=== PATIENT | female | born 1955 | race Caucasian/White ===

== ENCOUNTER 2016-11-16 09:33 | Observation (INO) | payer OTHER ==
[2016-10-11 09:32] VITALS: BMI 43.0
--- NOTE | 2016-10-11 10:15 | PAT Medication Instructions ---
Service Date Oct 11, 2016. Current Home Medication List Albuterol (Ventolin), 2 PUFF INH Q4H PRN for Shortness of Breath Albuterol Soln (Proventil 0.083% 2.5MG/3ML), 2.5 MG INH Q4H PRN for Shortness of Breath Bupropion HCl (Bupropion HCl Sr), 150 MG PO BID Cyanocobalamin (Vitamin B12), 2,000 MCG PO QAM Fluticasone Propionate (Flonase Nasal [place]), 2 SPRAYS DEISI DAILY PRN for PRN Gabapentin (Gabapentin), 400 MG PO TID Hydroxyzine Hcl (Atarax), 50 MG PO Q6H PRN for Itching Ipratropium [place] (Atrovent 0.02% Soln), 2.5 ML INH Q6 PRN for Wheezing Metformin Hcl (Glucophage), 1,000 MG PO AMHS Multivitamin (Multivitamin), 1 TAB PO QAM Oxygen (Oxygen), 2 LITERS NA HS Prednisone (Deltasone), 20 MG PO UD PRN for COPD RESCUE KIT Ranitidine Hcl (Zantac), 300 MG PO BID Tiotropium [place] (Spiriva Handihaler), 1 CAP INH QAM Tramadol (Ultram), 50-100 MG PO Q6H PRN for Pain Medication Instructions For Your Scheduled Surgery - Continue as directed if needed: Prednisone (Deltasone), 20 MG PO UD PRN for COPD RESCUE KIT Unknown antibiotic PRN for COPD RESCUE KIT - Hold the following medications 48 hours prior to surgery: Metformin Hcl (Glucophage), 1,000 MG PO AMHS - Hold the following medications the morning of surgery: Multivitamin (Multivitamin), 1 TAB PO QAM Ranitidine Hcl (Zantac), 300 MG PO BID Cyanocobalamin (Vitamin B12), 2,000 MCG PO QAM - Take the following medications the morning of surgery with a sip of water: Tiotropium [place] (Spiriva Handihaler), 1 CAP INH QAM Ipratropium [place] (Atrovent 0.02% Soln), 2.5 ML INH Q6 PRN for Wheezing Hydroxyzine Hcl (Atarax), 50 MG PO Q6H PRN for Itching Gabapentin (Gabapentin), 400 MG PO TID Fluticasone Propionate (Flonase Nasal [place]), 2 SPRAYS DEISI DAILY PRN for PRN Bupropion HCl (Bupropion HCl Sr), 150 MG PO BID Albuterol (Ventolin), 2 PUFF INH Q4H PRN for Shortness of Breath (bring with you to hospital morning of surgery) Albuterol Soln (Proventil 0.083% 2.5MG/3ML), 2.5 MG INH Q4H PRN for Shortness of Breath Tramadol (Ultram), 50-100 MG PO Q6H PRN for Pain (okay to take up to 4 hours prior to surgery if needed) - Take the following medications as scheduled the night before surgery: Oxygen (Oxygen), 2 LITERS NA HS Ipratropium [place] (Atrovent 0.02% Soln), 2.5 ML INH Q6 PRN for Wheezing Hydroxyzine Hcl (Atarax), 50 MG PO Q6H PRN for Itching Gabapentin (Gabapentin), 400 MG PO TID Fluticasone Propionate (Flonase Nasal [place]), 2 SPRAYS DEISI DAILY PRN for PRN Bupropion HCl (Bupropion HCl Sr), 150 MG PO BID Albuterol (Ventolin), 2 PUFF INH Q4H PRN for Shortness of Breath Albuterol Soln (Proventil 0.083% 2.5MG/3ML), 2.5 MG INH Q4H PRN for Shortness of Breath Tramadol (Ultram), 50-100 MG PO Q6H PRN for Pain If you have any questions please call us at [phone] (Elvira Villalpando PA-C) or [phone] or [phone]
--- NOTE | 2016-10-11 10:42 | DIAGNOSTIC IMAGING REPORT ---
CHEST PREADMISSION(PA/LAT) CLINICAL HISTORY: Preoperative chest COMPARISON STUDY: 05/15/2015 FINDINGS: The cardiac and mediastinal contours are normal. There is no evidence of focal pulmonary consolidation. There is no evidence of failure. No pleural effusions are visualized.[ IMPRESSION: No active disease in the chest. Electronically signed by: Maximiliano Solano M.D. 10/11/2016 10:39 AM Dictated Date/Time: 10/11/2016 10:38 AM
[2016-10-11 10:48] LABS: BASO % 0.2 %; BASO ABS # 0.01 K/uL (0-0.2); COMPLETE YES; EOS % 1.5 %; HEMATOCRIT 44.7 % (37-47); IG% 0.2 %; LYMPH % 29.4 %; LYMPH ABS # 1.58 K/uL (1.2-3.4); MEAN CELL VOLUME 87.8 fL (80-100); MEAN CORPUSCULAR HEMOGLOBIN 28.5 pg (25-34); MEAN CORPUSCULAR HGB CONC 32.4 g/dl (32-36); MEAN PLATELET VOLUME 10.5 fL (7.4-10.4); MONO % 8.7 %; PLATELET COUNT 176 K/uL (130-400); RED BLOOD COUNT 5.09 M/uL (4.2-5.4); WHITE BLOOD COUNT 5.38 K/uL (4.8-10.8)
[2016-10-11 10:56] LABS: URINE APPEARANCE CLEAR (CLEAR); URINE BILIRUBIN NEG (NEG); URINE COLOR YELLOW; URINE EPITHELIAL CELL AUTO >30 /lpf (0-5); URINE NITRITE NEG (NEG); URINE PH 6.5 (4.5-7.5); UROBILINOGEN NEG (NEG)
[2016-10-11 11:01] LABS: MANUAL MICROSCOPIC REQUIRED? NO; REVIEW REQ? NO
[2016-10-11 11:02] LABS: BUN/CREATININE RATIO 19.1 (10-20); CALCIUM 9.1 mg/dl (8.5-10.1); CREATININE 0.93 mg/dl (0.60-1.20); POTASSIUM 4.4 mmol/L (3.5-5.1)
[2016-10-11 11:05] LABS: INR 0.9 (0.9-1.1); PARTIAL THROMBOPLASTIN RATIO 1.1; PROTHROMBIN TIME (PATIENT) 10.1 SECONDS (9.0-12.0)
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
[~2016-11-16] VITALS: Ht 167.6 cm; Wt 122.3 kg
[2016-11-16] VITALS (7 sets, daily range): BP systolic 132–162; BP diastolic 72–97; PULSE 84–98; TEMP 36.5–37.1; O2SAT 92–96; Ht 167.6 cm; Wt 122.3 kg
[~2016-11-16 09:33] MED LIST: ALBU0.08 INH; ALBUAER2 INH; ANCEF~ALLERGY NOTED TO ORDERED MEDICATION SCH; ATRINSX INH; BUPIVACAINE 0.5 % 5 MG/1 ML PF 10ML VIAL ONE; CEFAZOLIN 3000 MG/65 ML D5W IV SCH; CYAN100020 PO; FLNIN NAE; HYDR-3124 PO; LACTATED RINGER'S 1000ML 1,000 ML IV SCH; METF-384 PO; MULT-506 PO; NRN100 PO; OXGN; PRED-603 PO; RANI300T2 PO; SPRIN/30 INH; TRAM-10 PO; WLLSR150 PO
[2016-11-16] MEDS ORDERED: CITA10TA8 PO (10:29)
[2016-11-16] MEDS ORDERED: ATOR10TA82 PO (10:29)
[2016-11-16] MEDS ORDERED: PROPOFOL IV EMULSION 10 MG/ML 20 ML VIAL IV ONE (10:41)
[2016-11-16] MEDS ORDERED: ONDANSETRON INJ 2 MG/ML 2 ML VIAL ONE (10:41)
[2016-11-16] MEDS ORDERED: GLYCOPYRROLATE INJ 0.2 MG/ML VIAL ONE (10:41)
[2016-11-16] MEDS ORDERED: ROCURONIUM BROMIDE 10 MG/ML 5 ML VIAL ONE (10:41)
[2016-11-16] MEDS ORDERED: DEXAMETHASONE SOD INJ 4 MG/ML VIAL ONE (10:41)
[2016-11-16] MEDS ORDERED: FENTANYL CITRATE INJ 50 MCG/1 ML 2 ML VIAL ONE ×3 (10:41→15:29)
[2016-11-16] MEDS ORDERED: NEOSTIGMINE METHYLSULFATE 5 MG/5 ML SYR ONE ×2 (10:41→14:48)
[2016-11-16] MEDS ORDERED: MIDAZOLAM HCL 1 MG/ML 2ML VIAL ONE (10:41)
[2016-11-16] MEDS ORDERED: LIDOCAINE HCL 2% 2 ML VIAL (20MG/ML) ONE (10:41)
[2016-11-16] MEDS ORDERED: GELATIN SPONGE SZ 100 ONE (11:06)
[2016-11-16] MEDS ORDERED: THROMBIN FOR SOLN 20000 UNIT KIT ONE (11:06)
[2016-11-16] MEDS ORDERED: BUPIVACAINE 0.5 % 5 MG/1 ML MPF 30ML VIAL ONE (11:09)
[2016-11-16] MEDS ORDERED: BACITRACIN 50000 UNIT VIAL ONE (11:10)
[2016-11-16] MEDS ORDERED: PHENYLEPHRINE 100MCG/ML 5ML SYR ONE (11:27)
[2016-11-16] MEDS ORDERED: EpHEDrine SULFATE 50MG/5ML SYR ONE (11:27)
[2016-11-16] MEDS ORDERED: CLINDAMYCIN 600 MG/54 ML D5W IV ONE (11:28)
[2016-11-16] MEDS ORDERED: NURSING VERBAL MED ORDER ONE (11:30)
[2016-11-16] MEDS ORDERED: HYDROmorphone INJ 2 MG/ML SYR/VIAL IV PRN (11:30)
[2016-11-16] MEDS ORDERED: ONDANSETRON INJ 2 MG/ML 2 ML VIAL IV PRN ×2 (11:30→14:15)
[2016-11-16] MEDS ORDERED: ATROPINE SULFATE 0.1 MG/ML 5ML SYR IV PRN (11:30)
[2016-11-16] MEDS ORDERED: KETOROLAC TROMETHAMINE 30 MG/ML VIAL IV. PRN (11:30)
[2016-11-16] MEDS ORDERED: LABETALOL HCL IV 5 MG/ML 20ML IV PRN (11:30)
--- NOTE | 2016-11-16 11:34 | History & Physical Bridge Note ---
H&P Re-Evaluation Bridge Note: I have examined the patient, reviewed the History & Physical and in the interval since the performance of the History & Physical I have noted the following changes of clinical significance: No changes noted
[2016-11-16] MEDS ORDERED: THROMBIN 5000 UNITS KIT ONE (13:08)
[2016-11-16] MEDS ORDERED: CALCIUM CHLORIDE 10% 10 ML SYR ONE (13:11)
[2016-11-16] MEDS ORDERED: NO NSAIDS SCH (14:15)
[2016-11-16] MEDS ORDERED: SOD PHOSPHATE/SOD BIPHOSPHATE ENEMA 132 ML BTL PR PRN (14:15)
[2016-11-16] MEDS ORDERED: MAGNESIUM HYDROXIDE SUSP 30 ML UDC PO PRN (14:15)
[2016-11-16] MEDS ORDERED: ALBUTEROL HFA 8 GM INHALER INH PRN (14:15)
[2016-11-16] MEDS ORDERED: CEFAZOLIN IV 2,000 MG in DEXTROSE 5% 50ML 50 ML IV SCH (14:15)
[2016-11-16] MEDS ORDERED: IPRATROPIUM BROMIDE NEB SOLN 0.02% 2.5 ML VIAL INH PRN (14:15)
[2016-11-16] MEDS ORDERED: ALUMINUM/MAGNESIUM/SIMETH (MAALOX MAX) 30 ML UDC PO PRN (14:15)
[2016-11-16] MEDS ORDERED: OXYCODONE HCL IR 5 MG TAB (IMMEDIATE RELEASE) PO PRN (14:15)
[2016-11-16] MEDS ORDERED: MoRPHine SULFATE 2 MG/ML CARP IV PRN (14:15)
[2016-11-16] MEDS ORDERED: BISACODYL 10 MG SUPP PR PRN (14:15)
[2016-11-16] MEDS ORDERED: ZOLPIDEM TARTRATE 5 MG TAB PO PRN (14:15)
[2016-11-16] MEDS ORDERED: hydrOXYzine HCL 25 MG TAB PO PRN (14:15)
[2016-11-16] MEDS ORDERED: FLUTICASONE PROPIONATE NA SPR 16 GM BTL NAE PRN (14:15)
[2016-11-16] MEDS ORDERED: ALBUTEROL 0.083% NEBU SOLN 3 ML VIAL INH PRN (14:15)
--- NOTE | 2016-11-16 14:26 | Discharge Instructions ---
Discharge Instructions Date of Service November 16, 2016. Admission Reason for Admission: Other Specified Postprocedural Right Ankle Primary Discharge Discharge Diagnosis / Problem: Nonunion right subtalar arthrodesis Discharge Goals Goal(s): Decrease discomfort, Improve function Activity Recommendations Activity Limitations: per Instructions/Follow-up section Weightbearing Status: Right non-weightbearing . Instructions / Follow-Up Instructions / Follow-Up ACTIVITY RECOMMENDATIONS: Limitations: No weight bearing to affected limb at all times. SPECIAL CARE INSTRUCTIONS: * Take Aspirin 81 mg by mouth every 12 hours for 30 days after surgery. * Some drainage onto the dressing is normal and is no cause for alarm. * Some swelling is natural especially after walking. * When resting, keep your foot elevated above the level of your heart. * Call [facility] if you notice: -Increased drainage -Fever over 101 degrees F -Severe constant pain BANDAGE: * Leave bandage/cast in place unless otherwise directed. * Keep bandage/cast dry at all times. FOLLOW UP VISIT WITH DR. LEIGH If appointment is not already scheduled: Please call [facility] after you get home today to schedule a follow-up appointment for [address] Leigh at . Current Hospital Diet Patient's current hospital diet: Diabetes Type 2 Diet Discharge Diet Recommended Diet: Diabetes Type 2 Diet Pending Studies Studies pending at discharge: no Medical Emergencies . Who to Call and When: Medical Emergencies: If at any time you feel your situation is an emergency, please call 911 immediately. . Non-Emergent Contact Non-Emergency issues call your: Surgeon Call Non-Emergent contact if: temperature is above 101, your pain is not controlled . "Provider Documentation" section prepared by Vlad Bland. . VTE Core Measure Inpt VTE Proph given/why not?: Татьяна Arvizu, SCD's
[2016-11-16] MEDS ORDERED: IV FLUIDS COMPLETED PRN (14:30)
--- NOTE | 2016-11-16 14:58 | DIAGNOSTIC IMAGING REPORT ---
INTRAOPERATIVE RADIOGRAPHS CLINICAL HISTORY: Hardware removal/revision. Fluoroscopy time: 43 seconds. FINDINGS: 2 spot fluoroscopic views of the right ankle are presented. 2 cortical lag screws transfix the fused talocalcaneal joint. The orthopedic hardware appears intact. Soft tissue edema is seen around the hindfoot. IMPRESSION: Intraoperative images of the right ankle as above. See operative report for detailed findings. Electronically signed by: Chandler Hernandez M.D. 11/16/2016 2:57 PM Dictated Date/Time: 11/16/2016 2:55 PM
--- NOTE | 2016-11-16 15:25 | [facility] Post Operative Brief Note ---
Immediate Operative Summary Operative Date November 16, 2016. Pre-Operative Diagnosis Nonunion of right subtalar arthrodesis; Retained hardware; tobacco abuse; morbid obesity. Post-Operative Diagnosis Nonunion of right subtalar arthrodesis; Retained hardware; tobacco abuse; morbid obesity. Procedure(s) Performed Right Revision Subtalar Fusion; Removal of Hardware; Application Vivigen bone graft substitute; PRP application Surgeon Dr. Dawna Mejia Business Communications Instructor Surgeon(s) Francis Sloan PA-C Estimated Blood Loss 10mL Findings See Dict Specimens A: Removed hardware from right ankle Drains None Anesthesia GLMA w/ popliteal block Complication(s) None Disposition Recovery Room / PACU
--- NOTE | 2016-11-16 15:43 | DIAGNOSTIC IMAGING REPORT ---
RIGHT ANKLE MIN 3 VIEWS ROUTINE CLINICAL HISTORY: post op Right COMPARISON: None. DISCUSSION: Evidence for an ankle fusion-type procedure. Final screws are seen traversing the calcaneus and talus. Alignment is anatomic. Ankle mortise appears to be aligned anatomically. Expected soft tissue postoperative change. IMPRESSION: Findings consistent with operative fusion of the talus and calcaneus. Electronically signed by: Emre Melendrez M.D. 11/16/2016 3:42 PM Dictated Date/Time: 11/16/2016 3:41 PM
--- NOTE | 2016-11-16 15:52 | Anesthesiology Progress Note ---
Anesthesia Post Op Note Date & Time November 16, 2016 at 15:52 Vital Signs Pain Intensity: 0 Vital Signs Past 12 Hours Date Time Temp Pulse Resp B/P Pulse Ox O2 Delivery O2 Flow Rate FiO2 11/16/16 15:45 88 24 160/82 93 Nasal Cannula 4 11/16/16 15:35 90 24 155/82 94 Mask 10 11/16/16 15:25 89 24 165/79 94 Mask 10 11/16/16 15:19 37 90 24 165/87 96 Mask 10 11/16/16 10:29 36.5 87 18 160/97 93 Room Air Notes Mental Status: alert / awake / arousable, participated in evaluation Pt Amnestic to Procedure: Yes Nausea / Vomiting: adequately controlled Pain: adequately controlled Airway Patency, RR, SpO2: stable & adequate BP & HR: stable & adequate Hydration State: stable & adequate Anesthetic Complications: no major complications apparent
[2016-11-16] MEDS ORDERED: DEXTROSE 50% 50 ML SYR IV PRN (17:15)
[2016-11-16] MEDS ORDERED: GLUCAGON FOR INJ 1 MG VIAL SQ PRN (17:15)
[2016-11-16] MEDS ORDERED: GLUCOSE 10 TABS/TUBE PO PRN (17:15)
[2016-11-16] MEDS ORDERED: GLUCOSE 40% GEL 15 GM TUBE PO PRN (17:15)
[2016-11-16] MEDS ORDERED: POTASSIUM CHLORIDE INJ 10 MEQ in SODIUM CHLORIDE 0.9% 1000ML 1,000 ML IV SCH (17:15)
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
[2016-11-16] MEDS ORDERED: PHARMACY GLYCEMIC MGMT CONSULT PRN (18:18)
[2016-11-16] MEDS: INSULIN ASPART 100 UNITS/ML 3 ML PEN SC SCH ×2 (18:27→21:26)
[2016-11-16] MEDS: CLINDAMYCIN IV 600 MG in DEXTROSE 5% ADD-VANTAGE 50ML 50 ML IV SCH (19:59)
[2016-11-16] MEDS ORDERED: SENNA 8.6 MG TAB PO SCH (21:00)
[2016-11-16] MEDS ORDERED: METFORMIN HCL 500 MG TAB PO SCH (21:00)
[2016-11-16] MEDS: BuPROPion SR 150 MG TABCR PO SCH (21:18)
[2016-11-16] MEDS: ACETAMINOPHEN 500 MG TAB PO SCH (21:19)
[2016-11-16] MEDS: ASPIRIN 81 MG ECTAB PO SCH (21:19)
[2016-11-16] MEDS: DOCUSATE SODIUM 100 MG CAP PO SCH (21:19)
[2016-11-16] MEDS: RANITIDINE HCL 150 MG TAB PO SCH (21:20)
--- NOTE | 2016-11-16 21:27 | Pharmacy Progress Note ---
Glycemic: Assessment & Plan Date of Service November 16, 2016. Assessment & Plan Item Value Date Time Bedside Glucose 157 mg/dl H 11/16/16 2053 Bedside Glucose 134 mg/dl H 11/16/16 1713 Bedside Glucose 162 mg/dl H 11/16/16 1543 Bedside Glucose 124 mg/dl H 11/16/16 1011 Random Glucose 114 mg/dl H 10/11/16 1021 Reported Home Diabetes Regimen: * metformin 1gram po BID In-Patient Regimen * Basal insulin: not ordered at this time * Correctional Insulin: Novolog Correction per scale ACHS Goal Range: Low 100 mg/dL - High 140 mg/dL Correction Factor: 25 mg/dL/unit ordered at dinner, was loosened to 35 mg/dL/unit going into bedtime * Prandial insulin: Per carb ratio of 1 unit per 12 grams CHO consumed, then was loosened to carb ratio of 1 unit per 15 grams CHO consumed going into bedtime. Pharmacy will continue to monitor patient daily and write orders per [facility] inpatient glycemic control protocol. Thanks. * Please note that the plan above was derived based on current level of insulin resistance and hospital stress. These recommendations are appropriate for inpatient admission only. Plan of care upon discharge will need to be reassessed to avoid potential outpatient hypo/hyperglycemia.
--- NOTE | 2016-11-16 22:45 | OPERATIVE REPORT ---
DATE OF OPERATION: 11/16/2016 PREOPERATIVE DIAGNOSES: 1. Right nonunion subtalar fusion. 2. Retained hardware. 3. Morbid obesity. 4. Tobacco abuse. POSTOPERATIVE DIAGNOSIS: Same. PROCEDURE: 1. Right revision subtalar joint fusion. 2. Removal of hardware. 3. Application platelet rich plasma concentrate. 4. Application of ViviGen bone graft substitute. SURGEON: Dr. Mejia. HAT CONE INSPECTOR: Dustin Sloan PA-C who was present for patient positioning, sterile prep and drape, management of retractors and instruments. He was present through the critical portions of the case including wound closure, application of sterile dressing and transport of the patient to recovery. ANESTHESIA: General LMA with popliteal block. SPECIMENS: None. DRAINS: None. COMPLICATIONS: None. BLOOD LOSS: 10 mL. PERTINENT HISTORY: This is a 61-year-old female who had initially sustained a talus fracture, underwent ORIF of the talus fracture, subsequently had arthroscopy of the ankle and removal of bone spurs and hardware and then underwent a subtalar fusion which then resulted in a nonunion. After CT scan confirmed nonunion, the patient was then scheduled for revision subtalar fusion. The patient continues to smoke throughout the time of her postoperative and perioperative period despite previous warning and the patient has now agreed to smoking cessation. The patient is scheduled for surgery as indicated. All potential risks, benefits, complications, alternatives, rehab, potential for incomplete relief of symptoms, need for further surgery, DVT, PE, , persistent pain, swelling, scarring, weakness, neurovascular injury, wound complications, hardware failure, nonunion, malunion were discussed with the patient. The patient decided to proceed with the procedure as indicated. DESCRIPTION OF PROCEDURE: After popliteal block was administered, the patient was taken to the operative suite and placed supine on the operating room table. I reviewed the consent and identification of proper operative site, the patient was anesthetized, LMA was placed. Tourniquet was placed high on the right thigh over cast padding and right lower extremity was then sterilely prepped and draped in usual fashion. The patient was unable to undergo a pelvic bone graft harvest procedure due to her morbid obesity and a large pannus, which was noted to overhang the iliac crest both right and left sides. Therefore, bone graft substitute was elected to be used in this difficult revision fusion case. Right lower extremity was then sterilely prepped and draped in usual fashion, elevated, and exsanguinated with an Esmarch bandage, tourniquet inflated to 325 mmHg. Next, a 15 blade scalpel incision was made in the posterior aspect of the right calcaneus, at the site of previous incision. The rongeur was used to debride overgrown bone and tissue over the screw head and the screw was then removed. The hole was then curetted with a small curette and irrigated until clear. Next, a 15 blade scalpel was used to make an incision along the lateral aspect of the hindfoot the site of previous incision. The incision was then deepened through the scarred subcutaneous tissue. Full thickness skin flaps were developed, care was taken to retract and protect soft tissues. Next, the extensor digitorum brevis was identified, this was then carefully incised with #15 blade scalpel. Next, bone graft placed in the sinus tarsi from previous procedure was then removed with a rongeur. The subtalar fusion appeared solid without any micromotion. Next, a 15 blade scalpel was then placed in the subtalar joint was noted to be open without any evidence of biological collectively during fusion. The hardware appeared stable and intact, but there was no evidence of bridging bone across the fusion site. Next, a freer elevator was then used to further open the subtalar fusion site followed by use of a alonzo elevator and finally by osteotome and mallet. Next, after the subtalar joint was then opened, the consistency of the bone was noted to be slightly chalky with no biological activity of bone healing. Next, the curet was then used to curettage the surfaces of the calcaneus and the inferior aspect of the talus. The wound was then copiously irrigated with sterile normal saline until clear. Venous blood was harvested from the patient's left upper extremity and then spun down for platelet rich plasma concentrate by the company operations support representative. Next, the 2 mm drill was then used to make multiple drill holes in the subtalar joint, both in the talus and the calcaneus. Next, a 6 mm osteotome and mallet were used to fish scale the subtalar joint. Next, the joint surfaces were then covered with ViviGen bone graft substitute with a combination of bone morphogenic protein and mesenchymal stem cells. Next, the dermis was approximated and then two 7.3 mm Synthes conical screws were used to stabilize and compress the subtalar joint oriented from the tuberosity of the heel into the body of the talus and the second screw was directed into the neck and head of the talus. This was performed under live fluoroscopic assistance. Once this completed, platelet rich plasma concentrate was then injected into the subtalar joint and also in the soft tissues laterally. This was then followed by closure of the extensor digitorum brevis with 2-0 Vicryl. Next, platelet rich plasma concentrated then injected in the subcuticular tissue and then a subcuticular buried 3-0 Vicryl suture closure was performed over the lateral side of the hindfoot followed by closure of skin and 4-0 nylon. Platelet poor plasma was injected around the skin incision site, the plantar incision was then closed using skin rahul. Final x-rays obtained and then a sterile compressive dressing and bulky Yuri Hawley plaster splint was applied overwrapped with Deejay wrap. The foot was held in neutral dorsiflexion. The tourniquet was released. The patient was awakened and taken to recovery in stable condition. I attest to the content of the Intraoperative Record and any orders documented therein. Any exceptio ns are noted below.
[2016-11-17 03:11] VITALS: BP 91/53; PULSE 90; TEMP 36.5; O2SAT 93
[2016-11-17 03:18] VITALS: BP 128/83
[2016-11-17] MEDS: CLINDAMYCIN IV 600 MG in DEXTROSE 5% ADD-VANTAGE 50ML 50 ML IV SCH (04:30)
[2016-11-17] MEDS: ACETAMINOPHEN 500 MG TAB PO SCH (05:39)
[2016-11-17 05:56] LABS: HEMATOCRIT 40.7 % (37-47); MEAN CELL VOLUME 89.3 fL (80-100); MEAN CORPUSCULAR HEMOGLOBIN 28.9 pg (25-34); MEAN CORPUSCULAR HGB CONC 32.4 g/dl (32-36); MEAN PLATELET VOLUME 11.4 fL (7.4-10.4); PLATELET COUNT 157 K/uL (130-400); RED BLOOD COUNT 4.56 M/uL (4.2-5.4); WHITE BLOOD COUNT 8.81 K/uL (4.8-10.8)
[2016-11-17 06:30] LABS: BUN/CREATININE RATIO 18.8 (10-20); CALCIUM 8.3 mg/dl (8.5-10.1); CREATININE 0.81 mg/dl (0.60-1.20); POTASSIUM 4.3 mmol/L (3.5-5.1)
[2016-11-17] MEDS: BuPROPion SR 150 MG TABCR PO SCH (07:20)
[2016-11-17] MEDS: DOCUSATE SODIUM 100 MG CAP PO SCH (07:20)
[2016-11-17] MEDS: ASPIRIN 81 MG ECTAB PO SCH (07:20)
[2016-11-17] MEDS: RANITIDINE HCL 150 MG TAB PO SCH (07:21)
--- NOTE | 2016-11-17 07:21 | Orthopedic Progress Note ---
Orthopedic Progress Note Date of Service November 17, 2016. Subjective Post OP Day: 1 Reports: feeling well, pain controlled w PO medications (Right foot is still numb from the block.), Denies: SOB, chest pain, complaints Objective calves soft nontender, N/V intact, splint C/D/I (Dressing was re-inforced at the heel.), capillary refill less than 2 sec., A&O x3 Block still seems to be working. Patient is unable to wiggle toes at this time. Cap refill is immediate RLE. Date Time Temp Pulse Resp B/P Pulse Ox O2 Delivery O2 Flow Rate FiO2 11/17/16 03:18 128/83 11/17/16 03:11 36.5 90 18 91/53 93 Room Air 11/17/16 00:30 Nasal Cannula 2.0 11/16/16 23:18 36.6 98 18 132/72 94 Nasal Cannula 2.0 11/16/16 19:40 37.1 94 18 143/84 92 Nasal Cannula 4.0 11/16/16 18:35 36.9 97 18 148/81 96 Nasal Cannula 4.0 11/16/16 17:30 36.7 88 16 162/90 94 Nasal Cannula 4.0 11/16/16 17:00 36.9 89 18 152/84 94 Nasal Cannula 4.0 11/16/16 16:30 94 Nasal Cannula 4.0 11/16/16 16:30 36.9 84 16 158/89 94 Nasal Cannula 4.0 11/16/16 16:30 94 Nasal Cannula 4.0 11/16/16 16:15 36.2 86 22 164/89 95 Nasal Cannula 4 11/16/16 16:05 36.2 88 22 153/95 92 Nasal Cannula 4 11/16/16 15:55 36.2 89 22 161/89 93 Nasal Cannula 4 11/16/16 15:45 88 24 160/82 93 Nasal Cannula 4 11/16/16 15:35 90 24 155/82 94 Mask 10 11/16/16 15:25 89 24 165/79 94 Mask 10 11/16/16 15:19 37 90 24 165/87 96 Mask 10 11/16/16 10:29 36.5 87 18 160/97 93 Room Air Laboratory Results 24 Hours: Test 11/17/16 05:25 Hematocrit 40.7 % Hemoglobin 13.2 g/dL Assessment & Plan Assessment: POD #1 s/p 1. Right revision subtalar joint fusion. 2. Removal of hardware. 3. Application platelet rich plasma concentrate. 4. Application of ViviGen bone graft substitute Plan: NWB RLE at all times. Pain control. Plan for d/c home today after PT. Inhouse Planning Pain Management: Morphine, Oxy IR DVT Prophylaxis: Lovenox Discharge Planning Discharge Planning: home Pain Management: Percocet DVT Prophylaxis: Lovenox (for 14 days then will change to ASA until WB.)
[2016-11-17] MEDS ORDERED: LVNIS40 SQ (07:23)
[2016-11-17] MEDS ORDERED: ASPEC81 PO (07:23)
[2016-11-17] MEDS ORDERED: OXYC-57 PO (07:23)
[2016-11-17 07:58] VITALS: BP 124/80; PULSE 84; TEMP 36.7; O2SAT 96
[2016-11-17] MEDS ORDERED: CYANOCOBALAMIN 500 MCG TAB (VIT B-12) PO SCH (09:00)
[2016-11-17] MEDS ORDERED: MULTIVITAMIN TAB PO SCH ×2 (09:00)
[2016-11-17] MEDS ORDERED: PANTOprazole SOD 40 MG TAB PO SCH (09:00)
[2016-11-17] MEDS ORDERED: ENOXAPARIN 40 MG/0.4 ML SYR SQ SCH (09:00)
[2016-11-17] MEDS: INSULIN ASPART 100 UNITS/ML 3 ML PEN SC SCH ×2 (09:00→12:00)
[2016-11-17] MEDS ORDERED: ATORVASTATIN 10 MG TAB PO SCH (09:00)
[2016-11-17] MEDS ORDERED: TIOTROPIUM BROMIDE 5 PUFF/90 MCG INH INH SCH (09:00)
[2016-11-17] MEDS ORDERED: CITALOPRAM 20 MG TAB PO SCH (09:00)
[2016-11-17 10:21] VITALS: BP 128/68; PULSE 75; O2SAT 96
[2016-11-17 11:50] VITALS: BP 128/68; PULSE 75; TEMP 36.7; O2SAT 96
[2016-11-17 12:15] VITALS: BP 136/71; PULSE 88; TEMP 36.8; O2SAT 94
[2016-11-17] MEDS ORDERED: METFORMIN HCL 500 MG TAB PO SCH (17:45)
[2016-11-18] MEDS ORDERED: METFORMIN HCL 500 MG TAB PO SCH (09:00)
--- NOTE | 2016-11-20 13:49 | Discharge Summary ---
Orthopedic Discharge Summary Admission Date/Reason November 16, 2016 at 11:32 Other Specified Postprocedural Right Ankle Primary. Discharge Date/Disposition November 17, 2016 Home Diagnosis Principal Diagnosis: Right subtalar joint nonunion fusion Procedure(s) Performed 1. Right revision subtalar joint fusion. 2. Removal of hardware. 3. Application platelet rich plasma concentrate. 4. Application of ViviGen bone graft substitute Consultations Medicine Medication Reconciliation New Medications: Oxycodone/Acetaminophen 5MG/325MG (Percocet 5MG/325MG) Tab 1-2 TABLETS PO Q4H PRN for Pain, #60 TAB Aspirin (Aspirin EC Low Dose) 81 Mg Ectab 81 MG PO Q12 for 30 Days Start Aspirin the day after the Lovenox prescription has been completed. Enoxaparin (Enoxaparin Sodium) 40 Mg/0.4 Ml Inj 40 MG SQ QAM for 14 Days Continued Medications: Albuterol (Ventolin) Inh 2 PUFF INH Q4H PRN for Shortness of Breath Albuterol Soln (Proventil 0.083% 2.5MG/3ML) Nebu 2.5 MG INH Q4H PRN for Shortness of Breath, EA Atorvastatin (Lipitor) 10 Mg Tab 10 MG PO DAILY, TAB Bupropion HCl (Bupropion HCl Sr) 150 Mg Tabcr 150 MG PO BID, #180 Citalopram Hydrobromide (Celexa) 10 Mg Tab 10 MG PO DAILY, TAB Cyanocobalamin (Vitamin B12) 1,000 Mcg Tab 2000 MCG PO QAM Fluticasone Propionate (Flonase Nasal [place]) 120 Sprays/6000 Mcg Inha 2 SPRAYS DEISI DAILY PRN for PRN, BTL Hydroxyzine Hcl (Atarax) 25 Mg Tab 50 MG PO Q6H PRN for Itching, TAB Ipratropium [place] (Atrovent 0.02% Soln) 2.5 Ml Nebu 2.5 ML INH Q6 PRN for Wheezing Metformin Hcl (Glucophage) 1,000 Mg Tab 1000 MG PO AMHS, TAB Multivitamin (Multivitamin) Tab 1 TAB PO QAM, TAB Oxygen (Oxygen) Gas 2 LITERS NA HS Prednisone (Deltasone) 20 Mg Tab 20 MG PO UD PRN for COPD RESCUE KIT, #30 Ranitidine Hcl (Zantac) 300 Mg Tab 300 MG PO BID, TAB Tiotropium [place] (Spiriva Handihaler) 30 Puff/540 Mcg Aerp 1 CAP INH QAM, INHALER Discontinued Medications: Tramadol (Ultram) 50 Mg Tab 50-100 MG PO Q6H PRN for Pain, TAB Admission Physical Exam As per Admitting History & Physical. Hospital Course Patient underwent the above procedure on 11.16.16. She was kept overnight to ensure pain control. On POD #1, she was doing well and she maintained NWB on the RLE. She was discharged home later that day. Discharge Instructions Please refer to the electronic Patient Visit Report (Discharge Instructions) for additional information. ACTIVITY RECOMMENDATIONS: Limitations: No weight bearing to affected limb at all times. SPECIAL CARE INSTRUCTIONS: * Take Aspirin 81 mg by mouth every 12 hours for 30 days. * Some drainage onto the dressing is normal and is no cause for alarm. * Some swelling is natural especially after walking. * When resting, keep your foot elevated above the level of your heart. * Call [facility] if you notice: -Increased drainage -Fever over 101 degrees F -Severe constant pain BANDAGE: * Leave bandage/cast in place unless otherwise directed. * Keep bandage/cast dry at all times. FOLLOW UP VISIT WITH DR. LEIGH If appointment is not already scheduled: Please call [facility] after you get home today to schedule a follow-up appointment for [address] Leigh at .
[2017-03-02] MEDS ORDERED: PLMINS INH (10:39)
[2017-03-02] MEDS ORDERED: PRD20 PO (10:39)
[2017-03-02] MEDS ORDERED: DXY100 PO (10:43)
[2017-05-25] MEDS ORDERED: VNTHFA/IN INH (14:20)
[2017-05-25] MEDS ORDERED: PRD10 PO ×2 (14:20→14:37)
[2017-05-25] MEDS ORDERED: SPRIN/30 INH (14:20)
[2017-05-25] MEDS ORDERED: LPR25 PO (14:20)
[2017-05-25] MEDS ORDERED: ADVIN25050 INH (14:20)
[2017-05-25] MEDS ORDERED: RANI300T2 PO (14:20)
[2017-05-25] MEDS ORDERED: XPNINS1255 INH (14:20)
[2017-05-25] MEDS ORDERED: METF500T PO (14:20)
== END 2016-11-17 13:51 | disposition home or self-care (01) ==
LOC: ENRESERVTM → ENRESERVDT → C.ACU 09:33 → C.MSW 11:32
PROVIDERS: ADMIT Orthopaedic Surgery Sports Medicine; ATTEND Orthopaedic Surgery Sports Medicine
DX: M96.0 Pseudarthrosis after fusion or arthrodesis (principal); J44.9 Chronic obstructive pulmonary disease, unspecified; E11.9 Type 2 diabetes mellitus without complications; G47.30 Sleep apnea, unspecified; K21.9 Gastro-esophageal reflux disease without esophagitis; E03.9 Hypothyroidism, unspecified; I10 Essential (primary) hypertension; E66.01 Morbid (severe) obesity due to excess calories; F17.200 Nicotine dependence, unspecified, uncomplicated; F32.9 Major depressive disorder, single episode, unspecified; Z90.49 Acquired absence of other specified parts of digestive tract; Z90.710 Acquired absence of both cervix and uterus; Z96.649 Presence of unspecified artificial hip joint; Z68.41 Body mass index [BMI] 40.0-44.9, adult
CPT/HCPCS: 0232T; 20680; 20900; 28725

== ENCOUNTER 2017-02-25 00:28 | Inpatient (IN) | payer OTHER ==
[2017-02-25] VITALS (11 sets, daily range): BP systolic 130–167; BP diastolic 54–91; PULSE 69–109; TEMP 36.4–36.9; O2SAT 90–98; Ht 167.6 cm; Wt 119.9 kg
[~2017-02-25] VITALS: Ht 167.6 cm; Wt 119.9 kg
[~2017-02-25 00:28] MED LIST changes: -ANCEF~ALLERGY NOTED TO ORDERED MEDICATION SCH; +ASPEC81 PO; +ATOR10TA88 PO; -BUPIVACAINE 0.5 % 5 MG/1 ML PF 10ML VIAL ONE; -CEFAZOLIN 3000 MG/65 ML D5W IV SCH; +CITA10TA8 PO; -LACTATED RINGER'S 1000ML 1,000 ML IV SCH; +LVNIS40 SQ; -NRN100 PO; +OXYC-57 PO; -TRAM-10 PO
[2017-02-25] MEDS ORDERED: METHYLPREDNISOLONE 125 MG VIAL IV STA (00:45)
[2017-02-25] MEDS ORDERED: LXP10 PO (00:51)
[2017-02-25] MEDS ORDERED: LPT40 PO (00:51)
[2017-02-25] MEDS ORDERED: GLC500 PO (00:51)
[2017-02-25] MEDS ORDERED: ALBINS/ INH (00:53)
[2017-02-25] MEDS ORDERED: VNTHFA/IN INH (00:53)
[2017-02-25] MEDS ORDERED: ASPI81TA28 PO (00:54)
[2017-02-25] MEDS ORDERED: ALBUT/IPRATROP 3MG/0.5MG NEB 3 ML VIAL INH ONE (01:00)
--- NOTE | 2017-02-25 01:14 | EMERGENCY ROOM VISIT NOTE ---
History Report prepared by Sandra: Char Uribe Under the Supervision of: Dr. Calli Winter D.O. First contact with patient: 00:38 Chief Complaint: RESPIRATORY PROBLEMS Stated Complaint: POSSIBLE PNEUMONIA History of Present Illness The patient is a 61 year old female who presents to the Emergency Room with complaints of constant respiratory issues starting four days ago. The patient started a rescue pack of 40 mg of prednisone and an antibiotic. The patient notes chest pain and shortness of breath, but denies abdominal pain. She also a notes a productive cough of yellow/green mucus. The patient uses a nebulizer and inhaler at home. The patient is a smoker. She also has a boot on her right foot from a surgery she had on November 16, 2016. The patient's PCP is Dr. Morse. Source of History: patient Onset: 4 days ago Timing: constant Associated Symptoms: + cough, + chest pain, + SOB, No abdominal pain Review of Systems See HPI for pertinent positives & negatives. A total of 10 systems reviewed and were otherwise negative. 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 Social History Smoking Status: Current Every Day Smoker Alcohol Use: none Drug Use: none Marital Status: Housing Status: lives with family Occupation Status: employed Current/Historical Medications Scheduled Aspirin (Aspirin Ec), 81 MG PO DAILY Atorvastatin (Atorvastatin Calcium), 40 MG PO DAILY Bupropion HCl (Bupropion HCl Sr), 150 MG PO BID Cyanocobalamin (Vitamin B12), 2,000 MCG PO QAM Escitalopram Oxalate (Escitalopram Oxalate), 10 MG PO DAILY Home O2 Therapy (Oxygen), 2 LITERS NA HS Metformin HCl (Metformin HCl), 500 MG PO QAM Multivitamin (Multivitamin), 1 TAB PO QAM Ranitidine Hcl (Zantac), 300 MG PO BID Tiotropium [place] (Spiriva Handihaler), 1 CAP INH QAM Scheduled PRN Albuterol Hfa (Ventolin Hfa), 2 PUFFS INH Q4 PRN for SOB/Wheezing Albuterol Sulf (Proventil 0.083% 2.5MG/3ML), 2.5 MG INH Q4 PRN for SOB/Wheezing Hydroxyzine Hcl (Atarax), 50 MG PO Q6H PRN for Itching Ipratropium [place] (Atrovent 0.02% Soln), 2.5 ML INH Q6 PRN for Wheezing Oxycodone/Acetaminophen 5MG/325MG (Percocet 5MG/325MG), 1-2 TABLETS PO Q4H PRN for Pain Prednisone (Deltasone), 20 MG PO UD PRN for COPD RESCUE KIT Allergies Coded Allergies: Penicillins (Verified Allergy, Severe, HIVES, SOB, 02/25/17) Sulfa Antibiotics (Verified Allergy, Severe, HIVES AND SOB WITH ORAL SULFA DRUGS, OK W/SILVADENE, 02/25/17) Cephalosporins (Verified Allergy, Intermediate, HIVES WITH CEFTIN, 02/25/17) Quinolones (Verified Allergy, Mild, HIVES-BUT HAD LEVAQUIN IN ER 03/05/09 W /O PROBLEM, 02/25/17) Adhesives (Verified Allergy, Unknown, TAPE-SORES ON SKIN, 02/25/17) Iodine (Verified Allergy, Unknown, REDNESS, 02/25/17) Physical Exam Vital Signs Date Time Temp Pulse Resp B/P (MAP) Pulse Ox O2 Delivery O2 Flow Rate FiO2 02/25/17 03:19 100 24 152/89 94 Room Air 02/25/17 02:26 103 20 136/96 95 Nebulizer 02/25/17 01:24 92 20 136/86 97 Nebulizer 02/25/17 01:06 109 23 93 Room Air 02/25/17 00:54 101 02/25/17 00:48 92 Room Air 02/25/17 00:48 103 24 152/115 92 Room Air 02/25/17 00:46 93 Room Air 02/25/17 00:33 36.5 108 36 174/96 90 Room Air Physical Exam HEENT: Head - normocephalic and atraumatic Pupils are equal, round, and reactive to light. Extraocular eye muscles are intact, and sclera are anicteric. Nose - moist nasal mucosa without discharge. Mouth - moist buccal mucosa. Oropharynx is nonerythematous and there is no tonsillar exudate or edema noted. Neck: Supple; no JVD, nuchal rigidity, cervical lymphadenopathy. Heart: Tachycardic. There is a normal S1 and S2 with no murmurs, clicks, or gallops appreciated. Lungs: Tachypneic with audible wheezing, diffuse inspiratory and expiratory wheezing Abdomen: Soft, completely nontender, nondistended, with good bowel sounds. There are no palpable pulsatile masses or hepatosplenomegaly. There is no guarding, rigidity, or rebound noted. Extremities: No evidence of cyanosis, clubbing, or edema. There are easily palpable peripheral pulses. Skin: warm and dry with good turgor and no rashes. Medical Decision & Procedures ER Provider Diagnostic Interpretation: Radiology results as stated below per my review and the radiologist's interpretation: Portable CHEST X-ray: mild pulmonary vascular congestion, no pulmonary infiltrate. Laboratory Results 02/25/17 00:56 Red Blood Count 5.00, Mean Corpuscular Volume 86.6, Mean Corpuscular Hemoglobin 29.0, Mean Corpuscular Hemoglobin Concent 33.5, Mean Platelet Volume 11.8, Neutrophils (%) (Auto) 38.7, Lymphocytes (%) (Auto) 45.1, Monocytes (%) (Auto) 13.4, Eosinophils (%) (Auto) 2.4, Basophils (%) (Auto) 0.3, Neutrophils # (Auto ) 2.61, Lymphocytes # (Auto) 3.04, Monocytes # (Auto) 0.90, Eosinophils # (Auto ) 0.16, Basophils # (Auto) 0.02 02/25/17 00:56 Test 02/25/17 00:56 02/25/17 01:07 White Blood Count 6.74 K/uL (4.8-10.8) Red Blood Count 5.00 M/uL (4.2-5.4) Hemoglobin 14.5 g/dL (12.0-16.0) Hematocrit 43.3 % (37-47) Mean Corpuscular Volume 86.6 fL (80-100) Mean Corpuscular Hemoglobin 29.0 pg (25-34) Mean Corpuscular Hemoglobin Concent 33.5 g/dl (32-36) Platelet Count 180 K/uL (130-400) Mean Platelet Volume 11.8 fL (7.4-10.4) Neutrophils (%) (Auto) 38.7 % Lymphocytes (%) (Auto) 45.1 % Monocytes (%) (Auto) 13.4 % Eosinophils (%) (Auto) 2.4 % Basophils (%) (Auto) 0.3 % Neutrophils # (Auto) 2.61 K/uL (1.4-6.5) Lymphocytes # (Auto) 3.04 K/uL (1.2-3.4) Monocytes # (Auto) 0.90 K/uL (0.11-0.59) Eosinophils # (Auto) 0.16 K/uL (0-0.5) Basophils # (Auto) 0.02 K/uL (0-0.2) RDW Standard Deviation 47.2 fL (36.4-46.3) RDW Coefficient of Variation 14.9 % (11.5-14.5) Immature Granulocyte % (Auto) 0.1 % Immature Granulocyte # (Auto) 0.01 K/uL (0.00-0.02) Prothrombin Time 10.0 SECONDS (9.0-12.0) Prothromb Time International Ratio 0.9 (0.9-1.1) Activated Partial Thromboplast Time 28.6 SECONDS (21.0-31.0) Partial Thromboplastin Ratio 1.1 Est Creatinine Clear Calc Drug Dose 82.2 ml/min Estimated GFR () 74.5 Estimated GFR (Non- 64.3 BUN/Creatinine Ratio 20.3 (10-20) Calcium Level 8.7 mg/dl (8.5-10.1) Magnesium Level 2.1 mg/dl (1.8-2.4) Total Bilirubin 0.3 mg/dl (0.2-1) Aspartate Amino Transf (AST/SGOT) 13 U/L (15-37) Alanine Aminotransferase (ALT/SGPT) 17 U/L (12-78) Alkaline Phosphatase 81 U/L (45-117) Total Protein 7.1 gm/dl (6.4-8.2) Albumin 3.4 gm/dl (3.4-5.0) Globulin 3.7 gm/dl (2.5-4.0) Albumin/Globulin Ratio 0.9 (0.9-2) Thyroid Stimulating Hormone (TSH) 3.130 uIu/ml (0.300-4.500) Bedside Hemoglobin 14.6 g/dl (12.0-16.0) Bedside Hematocrit 43 % (37-47) Bedside Sodium 141 mEq/L (135-144) Bedside Potassium 3.6 mEq/L (3.3-5.0) Bedside Chloride 102 mEq/L (101-112) Bedside Total CO2 27 mEq/l (24-31) Anion Gap 16.0 mmol/L (16-25) Bedside Blood Urea Nitrogen 22 mg/dl (7-18) Bedside Creatinine 1.0 mg/dl (0.6-1.3) Bedside Glucose (other) 127 mg/dl (70-99) Bedside Ionized Calcium (Dipti) 1.15 mmol/l (1.12-1.32) Laboratory results per my review. Medications Administered Medications (Trade) Dose Ordered Sig/Romel Route Start Time Stop Time Status Last Admin Dose Admin Methylprednisolone Sodium Succinate (Solu-Medrol IV) 125 mg NOW STAT IV 02/25/17 00:45 02/25/17 00:47 DC 02/25/17 00:53 125 MG Albuterol/ Ipratropium (Duoneb) 12 ml ONE ONCE INH 02/25/17 01:00 02/25/17 01:01 DC 02/25/17 01:05 12 ML Procedure Solu-Medrol IV, Duoneb INH ECG Indication: SOB/dyspnea Rate (beats per minute): 103 Rhythm: sinus tachycardia Findings: RBBB, no acute ischemic change, no ectopy Comparison ECG Date: 10/11/16 Change: no significant change ED Course 0040: Past medical records reviewed. The patient was evaluated in room B6. A complete history and physical exam was performed. 0045: Solu-Medrol IV 125 mg IV. A portal chest x-ray was obtained. 0100: Duoneb 12 ml INH. 0156: The patient is finishing her hour long nebulizer treatment and is feeling better. 0253: I rechecked on the patient. The nebulizer is done and she is still in mod respiratory distress, wheezing in all lung larios 0315: Upon reevaluation, I discussed findings and results with the patient. She verbalized agreement of the treatment plan. I [place]iel [place] [facility] [place]. The patient will be evaluated for further management and care. Medical Decision The patient is a 61 year old female who presents to the Emergency Room with complaints of constant respiratory issues starting four days ago. Differential diagnosis includes COPD exacerbation, sepsis, pneumonia, bronchitis. Lab results show lactic acid 1.5, white count 6.7, stable H&H, normal coags, BUN 20, creatinine 0.9, glucose 128, normal LFT. The patient has a long- standing history of COPD. When she develops a cough or feels that she is getting sick, she starts her Rescue Daniel of prednisone and an antibiotic. Despite taking this for the past 4 days, she continues to have worsening respiratory symptoms. Chest x-ray was unremarkable. However, this seems to be a significant exacerbation of her COPD. The case was discussed with the [facility] Hospitalist and they will evaluate for further management. Medication Reconcilliation Current Medication List: was personally reviewed by me Blood Pressure Screening Patient's blood pressure: Elevated blood pressure Blood pressure disposition: Elevated BP felt to be situational Consults Time Called: [phone] Consulting Physician: Dr. Montiel- [facility] [place] Returned Call: [phone] Discussed the patient's case. The patient will be evaluated for further management. Impression Primary Impression: COPD exacerbation Scribe Attestation The scribe's documentation has been prepared under my direction and personally reviewed by me in its entirety. I confirm that the note above accurately reflects all work, treatment, procedures, and medical decision making performed by me. Departure Information Dispostion Being Evaluated By Hospitalist Referrals Colton Morse D.O. (PCP) Patient Instructions My [facility]
[2017-02-25 01:18] LABS: BASO % 0.3 %; BASO ABS # 0.02 K/uL (0-0.2); COMPLETE YES; EOS % 2.4 %; HEMATOCRIT 43.3 % (37-47); IG% 0.1 %; LYMPH % 45.1 %; LYMPH ABS # 3.04 K/uL (1.2-3.4); MEAN CELL VOLUME 86.6 fL (80-100); MEAN CORPUSCULAR HGB CONC 33.5 g/dl (32-36); MEAN PLATELET VOLUME 11.8 fL (7.4-10.4); MONO % 13.4 %; NEUT % 38.7 %; PLATELET COUNT 180 K/uL (130-400); WHITE BLOOD COUNT 6.74 K/uL (4.8-10.8)
[2017-02-25 01:19] LABS: ISTAT HEMOGLOBIN 14.6 g/dl (12.0-16.0); ISTAT IONIZED CALCIUM 1.15 mmol/l (1.12-1.32)
[2017-02-25 01:38] LABS: BUN/CREATININE RATIO 20.3 (10-20); CALCIUM 8.7 mg/dl (8.5-10.1); CREATININE 0.96 mg/dl (0.60-1.20); POTASSIUM 3.6 mmol/L (3.5-5.1)
[2017-02-25 01:40] LABS: ALB/GLOB RATIO 0.9 (0.9-2)
[2017-02-25 02:04] LABS: INR 0.9 (0.9-1.1); PARTIAL THROMBOPLASTIN RATIO 1.1
[2017-02-25 03:29] LABS: MAGNESIUM 2.1 mg/dl (1.8-2.4)
[2017-02-25] MEDS ORDERED: POTASSIUM CHLORIDE 10 MEQ TABCR PO STA (03:44)
[2017-02-25] MEDS ORDERED: GLUCOSE 10 TABS/TUBE PO PRN (03:45)
[2017-02-25] MEDS ORDERED: OXYCODONE/ACETAMINOPHEN 5-325 TAB PO PRN (03:45)
[2017-02-25] MEDS ORDERED: ACETAMINOPHEN 325 MG TAB PO PRN (03:45)
[2017-02-25] MEDS ORDERED: GLUCAGON FOR INJ 1 MG VIAL SQ PRN (03:45)
[2017-02-25] MEDS ORDERED: LEVALBUTEROL/IPRATROPIUM NEB INH PRN (03:45)
[2017-02-25] MEDS ORDERED: HYDROmorphone INJ 0.5 MG/0.5 ML SYR IV PRN (03:45)
[2017-02-25] MEDS ORDERED: DEXTROSE 50% 50 ML SYR IV PRN (03:45)
[2017-02-25] MEDS ORDERED: ONDANSETRON INJ 2 MG/ML 2 ML VIAL IV PRN (03:45)
[2017-02-25] MEDS ORDERED: GLUCOSE 40% GEL 15 GM TUBE PO PRN (03:45)
[2017-02-25 03:47] LABS: THYROID STIMULATING HORMONE 3.13 uIu/ml (0.300-4.500)
[2017-02-25] MEDS ORDERED: POTASSIUM CHLORIDE 10 MEQ TABCR ONE (03:57)
[2017-02-25] MEDS ORDERED: IPRATROPIUM BROMIDE NEB SOLN 0.02% 2.5 ML VIAL INH PRN (04:30)
[2017-02-25] MEDS ORDERED: LEVALBUTEROL 1.25MG/0.5ML NEB INH PRN (04:30)
--- NOTE | 2017-02-25 04:34 | HISTORY & PHYSICAL EXAMINATION ---
DATE OF ADMISSION: 02/25/2017 PRIMARY CARE PHYSICIAN: Dr. Morse CHIEF COMPLAINT: Cough, shortness of breath. HISTORY OF PRESENT ILLNESS: History obtained from patient and records. Medical history significant for COPD, ongoing tobacco abuse, hypertension, hyperlipidemia, DM2, on oral medications, history of GERD. Recent confinement under Orthopedic service last 10/2016 for right subtalar joint surgery. Few days history of cough symptoms, productive of yellow sputum, no aspiration, increasing shortness of breath, chest pain with coughing. No unusual swelling or weight gain. Patient actually has lost weight voluntarily over the last several months. At the Emergency Room, the patient received Solu-Medrol, nebs for COPD exacerbation. MEDICAL HISTORY: As above. SURGERIES: Hysterectomy, appendectomy, hip replacement, lower extremity, other orthopedic procedures. HOME MEDICATIONS: Include albuterol, aspirin, bupropion, atorvastatin, vitamin B12, citalopram, oxygen, Atarax, Ativan, metformin, multivitamins, Zantac, Spiriva. ALLERGIES: TO ADHESIVE, IODINE, CEPHALOSPORIN, PENICILLIN, QUINOLONE, SULFA. FAMILY HISTORY: Asthma, diabetes. PERSONAL AND SOCIAL HISTORY: Half pack daily. No chronic intake of alcohol. [facility] REVIEW OF SYSTEMS: As per HPI, all other ROS negative. PHYSICAL EXAMINATION: VITAL SIGNS: Blood pressure was noted to be 171/96 later 140/80, pulse rate 108 , RR 36, later 20, heart rate later 100, O2 sats 94 on room air. GENERAL: Noted to be in minimal respiratory distress, obese, looks older than stated age. SKIN: Normal color. HEENT: [place] palpebral conjunctivae. Dry mucosa. NECK: Short neck. LUNGS: Decreased breath sounds. Expiratory wheezes. HEART: Regular rate and rhythm. ABDOMEN: Some distention, non tender. EXTREMITIES: Cast on the right lower extremity. NEUROLOGIC: No gross focality. LABORATORY DATA: Hemoglobin 14.5, hematocrit 45.3, white cells 10, platelets 118. Sodium 141, potassium 3.6, chloride 105, CO2 27, BUN 20, creatinine 0.9, glucose 128. Hemoglobin A1c in 10/2016 was 6. Chest x-ray as per my interpretation, no obvious infiltrate, atelectasis. EKG as per my interpretation, rate 105, sinus tachycardia, right bundle-branch block. No ischemia ASSESSMENT: 1. Chronic obstructive pulmonary disease exacerbation. 2. Ongoing tobacco abuse. 3. Hypertension, slightly elevated. 4. DM2, on oral meds, well controlled as of recent outpx HgA1c. PLAN: GMF Doxycycline for complicated bronchitis nebs, steroids. ISS BG goal 140-180. May need basal Lantus to attain goal with expected hyperglycemia following steroid administration. Px due for hemoglobin A1c recheck. Nicotine patch. DVT prophylaxis, Lovenox subcu. Full code. MTDD
[2017-02-25] MEDS ORDERED: INSULIN ASPART 100 UNITS/ML 3 ML PEN SC ONE (05:45)
[2017-02-25] MEDS ORDERED: INSULIN GLARGINE SOLOSTAR 100 UNITS/ML 3 ML PEN SC ONE ×2 (05:45→08:28)
[2017-02-25] MEDS ORDERED: LACTATED RINGER'S 1000ML 1,000 ML IV ONE (05:45)
[2017-02-25] MEDS ORDERED: LEVALBUTEROL/IPRATROPIUM NEB INH SCH (06:00)
[2017-02-25] MEDS ORDERED: DOXYCYCLINE IV 100 MG in DEXTROSE 5% 100ML 100 ML IV ONE (06:00)
[2017-02-25 06:57] LABS: ESTIMATED AVERAGE GLUCOSE 120 mg/dl; HA1C FLAG Normal (Normal)
--- NOTE | 2017-02-25 06:59 | DIAGNOSTIC IMAGING REPORT ---
CHEST ONE VIEW PORTABLE HISTORY: 61 years-old Female Sepsis acute sepsis with difficulty breathing. Initial exam. COMPARISON: Chest radiographs 10/11/2016 TECHNIQUE: Portable upright AP view of the chest FINDINGS: Cardiac silhouette is within normal limits. No pneumothorax, pleural effusion or focal airspace consolidation. No overt pulmonary edema. Bones are grossly intact. Postsurgical changes or prior osteolysis is seen involving the distal left clavicle. IMPRESSION: No acute cardiopulmonary process. The above report was generated using voice recognition software. It may contain grammatical, syntax or spelling errors. Electronically signed by: Kvng Castillo M.D. 02/25/2017 6:57 AM Dictated Date/Time: 02/25/2017 6:56 AM
[2017-02-25] MEDS ORDERED: INSULIN ASPART 100 UNITS/ML 3 ML PEN SC SCH ×2 (07:00→08:00)
[2017-02-25] MEDS: IPRATROPIUM BROMIDE NEB SOLN 0.02% 2.5 ML VIAL INH SCH ×3 (07:21→20:05)
[2017-02-25] MEDS: LEVALBUTEROL 1.25MG/0.5ML NEB INH SCH ×3 (07:21→20:05)
[2017-02-25] MEDS: MULTIVITAMIN TAB PO SCH (07:41)
[2017-02-25] MEDS: ASPIRIN 81 MG ECTAB PO SCH (07:43)
[2017-02-25] MEDS: BuPROPion SR 150 MG TABCR PO SCH ×2 (07:44→20:48)
[2017-02-25] MEDS: ESCITALOPRAM OXALATE 10 MG TAB PO SCH (07:44)
[2017-02-25] MEDS: ATORVASTATIN 40 MG TAB PO SCH (07:44)
[2017-02-25] MEDS: RANITIDINE HCL 150 MG TAB PO SCH ×2 (07:45→20:48)
[2017-02-25] MEDS: ENOXAPARIN 40 MG/0.4 ML SYR SQ SCH (08:00)
[2017-02-25 08:02] LABS: ARTERIAL BLD GAS O2 SATURATION 90.7 % (90-95); ARTERIAL BLOOD GAS BASE EXCESS -1.2 mEq/L (-9-1.8); ARTERIAL BLOOD GAS HCO3 23 mmol/L (19-24); ARTERIAL BLOOD GAS PO2 61 mm/Hg (80-95); ARTERIAL BLOOD GAS pH 7.41 (7.35-7.45)
[2017-02-25 08:03] LABS: ALLEN TEST POS (POS); O2 ADMINISTRATION 2L
[2017-02-25] MEDS ORDERED: NICOTINE 14 MG/24 HR TDSY TD SCH (09:00)
--- NOTE | 2017-02-25 09:14 | Progress Note ---
Subjective Date of Service: Feb 25, 2017. Subjective Pt evaluation today including: conversation w/ patient, physical exam, lab review, review of studies, review of inpatient medication list Saw/examined the patient in room 275-2 She feels better today than when she came in; still short of breath No significant sputum production with her cough Tells me she is actively trying to quit smoking; has cut down from 1PPD to less than 1/2PPD She has lost 87lbs. total with a low carb diet; and has improved her Ha1c and sugars Problem List Medical Problems: (1) COPD exacerbation Status: Acute (2) COPD exacerbation Status: Acute Review of Systems Constitutional: No fever, No chills Respiratory: + cough, + sputum, + wheezing, + shortness of breath, No dyspnea on exertion, No dyspnea at rest, No hemoptysis Cardiac: No chest pain, No edema, No palpitations Abdomen: No pain, No nausea, No vomiting, No diarrhea Medications Current Inpatient Medications Medications (Trade) Dose Ordered Sig/Romel Route Start Time Stop Time Status Last Admin Dose Admin Doxycycline Hyclate 100 mg/ Dextrose 110 ml @ 50 mls/hr Q12H IV 02/25/17 18:00 03/04/17 17:59 Lactated Ringer's 1,000 ml @ 75 mls/hr [id number] ONCE IV 02/25/17 05:45 02/25/17 19:04 02/25/17 05:43 75 MLS/HR Enoxaparin Sodium (Lovenox Inj) 40 mg Q24H SQ 02/25/17 09:00 03/27/17 08:59 02/25/17 08:00 40 MG Acetaminophen (Tylenol Tab) 650 mg Q4H PRN PO 02/25/17 03:45 03/27/17 03:44 Glucose (Glucose 40% Gel) 15-30 GRAMS 15 GRAMS... UD PRN PO 02/25/17 03:45 03/27/17 03:44 Glucose (Glucose Chew Tab) 4-8 Tablets 4 Tabl... UD PRN PO 02/25/17 03:45 03/27/17 03:44 Dextrose (Dextrose 50% 50ML Syringe) 25-50ML OF 50% DW IV FOR... UD PRN IV 02/25/17 03:45 03/27/17 03:44 Glucagon (Glucagon Inj) 1 mg UD PRN SQ 02/25/17 03:45 03/27/17 03:44 Aspirin (Ecotrin Tab) 81 mg DAILY PO 02/25/17 09:00 03/27/17 08:59 02/25/17 07:43 81 MG Atorvastatin Calcium (Lipitor Tab) 40 mg DAILY PO 02/25/17 09:00 03/27/17 08:59 02/25/17 07:44 40 MG Bupropion HCl (Wellbutrin-Sr Tab) 150 mg BID PO 02/25/17 09:00 03/27/17 08:59 02/25/17 07:44 150 MG Escitalopram Oxalate (Lexapro Tab) 10 mg DAILY PO 02/25/17 09:00 03/27/17 08:59 02/25/17 07:44 10 MG Multivitamins (Multivitamin Tab) 1 tab QAM PO 02/25/17 09:00 03/27/17 08:59 02/25/17 07:41 1 TAB Oxycodone/ Acetaminophen (Percocet 5-325mg Tab) 1 tab Q4H PRN PO 02/25/17 03:45 03/11/17 03:44 Ranitidine HCl (zANTac TAB) 300 mg BID PO 02/25/17 09:00 03/27/17 08:59 02/25/17 07:45 300 MG Nicotine (Nicoderm Cq 14MG Patch) 1 patch QAM TD 02/25/17 09:00 03/27/17 08:59 Ondansetron HCl (Zofran Inj) 4 mg Q6H PRN IV 02/25/17 03:45 03/27/17 03:44 Miscellaneous (Remove Nicoderm Patch) 1 ea HS N/A 02/25/17 21:00 03/27/17 20:59 Hydromorphone HCl (Dilaudid Inj) 0.5 mg Q3H PRN IV 02/25/17 03:45 03/11/17 03:44 Insulin Aspart (novoLOG ASPART) SLIDING SCALE If C... ACHS SC 02/25/17 11:00 03/27/17 06:59 Ipratropium Magnolia (Atrovent 0.02% 0.5MG/2.5ML Neb) 0.5 mg Q6R INH 02/25/17 09:00 03/27/17 08:59 02/25/17 07:21 0.5 MG Levalbuterol (Xopenex 1.25MG/ 0.5ML Neb) 1.25 mg Q6R INH 02/25/17 09:00 03/27/17 08:59 02/25/17 07:21 1.25 MG Ipratropium Magnolia (Atrovent 0.02% 0.5MG/2.5ML Neb) 0.5 mg Q4H PRN INH 02/25/17 04:30 03/27/17 04:29 Levalbuterol (Xopenex 1.25MG/ 0.5ML Neb) 1.25 mg Q4H PRN INH 02/25/17 04:30 03/27/17 04:29 Insulin Glargine (Lantus Solostar Pen) 10 units DAILY SC 02/26/17 09:00 03/28/17 08:59 Prednisone (PredniSONE TAB) 40 mg DAILY PO 02/26/17 09:00 03/03/17 08:59 Objective Vital Signs Date Time Temp Pulse Resp B/P (MAP) Pulse Ox O2 Delivery O2 Flow Rate FiO2 02/25/17 07:23 72 18 94 Nasal Cannula 3.0 02/25/17 07:00 36.9 96 20 130/74 (92) 95 Nasal Cannula 3.0 02/25/17 05:35 36.6 100 22 167/87 90 Nasal Cannula 3.0 02/25/17 05:00 36.6 100 22 167/87 (113) 90 Nasal Cannula 3.0 02/25/17 04:04 97 20 123/85 93 Nasal Cannula 2.0 02/25/17 03:19 100 24 152/89 94 Room Air 02/25/17 02:26 103 20 136/96 95 Nebulizer 02/25/17 01:24 92 20 136/86 97 Nebulizer 02/25/17 01:06 109 23 93 Room Air 02/25/17 00:54 101 02/25/17 00:48 92 Room Air 02/25/17 00:48 103 24 152/115 92 Room Air 02/25/17 00:46 93 Room Air 02/25/17 00:33 36.5 108 36 174/96 90 Room Air Physical Exam General Appearance: no apparent distress, + obese, + pertinent finding ( supplemental O2 via NC) Respiratory/Chest: no respiratory distress, no accessory muscle use, + wheezing (end expiratory wheezing diffusely) Cardiovascular: regular rate, rhythm, no edema, no murmur Extremities: normal range of motion, non-tender, normal inspection, no pedal edema, no calf tenderness Neurologic/Psychiatric: no motor/sensory deficits, alert, normal mood/affect Laboratory Results Last 24 Hours Test 02/25/17 00:56 02/25/17 01:07 02/25/17 05:06 02/25/17 05:53 White Blood Count 6.74 K/uL Red Blood Count 5.00 M/uL Hemoglobin 14.5 g/dL Hematocrit 43.3 % Mean Corpuscular Volume 86.6 fL Mean Corpuscular Hemoglobin 29.0 pg Mean Corpuscular Hemoglobin Concent 33.5 g/dl Platelet Count 180 K/uL Mean Platelet Volume 11.8 fL Neutrophils (%) (Auto) 38.7 % Lymphocytes (%) (Auto) 45.1 % Monocytes (%) (Auto) 13.4 % Eosinophils (%) (Auto) 2.4 % Basophils (%) (Auto) 0.3 % Neutrophils # (Auto) 2.61 K/uL Lymphocytes # (Auto) 3.04 K/uL Monocytes # (Auto) 0.90 K/uL Eosinophils # (Auto) 0.16 K/uL Basophils # (Auto) 0.02 K/uL RDW Standard Deviation 47.2 fL RDW Coefficient of Variation 14.9 % Immature Granulocyte % (Auto) 0.1 % Immature Granulocyte # (Auto) 0.01 K/uL Prothrombin Time 10.0 SECONDS Prothromb Time International Ratio 0.9 Activated Partial Thromboplast Time 28.6 SECONDS Partial Thromboplastin Ratio 1.1 Sodium Level 141 mmol/L Potassium Level 3.6 mmol/L Chloride Level 106 mmol/L Carbon Dioxide Level 27 mmol/L Anion Gap 8.0 mmol/L 16.0 mmol/L Blood Urea Nitrogen 20 mg/dl Creatinine 0.96 mg/dl Est Creatinine Clear Calc Drug Dose 82.2 ml/min Estimated GFR () 74.5 Estimated GFR (Non- 64.3 BUN/Creatinine Ratio 20.3 Random Glucose 128 mg/dl Estimated Average Glucose 120 mg/dl Hemoglobin A1c 5.8 % Calcium Level 8.7 mg/dl Magnesium Level 2.1 mg/dl Total Bilirubin 0.3 mg/dl Aspartate Amino Transf (AST/SGOT) 13 U/L Alanine Aminotransferase (ALT/SGPT) 17 U/L Alkaline Phosphatase 81 U/L Total Protein 7.1 gm/dl Albumin 3.4 gm/dl Globulin 3.7 gm/dl Albumin/Globulin Ratio 0.9 Thyroid Stimulating Hormone (TSH) 3.130 uIu/ml Bedside Hemoglobin 14.6 g/dl Bedside Hematocrit 43 % Bedside Sodium 141 mEq/L Bedside Potassium 3.6 mEq/L Bedside Chloride 102 mEq/L Bedside Total CO2 27 mEq/l Bedside Blood Urea Nitrogen 22 mg/dl Bedside Creatinine 1.0 mg/dl Bedside Glucose (other) 127 mg/dl Bedside Ionized Calcium (Dipti) 1.15 mmol/l Bedside Glucose 244 mg/dl Assessment and Plan This is a 61 year old female with a PMH of COPD, ongoing tobacco abuse, DM2, HLD , GERD presents with shortness of breath/cough Acute COPD Exacerbation secondary to Acute Bronchitis given solu-medrol in the ER continue prednisone 40mg and taper q2 days doxycycline x5 days for bronchitis nebs around the clock and PRN - monitor for tachycardia Ongoing Tobacco Use refusing nicotine patch cessation counseling provided has cut down from 1PPD to 1/2PPD, states that her goal is to quit this year DM2 has lost significant weight through dieting takes metformin at home, which has been cut down to 500mg once daily well controlled, Ha1c = 5.8% hold oral agents start sliding scale - monitor blood sugars closely with steroid use HLD continue Lipitor Depression/Anxiety stable with medications continue home medications: Wellbutrin and Lexapro DVT ppx Lovenox Full Code
[2017-02-25] MEDS: INSULIN ASPART 100 UNITS/ML 3 ML PEN SC SCH ×3 (11:57→20:46)
[2017-02-25] MEDS: DOXYCYCLINE IV 100 MG in DEXTROSE 5% 100ML 100 ML IV SCH (18:01)
[2017-02-26] VITALS (9 sets, daily range): BP systolic 118–156; BP diastolic 73–77; PULSE 76–98; TEMP 36.5–36.7; O2SAT 92–98
[2017-02-26] MEDS: IPRATROPIUM BROMIDE NEB SOLN 0.02% 2.5 ML VIAL INH SCH ×4 (02:00→20:34)
[2017-02-26] MEDS: LEVALBUTEROL 1.25MG/0.5ML NEB INH SCH ×4 (02:00→20:34)
[2017-02-26] MEDS ORDERED: COUGH DROP (SUGAR FREE) LOZ 24 LOZ/1 BOX PO PRN (02:15)
[2017-02-26] MEDS: DOXYCYCLINE IV 100 MG in DEXTROSE 5% 100ML 100 ML IV SCH (06:03)
[2017-02-26 06:43] LABS: BASO % 0.2 %; BASO ABS # 0.01 K/uL (0-0.2); COMPLETE YES; EOS % 0.5 %; HEMATOCRIT 39.7 % (37-47); IG% 0.2 %; LYMPH % 39.8 %; LYMPH ABS # 2.24 K/uL (1.2-3.4); MEAN CELL VOLUME 87.6 fL (80-100); MEAN CORPUSCULAR HEMOGLOBIN 28.7 pg (25-34); MEAN CORPUSCULAR HGB CONC 32.7 g/dl (32-36); MEAN PLATELET VOLUME 11.1 fL (7.4-10.4); MONO % 14.7 %; NEUT % 44.6 %; PLATELET COUNT 148 K/uL (130-400); RED BLOOD COUNT 4.53 M/uL (4.2-5.4); WHITE BLOOD COUNT 5.63 K/uL (4.8-10.8)
[2017-02-26 07:18] LABS: BUN/CREATININE RATIO 23.4 (10-20); CALCIUM 8.7 mg/dl (8.5-10.1); CREATININE 0.86 mg/dl (0.60-1.20); POTASSIUM 3.9 mmol/L (3.5-5.1)
[2017-02-26] MEDS: ATORVASTATIN 40 MG TAB PO SCH (07:56)
[2017-02-26] MEDS: BuPROPion SR 150 MG TABCR PO SCH ×2 (07:56→20:48)
[2017-02-26] MEDS: RANITIDINE HCL 150 MG TAB PO SCH ×2 (07:56→20:48)
[2017-02-26] MEDS: ASPIRIN 81 MG ECTAB PO SCH (07:57)
[2017-02-26] MEDS: MULTIVITAMIN TAB PO SCH (07:57)
[2017-02-26] MEDS: ESCITALOPRAM OXALATE 10 MG TAB PO SCH (07:57)
[2017-02-26] MEDS: ENOXAPARIN 40 MG/0.4 ML SYR SQ SCH (07:58)
[2017-02-26] MEDS: INSULIN ASPART 100 UNITS/ML 3 ML PEN SC SCH ×4 (08:00→20:46)
[2017-02-26] MEDS: INSULIN GLARGINE SOLOSTAR 100 UNITS/ML 3 ML PEN SC SCH (08:01)
[2017-02-26] MEDS ORDERED: INSULIN GLARGINE SOLOSTAR 100 UNITS/ML 3 ML PEN SC SCH (09:00)
--- NOTE | 2017-02-26 09:40 | Clinical Documentation Query ---
CLINICAL DOCUMENTATION QUERY Dr. JUNE, In your clinical opinion is this patient being managed for: ( x) Acute respiratory failure with hypoxia, POA, treated and improved ( ) Not Agree ( ) Other explanation of clinical findings (Please Explain) ( ) Unable to determine (Please Define) ( ) Need to Discuss The medical record reflects the following clinical findings, treatment, and risk factors. Clinical Indicators:61 yo female presenting with constant respiratory issues x 4 days. Had tried rescue treatment unsuccessfully. Initial resp rate 36, tachycardic 108, O2 sat 90% on RA. Treatment: hour long duoneb tx in ER, IV solumedrol, IV doxycycline, O2 support, ABG's, po prednisone Risk Factors: COPD exacerbation, chronic tobacco use, acute bronchitis Please clarify and document your clinical opinion in the progress notes and discharge summary. Terms such as "probable", "suspected", "likely", "questionable", "possible", or "still to be ruled out" are acceptable. IF IN AGREEMENT, YOU MUST DOCUMENT ABOVE DIAGNOSTIC STATEMENT IN DAILY PROGRESS NOTES AND DISCHARGE SUMMARY. This document is not part of the patient's record. Thank You, Mikaela Hawley, RN [phone]
--- NOTE | 2017-02-26 18:46 | Progress Note ---
Internal Med Progress Note Date of Service: Feb 26, 2017. Provider Documentation: SUBJECTIVE: breathing much better minimum cough OBJECTIVE: Vital Signs-as noted below Exam: General-no sign of distress Eyes-sclera non icteric ENT-nad Neck-no JVD Lungs-CTA Heart-regular S1/S2 Abdomen-soft, non tender Extremities-no lower ext edema Neuro-AAo x3, no focal deficit Lab data as noted below. ASSESSMENT & PLAN: COPD exacerbation : clinically improving given solu-medrol in the ER continue prednisone 40mg and taper q2 days doxycycline x5 days for bronchitis-changed to PO Ongoing Tobacco Use refusing nicotine patch cessation counseling provided has cut down from 1PPD to 1/2PPD, states that her goal is to quit this year DM2 has lost significant weight through dieting takes metformin at home, which has been cut down to 500mg once daily well controlled, Ha1c = 5.8% hold oral agents start sliding scale - monitor blood sugars closely with steroid use HLD continue Lipitor Depression/Anxiety stable with medications continue home medications: Wellbutrin and Lexapro DVT ppx Lovenox SC DISPOSITION possible discharge home in next 1-2 days if clinically improves Medicine follow up with Dr Colton Morse Vital Signs: Date Time Temp Pulse Resp B/P (MAP) Pulse Ox O2 Delivery O2 Flow Rate FiO2 02/26/17 16:00 98 Nasal Cannula 2.0 02/26/17 15:02 36.5 89 20 156/77 (103) 92 Nasal Cannula 2.0 02/26/17 11:42 36.7 85 120/73 (89) 02/26/17 07:40 Nasal Cannula 2.0 02/26/17 07:15 36.6 82 19 118/76 (90) 92 02/26/17 06:50 76 18 95 Nasal Cannula 2.0 02/26/17 02:00 98 18 96 Nasal Cannula 2.0 02/26/17 00:00 Nasal Cannula 2.0 02/25/17 23:55 36.7 98 20 153/81 (105) 96 2.0 02/25/17 20:07 69 18 92 Nasal Cannula 2.0 Lab Results: Results Past 24 Hours Test 02/25/17 20:20 02/26/17 06:12 02/26/17 07:38 02/26/17 11:40 Range/Units Bedside Glucose 132 124 142 70-90 mg/dl White Blood Count 5.63 4.8-10.8 K/uL Red Blood Count 4.53 4.2-5.4 M/uL Hemoglobin 13.0 12.0-16.0 g/dL Hematocrit 39.7 37-47 % Mean Corpuscular Volume 87.6 80-100 fL Mean Corpuscular Hemoglobin 28.7 25-34 pg Mean Corpuscular Hemoglobin Concent 32.7 32-36 g/dl Platelet Count 148 130-400 K/uL Mean Platelet Volume 11.1 7.4-10.4 fL Neutrophils (%) (Auto) 44.6 % Lymphocytes (%) (Auto) 39.8 % Monocytes (%) (Auto) 14.7 % Eosinophils (%) (Auto) 0.5 % Basophils (%) (Auto) 0.2 % Neutrophils # (Auto) 2.51 1.4-6.5 K/uL Lymphocytes # (Auto) 2.24 1.2-3.4 K/uL Monocytes # (Auto) 0.83 0.11-0.59 K/uL Eosinophils # (Auto) 0.03 0-0.5 K/uL Basophils # (Auto) 0.01 0-0.2 K/uL RDW Standard Deviation 47.8 36.4-46.3 fL RDW Coefficient of Variation 14.9 11.5-14.5 % Immature Granulocyte % (Auto) 0.2 % Immature Granulocyte # (Auto) 0.01 0.00-0.02 K/uL Sodium Level 143 136-145 mmol/L Potassium Level 3.9 3.5-5.1 mmol/L Chloride Level 108 98-107 mmol/L Carbon Dioxide Level 30 21-32 mmol/L Anion Gap 5.0 3-11 mmol/L Blood Urea Nitrogen 20 7-18 mg/dl Creatinine 0.86 0.60-1.20 mg/dl Est Creatinine Clear Calc Drug Dose 91.7 ml/min Estimated GFR () 85.1 Estimated GFR (Non- 73.4 BUN/Creatinine Ratio 23.4 10-20 Random Glucose 117 70-99 mg/dl Calcium Level 8.7 8.5-10.1 mg/dl Test 02/26/17 16:15 Range/Units Bedside Glucose 125 70-90 mg/dl Microbiology Results 02/26/17 Gram Stain, Received Pending 02/26/17 Sputum Culture, Received Pending
[2017-02-26] MEDS: DOXYCYCLINE HYCLATE 100 MG CAP PO SCH (20:48)
[2017-02-27] VITALS (9 sets, daily range): BP systolic 114–136; BP diastolic 66–70; PULSE 57–94; TEMP 36.6–36.7; O2SAT 92–97
[2017-02-27] MEDS: LEVALBUTEROL 1.25MG/0.5ML NEB INH SCH ×4 (02:38→19:28)
[2017-02-27] MEDS: IPRATROPIUM BROMIDE NEB SOLN 0.02% 2.5 ML VIAL INH SCH ×4 (02:38→19:28)
[2017-02-27] MEDS: DOXYCYCLINE HYCLATE 100 MG CAP PO SCH ×2 (08:20→20:32)
[2017-02-27] MEDS: RANITIDINE HCL 150 MG TAB PO SCH ×2 (08:20→20:32)
[2017-02-27] MEDS: BuPROPion SR 150 MG TABCR PO SCH ×2 (08:21→20:32)
[2017-02-27] MEDS: ASPIRIN 81 MG ECTAB PO SCH (08:21)
[2017-02-27] MEDS: ATORVASTATIN 40 MG TAB PO SCH (08:21)
[2017-02-27] MEDS: ESCITALOPRAM OXALATE 10 MG TAB PO SCH (08:21)
[2017-02-27] MEDS: MULTIVITAMIN TAB PO SCH (08:21)
[2017-02-27] MEDS: ENOXAPARIN 40 MG/0.4 ML SYR SQ SCH (08:22)
[2017-02-27] MEDS: INSULIN GLARGINE SOLOSTAR 100 UNITS/ML 3 ML PEN SC SCH (08:24)
[2017-02-27] MEDS: INSULIN ASPART 100 UNITS/ML 3 ML PEN SC SCH ×4 (08:25→20:34)
[2017-02-27] MEDS ORDERED: DOCUSATE SODIUM 100 MG CAP PO ONE (10:45)
[2017-02-27] MEDS: POLYETHYLENE (MIRALAX) 17 GM PACK PO SCH (11:24)
--- NOTE | 2017-02-27 16:17 | Progress Note ---
Internal Med Progress Note Date of Service: Feb 27, 2017. Provider Documentation: SUBJECTIVE: still wheezing, complains of SOB , cough requiring 02 ( was not on home 02 ) OBJECTIVE: Vital Signs-as noted below Exam: General-no sign of distress Eyes-sclera non icteric ENT-nad Neck-no JVD Lungs-diffuse wheeze , coughing with taking deep breath Heart-regular S1/S2 Abdomen-soft, non tender Extremities-no lower ext edema Neuro-AAo x3, no focal deficit Lab data as noted below. ASSESSMENT & PLAN: COPD exacerbation/acute respiratory failure with Hypoxia : continues to have diffuse wheeze and SOB requiring supplemental 02 given Solu-Medrol in the ER continue prednisone 40mg and taper q2 days doxycycline x5 days for bronchitis-changed to PO will need 2 step exercise to assess home 02 /on going hypoxia pt seen [employer] long back will benefit with Pulmonology eval this admission -slow improvement of respiratory status Ongoing Tobacco Use refusing nicotine patch cessation counseling provided-specially in setting of advanced COPD has cut down from 1PPD to 1/2PPD, states that her goal is to quit this year DM2 has lost significant weight through dieting takes metformin at home, which has been cut down to 500mg once daily well controlled, Ha1c = 5.8% hold oral agents start sliding scale - monitor blood sugars closely with steroid use HLD continue Lipitor Depression/Anxiety stable with medications continue home medications: Wellbutrin and Lexapro DVT ppx Lovenox SC DISPOSITION possible discharge home in next 1-2 days if clinically improves will need 2 step exercise to assess home 02 /on going hypoxia Medicine follow up with Dr Colton Morse will need to establish care with Pulmonology Vital Signs: Date Time Temp Pulse Resp B/P (MAP) Pulse Ox O2 Delivery O2 Flow Rate FiO2 02/27/17 16:09 36.7 94 20 136/66 (89) 92 Nasal Cannula 2.0 02/27/17 16:00 97 Nasal Cannula 2.0 02/27/17 14:07 88 18 97 Nasal Cannula 1.0 02/27/17 11:44 36.6 57 16 114/70 (85) 95 Nasal Cannula 2.0 02/27/17 10:35 94 Nasal Cannula 2.0 02/27/17 08:00 97 Nasal Cannula 2.0 02/27/17 06:57 91 18 97 Nasal Cannula 1.0 02/27/17 02:38 88 18 94 Room Air 02/27/17 00:00 Nasal Cannula 2.0 02/26/17 23:06 36.6 82 20 124/77 (93) 93 Nasal Cannula 2.0 02/26/17 20:34 88 18 96 Nasal Cannula 2.0 02/26/17 20:24 85 18 95 Nasal Cannula 2.0 Lab Results: Results Past 24 Hours Test 02/26/17 20:00 02/27/17 07:12 02/27/17 11:04 02/27/17 16:32 Range/Units Bedside Glucose 129 111 143 206 70-90 mg/dl
[2017-02-27] MEDS ORDERED: DOCUSATE SODIUM 100 MG CAP PO PRN (21:15)
[2017-02-28] VITALS (13 sets, daily range): BP systolic 118–153; BP diastolic 70–86; PULSE 74–88; TEMP 36.3–36.8; O2SAT 87–98
[2017-02-28] MEDS: IPRATROPIUM BROMIDE NEB SOLN 0.02% 2.5 ML VIAL INH SCH ×4 (02:27→20:11)
[2017-02-28] MEDS: LEVALBUTEROL 1.25MG/0.5ML NEB INH SCH ×4 (02:27→20:11)
[2017-02-28] MEDS: DOXYCYCLINE HYCLATE 100 MG CAP PO SCH ×2 (09:22→21:35)
[2017-02-28] MEDS: BuPROPion SR 150 MG TABCR PO SCH ×2 (09:22→21:35)
[2017-02-28] MEDS: ESCITALOPRAM OXALATE 10 MG TAB PO SCH (09:22)
[2017-02-28] MEDS: ASPIRIN 81 MG ECTAB PO SCH (09:22)
[2017-02-28] MEDS: MULTIVITAMIN TAB PO SCH (09:23)
[2017-02-28] MEDS: POLYETHYLENE (MIRALAX) 17 GM PACK PO SCH (09:23)
[2017-02-28] MEDS: ATORVASTATIN 40 MG TAB PO SCH (09:23)
[2017-02-28] MEDS: RANITIDINE HCL 150 MG TAB PO SCH ×2 (09:23→21:36)
[2017-02-28] MEDS: INSULIN ASPART 100 UNITS/ML 3 ML PEN SC SCH ×4 (09:26→21:33)
[2017-02-28] MEDS: INSULIN GLARGINE SOLOSTAR 100 UNITS/ML 3 ML PEN SC SCH (09:27)
[2017-02-28] MEDS: ENOXAPARIN 40 MG/0.4 ML SYR SQ SCH (09:28)
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
--- NOTE | 2017-02-28 13:25 | DIAGNOSTIC IMAGING REPORT ---
BILATERAL LOWER EXTREMITY VENOUS DOPPLER HISTORY: Acute bilateral lower extremity swelling. swelling right leg with hx dvt COMPARISON STUDY: Duplex study of the lower extremities 06/27/2013. FINDINGS: There is normal compressibility, flow, and augmentation within the bilateral lower extremity deep venous systems. IMPRESSION: No sonographic evidence of deep venous thrombosis within the right or left lower extremity. Electronically signed by: Kvng Castillo M.D. 02/28/2017 1:23 PM Dictated Date/Time: 02/28/2017 1:22 PM
--- NOTE | 2017-02-28 18:44 | Progress Note ---
Internal Med Progress Note Date of Service: Feb 28, 2017. Provider Documentation: SUBJECTIVE: mentions breathing better , still have non productive cough requiring supplemental 02 OBJECTIVE: Vital Signs-as noted below Exam: General-no sign of distress Eyes-sclera non icteric ENT-nad Neck-no JVD Lungs-minimum wheeze Heart-regular S1/S2 Abdomen-soft, non tender Extremities-no lower ext edema Neuro-AAo x3, no focal deficit Lab data as noted below. ASSESSMENT & PLAN: COPD exacerbation/acute respiratory failure with Hypoxia : continues to have diffuse wheeze and SOB requiring supplemental 02 continue prednisone 40mg doxycycline x5 days for bronchitis-changed to PO will need 2 step exercise to assess home 02 /on going hypoxia pulmonology consulted -appreciate input Ongoing Tobacco Use refusing nicotine patch cessation counseling provided-specially in setting of advanced COPD has cut down from 1PPD to 1/2PPD, states that her goal is to quit this year DM2 has lost significant weight through dieting takes metformin at home, which has been cut down to 500mg once daily well controlled, Ha1c = 5.8% hold oral agents insulin sliding scale HLD continue Lipitor Depression/Anxiety stable with medications continue home medications: Wellbutrin and Lexapro DVT ppx Lovenox SC DISPOSITION possible discharge home in next 1-2 days if clinically improves will need 2 step exercise to assess home 02 /on going hypoxia Medicine follow up with Dr Colton Morse will need to establish care with Pulmonology Vital Signs: Date Time Temp Pulse Resp B/P (MAP) Pulse Ox O2 Delivery O2 Flow Rate FiO2 03/01/17 07:33 76 16 99 Nasal Cannula 2.0 03/01/17 01:33 80 16 98 Nasal Cannula 2.0 03/01/17 00:00 Nasal Cannula 2.0 02/28/17 23:11 36.7 88 20 124/77 (93) 91 Nasal Cannula 2.0 02/28/17 20:12 86 16 95 Nasal Cannula 2.0 02/28/17 16:28 98 Nasal Cannula 3.0 02/28/17 16:00 36.8 86 20 129/80 (96) 90 Nasal Cannula 3.0 02/28/17 14:25 80 18 97 Nasal Cannula 2.0 02/28/17 13:37 96 Nasal Cannula 3.0 02/28/17 13:30 96 Nasal Cannula 3.0 02/28/17 12:49 36.6 83 16 123/78 (93) 87 Nasal Cannula 2.0 02/28/17 08:00 97 Nasal Cannula 2.0 02/28/17 07:41 36.3 74 16 118/70 (86) 97 Nasal Cannula 2.0 Lab Results: Results Past 24 Hours Test 02/28/17 11:33 02/28/17 14:23 02/28/17 15:49 02/28/17 16:43 Range/Units Bedside Glucose 133 146 195 176 70-90 mg/dl Test 02/28/17 19:56 03/01/17 06:16 03/01/17 06:55 Range/Units Bedside Glucose 120 95 70-90 mg/dl White Blood Count 7.28 4.8-10.8 K/uL Red Blood Count 4.72 4.2-5.4 M/uL Hemoglobin 13.4 12.0-16.0 g/dL Hematocrit 41.7 37-47 % Mean Corpuscular Volume 88.3 80-100 fL Mean Corpuscular Hemoglobin 28.4 25-34 pg Mean Corpuscular Hemoglobin Concent 32.1 32-36 g/dl Platelet Count 175 130-400 K/uL Mean Platelet Volume 10.6 7.4-10.4 fL Neutrophils (%) (Auto) 46.4 % Lymphocytes (%) (Auto) 39.0 % Monocytes (%) (Auto) 12.5 % Eosinophils (%) (Auto) 1.6 % Basophils (%) (Auto) 0.1 % Neutrophils # (Auto) 3.37 1.4-6.5 K/uL Lymphocytes # (Auto) 2.84 1.2-3.4 K/uL Monocytes # (Auto) 0.91 0.11-0.59 K/uL Eosinophils # (Auto) 0.12 0-0.5 K/uL Basophils # (Auto) 0.01 0-0.2 K/uL RDW Standard Deviation 48.5 36.4-46.3 fL RDW Coefficient of Variation 15.0 11.5-14.5 % Immature Granulocyte % (Auto) 0.4 % Immature Granulocyte # (Auto) 0.03 0.00-0.02 K/uL
[2017-02-28] MEDS: BUDESONIDE 0.5 MG/2 ML VIAL (PULMICORT) INH SCH (20:12)
[2017-03-01] VITALS (10 sets, daily range): BP systolic 109–147; BP diastolic 67–83; PULSE 75–88; TEMP 36.5–36.9; O2SAT 91–99
[2017-03-01] MEDS: LEVALBUTEROL 1.25MG/0.5ML NEB INH SCH ×4 (01:31→19:37)
[2017-03-01] MEDS: IPRATROPIUM BROMIDE NEB SOLN 0.02% 2.5 ML VIAL INH SCH ×4 (01:32→19:37)
[2017-03-01 06:45] LABS: BASO % 0.1 %; BASO ABS # 0.01 K/uL (0-0.2); COMPLETE YES; EOS % 1.6 %; HEMATOCRIT 41.7 % (37-47); IG% 0.4 %; LYMPH ABS # 2.84 K/uL (1.2-3.4); MEAN CELL VOLUME 88.3 fL (80-100); MEAN CORPUSCULAR HEMOGLOBIN 28.4 pg (25-34); MEAN CORPUSCULAR HGB CONC 32.1 g/dl (32-36); MEAN PLATELET VOLUME 10.6 fL (7.4-10.4); MONO % 12.5 %; NEUT % 46.4 %; PLATELET COUNT 175 K/uL (130-400); RED BLOOD COUNT 4.72 M/uL (4.2-5.4); WHITE BLOOD COUNT 7.28 K/uL (4.8-10.8)
[2017-03-01] MEDS: BUDESONIDE 0.5 MG/2 ML VIAL (PULMICORT) INH SCH ×2 (07:33→19:37)
[2017-03-01] MEDS: BuPROPion SR 150 MG TABCR PO SCH ×2 (08:45→21:18)
[2017-03-01] MEDS: ASPIRIN 81 MG ECTAB PO SCH (08:45)
[2017-03-01] MEDS: ATORVASTATIN 40 MG TAB PO SCH (08:45)
[2017-03-01] MEDS: ESCITALOPRAM OXALATE 10 MG TAB PO SCH (08:45)
[2017-03-01] MEDS: DOXYCYCLINE HYCLATE 100 MG CAP PO SCH ×2 (08:45→21:17)
[2017-03-01] MEDS: MULTIVITAMIN TAB PO SCH (08:46)
[2017-03-01] MEDS: RANITIDINE HCL 150 MG TAB PO SCH ×2 (08:46→21:43)
[2017-03-01] MEDS: POLYETHYLENE (MIRALAX) 17 GM PACK PO SCH (08:46)
[2017-03-01] MEDS: ENOXAPARIN 40 MG/0.4 ML SYR SQ SCH (08:47)
[2017-03-01] MEDS: INSULIN ASPART 100 UNITS/ML 3 ML PEN SC SCH ×4 (08:49→21:00)
[2017-03-01] MEDS: INSULIN GLARGINE SOLOSTAR 100 UNITS/ML 3 ML PEN SC SCH (08:50)
--- NOTE | 2017-03-01 17:19 | Progress Note ---
Internal Med Progress Note Date of Service: Mar 01, 2017. Provider Documentation: SUBJECTIVE: feels much better than yesterday no wheeze or SOB denies of cough will need 2 step exercise and nocturnal pulse oximetry prior to discharge OBJECTIVE: Vital Signs-as noted below Exam: General-no sign of distress Eyes-sclera non icteric ENT-nad Neck-no JVD Lungs-minimum wheeze Heart-regular S1/S2 Abdomen-soft, non tender Extremities-no lower ext edema Neuro-AAo x3, no focal deficit Lab data as noted below. ASSESSMENT & PLAN: COPD exacerbation/acute respiratory failure with Hypoxia : continues to have diffuse wheeze and SOB requiring supplemental 02 continue prednisone 40mg doxycycline x5 days for bronchitis-changed to PO will need 2 step exercise to assess home 02 /on going hypoxia pulmonology consulted -appreciate input ordered for nocturnal pulse oximetry to assess night time hypoxia /RIANA Ongoing Tobacco Use refusing nicotine patch cessation counseling provided-specially in setting of advanced COPD has cut down from 1PPD to 1/2PPD, states that her goal is to quit this year DM2 has lost significant weight through dieting takes metformin at home, which has been cut down to 500mg once daily well controlled, Ha1c = 5.8% hold oral agents insulin sliding scale HLD continue Lipitor Depression/Anxiety stable with medications continue home medications: Wellbutrin and Lexapro DVT ppx Lovenox SC DISPOSITION possible discharge home tomorrow ordered for 2 step exercise to assess home 02 /on going hypoxia Medicine follow up with Dr Colton Morse will need to establish care with Pulmonology Vital Signs: Date Time Temp Pulse Resp B/P (MAP) Pulse Ox O2 Delivery O2 Flow Rate FiO2 03/01/17 16:00 91 Nasal Cannula 2.0 03/01/17 15:13 36.6 88 20 134/79 (97) 91 Nasal Cannula 2.0 03/01/17 14:17 82 16 92 Nasal Cannula 2.0 03/01/17 08:27 98 Nasal Cannula 2.0 03/01/17 08:00 98 Nasal Cannula 2.0 03/01/17 07:47 36.5 75 20 109/67 (81) 98 03/01/17 07:33 76 16 99 Nasal Cannula 2.0 03/01/17 01:33 80 16 98 Nasal Cannula 2.0 03/01/17 00:00 Nasal Cannula 2.0 02/28/17 23:11 36.7 88 20 124/77 (93) 91 Nasal Cannula 2.0 02/28/17 20:12 86 16 95 Nasal Cannula 2.0 Lab Results: Results Past 24 Hours Test 02/28/17 19:56 03/01/17 06:16 03/01/17 06:55 03/01/17 10:59 Range/Units Bedside Glucose 120 95 165 70-90 mg/dl White Blood Count 7.28 4.8-10.8 K/uL Red Blood Count 4.72 4.2-5.4 M/uL Hemoglobin 13.4 12.0-16.0 g/dL Hematocrit 41.7 37-47 % Mean Corpuscular Volume 88.3 80-100 fL Mean Corpuscular Hemoglobin 28.4 25-34 pg Mean Corpuscular Hemoglobin Concent 32.1 32-36 g/dl Platelet Count 175 130-400 K/uL Mean Platelet Volume 10.6 7.4-10.4 fL Neutrophils (%) (Auto) 46.4 % Lymphocytes (%) (Auto) 39.0 % Monocytes (%) (Auto) 12.5 % Eosinophils (%) (Auto) 1.6 % Basophils (%) (Auto) 0.1 % Neutrophils # (Auto) 3.37 1.4-6.5 K/uL Lymphocytes # (Auto) 2.84 1.2-3.4 K/uL Monocytes # (Auto) 0.91 0.11-0.59 K/uL Eosinophils # (Auto) 0.12 0-0.5 K/uL Basophils # (Auto) 0.01 0-0.2 K/uL RDW Standard Deviation 48.5 36.4-46.3 fL RDW Coefficient of Variation 15.0 11.5-14.5 % Immature Granulocyte % (Auto) 0.4 % Immature Granulocyte # (Auto) 0.03 0.00-0.02 K/uL Test 03/01/17 16:16 Range/Units Bedside Glucose 151 70-90 mg/dl
--- NOTE | 2017-03-01 18:11 | PULMONARY PROGRESS NOTE ---
DATE: 03/01/2017 PULMONARY PROGRESS NOTE TIME: 5:10 p.m. SUBJECTIVE: The patient is feeling much better. She is much less short of breath than she had been. She states last evening she coughed up several globs of mucus and she seems better since then. It was still yellow to green in color. She is not having any chest pains. OBJECTIVE: GENERAL: The patient looks comfortable. VITAL SIGNS: Her temperature is 36.6. EARS, NOSE, THROAT: Unchanged from yesterday. HEART: Patient's heart rate is 88 beats per minute. Blood pressure 134/79. LUNGS: Lung larios revealed mild rhonchi bilaterally with prolongation to the expiratory phase of respiration. She sounds much better than prior. Oxygen saturation was 91% on 2 liters. ABDOMEN: Soft and nontender. EXTREMITIES: Again, showed the right leg is larger than the left leg. She did have a Doppler yesterday which was negative. LABORATORY DATA: White count today is 7.28. Hemoglobin 13.4. Platelets 175,000. Blood sugar today was 151. IMPRESSIONS: 1. Chronic obstructive pulmonary disease with exacerbation. 2. Obesity. 3. Nicotine addiction. 4. Cannot exclude obstructive sleep apnea. COMMENTS AND RECOMMENDATIONS: The patient is much improved today. She is supposed to have an overnight pulse oximetry study done in a 2-step tomorrow. Her prednisone can be tapered as an outpatient. Consideration could be given to doing pulmonary function tests after she is stable, as mentioned. Likewise, consideration could be given to doing a sleep study if the patient would be agreeable. Thank you for asking me to assist in her care. Will sign off for now, but will be happy to see her again if you would request.
[2017-03-02] VITALS (8 sets, daily range): BP systolic 134–142; BP diastolic 71–79; PULSE 74–89; TEMP 36.6–37; O2SAT 89–95
[2017-03-02] MEDS: IPRATROPIUM BROMIDE NEB SOLN 0.02% 2.5 ML VIAL INH SCH ×4 (02:48→19:54)
[2017-03-02] MEDS: LEVALBUTEROL 1.25MG/0.5ML NEB INH SCH ×4 (02:49→19:54)
[2017-03-02] MEDS: BUDESONIDE 0.5 MG/2 ML VIAL (PULMICORT) INH SCH ×2 (07:36→19:55)
[2017-03-02] MEDS: RANITIDINE HCL 150 MG TAB PO SCH ×2 (08:33→20:49)
[2017-03-02] MEDS: DOXYCYCLINE HYCLATE 100 MG CAP PO SCH ×2 (08:34→20:48)
[2017-03-02] MEDS: BuPROPion SR 150 MG TABCR PO SCH ×2 (08:35→20:49)
[2017-03-02] MEDS: MULTIVITAMIN TAB PO SCH (08:35)
[2017-03-02] MEDS: POLYETHYLENE (MIRALAX) 17 GM PACK PO SCH (08:36)
[2017-03-02] MEDS: ENOXAPARIN 40 MG/0.4 ML SYR SQ SCH (08:41)
[2017-03-02] MEDS: INSULIN GLARGINE SOLOSTAR 100 UNITS/ML 3 ML PEN SC SCH (08:46)
[2017-03-02] MEDS: INSULIN ASPART 100 UNITS/ML 3 ML PEN SC SCH ×4 (08:46→20:49)
[2017-03-02] MEDS: ASPIRIN 81 MG ECTAB PO SCH (10:19)
[2017-03-02] MEDS: ESCITALOPRAM OXALATE 10 MG TAB PO SCH (10:19)
[2017-03-02] MEDS: ATORVASTATIN 40 MG TAB PO SCH (10:20)
[2017-03-02] MEDS ORDERED: PRD20 PO (10:39)
[2017-03-02] MEDS ORDERED: PLMINS INH (10:39)
[2017-03-02] MEDS ORDERED: DXY100 PO (10:43)
--- NOTE | 2017-03-02 10:43 | Discharge Instructions ---
Discharge Instructions Date of Service Mar 02, 2017. Admission Reason for Admission: Copd Exacerbation Discharge Discharge Diagnosis / Problem: COPD EXACERBATION Discharge Goals Goal(s): Decrease discomfort, Diagnostic testing, Therapeutic intervention Activity Recommendations Activity Limitations: resume your previous activity . Instructions / Follow-Up Instructions / Follow-Up 03/07/2017 3:10 PM Colton Morse DO [facility] PULMONOLOGY FOLLOW UP WITH DR FLEMING , PLEASE CALL OFFICE FOR APPOINTMENT Current Hospital Diet Patient's current hospital diet: Diabetes Type 2 Diet, AHA Diet (Heart Healthy) Discharge Diet Recommended Diet: AHA Diet (Heart Healthy), Diabetes Type 2 Diet Pending Studies Studies pending at discharge: no Laboratory Results Hemoglobin A1c Test 02/25/17 00:56 Range/Units Estimated Average Glucose 120 mg/dl Hemoglobin A1c 5.8 H 4.5-5.6 % Medical Emergencies . Who to Call and When: Medical Emergencies: If at any time you feel your situation is an emergency, please call 911 immediately. . Non-Emergent Contact Non-Emergency issues call your: Primary Care Provider . . "Provider Documentation" section prepared by Jennifer Michaels. . VTE Core Measure Inpt VTE Proph given/why not?: Unfractionated heparin SQ
--- NOTE | 2017-03-02 18:28 | Progress Note ---
Internal Med Progress Note Date of Service: Mar 02, 2017. Provider Documentation: SUBJECTIVE: still having non productive cough off 02 in room air has wheeze OBJECTIVE: Vital Signs-as noted below Exam: General-no sign of distress Eyes-sclera non icteric ENT-nad Neck-no JVD Lungs-minimum wheeze Heart-regular S1/S2 Abdomen-soft, non tender Extremities-no lower ext edema Neuro-AAo x3, no focal deficit Lab data as noted below. ASSESSMENT & PLAN: COPD exacerbation/acute respiratory failure with Hypoxia : continues to have diffuse wheeze and SOB requiring supplemental 02 continue prednisone 40mg doxycycline x5 days for bronchitis-changed to PO 2 step exercise done -pt does not require home 02 pulmonology consulted -appreciate input Ongoing Tobacco Use refusing nicotine patch cessation counseling provided-specially in setting of advanced COPD has cut down from 1PPD to 1/2PPD, states that her goal is to quit this year DM2 has lost significant weight through dieting takes metformin at home, which has been cut down to 500mg once daily well controlled, Ha1c = 5.8% hold oral agents insulin sliding scale HLD continue Lipitor Depression/Anxiety stable with medications continue home medications: Wellbutrin and Lexapro DVT ppx Lovenox SC DISPOSITION possible discharge home tomorrow as cough and SOB improves Medicine follow up with Dr Colton Morse will need to establish care with Pulmonology Vital Signs: Date Time Temp Pulse Resp B/P (MAP) Pulse Ox O2 Delivery O2 Flow Rate FiO2 03/02/17 15:39 37.0 89 16 142/71 (94) 89 Room Air 03/02/17 14:26 87 16 92 Room Air 03/02/17 08:00 Room Air 03/02/17 07:37 74 16 90 Room Air 03/02/17 07:10 36.6 78 16 137/79 (98) 91 Room Air 03/02/17 05:42 84 14 89 Room Air 03/02/17 00:00 Room Air 03/01/17 23:42 36.9 83 20 147/83 (104) 92 Room Air 03/01/17 20:00 Nasal Cannula 2.0 03/01/17 19:38 82 16 92 Nasal Cannula 2.0 Lab Results: Results Past 24 Hours Test 03/01/17 20:09 03/02/17 07:22 9/9/17 11:18 03/02/17 16:26 Range/Units Bedside Glucose 170 94 129 146 70-90 mg/dl
[2017-03-03] MEDS: LEVALBUTEROL 1.25MG/0.5ML NEB INH SCH ×4 (01:52→20:10)
[2017-03-03] MEDS: IPRATROPIUM BROMIDE NEB SOLN 0.02% 2.5 ML VIAL INH SCH ×4 (01:52→20:09)
[2017-03-03 07:07] VITALS: PULSE 70; O2SAT 92
[2017-03-03 07:11] VITALS: BP 144/79; PULSE 75; TEMP 36.9; O2SAT 94
[2017-03-03] MEDS: BUDESONIDE 0.5 MG/2 ML VIAL (PULMICORT) INH SCH ×2 (07:15→20:09)
[2017-03-03] MEDS: ASPIRIN 81 MG ECTAB PO SCH (07:31)
[2017-03-03] MEDS: MULTIVITAMIN TAB PO SCH (07:31)
[2017-03-03] MEDS: ESCITALOPRAM OXALATE 10 MG TAB PO SCH (07:31)
[2017-03-03] MEDS: ENOXAPARIN 40 MG/0.4 ML SYR SQ SCH (07:31)
[2017-03-03] MEDS: RANITIDINE HCL 150 MG TAB PO SCH ×2 (07:31→21:15)
[2017-03-03] MEDS: DOXYCYCLINE HYCLATE 100 MG CAP PO SCH ×2 (07:31→21:15)
[2017-03-03] MEDS: ATORVASTATIN 40 MG TAB PO SCH (07:31)
[2017-03-03] MEDS: BuPROPion SR 150 MG TABCR PO SCH ×2 (07:31→21:15)
[2017-03-03] MEDS: POLYETHYLENE (MIRALAX) 17 GM PACK PO SCH (07:31)
[2017-03-03] MEDS: INSULIN GLARGINE SOLOSTAR 100 UNITS/ML 3 ML PEN SC SCH (08:24)
[2017-03-03] MEDS: INSULIN ASPART 100 UNITS/ML 3 ML PEN SC SCH ×4 (08:24→21:16)
[2017-03-03 14:08] VITALS: PULSE 84; O2SAT 95
[2017-03-03 14:53] VITALS: BP 141/82; PULSE 84; TEMP 36.6; O2SAT 91
--- NOTE | 2017-03-03 18:42 | Progress Note ---
Internal Med Progress Note Date of Service: Mar 03, 2017. Provider Documentation: SUBJECTIVE: still having cough /SOB worried that she will not be able to fill out her meds as she does not have any prescription benefit OBJECTIVE: Vital Signs-as noted below Exam: General-no sign of distress Eyes-sclera non icteric ENT-nad Neck-no JVD Lungs-minimum wheeze Heart-regular S1/S2 Abdomen-soft, non tender Extremities-no lower ext edema Neuro-AAo x3, no focal deficit Lab data as noted below. ASSESSMENT & PLAN: COPD exacerbation/acute respiratory failure with Hypoxia : continues to have diffuse wheeze and SOB requiring supplemental 02 continue prednisone 40mg doxycycline x5 days for bronchitis-changed to PO 2 step exercise done -pt does not require home 02 pulmonology consulted -appreciate input Ongoing Tobacco Use refusing nicotine patch cessation counseling provided-specially in setting of advanced COPD has cut down from 1PPD to 1/2PPD, states that her goal is to quit this year DM2 has lost significant weight through dieting takes metformin at home, which has been cut down to 500mg once daily well controlled, Ha1c = 5.8% hold oral agents insulin sliding scale HLD continue Lipitor Depression/Anxiety stable with medications continue home medications: Wellbutrin and Lexapro DVT ppx Lovenox SC DISPOSITION possible discharge home tomorrow as cough and SOB improves need to update Social service -pt dose not have any prescription benefit / unable to afford out pt pocked expanses will need multiple pulmonary meds on discharge also on multiple medication for chronic illness Medicine follow up with Dr Colton Morse will need to establish care with Pulmonology Vital Signs: Date Time Temp Pulse Resp B/P (MAP) Pulse Ox O2 Delivery O2 Flow Rate FiO2 03/03/17 16:00 Room Air 03/03/17 14:53 36.6 84 16 141/82 (101) 91 Room Air 03/03/17 14:08 84 16 95 Room Air 03/03/17 08:00 Room Air 03/03/17 07:11 36.9 75 16 144/79 (100) 94 Room Air 03/03/17 07:07 70 16 92 Room Air 03/03/17 00:00 Room Air 03/02/17 22:55 36.8 87 20 134/74 (94) 90 Room Air 03/02/17 20:00 90 Room Air 03/02/17 19:54 86 16 95 Room Air Lab Results: Results Past 24 Hours Test 03/02/17 19:46 03/03/17 07:00 03/03/17 11:21 03/03/17 16:15 Range/Units Bedside Glucose 144 110 112 116 70-90 mg/dl
[2017-03-03 20:09] VITALS: PULSE 88; O2SAT 96
[2017-03-03 22:41] VITALS: BP 113/71; PULSE 84; TEMP 36.6; O2SAT 91
[2017-03-04] VITALS (7 sets, daily range): BP systolic 108–165; BP diastolic 69–84; PULSE 68–110; TEMP 36.4–36.9; O2SAT 90–96
[2017-03-04] MEDS: LEVALBUTEROL 1.25MG/0.5ML NEB INH SCH ×3 (02:05→13:51)
[2017-03-04] MEDS: IPRATROPIUM BROMIDE NEB SOLN 0.02% 2.5 ML VIAL INH SCH ×3 (02:05→13:51)
[2017-03-04 07:09] LABS: BASO % 0.3 %; BASO ABS # 0.02 K/uL (0-0.2); COMPLETE YES; EOS % 1.9 %; HEMATOCRIT 45.5 % (37-47); IG% 0.4 %; LYMPH % 41.5 %; LYMPH ABS # 2.85 K/uL (1.2-3.4); MEAN CELL VOLUME 87.8 fL (80-100); MEAN CORPUSCULAR HEMOGLOBIN 28.4 pg (25-34); MEAN CORPUSCULAR HGB CONC 32.3 g/dl (32-36); MEAN PLATELET VOLUME 10.5 fL (7.4-10.4); MONO % 12.8 %; NEUT % 43.1 %; PLATELET COUNT 184 K/uL (130-400); RED BLOOD COUNT 5.18 M/uL (4.2-5.4); WHITE BLOOD COUNT 6.86 K/uL (4.8-10.8)
[2017-03-04] MEDS: BUDESONIDE 0.5 MG/2 ML VIAL (PULMICORT) INH SCH (07:11)
[2017-03-04] MEDS: ATORVASTATIN 40 MG TAB PO SCH (08:28)
[2017-03-04] MEDS: ASPIRIN 81 MG ECTAB PO SCH (08:28)
[2017-03-04] MEDS: DOXYCYCLINE HYCLATE 100 MG CAP PO SCH (08:28)
[2017-03-04] MEDS: POLYETHYLENE (MIRALAX) 17 GM PACK PO SCH (08:28)
[2017-03-04] MEDS: RANITIDINE HCL 150 MG TAB PO SCH (08:28)
[2017-03-04] MEDS: MULTIVITAMIN TAB PO SCH (08:28)
[2017-03-04] MEDS: BuPROPion SR 150 MG TABCR PO SCH (08:28)
[2017-03-04] MEDS: ESCITALOPRAM OXALATE 10 MG TAB PO SCH (08:28)
[2017-03-04] MEDS: ENOXAPARIN 40 MG/0.4 ML SYR SQ SCH (08:30)
[2017-03-04] MEDS: INSULIN ASPART 100 UNITS/ML 3 ML PEN SC SCH ×3 (08:33→16:30)
[2017-03-04] MEDS: INSULIN GLARGINE SOLOSTAR 100 UNITS/ML 3 ML PEN SC SCH (08:34)
--- NOTE | 2017-03-04 14:22 | Progress Note ---
Internal Med Progress Note Date of Service: Mar 04, 2017. Provider Documentation: SUBJECTIVE: cough and SOB has improved markedly no hypoxia no NGUYEN feels well enough to go home OBJECTIVE: Vital Signs-as noted below Exam: General-no sign of distress Eyes-sclera non icteric ENT-nad Neck-no JVD Lungs-no wheeze or rales Heart-regular S1/S2 Abdomen-soft, non tender Extremities-no lower ext edema Neuro-AAo x3, no focal deficit Lab data as noted below. ASSESSMENT & PLAN: COPD exacerbation/acute respiratory failure with Hypoxia : symptom has improved , no hypoxia , in room air not requiring supplemental 02 on doxycycline # 5 day for bronchitis no further Abx needed completed ABx course 2 step exercise done -pt does not require home 02 pulmonology consulted -appreciate input stable to be discharged home today pt will be followed up at pulmonology office Ongoing Tobacco Use refusing nicotine patch cessation counseling provided-specially in setting of advanced COPD has cut down from 1PPD to 1/2PPD, states that her goal is to quit this year DM2 has lost significant weight through dieting takes metformin at home, which has been cut down to 500mg once daily well controlled, Ha1c = 5.8% resumed Metformin on discharge insulin sliding scale HLD continue Lipitor Depression/Anxiety stable with medications continue home medications: Wellbutrin and Lexapro DVT ppx Lovenox SC DISPOSITION stable to be discharged home today -pt dose not have any prescription benefit /unable to afford out pt pocked expanses will change meds to [facility] $4 prescription plan on discharge Medicine follow up with Dr Colton Morse will need to establish care with Pulmonology Vital Signs: Date Time Temp Pulse Resp B/P (MAP) Pulse Ox O2 Delivery O2 Flow Rate FiO2 03/04/17 13:51 97 16 93 Room Air 03/04/17 07:42 Room Air 03/04/17 07:19 36.5 68 16 108/69 (82) 94 Room Air 03/04/17 07:11 69 16 94 Room Air 03/04/17 00:00 Room Air 03/03/17 22:41 36.6 84 18 113/71 (85) 91 Room Air 03/03/17 20:09 88 16 96 Room Air 03/03/17 16:00 Room Air Lab Results: Results Past 24 Hours Test 03/03/17 16:15 03/03/17 20:09 03/04/17 06:11 03/04/17 06:53 Range/Units Bedside Glucose 116 205 106 70-90 mg/dl White Blood Count 6.86 4.8-10.8 K/uL Red Blood Count 5.18 4.2-5.4 M/uL Hemoglobin 14.7 12.0-16.0 g/dL Hematocrit 45.5 37-47 % Mean Corpuscular Volume 87.8 80-100 fL Mean Corpuscular Hemoglobin 28.4 25-34 pg Mean Corpuscular Hemoglobin Concent 32.3 32-36 g/dl Platelet Count 184 130-400 K/uL Mean Platelet Volume 10.5 7.4-10.4 fL Neutrophils (%) (Auto) 43.1 % Lymphocytes (%) (Auto) 41.5 % Monocytes (%) (Auto) 12.8 % Eosinophils (%) (Auto) 1.9 % Basophils (%) (Auto) 0.3 % Neutrophils # (Auto) 2.95 1.4-6.5 K/uL Lymphocytes # (Auto) 2.85 1.2-3.4 K/uL Monocytes # (Auto) 0.88 0.11-0.59 K/uL Eosinophils # (Auto) 0.13 0-0.5 K/uL Basophils # (Auto) 0.02 0-0.2 K/uL RDW Standard Deviation 48.1 36.4-46.3 fL RDW Coefficient of Variation 15.0 11.5-14.5 % Immature Granulocyte % (Auto) 0.4 % Immature Granulocyte # (Auto) 0.03 0.00-0.02 K/uL Test 03/04/17 11:00 Range/Units Bedside Glucose 113 70-90 mg/dl
--- NOTE | 2017-03-04 15:09 | Discharge Summary ---
Discharge Summary Date of Service Mar 04, 2017. Discharge Summary Admission Date: Feb 25, 2017 at 03:30 Discharge Date: Mar 02, 2017 Discharge Disposition: Home Principal Diagnosis: COPD EXACERBATION Procedures: CHEST ONE VIEW PORTABLE HISTORY: 61 years-old Female Sepsis acute sepsis with difficulty breathing. Initial exam. COMPARISON: Chest radiographs 10/11/2016 TECHNIQUE: Portable upright AP view of the chest FINDINGS: Cardiac silhouette is within normal limits. No pneumothorax, pleural effusion or focal airspace consolidation. No overt pulmonary edema. Bones are grossly intact. Postsurgical changes or prior osteolysis is seen involving the distal left clavicle. IMPRESSION: No acute cardiopulmonary process. Consultations: PULMONOLOGY DR FLEMING Medication Reconciliation Continued Medications: Albuterol Hfa (Ventolin Hfa) 200 Puffs/18754 Mcg Aers 2 PUFFS INH Q4 PRN for SOB/Wheezing, #1 INHALER Albuterol Sulf (Proventil 0.083% 2.5MG/3ML) 2.5 Mg/3 Ml Nebu 2.5 MG INH Q4 PRN for SOB/Wheezing, EA Aspirin (Aspirin Ec) 81 Mg Tab 81 MG PO DAILY Atorvastatin (Atorvastatin Calcium) 40 Mg Tab 40 MG PO DAILY Bupropion HCl (Bupropion HCl Sr) 150 Mg Tabcr 150 MG PO BID, #180 Cyanocobalamin (Vitamin B12) 1,000 Mcg Tab 2000 MCG PO QAM Escitalopram Oxalate (Escitalopram Oxalate) 10 Mg Tab 10 MG PO DAILY Home O2 Therapy (Oxygen) Gas 2 LITERS NA HS Hydroxyzine Hcl (Atarax) 25 Mg Tab 50 MG PO Q6H PRN for Itching, TAB Ipratropium [place] (Atrovent 0.02% Soln) 2.5 Ml Nebu 2.5 ML INH Q6 PRN for Wheezing Metformin HCl (Metformin HCl) 500 Mg Tab 500 MG PO QAM Multivitamin (Multivitamin) Tab 1 TAB PO QAM, TAB Oxycodone/Acetaminophen 5MG/325MG (Percocet 5MG/325MG) Tab 1-2 TABLETS PO Q4H PRN for Pain, #60 TAB Prednisone (Deltasone) 20 Mg Tab 20 MG PO UD PRN for COPD RESCUE KIT, #30 Ranitidine Hcl (Zantac) 300 Mg Tab 300 MG PO BID, TAB Tiotropium [place] (Spiriva Handihaler) 30 Puff/540 Mcg Aerp 1 CAP INH QAM, INHALER Admission Information HPI (per Admitting provider): DATE OF ADMISSION: 02/25/2017 PRIMARY CARE PHYSICIAN: Dr. Morse CHIEF COMPLAINT: Cough, shortness of breath. HISTORY OF PRESENT ILLNESS: History obtained from patient and records. Medical history significant for COPD, ongoing tobacco abuse, hypertension, hyperlipidemia, DM2, on oral medications, history of GERD. Recent confinement under Orthopedic service last 10/2016 for right subtalar joint surgery. Few days history of cough symptoms, productive of yellow sputum, no aspiration, increasing shortness of breath, chest pain with coughing. No unusual swelling or weight gain. Patient actually has lost weight voluntarily over the last several months. At the Emergency Room, the patient received Solu-Medrol, nebs for COPD exacerbation. MEDICAL HISTORY: As above. SURGERIES: Hysterectomy, appendectomy, hip replacement, lower extremity, other orthopedic procedures. HOME MEDICATIONS: Include albuterol, aspirin, bupropion, atorvastatin, vitamin B12, citalopram, oxygen, Atarax, Ativan, metformin, multivitamins, Zantac, Spiriva. ALLERGIES: TO ADHESIVE, IODINE, CEPHALOSPORIN, PENICILLIN, QUINOLONE, SULFA. FAMILY HISTORY: Asthma, diabetes. PERSONAL AND SOCIAL HISTORY: Half pack daily. No chronic intake of alcohol. [facility] REVIEW OF SYSTEMS: As per HPI, all other ROS negative. Physical Exam (per Admitting): PHYSICAL EXAMINATION: VITAL SIGNS: Blood pressure was noted to be 171/96 later 140/80, pulse rate 108 , RR 36, later 20, heart rate later 100, O2 sats 94 on room air. GENERAL: Noted to be in minimal respiratory distress, obese, looks older than stated age. SKIN: Normal color. HEENT: [place] palpebral conjunctivae. Dry mucosa. NECK: Short neck. LUNGS: Decreased breath sounds. Expiratory wheezes. HEART: Regular rate and rhythm. ABDOMEN: Some distention, non tender. EXTREMITIES: Cast on the right lower extremity. NEUROLOGIC: No gross focality. Hospital Course COPD exacerbation/acute respiratory failure with Hypoxia : symptom has improved , no hypoxia , in room air not requiring supplemental 02 on doxycycline # 5 day for bronchitis no further Abx needed completed ABx course 2 step exercise done -pt does not require home 02 pulmonology consulted -appreciate input stable to be discharged home today pt will be followed up at pulmonology office Ongoing Tobacco Use refusing nicotine patch cessation counseling provided-specially in setting of advanced COPD has cut down from 1PPD to 1/2PPD, states that her goal is to quit this year DM2 has lost significant weight through dieting takes metformin at home, which has been cut down to 500mg once daily well controlled, Ha1c = 5.8% resumed Metformin on discharge insulin sliding scale HLD continue Lipitor Depression/Anxiety stable with medications continue home medications: Wellbutrin and Lexapro DVT ppx Lovenox SC DISPOSITION stable to be discharged home today -pt dose not have any prescription benefit /unable to afford out pt brenda roy will change meds to [facility] $4 prescription plan on discharge Medicine follow up with Dr Colton Morse will need to establish care with Pulmonology Total time spent on discharge = 35 MINS This includes examination of the patient, discharge planning, medication reconciliation, and communication with other providers. Discharge Instructions Discharge Instructions Date of Service Mar 02, 2017. Admission Reason for Admission: Copd Exacerbation Discharge Discharge Diagnosis / Problem: COPD EXACERBATION Discharge Goals Goal(s): Decrease discomfort, Diagnostic testing, Therapeutic intervention Activity Recommendations Activity Limitations: resume your previous activity . Instructions / Follow-Up Instructions / Follow-Up 03/07/2017 3:10 PM Colton Morse DO [facility] PULMONOLOGY FOLLOW UP WITH DR FLEMING , PLEASE CALL OFFICE FOR APPOINTMENT Current Hospital Diet Patient's current hospital diet: Diabetes Type 2 Diet, AHA Diet (Heart Healthy) Discharge Diet Recommended Diet: AHA Diet (Heart Healthy), Diabetes Type 2 Diet Pending Studies Studies pending at discharge: no Laboratory Results Hemoglobin A1c Test 02/25/17 00:56 Range/Units Estimated Average Glucose 120 mg/dl Hemoglobin A1c 5.8 H 4.5-5.6 % Medical Emergencies . Who to Call and When: Medical Emergencies: If at any time you feel your situation is an emergency, please call 911 immediately. . Non-Emergent Contact Non-Emergency issues call your: Primary Care Provider . . "Provider Documentation" section prepared by Jennifer Michaels. . VTE Core Measure Inpt VTE Proph given/why not?: Unfractionated heparin SQ Additional Copies To Wood Webster M.D. Cable, Joseph A.,
== END 2017-03-04 17:36 | disposition home or self-care (01) | DRG 189 ==
LOC: C.EDB 00:29 → C.MED 03:30 → ENRESERV 03:34
PROVIDERS: ADMIT Family Medicine; ATTEND Hospitalist
DX: J96.01 Acute respiratory failure with hypoxia (principal); J44.1 Chronic obstructive pulmonary disease with (acute) exacerbation; J44.0 Chronic obstructive pulmonary disease with (acute) lower respiratory infection; Z68.41 Body mass index [BMI] 40.0-44.9, adult; I10 Essential (primary) hypertension; F32.9 Major depressive disorder, single episode, unspecified; F41.9 Anxiety disorder, unspecified; F17.200 Nicotine dependence, unspecified, uncomplicated; K21.9 Gastro-esophageal reflux disease without esophagitis; E66.9 Obesity, unspecified; E78.5 Hyperlipidemia, unspecified; E11.9 Type 2 diabetes mellitus without complications; Z79.84 Long term (current) use of oral hypoglycemic drugs; Z83.3 Family history of diabetes mellitus; Z82.5 Family history of asthma and other chronic lower respiratory diseases; Z87.442 Personal history of urinary calculi; Z79.82 Long term (current) use of aspirin; Z82.49 Family history of ischemic heart disease and other diseases of the circulatory system

== ENCOUNTER → 2017-03-18 | Outpatient (CLI) | payer OTHER ==
[~2017-03-18] MED LIST changes: +ALBINS/ INH; -ALBU0.08 INH; -ALBUAER2 INH; -ASPEC81 PO; +ASPI81TA28 PO; -ATOR10TA88 PO; -CITA10TA8 PO; -FLNIN NAE; +GLC500 PO; +LPT40 PO; -LVNIS40 SQ; +LXP10 PO; -METF-384 PO; +VNTHFA/IN INH
--- NOTE | 2017-03-18 16:18 | DIAGNOSTIC IMAGING REPORT ---
CHEST 2 VIEWS ROUTINE CLINICAL HISTORY: COUGH, CHRONIC OBSTRUCTIVE PULMONARY DISEASE COMPARISON STUDY: 02/25/2017 FINDINGS: The cardiac and mediastinal contours are normal. There is no evidence of focal pulmonary consolidation. There is no evidence of failure. No pleural effusions are visualized.[ There is slight indistinctness of the left cardiophrenic angle. This likely is secondary to either a fat pad or atelectatic change. IMPRESSION: Slight indistinctness of the left cardiophrenic angle, likely secondary to either a fat pad or atelectatic change. Electronically signed by: Maximiliano Solano M.D. 03/18/2017 4:17 PM Dictated Date/Time: 03/18/2017 4:16 PM
== END | disposition home or self-care (01) ==
LOC: C.RAD1850 15:17
PROVIDERS: ATTEND Physician Assistant
DX: J44.9 Chronic obstructive pulmonary disease, unspecified (principal)

== ENCOUNTER → 2017-04-09 | Outpatient (CLI) | payer OTHER ==
--- NOTE | 2017-04-18 19:53 | Sleep Study ---
Sleep Study Report Date of Service: 04/09/2017 Sleep Study Report Clinical data: The patient is a 61-year-old female who has a history of snoring, fatigue, and hypoxia. Her BMI is elevated at 43.09. On the evening of 04/09/2017 a home sleep apnea test was performed using a Mang?rKart type 3 monitor. Recording results: Total recording time was 8.2 hours. Patient estimated sleep time 6.6 hours. Respiratory data: Patient had a total of 53 respiratory events including 1 obstructive apnea, 1 central apnea, and 51 hypopneas. Hypopneas were scored according to the 4% desaturation rule. The apnea-hypopnea index was mildly elevated at 8.1 events per hour. The maximum respiratory event was 52 seconds. These results would suggest mild sleep apnea. Oximetry data: The mean saturation for the night was 91%. The minimum saturation was 76%. There was an estimated 62 minutes with saturations less than 89%. Heart rate data: The minimum heart rate was 76 beats per minute. The mean heart rate was 89 beats per minute. Snoring data: Snoring was present throughout the test. Impressions: 1. Obstructive sleep apnea-mild 2. Nocturnal hypoxia Recommendations: 1. Consideration is given to treatment with nasal CPAP therapy in light of the mild sleep apnea associated with hypoxia and in a patient that also has COPD. Thus she likely has the overlap syndrome. Treatment could be accomplished by an in-lab CPAP titration study. Alternatively she would be a candidate for treatment with auto CPAP. Copies To 1: Elías Hernandez DO; Ashleigh Salas PA-C; Colton Morse, D.O.
== END | disposition home or self-care (01) ==
LOC: C.NEUR 11:44
PROVIDERS: ATTEND Physician Assistant
DX: G47.34 Idiopathic sleep related nonobstructive alveolar hypoventilation (principal)

== ENCOUNTER 2017-05-19 09:22 | Inpatient (IN) | payer OTHER ==
[~2017-05-19] VITALS: Ht 167.6 cm; Wt 128.9 kg
[2017-05-19] MEDS ORDERED: METHYLPREDNISOLONE 125 MG VIAL IV STA (09:35)
[2017-05-19] MEDS ORDERED: AZITHROMYCIN 250 MG TAB PO STA (09:35)
[2017-05-19] MEDS ORDERED: MAGNESIUM SULFATE 1GM / D5W 1 GM BAG IV STA (09:35)
[2017-05-19] MEDS ORDERED: ALBUT/IPRATROP 3MG/0.5MG NEB 3 ML VIAL INH ONE (09:45)
--- NOTE | 2017-05-19 09:59 | EMERGENCY ROOM VISIT NOTE ---
History Report prepared by Sandra: Artemio Orr Under the Supervision of: Dr. Heri Watts M.D. First contact with patient: 09:29 Chief Complaint: RESPIRATORY PROBLEMS Stated Complaint: COPD ACTING UP History of Present Illness The patient is a 61 year old white female with a past medical history of anxiety , COPD, HTN, HLD, GERD, and DM who presents to the ED with a cc of constant shortness of breath beginning a few days ago. The patient believes it is her COPD acting up because she has a history of this. Positive using nebulizers and inhalers at home as needed, being on 2L of oxygen every night, coughing up green and yellow sputum. Negative chest pain. She states she stopped smoking a month ago. The patient currently takes metformin and Zantac. Source of History: patient Onset: few days ago Position: other (global) Quality: other (SOB) Timing: constant Associated Symptoms: + cough (yellow and green sputum), No chest pain Review of Systems See HPI for pertinent positives and negatives. A total of ten systems were reviewed and were otherwise negative. 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 Social History Smoking Status: Former Smoker Alcohol Use: none Drug Use: none Marital Status: Housing Status: lives with family Occupation Status: disabled Current/Historical Medications Scheduled Home O2 Therapy (Oxygen), 2 LITERS NA HS Ranitidine Hcl (Zantac), 300 MG PO BID Tiotropium [place] (Spiriva Handihaler), 1 CAP INH QAM Scheduled PRN Albuterol Hfa (Ventolin Hfa), 2 PUFFS INH Q4 PRN for SOB/Wheezing Albuterol Sulf (Proventil 0.083% 2.5MG/3ML), 2.5 MG INH Q4 PRN for SOB/Wheezing Ipratropium [place] (Atrovent 0.02% Soln), 2.5 ML INH Q6 PRN for Wheezing Allergies Coded Allergies: Azithromycin (Unverified Allergy, Severe, cardiac arrhythmia, 05/19/17) Penicillins (Verified Allergy, Severe, HIVES, SOB, 02/25/17) Sulfa Antibiotics (Verified Allergy, Severe, HIVES AND SOB WITH ORAL SULFA DRUGS, OK W/SILVADENE, 02/25/17) Cephalosporins (Verified Allergy, Intermediate, HIVES WITH CEFTIN, 02/25/17) Quinolones (Verified Allergy, Mild, HIVES-BUT HAD LEVAQUIN IN ER 03/05/09 W /O PROBLEM, 02/25/17) Adhesives (Verified Allergy, Unknown, TAPE-SORES ON SKIN, 02/25/17) Iodine (Verified Allergy, Unknown, REDNESS, 02/25/17) Physical Exam Vital Signs Date Time Temp Pulse Resp B/P (MAP) Pulse Ox O2 Delivery O2 Flow Rate FiO2 05/19/17 16:00 113 24 172/75 Nasal Cannula 4.0 05/19/17 15:11 118 24 171/104 96 Nasal Cannula 2.0 05/19/17 14:31 116 18 149/86 94 Room Air 05/19/17 13:44 Nasal Cannula 2.0 05/19/17 13:42 121 24 157/76 84 Room Air 05/19/17 13:30 120 24 163/81 86 Room Air 05/19/17 12:30 120 24 165/74 94 Room Air 05/19/17 11:14 102 20 167/92 100 Nebulizer 05/19/17 10:24 92 22 162/82 100 Nebulizer 05/19/17 10:21 100 Room Air 05/19/17 10:08 96 18 94 Nasal Cannula 05/19/17 09:59 Room Air 05/19/17 09:46 94 22 165/93 93 05/19/17 09:42 99 05/19/17 09:25 36.8 99 20 211/128 95 Room Air 2.0 Physical Exam GENERAL: Awake, alert, well-appearing, NAD HENT: Normocephalic, atraumatic. Edentulous. EYES: Normal conjunctiva. Sclera non-icteric. NECK: Supple. No nuchal rigidity. FROM. RESPIRATORY: No rhonchi, or crackles. Wheezing throughout. CARDIAC: Tachy but regular, no MRG ABDOMEN: Soft, NTND, BS+ MSK: No chest wall TTP, no LE edema NEURO: GCS 15, CN 2-12 intact, moves all 4s on command SKIN: No rash or jaundice noted. Medical Decision & Procedures ER Provider Diagnostic Interpretation: Radiology results as stated below per my review and radiologist interpretation: CHEST ONE VIEW PORTABLE HISTORY: EVALUATE RESPIRATORY DISTRESS.DYSPNEA COMPARISON: Chest 03/18/2017. FINDINGS: No focal lung consolidations to suggest pneumonia. No evidence for pulmonary edema. The heart is borderline enlarged. No pleural effusions. No pneumothorax. IMPRESSION: No acute process. Electronically signed by: Finn Jarrell M.D. 05/19/2017 10:38 AM Dictated Date/Time: 05/19/2017 10:37 AM CHEST CTA for PULMONARY ARTERIES CT DOSE: 705.05 mGy.cm HISTORY: Short of breath. Hypoxia. TECHNIQUE: Multiaxial CT images of the chest were performed following the intravenous administration of contrast to evaluate the pulmonary arteries. Maximal intensity projection images were also obtained. A dose lowering technique was utilized adhering to the principles of ALARA. COMPARISON STUDY: Chest 05/13/1617. FINDINGS: Hepatic steatosis. The visualized spleen and left adrenal gland are unremarkable. An indeterminate 1.5 cm exophytic lesion within the upper pole the left kidney. This favors a cyst but is only partially visualized. However, this is unchanged compared to the 2013 study and is therefore likely benign. Calcification within the right thyroid lobe. Stable calcified 7 mm nodule within the right adrenal gland. No pleural or pericardial effusions. No mediastinal or hilar lymphadenopathy. The heart is normal in size. No fractures within the visualized osseous structures. No pneumothorax. Trace mucoid material within the right mainstem bronchus. Mild emphysema. A 4 mm nodule within the upper lobe on image 226. Focal branching nodular density seen within the left upper lobe on image 196. This measures 9 x 7 mm. This favors an impacted bronchus. Bibasilar linear densities consistent with subsegmental atelectasis. Normal caliber thoracic aorta with no evidence for dissection. No filling defects within the pulmonary arteries to suggest pulmonary embolus. IMPRESSION: 1. No evidence for pulmonary embolus. 2. Mild emphysema. 3. A 9 x 7 mm nodular density within the left upper lobe which appears to represent an impacted bronchus. However, follow-up chest CT in 2-3 months is recommended to exclude underlying nodule/mass. 4. A 4 mm indeterminate pulmonary nodule within the left upper lobe. Please refer to the chart below for recommended follow-up. Electronically signed by: Finn Jarrell M.D. 05/19/2017 3:04 PM Dictated Date/Time: 05/19/2017 2:50 PMqq Laboratory Results 05/19/17 10:00 Red Blood Count 5.14, Mean Corpuscular Volume 85.6, Mean Corpuscular Hemoglobin 27.8, Mean Corpuscular Hemoglobin Concent 32.5, Mean Platelet Volume 10.8, Neutrophils (%) (Auto) 66.8, Lymphocytes (%) (Auto) 21.5, Monocytes (%) (Auto) 10.1, Eosinophils (%) (Auto) 1.2, Basophils (%) (Auto) 0.3, Neutrophils # (Auto ) 5.03, Lymphocytes # (Auto) 1.62, Monocytes # (Auto) 0.76, Eosinophils # (Auto ) 0.09, Basophils # (Auto) 0.02 05/19/17 10:00 Test 05/19/17 10:00 05/19/17 15:50 White Blood Count 7.53 K/uL (4.8-10.8) Red Blood Count 5.14 M/uL (4.2-5.4) Hemoglobin 14.3 g/dL (12.0-16.0) Hematocrit 44.0 % (37-47) Mean Corpuscular Volume 85.6 fL (80-100) Mean Corpuscular Hemoglobin 27.8 pg (25-34) Mean Corpuscular Hemoglobin Concent 32.5 g/dl (32-36) Platelet Count 174 K/uL (130-400) Mean Platelet Volume 10.8 fL (7.4-10.4) Neutrophils (%) (Auto) 66.8 % Lymphocytes (%) (Auto) 21.5 % Monocytes (%) (Auto) 10.1 % Eosinophils (%) (Auto) 1.2 % Basophils (%) (Auto) 0.3 % Neutrophils # (Auto) 5.03 K/uL (1.4-6.5) Lymphocytes # (Auto) 1.62 K/uL (1.2-3.4) Monocytes # (Auto) 0.76 K/uL (0.11-0.59) Eosinophils # (Auto) 0.09 K/uL (0-0.5) Basophils # (Auto) 0.02 K/uL (0-0.2) RDW Standard Deviation 43.2 fL (36.4-46.3) RDW Coefficient of Variation 13.8 % (11.5-14.5) Immature Granulocyte % (Auto) 0.1 % Immature Granulocyte # (Auto) 0.01 K/uL (0.00-0.02) Prothrombin Time 10.0 SECONDS (9.0-12.0) Prothromb Time International Ratio 0.9 (0.9-1.1) Activated Partial Thromboplast Time 28.8 SECONDS (21.0-31.0) Partial Thromboplastin Ratio 1.1 Anion Gap 6.0 mmol/L (3-11) Est Creatinine Clear Calc Drug Dose 110.5 ml/min Estimated GFR () 102.1 Estimated GFR (Non- 88.1 BUN/Creatinine Ratio 21.8 (10-20) Calcium Level 8.9 mg/dl (8.5-10.1) Total Bilirubin 0.4 mg/dl (0.2-1) Aspartate Amino Transf (AST/SGOT) 11 U/L (15-37) Alanine Aminotransferase (ALT/SGPT) 17 U/L (12-78) Alkaline Phosphatase 78 U/L (45-117) Troponin I < 0.015 ng/ml (0-0.045) Pro-B-Type Natriuretic Peptide 65 pg/ml (0-900) Total Protein 7.4 gm/dl (6.4-8.2) Albumin 3.7 gm/dl (3.4-5.0) Globulin 3.7 gm/dl (2.5-4.0) Albumin/Globulin Ratio 1.0 (0.9-2) Urine Color YELLOW Urine Appearance CLEAR (CLEAR) Urine pH 5.0 (4.5-7.5) Urine Specific [place] 1.020 (1.000-1.030) Urine Protein NEG (NEG) Urine Glucose (UA) NEG (NEG) Urine Ketones NEG (NEG) Urine Occult Blood 1+ (NEG) Urine Nitrite NEG (NEG) Urine Bilirubin NEG (NEG) Urine Urobilinogen NEG (NEG) Urine Leukocyte Esterase NEG (NEG) Urine WBC (Auto) 1-5 /hpf (0-5) Urine RBC (Auto) 0-4 /hpf (0-4) Urine Hyaline Casts (Auto) 1-5 /lpf (0-5) Urine Epithelial Cells (Auto) 10-20 /lpf (0-5) Urine Bacteria (Auto) NEG (NEG) Laboratory results reviewed by me Medications Administered Medications (Trade) Dose Ordered Sig/Romel Route Start Time Stop Time Status Last Admin Dose Admin Albuterol/ Ipratropium (Duoneb) 12 ml ONE ONCE INH 05/19/17 09:45 05/19/17 09:46 DC 05/19/17 10:08 12 ML Azithromycin (Zithromax Tab) 500 mg NOW STAT PO 05/19/17 09:35 05/19/17 09:38 DC 05/19/17 10:16 500 MG Methylprednisolone Sodium Succinate (Solu-Medrol IV) 125 mg NOW STAT IV 05/19/17 09:35 05/19/17 09:38 DC 05/19/17 10:16 125 MG Magnesium Sulfate (Magnesium Sulfate) 1 gm NOW STAT IV 05/19/17 09:35 05/19/17 09:38 DC 05/19/17 10:16 1 GM Sodium Chloride 500 ml @ 999 mls/hr Q31M STAT IV 05/19/17 13:59 05/19/17 14:29 DC 05/19/17 15:47 999 MLS/HR ECG Indication: SOB/dyspnea Rate (beats per minute): 93 Rhythm: normal sinus Findings: RBBB, other (QRS widening consistent with RBBB, no other STS or TWI) Comparison ECG Date: 02/25/17 Change: no significant change ED Course 0932: The patient was evaluated in room A11B. A complete history and physical exam was performed. 1046: I reevaluated the patient. She is feeling better. 1145: Upon reevaluation, the patient is feeling better. Her breathing has improved. 1318: I reevaluated the patient. Her heart rate has not improved. 1547: The patient walked to the restroom, and her O2 Sat dropped to 82. 1557: I discussed the patient's case with Dr. Benavides, [facility] Hospitalist. The patient will be evaluated for further management and care. Medical Decision The patient is a 61 year old white female with a past medical history of anxiety , COPD, HTN, HLD, GERD, and DM who presents to the ED with a cc of constant shortness of breath beginning a few days ago. Etiologies such as infections, reactive airway disease, pneumonia, pneumothorax, COPD, CHF, cardiac ischemia, pulmonary embolism, musculoskeletal, gastrointestinal, as well as others were entertained. Patient was seen and evaluated at the bedside. Patient is a known history of COPD. Patient states she also has a history of hypertension and diabetes. Patient states that when she quit smoking she has had some weight does take metformin occasionally checks her sugars. Patient does have nebulizers and inhalers at home but has been using them more frequently without much relief. On exam patient does appear anxious and is have diffuse wheezing throughout. Patient also states that she has had some greenish productive cough. Patient denies any chest pain lower extremity swelling, DVT or PE, recent car or plane travel. Patient did have blood work that was completed along with an EKG, chest x-ray, troponin, BNP, and supportive care for COPD exacerbation. Patient's chest x-ray clear. WBC count was within normal limits. Patient does not have a detectable troponin. Patient's EKG did not show any acute ischemic changes. BMP within normal limits. Patient did receive an hour-long neb and did have some tachycardia. Patient was given IV fluids as well as by mouth hydration. Given the persistence of her tachycardia CT of the chest was ordered. Patient was also hypoxic however she does use oxygen at home as needed and all the time during sleep. Patient's CT did not show any acute pulmonary embolus. Patient does have emphysematous changes. Possible infected bronchitis was recommended follow-up CT in 2-3 months. Patient did have an increased oxygen requirement she does not require oxygen during the day. In did drop as low as 82% after ambulating to the bathroom. Given the patient's persistent tachycardia with worsening O2 requirement and underlying COPD after fluid resuscitation I did discuss the patient with the hospitalist who agreed to further evaluate and treat the patient. Medication Reconcilliation Current Medication List: was personally reviewed by me Blood Pressure Screening Patient's blood pressure: Elevated blood pressure Monitored by hospitalist. Consults Time Called: 1548 Consulting Physician: Greta Churchill Hospitalist Returned Call: [phone] I discussed the patient's case with Greta Churchill Hospitalist. The patient will be evaluated for further management and care. Impression Primary Impression: COPD exacerbation Additional Impression: Increased oxygen demand Scribe Attestation The scribe's documentation has been prepared under my direction and personally reviewed by me in its entirety. I confirm that the note above accurately reflects all work, treatment, procedures, and medical decision making performed by me. Departure Information Dispostion Being Evaluated By Hospitalist Referrals Colton Morse, DrewO. (PCP) Patient Instructions My [facility] Problem Qualifiers
[2017-05-19 10:08] VITALS: PULSE 96; O2SAT 94
[2017-05-19 10:14] LABS: BASO % 0.3 %; BASO ABS # 0.02 K/uL (0-0.2); COMPLETE YES; EOS % 1.2 %; IG% 0.1 %; LYMPH % 21.5 %; LYMPH ABS # 1.62 K/uL (1.2-3.4); MEAN CELL VOLUME 85.6 fL (80-100); MEAN CORPUSCULAR HEMOGLOBIN 27.8 pg (25-34); MEAN CORPUSCULAR HGB CONC 32.5 g/dl (32-36); MEAN PLATELET VOLUME 10.8 fL (7.4-10.4); MONO % 10.1 %; NEUT % 66.8 %; PLATELET COUNT 174 K/uL (130-400); RED BLOOD COUNT 5.14 M/uL (4.2-5.4); WHITE BLOOD COUNT 7.53 K/uL (4.8-10.8)
[2017-05-19 10:32] LABS: ALT/SGPT 17 U/L (12-78); AST/SGOT 11 U/L (15-37); BLOOD UREA NITROGEN 16 mg/dl (7-18); BUN/CREATININE RATIO 21.8 (10-20); CALCIUM 8.9 mg/dl (8.5-10.1); CARBON DIOXIDE 29 mmol/L (21-32); CHLORIDE 103 mmol/L (98-107); CREATININE 0.74 mg/dl (0.60-1.20); GLUCOSE 128 mg/dl (70-99); POTASSIUM 3.8 mmol/L (3.5-5.1); SODIUM 138 mmol/L (136-145)
[2017-05-19 10:33] LABS: INR 0.9 (0.9-1.1); PARTIAL THROMBOPLASTIN RATIO 1.1
[2017-05-19 10:38] LABS: ALKALINE PHOSPHATASE 78 U/L (45-117)
--- NOTE | 2017-05-19 10:39 | DIAGNOSTIC IMAGING REPORT ---
CHEST ONE VIEW PORTABLE HISTORY: EVALUATE RESPIRATORY DISTRESS.DYSPNEA COMPARISON: Chest 03/18/2017. FINDINGS: No focal lung consolidations to suggest pneumonia. No evidence for pulmonary edema. The heart is borderline enlarged. No pleural effusions. No pneumothorax. IMPRESSION: No acute process. Electronically signed by: Finn Jarrell M.D. 05/19/2017 10:38 AM Dictated Date/Time: 05/19/2017 10:37 AM
[2017-05-19] MEDS ORDERED: SODIUM CHLORIDE 0.9% 500ML 500 ML IV STA (13:59)
[2017-05-19] MEDS ORDERED: OPTIRAY 320 IV PRN (14:15)
--- NOTE | 2017-05-19 15:06 | DIAGNOSTIC IMAGING REPORT ---
CHEST CTA for PULMONARY ARTERIES CT DOSE: 705.05 mGy.cm HISTORY: Short of breath. Hypoxia. TECHNIQUE: Multiaxial CT images of the chest were performed following the intravenous administration of contrast to evaluate the pulmonary arteries. Maximal intensity projection images were also obtained. A dose lowering technique was utilized adhering to the principles of ALARA. COMPARISON STUDY: Chest 05/13/1617. FINDINGS: Hepatic steatosis. The visualized spleen and left adrenal gland are unremarkable. An indeterminate 1.5 cm exophytic lesion within the upper pole the left kidney. This favors a cyst but is only partially visualized. However, this is unchanged compared to the 2014 study and is therefore likely benign. Calcification within the right thyroid lobe. Stable calcified 7 mm nodule within the right adrenal gland. No pleural or pericardial effusions. No mediastinal or hilar lymphadenopathy. The heart is normal in size. No fractures within the visualized osseous structures. No pneumothorax. Trace mucoid material within the right mainstem bronchus. Mild emphysema. A 4 mm nodule within the upper lobe on image 226. Focal branching nodular density seen within the left upper lobe on image 196. This measures 9 x 7 mm. This favors an impacted bronchus. Bibasilar linear densities consistent with subsegmental atelectasis. Normal caliber thoracic aorta with no evidence for dissection. No filling defects within the pulmonary arteries to suggest pulmonary embolus. IMPRESSION: 1. No evidence for pulmonary embolus. 2. Mild emphysema. 3. A 9 x 7 mm nodular density within the left upper lobe which appears to represent an impacted bronchus. However, follow-up chest CT in 2-3 months is recommended to exclude underlying nodule/mass. 4. A 4 mm indeterminate pulmonary nodule within the left upper lobe. Please refer to the chart below for recommended follow-up. Electronically signed by: Finn Jarrell M.D. 05/19/2017 3:04 PM Dictated Date/Time: 05/19/2017 2:50 PM
--- NOTE | 2017-05-19 16:08 | History and Physical ---
History & Physical Date & Time of Service: May 19, 2017 at 16:07 Chief Complaint: Copd Acting Up Primary Care Physician: Colton Morse D.OAriana History of Present Illness Source: patient Patient is a 61 yr female with PMH of COPD on chronic oxygen therapy, DM II, GERD, Former tobacco use disorder, Morbid obesity and other problems presents with history of worsening SOB and wheezing, productive cough and some pleuritic chest pain which started this morning at 2am which woke her from sleep. She states she has been using her inhalers more often lately but symptoms worsened this morning. She reports that she has not been using most of her medications secondary to Insurance issues and secondary to finances. Reports having yellowish green sputum associated with left sided pain on her back which increases with breathing. Reports that she quit smoking 3 months ago. Denies any history of fever, chills, hemoptysis, nausea, vomiting, abdominal pain, chest pain, dysuria, diarrhea or any other relevant history. She is found to be 84% on room air and gets easily desaturated with minimal exertion. CTA is negative for PE. Past Medical/Surgical History Medical Problems: (1) COPD (chronic obstructive pulmonary disease) Status: Chronic (2) Diabetes mellitus, type II Status: Chronic (3) GERD (gastroesophageal reflux disease) Status: Chronic (4) Hypertension Status: Chronic (5) Nocturnal hypoxia Status: Chronic Surgical Problems: (1) Status post appendectomy Status: Chronic (2) Status post hip replacement Status: Chronic (3) Status post hysterectomy Status: Chronic Family History Patient reports no known family medical history. Father/Mother/Sister: Heart disease Social History Smoking Status: Former Smoker (Quit 3 months ago) Alcohol Use: none Drug Use: none Marital Status: Housing status: lives with family Occupational Status: disabled Immunizations History of Influenza Vaccine: Yes Influenza Vaccine Date: Mar 26, 2013 History of Tetanus Vaccine?: Unknown Tetanus Immunization Date: Oct 18, 1999 History of Pneumococcal: Yes Pneumococcal Date: Jun 25, 2012 History of Hepatitis B Vaccine: Unknown Multi-Drug Resistant Organisms History of MDRO: No Allergies Coded Allergies: Azithromycin (Unverified Allergy, Severe, cardiac arrhythmia, 05/19/17) Penicillins (Verified Allergy, Severe, HIVES, SOB, 02/25/17) Sulfa Antibiotics (Verified Allergy, Severe, HIVES AND SOB WITH ORAL SULFA DRUGS, OK W/SILVADENE, 02/25/17) Cephalosporins (Verified Allergy, Intermediate, HIVES WITH CEFTIN, 02/25/17) Quinolones (Verified Allergy, Mild, HIVES-BUT HAD LEVAQUIN IN ER 03/05/09 W /O PROBLEM, 02/25/17) Adhesives (Verified Allergy, Unknown, TAPE-SORES ON SKIN, 02/25/17) Iodine (Verified Allergy, Unknown, REDNESS, 02/25/17) Home Medications Scheduled Home O2 Therapy (Oxygen), 2 LITERS NA HS Ranitidine Hcl (Zantac), 300 MG PO BID Tiotropium [place] (Spiriva Handihaler), 1 CAP INH QAM Scheduled PRN Albuterol Hfa (Ventolin Hfa), 2 PUFFS INH Q4 PRN for SOB/Wheezing Albuterol Sulf (Proventil 0.083% 2.5MG/3ML), 2.5 MG INH Q4 PRN for SOB/Wheezing Ipratropium [place] (Atrovent 0.02% Soln), 2.5 ML INH Q6 PRN for Wheezing Review of Systems See HPI for pertinent positives & negatives. A total of 10 systems reviewed and were otherwise negative. Physical Exam Vital Signs Date Time Temp Pulse Resp B/P (MAP) Pulse Ox O2 Delivery O2 Flow Rate FiO2 05/19/17 15:11 118 24 171/104 96 Nasal Cannula 2.0 05/19/17 14:31 116 18 149/86 94 Room Air 05/19/17 13:44 Nasal Cannula 2.0 05/19/17 13:42 121 24 157/76 84 Room Air 05/19/17 13:30 120 24 163/81 86 Room Air 05/19/17 12:30 120 24 165/74 94 Room Air 05/19/17 11:14 102 20 167/92 100 Nebulizer 05/19/17 10:24 92 22 162/82 100 Nebulizer 05/19/17 10:21 100 Room Air 05/19/17 10:08 96 18 94 Nasal Cannula 05/19/17 09:59 Room Air 05/19/17 09:46 94 22 165/93 93 05/19/17 09:42 99 05/19/17 09:25 36.8 99 20 211/128 95 Room Air 2.0 General Appearance: no apparent distress, + obese Head: normocephalic, atraumatic Eyes: normal inspection, PERRL, EOMI, sclerae normal ENT: normal ENT inspection, hearing grossly normal Neck: supple, trachea midline Respiratory/Chest: chest non-tender, no respiratory distress, no accessory muscle use, + decreased breath sounds, + wheezing Cardiovascular: regular rate, rhythm, no edema, no murmur, + tachycardia Abdomen/GI: normal bowel sounds, non tender, soft, + pertinent finding (obese) Back: normal inspection Extremities/Musculoskelatal: normal inspection, + pedal edema, + pertinent finding (chronic R ankle tender) Neurologic/Psych: 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 nml as tested, no motor/sensory deficits, alert, normal mood/affect, oriented x 3 Skin: normal color, warm/dry Diagnostics Laboratory Results Results Past 24 Hours Test 05/19/17 09:35 05/19/17 10:00 Range/Units White Blood Count 7.53 4.8-10.8 K/uL Red Blood Count 5.14 4.2-5.4 M/uL Hemoglobin 14.3 12.0-16.0 g/dL Hematocrit 44.0 37-47 % Mean Corpuscular Volume 85.6 80-100 fL Mean Corpuscular Hemoglobin 27.8 25-34 pg Mean Corpuscular Hemoglobin Concent 32.5 32-36 g/dl Platelet Count 174 130-400 K/uL Mean Platelet Volume 10.8 7.4-10.4 fL Neutrophils (%) (Auto) 66.8 % Lymphocytes (%) (Auto) 21.5 % Monocytes (%) (Auto) 10.1 % Eosinophils (%) (Auto) 1.2 % Basophils (%) (Auto) 0.3 % Neutrophils # (Auto) 5.03 1.4-6.5 K/uL Lymphocytes # (Auto) 1.62 1.2-3.4 K/uL Monocytes # (Auto) 0.76 0.11-0.59 K/uL Eosinophils # (Auto) 0.09 0-0.5 K/uL Basophils # (Auto) 0.02 0-0.2 K/uL RDW Standard Deviation 43.2 36.4-46.3 fL RDW Coefficient of Variation 13.8 11.5-14.5 % Immature Granulocyte % (Auto) 0.1 % Immature Granulocyte # (Auto) 0.01 0.00-0.02 K/uL Prothrombin Time 10.0 9.0-12.0 SECONDS Prothromb Time International Ratio 0.9 0.9-1.1 Activated Partial Thromboplast Time 28.8 21.0-31.0 SECONDS Partial Thromboplastin Ratio 1.1 Sodium Level 138 136-145 mmol/L Potassium Level 3.8 3.5-5.1 mmol/L Chloride Level 103 98-107 mmol/L Carbon Dioxide Level 29 21-32 mmol/L Anion Gap 6.0 3-11 mmol/L Blood Urea Nitrogen 16 7-18 mg/dl Creatinine 0.74 0.60-1.20 mg/dl Est Creatinine Clear Calc Drug Dose 110.5 ml/min Estimated GFR () 102.1 Estimated GFR (Non- 88.1 BUN/Creatinine Ratio 21.8 10-20 Random Glucose 128 70-99 mg/dl Calcium Level 8.9 8.5-10.1 mg/dl Total Bilirubin 0.4 0.2-1 mg/dl Aspartate Amino Transf (AST/SGOT) 11 15-37 U/L Alanine Aminotransferase (ALT/SGPT) 17 12-78 U/L Alkaline Phosphatase 78 45-117 U/L Troponin I < 0.015 0-0.045 ng/ml Pro-B-Type Natriuretic Peptide 65 0-900 pg/ml Total Protein 7.4 6.4-8.2 gm/dl Albumin 3.7 3.4-5.0 gm/dl Globulin 3.7 2.5-4.0 gm/dl Albumin/Globulin Ratio 1.0 0.9-2 Diagnostic Radiology CTA: 1. No evidence for pulmonary embolus. 2. Mild emphysema. 3. A 9 x 7 mm nodular density within the left upper lobe which appears to represent an impacted bronchus. However, follow-up chest CT in 2-3 months is recommended to exclude underlying nodule/mass. 4. A 4 mm indeterminate pulmonary nodule within the left upper lobe. Please refer to the chart below for recommended follow-up. EKG EKG: NSR, RBBB, QTC:499 Impression Assessment and Plan Acute Respiratory failure with hypoxia: Chronic Oxygen dependency: 2L QHS Patient has not been using her Nebulizers at home secondary to financial/ Insurance issues Secondary to COPD Exacerbation CXR: no signs of consolidation CTA: No PE Start on doxycycline PO BID IV solumedrol, bronchodilators No signs of sepsis Sputum culture and gram strain Oxygen support per protocol Pulmonology consulted Hypertensive Urgency: Likely situational Not on HTN meds at home Vasotec IV PRN monitor Prolonged QTC: Avoid QTC prolonging meds Recheck EKG in am DM Type II: Not taking her Metformin as prescribed Will hold oral diabetic meds Last A1c:5.8 on 02/25/17 ISS, basal Insulin, Accu checks, Diabetic diet GERD: continue ranitidine Pulmonary Nodule: Former tobacco use disorder: Needs repeat CT chest in 2-3 months Morbid obesity: BMI:45.4 DVT Px: Lovenox SQ Code Status: Full Code Disposition: Monitor in Tele
[2017-05-19 16:28] LABS: URINE APPEARANCE CLEAR (CLEAR); URINE BILIRUBIN NEG (NEG); URINE COLOR YELLOW; URINE NITRITE NEG (NEG); UROBILINOGEN NEG (NEG)
[2017-05-19 16:29] LABS: MANUAL MICROSCOPIC REQUIRED? NO; REVIEW REQ? NO
[2017-05-19 16:40] VITALS: O2SAT 96; BMI 45.4
[2017-05-19] MEDS ORDERED: ACETAMINOPHEN 325 MG TAB PO PRN (16:45)
[2017-05-19] MEDS ORDERED: ONDANSETRON INJ 2 MG/ML 2 ML VIAL IV PRN (16:45)
[2017-05-19] MEDS ORDERED: DEXTROSE 50% 50 ML SYR IV PRN (17:00)
[2017-05-19] MEDS ORDERED: GLUCAGON FOR INJ 1 MG VIAL SQ PRN (17:00)
[2017-05-19] MEDS ORDERED: ALBUT/IPRATROP 3MG/0.5MG NEB 3 ML VIAL INH PRN (17:00)
[2017-05-19] MEDS ORDERED: GLUCOSE 10 TABS/TUBE PO PRN (17:00)
[2017-05-19] MEDS ORDERED: GLUCOSE 40% GEL 15 GM TUBE PO PRN (17:00)
[2017-05-19] MEDS ORDERED: ENALAPRILAT IV 0.625 MG in DEXTROSE 5% 25ML 25 ML IV PRN (17:00)
[2017-05-19] MEDS ORDERED: PROMETHAZINE HCL INJ 12.5 MG in SODIUM CHLORIDE 0.9% 50ML 50 ML IV PRN (17:30)
[2017-05-19 18:34] VITALS: BP 170/82; PULSE 106; TEMP 36.6; O2SAT 96
[2017-05-19] MEDS ORDERED: ENALAPRIL MALEATE 10 MG TAB PO ONE (19:15)
[2017-05-19 19:24] VITALS: BP 131/76; PULSE 102
[2017-05-19 20:00] VITALS: O2SAT 96
[2017-05-19] MEDS ORDERED: INFLUENZA VIRUS QUAD VACCINE 0.5 ML SYR IM. ONE (20:00)
[2017-05-19] MEDS ORDERED: INFLUENZA ADMINISTRATION CHARGE ONE (20:00)
[2017-05-19] MEDS ORDERED: METHYLPREDNISOLONE IV 40 MG in SYRINGE 0 ML IV ONE (20:00)
[2017-05-19] MEDS: ENOXAPARIN 40 MG/0.4 ML SYR SC SCH (20:40)
[2017-05-19] MEDS: DOXYCYCLINE HYCLATE 100 MG CAP PO SCH (20:40)
[2017-05-19] MEDS: RANITIDINE HCL 150 MG TAB PO SCH (20:47)
[2017-05-19] MEDS: INSULIN ASPART 100 UNITS/ML 3 ML PEN SC SCH (20:55)
[2017-05-19] MEDS: ALBUT/IPRATROP 3MG/0.5MG NEB 3 ML VIAL INH SCH (21:14)
[2017-05-19 21:16] VITALS: PULSE 112; O2SAT 95
[2017-05-20] VITALS (12 sets, daily range): BP systolic 144–164; BP diastolic 74–82; PULSE 53–112; TEMP 36.4–36.7; O2SAT 90–99
[2017-05-20 06:34] LABS: HEMATOCRIT 41.6 % (37-47); MEAN CELL VOLUME 85.8 fL (80-100); MEAN CORPUSCULAR HEMOGLOBIN 28.2 pg (25-34); MEAN CORPUSCULAR HGB CONC 32.9 g/dl (32-36); PLATELET COUNT 167 K/uL (130-400); RED BLOOD COUNT 4.85 M/uL (4.2-5.4); WHITE BLOOD COUNT 8.33 K/uL (4.8-10.8)
[2017-05-20 07:09] LABS: BUN/CREATININE RATIO 23.9 (10-20); CALCIUM 9.3 mg/dl (8.5-10.1); CREATININE 0.89 mg/dl (0.60-1.20); MAGNESIUM 2.3 mg/dl (1.8-2.4); POTASSIUM 4.1 mmol/L (3.5-5.1)
[2017-05-20] MEDS: ALBUT/IPRATROP 3MG/0.5MG NEB 3 ML VIAL INH SCH ×4 (07:09→19:56)
[2017-05-20] MEDS: DOXYCYCLINE HYCLATE 100 MG CAP PO SCH ×2 (08:00→21:03)
[2017-05-20] MEDS: RANITIDINE HCL 150 MG TAB PO SCH ×2 (08:00→21:03)
[2017-05-20] MEDS: INSULIN ASPART 100 UNITS/ML 3 ML PEN SC SCH ×4 (08:04→21:17)
[2017-05-20 08:14] LABS: ESTIMATED AVERAGE GLUCOSE 131 mg/dl; HA1C FLAG Normal (Normal)
[2017-05-20] MEDS ORDERED: METHYLPREDNISOLONE IV 40 MG in SYRINGE 0 ML IV SCH (09:00)
--- NOTE | 2017-05-20 12:05 | PULMONARY CONSULTATION ---
DATE OF CONSULTATION: 05/20/2017 TIME: 10:35 a.m. REPORT OF CONSULTATION: The patient was seen in room 285, bed 1. She is a 61-year-old female, with a longstanding history of COPD dating back to at least 2005. Her complaint was that she awakened on the morning of May 19 with shortness of breath at about 2:00 a.m. She took a nebulizer she states, without benefit. She had some chills and sweats. She was coughing. Her mucus is thicker than normal. It is slightly off-yellow. She has had a postnasal drip and she could not tell if the phlegm was coming from her sinuses or from her chest. She had some blood in her nasal mucous on the . She then, yesterday, coughed up one episode of a small streak of blood in her sputum which may have originated from the nasal passage; it is not clear. Her energy level has been decreased for the past two days. Today, she is feeling quite a bit better. She is less short of breath. The patient has a lot of anxiety, she gets stressed and this bothers her breathing as well. The patient unfortunately states that she has recently lost her pharmacy drug plan. She only has Medicare. She has had several hospitalizations for exacerbation of COPD; one occurred in February 2009. She then had exacerbations in June and April of 2015. She was hospitalized from February 25 until March 04 of this year with an exacerbation. She had followed up with Ashleigh Salas PA-C in the pulmonary office after a more recent hospital stay. She had a sleep study done at home on April 09; this showed mild sleep apnea with an apnea-hypopnea index of 8.1. Oxygen saturations were as low as 76%. There was an attempt to set her up for a CPAP study, but she apparently has declined because of concerns about insurance paying for a CPAP. She states she is currently out of her nebulizer solution that she takes at home. She is not sure if she will be able to pay for them or not. She has been taking Breo Ellipta 200/25 one puff daily and she has been on Spiriva daily. PAST SURGICAL HISTORY: 1. Appendectomy. 2. Total hip replacement. 3. Hysterectomy. 4. Multiple surgeries on the right ankle. 5. Bronchoscopy in 2009. 6. Kidney stones. PAST MEDICAL HISTORY: 1. Hypertension. 2. Diabetes type 2. 3. Hyperlipidemia. 4. Reflux. 5. Obesity. 6. Deep vein thrombosis, which occurred after one of her leg surgeries. SOCIAL HISTORY: Tobacco; the patient states she has not smoked for 3 months. She has smoked most of her lifetime. She started smoking at age 17 and she is now 61. Most of her life she smoked one pack per day or more. In the past one year she cut back to half a pack per day. She now has not smoked for 3 months she states. FAMILY HISTORY: Mother at age 64, diabetes, COPD and heart disease. Father age 80, COPD and heart disease. Sister in her upper 40s from [place]. 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 ALLERGIES: 1. IV PENICILLIN -- she states she can take Augmentin. 2. SULFA. 3. CEPHALOSPORINS 4. QUINOLONES, INCLUDING LEVAQUIN. 5. IODINE. 6. ALLERGIES TO DUST MITES, CATS AND GRASS. REVIEW OF SYSTEMS: GENERAL: The patient's energy level has been low. She describes having a lot of stress and anxiety; this relates to having issues in her basement with mold and she is wondering how she can pay for it. She also was stressed from her loss of the prescription drug plan. NEUROLOGIC: She denies syncope or near syncope. OPHTHALMIC: No visual complaints. ENT: She feels she has a lot of nasal mucous and postnasal drip as noted. She also had a small amount of epistaxis. CARDIAC: No chest pain. PULMONARY: As noted above. GASTROINTESTINAL: Denies nausea, vomiting, diarrhea or constipation. GENITOURINARY: Denies complaints. MUSCULOSKELETAL: Some chronic problems in the right ankle where she has had numerous surgeries. ENDOCRINE: No lymphadenopathy. DERMATOLOGIC: No rash. MEDICATIONS: At home: 1. Ranitidine 300 mg b.i.d. 2. O2 two liters at bedtime. 3. Nebs with albuterol. 4. Ventolin HFA p.r.n. 5. Spiriva. 6. Breo Ellipta 200/25 one puff daily. PHYSICAL EXAMINATION: GENERAL: The patient is a 61-year-old female, who was cooperative, alert and oriented. She was in no distress at rest. Her weight is 127.6 kilograms. HEENT: Pupils were reactive to light. Nares revealed dryness and congestion with a small amount of blood in the left nostril. NECK: Palpation of the neck reveals questionable enlargement of the thyroid. She states she did have thyroid nodules in the past and had a biopsy done, that was negative. There were no lymph nodes palpable. HEART: Heart rate is 100 per minute. The rhythm is regular. Blood pressure is 164/78. LUNGS: Lung larios revealed decreased breath sounds. No active wheezes, rales or rhonchi were heard. Oxygen saturation was 99% on 4 liters. Respiratory rate was 18 breaths per minute. ABDOMEN: Obese. Bowel sounds were present. There was no tenderness to palpation. EXTREMITIES: Showed no cyanosis or clubbing. There is mild chronic edema in the right foot and ankle region. LABORATORY DATA: A chest x-ray done yesterday showed no active disease. She did have a CT angio of the chest done; this showed no evidence of pulmonary embolic disease. Mild emphysema was noted. She has a density in the left upper lung field measuring 9 x 7 mm. This may reflect an impacted bronchus with an inability to exclude an upper lobe nodule. She has also a 4 mm nodule in the left upper lobe. CBC showed a white count of 8.33, hemoglobin 13.7 and platelets 167,000. Coags were normal. Urinalysis shows +1 blood. There were 0-4 RBCs. Electrolytes show sodium of 138, potassium 3.8, chloride 103 and bicarbonate 29. BUN 16 with a creatinine of 0.74. Blood sugar yesterday was 194. AST, ALT and alkaline phosphatase were unremarkable. Total protein is 7.4. Hemoglobin A1c is 6.2. IMPRESSION: 1. Chronic obstructive pulmonary disease with exacerbation. 2. Left upper lobe nodule -- needs followup. 3. Obstructive sleep apnea -- mild. COMMENTS AND RECOMMENDATIONS: The patient seems much better than she had been at the time of admission. Her breathing seems comfortable. She is on methylprednisolone 40 mg daily. She is on doxycycline 100 mg b.i.d. In the light of her elevated sugars, I would have no problems changing the IV steroid to oral prednisone. She is on DuoNebs q.i.d. At home, she does take Spiriva and Breo Ellipta as noted. The real problem is going to be finding out if she has pharmacy coverage for any of her medications. If not, no doubt she will be back very soon. Ideally, she should have a CPAP study, but for right now she is not agreeable until she has better insurance coverage. The patient states she has not smoked for 3 months. Obviously, it is very important that she remains smoke-free with all of her multiple medical problems. She was scheduled for an outpatient CAT scan of the chest which she states was for tomorrow; that should ideally be canceled. She will need a followup CAT scan in 3 months. She should follow up with Ashleigh Sharma as an outpatient. She is already scheduled to have a pulmonary function test at that time as well.
--- NOTE | 2017-05-20 15:18 | Progress Note ---
Internal Med Progress Note Date of Service: May 20, 2017. Provider Documentation: SUBJECTIVE: Seen and examined at bedside States having headache Less SOB, Less cough Denies chest pain, dizziness, abd pain Family at bedside OBJECTIVE: Vital Signs-as noted below General Appearance: no apparent distress, + obese Head: normocephalic, atraumatic Eyes: normal inspection, PERRL, EOMI, sclerae normal ENT: normal ENT inspection, hearing grossly normal Neck: supple, trachea midline Respiratory/Chest: chest non-tender, no respiratory distress, no accessory muscle use, + decreased breath sounds, CTA Cardiovascular: regular rate, rhythm, no edema, no murmur, + tachycardia Abdomen/GI: normal bowel sounds, non tender, soft, + pertinent finding (obese) Back: normal inspection Extremities/Musculoskelatal: normal inspection, + pedal edema, + pertinent finding (chronic R ankle tender) 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 ASSESSMENT & PLAN: Acute Respiratory failure with hypoxia: Chronic Oxygen dependency: 2L QHS Patient has not been using her Nebulizers at home secondary to financial/ Insurance issues Secondary to COPD Exacerbation CXR: no signs of consolidation CTA: No PE Continue doxycycline PO BID IV solumedrol>>> PO prednisone Continue bronchodilators No signs of sepsis Sputum culture and gram strain: pending Titrate off oxygen as able to keep Sats >90% Appreciate Pulmonology Input Hypertensive Urgency: ?? Likely situational BP better Not on HTN meds at home Started on Vasotec monitor Prolonged QTC: Avoid QTC prolonging meds Recheck EKG in am DM Type II: Not taking her Metformin as prescribed Will hold oral diabetic meds Last A1c:5.8 on 02/25/17>>>. 6.2 ISS, basal Insulin, Accu checks, Diabetic diet GERD: continue ranitidine Pulmonary Nodule: Former tobacco use disorder: Needs repeat CT chest in 2-3 months Morbid obesity: BMI:45.4 DVT Px: Lovenox SQ Code Status: Full Code Disposition: Monitor in Tele Vital Signs: Date Time Temp Pulse Resp B/P (MAP) Pulse Ox O2 Delivery O2 Flow Rate FiO2 05/20/17 14:59 103 16 96 Nasal Cannula 2.0 05/20/17 12:00 Room Air 4.0 05/20/17 11:30 94 05/20/17 11:30 82 18 94 Nasal Cannula 2.0 05/20/17 11:11 36.5 95 20 149/81 (103) 92 Nasal Cannula 4.0 05/20/17 08:15 Room Air 4.0 05/20/17 07:49 36.4 90 18 164/78 (106) 99 Room Air 05/20/17 07:11 91 18 98 Nasal Cannula 4.0 05/20/17 05:12 36.5 94 16 160/82 (108) 95 Nasal Cannula 4.0 05/20/17 04:00 Nasal Cannula 4.0 05/20/17 00:25 36.6 103 20 148/76 (100) 96 4.0 05/20/17 00:00 Nasal Cannula 4.0 05/19/17 21:16 112 20 95 Room Air 05/19/17 20:00 96 Room Air 4.0 05/19/17 19:24 102 131/76 (94) 05/19/17 18:34 36.6 106 18 170/82 (111) 96 Room Air 4.0 05/19/17 18:07 105 22 134/77 92 Nasal Cannula 4.0 05/19/17 17:35 107 31 165/80 96 Nasal Cannula 4.0 05/19/17 16:40 96 Nasal Cannula 4.0 05/19/17 16:00 113 24 172/75 Nasal Cannula 4.0 Lab Results: Results Past 24 Hours Test 05/19/17 15:50 05/19/17 16:36 05/19/17 17:53 05/19/17 20:51 Range/Units Urine Color YELLOW Urine Appearance CLEAR CLEAR Urine pH 5.0 4.5-7.5 Urine Specific [place] 1.020 1.000-1.030 Urine Protein NEG NEG Urine Glucose (UA) NEG NEG Urine Ketones NEG NEG Urine Occult Blood 1+ NEG Urine Nitrite NEG NEG Urine Bilirubin NEG NEG Urine Urobilinogen NEG NEG Urine Leukocyte Esterase NEG NEG Urine WBC (Auto) 1-5 0-5 /hpf Urine RBC (Auto) 0-4 0-4 /hpf Urine Hyaline Casts (Auto) 1-5 0-5 /lpf Urine Epithelial Cells (Auto) 10-20 0-5 /lpf Urine Bacteria (Auto) NEG NEG Bedside Glucose 194 224 70-90 mg/dl Troponin I < 0.015 0-0.045 ng/ml Test 05/20/17 06:16 05/20/17 07:35 05/20/17 11:27 Range/Units White Blood Count 8.33 4.8-10.8 K/uL Red Blood Count 4.85 4.2-5.4 M/uL Hemoglobin 13.7 12.0-16.0 g/dL Hematocrit 41.6 37-47 % Mean Corpuscular Volume 85.8 80-100 fL Mean Corpuscular Hemoglobin 28.2 25-34 pg Mean Corpuscular Hemoglobin Concent 32.9 32-36 g/dl RDW Standard Deviation 43.7 36.4-46.3 fL RDW Coefficient of Variation 14.0 11.5-14.5 % Platelet Count 167 130-400 K/uL Mean Platelet Volume 10.0 7.4-10.4 fL Sodium Level 142 136-145 mmol/L Potassium Level 4.1 3.5-5.1 mmol/L Chloride Level 105 98-107 mmol/L Carbon Dioxide Level 29 21-32 mmol/L Anion Gap 8.0 3-11 mmol/L Blood Urea Nitrogen 21 7-18 mg/dl Creatinine 0.89 0.60-1.20 mg/dl Est Creatinine Clear Calc Drug Dose 91.8 ml/min Estimated GFR () 81.6 Estimated GFR (Non- 70.4 BUN/Creatinine Ratio 23.9 10-20 Random Glucose 185 70-99 mg/dl Estimated Average Glucose 131 mg/dl Hemoglobin A1c 6.2 4.5-5.6 % Calcium Level 9.3 8.5-10.1 mg/dl Magnesium Level 2.3 1.8-2.4 mg/dl Bedside Glucose 162 197 70-90 mg/dl
[2017-05-20] MEDS ORDERED: KETOROLAC TROMETHAMINE 15 MG/ML VIAL IV ONE (15:45)
[2017-05-20] MEDS ORDERED: ENALAPRIL MALEATE 5 MG TAB PO ONE (16:00)
[2017-05-20] MEDS: ENOXAPARIN 40 MG/0.4 ML SYR SC SCH (21:05)
[2017-05-21] VITALS (12 sets, daily range): BP systolic 114–178; BP diastolic 70–87; PULSE 77–94; TEMP 36.5–36.8; O2SAT 95–98; BMI 46.2
[2017-05-21 05:48] LABS: HEMATOCRIT 39.7 % (37-47); MEAN CELL VOLUME 86.3 fL (80-100); MEAN CORPUSCULAR HEMOGLOBIN 27.8 pg (25-34); MEAN CORPUSCULAR HGB CONC 32.2 g/dl (32-36); MEAN PLATELET VOLUME 10.5 fL (7.4-10.4); PLATELET COUNT 169 K/uL (130-400); WHITE BLOOD COUNT 8.21 K/uL (4.8-10.8)
[2017-05-21 06:21] LABS: BUN/CREATININE RATIO 41.5 (10-20); CALCIUM 8.5 mg/dl (8.5-10.1); CREATININE 0.77 mg/dl (0.60-1.20); MAGNESIUM 2.2 mg/dl (1.8-2.4); POTASSIUM 3.8 mmol/L (3.5-5.1)
[2017-05-21] MEDS: ALBUT/IPRATROP 3MG/0.5MG NEB 3 ML VIAL INH SCH ×4 (07:10→19:08)
[2017-05-21] MEDS: DOXYCYCLINE HYCLATE 100 MG CAP PO SCH ×2 (07:44→20:27)
[2017-05-21] MEDS: ENALAPRIL MALEATE 5 MG TAB PO SCH (07:44)
[2017-05-21] MEDS: RANITIDINE HCL 150 MG TAB PO SCH ×2 (07:44→20:27)
[2017-05-21] MEDS: INSULIN ASPART 100 UNITS/ML 3 ML PEN SC SCH ×4 (08:05→20:30)
--- NOTE | 2017-05-21 10:13 | Progress Note ---
Medicine Progress Note Date & Time of Visit: May 21, 2017 at 10:13. Subjective states she feels improved today not in distress, comfortable still has some occasional cough, dry no chest pain denies other symptoms Objective Last 8 Hrs Date Time Temp Pulse Resp B/P (MAP) Pulse Ox O2 Delivery O2 Flow Rate FiO2 05/21/17 08:00 Room Air 05/21/17 07:22 36.5 80 20 114/72 (86) 97 Nasal Cannula 2.0 05/21/17 07:10 82 16 96 Room Air 05/21/17 04:00 Nasal Cannula 2.0 05/21/17 03:57 36.6 82 20 153/74 (100) 96 2.0 Physical Exam: General- oriented x 3, not in distress, speaks in sentences with no effort Head- atraumatic Eyes-EOMI, anicteric ENT- oropharynx clear Neck- supple, no JVD, no adenopathy Lungs- mild scattered wheezes, no rales Heart- regular rhythm; no murmur, normal rate Abdomen- normal bowel sounds, soft, nontender, no masses or hepatosplenomegaly Extremities- no pretibial edema, no calf tenderness; peripheral pulses intact Neuro- alert, oriented x 3;no gross focal deficits Skin- warm & dry Laboratory Results: Last 24 Hours Test 05/20/17 11:27 05/20/17 16:33 05/20/17 20:48 05/21/17 05:24 Bedside Glucose 197 mg/dl 304 mg/dl 212 mg/dl White Blood Count 8.21 K/uL Red Blood Count 4.60 M/uL Hemoglobin 12.8 g/dL Hematocrit 39.7 % Mean Corpuscular Volume 86.3 fL Mean Corpuscular Hemoglobin 27.8 pg Mean Corpuscular Hemoglobin Concent 32.2 g/dl RDW Standard Deviation 45.0 fL RDW Coefficient of Variation 14.3 % Platelet Count 169 K/uL Mean Platelet Volume 10.5 fL Sodium Level 139 mmol/L Potassium Level 3.8 mmol/L Chloride Level 106 mmol/L Carbon Dioxide Level 29 mmol/L Anion Gap 4.0 mmol/L Blood Urea Nitrogen 32 mg/dl Creatinine 0.77 mg/dl Est Creatinine Clear Calc Drug Dose 106.1 ml/min Estimated GFR () 97.3 Estimated GFR (Non- 83.9 BUN/Creatinine Ratio 41.5 Random Glucose 134 mg/dl Calcium Level 8.5 mg/dl Magnesium Level 2.2 mg/dl Test 05/21/17 07:23 Bedside Glucose 117 mg/dl Assessment & Plan Acute Respiratory failure with hypoxia: Chronic Oxygen dependency: 2L QHS Patient has not been using her Nebulizers at home secondary to financial/ Insurance issues Secondary to COPD Exacerbation CXR: no signs of consolidation CTA: No PE Continue doxycycline PO BID, Prednisone Advair, Spiriva Pulmonary input appreciated Hypertensive Urgency: Not on HTN meds at home Started on Vasotec improving Prolonged QTC: Avoid QTC prolonging meds Recheck EKG in am DM Type II: Not taking her Metformin as prescribed Will hold oral diabetic meds Last A1c:5.8 on 02/25/17>>>. 6.2 ISS, basal Insulin, Accu checks, Diabetic diet GERD: continue ranitidine Pulmonary Nodule: Former tobacco use disorder: Needs repeat CT chest in 2-3 months Morbid obesity: BMI:45.4 DVT Px: Lovenox SQ Code Status: Full Code Disposition: Monitor in Tele Current Inpatient Medications: Current Inpatient Medications Medications (Trade) Dose Ordered Sig/Romel Route Start Time Stop Time Status Last Admin Dose Admin Ioversol (Optiray 320) 111 ml UD PRN IV 05/19/17 14:15 05/23/17 14:14 Enoxaparin Sodium (Lovenox Inj) 40 mg Q24H SC 05/19/17 20:00 06/18/17 19:59 05/20/17 21:05 40 MG Acetaminophen (Tylenol Tab) 650 mg Q4H PRN PO 05/19/17 16:45 06/18/17 16:44 05/19/17 19:20 650 MG Doxycycline Hyclate (Vibramycin Cap) 100 mg BID PO 05/19/17 21:00 05/26/17 20:59 05/21/17 07:44 100 MG Albuterol/ Ipratropium (Duoneb) 3 ml QIDR INH 05/19/17 20:00 06/18/17 19:59 05/21/17 07:10 3 ML Albuterol/ Ipratropium (Duoneb) 3 ml Q2H PRN INH 05/19/17 17:00 06/18/17 16:59 Enalaprilat 0.625 mg/Dextrose 25.5 ml @ 100 mls/hr Q6H PRN IV 05/19/17 17:00 06/18/17 16:59 Insulin Aspart (novoLOG ASPART) SLIDING SCALE If C... ACHS SC 05/19/17 21:00 06/18/17 20:59 05/21/17 08:05 4 UNITS Glucose (Glucose 40% Gel) 15-30 GRAMS 15 GRAMS... UD PRN PO 05/19/17 17:00 06/18/17 16:59 Glucose (Glucose Chew Tab) 4-8 Tablets 4 Tabl... UD PRN PO 05/19/17 17:00 06/18/17 16:59 Dextrose (Dextrose 50% 50ML Syringe) 25-50ML OF 50% DW IV FOR... UD PRN IV 05/19/17 17:00 06/18/17 16:59 Glucagon (Glucagon Inj) 1 mg UD PRN SQ 05/19/17 17:00 06/18/17 16:59 Ranitidine HCl (zANTac TAB) 150 mg BID PO 05/19/17 21:00 06/18/17 20:59 05/21/17 07:44 150 MG Promethazine HCl 12.5 mg/Sodium Chloride 50.5 ml @ 204 mls/hr Q6H PRN IV 05/19/17 17:30 06/18/17 17:29 Prednisone (PredniSONE TAB) 40 mg DAILY PO 05/21/17 09:00 06/20/17 08:59 05/21/17 07:44 40 MG Enalapril Maleate (Vasotec Tab) 5 mg QAM PO 05/21/17 09:00 06/20/17 08:59 05/21/17 07:44 5 MG Salmeterol Xinafoate/ Fluticasone (Advair Diskus 250/50 Inh) 1 puff BID INH 05/21/17 09:00 06/20/17 08:59 Tiotropium [place] (Spiriva Handihaler Inhaler) 1 puff QAM INH 05/21/17 09:00 06/20/17 08:59
[2017-05-21] MEDS ORDERED: MAGNESIUM HYDROXIDE SUSP 30 ML UDC PO PRN (10:15)
[2017-05-21] MEDS: TIOTROPIUM BROMIDE 5 PUFF/90 MCG INH INH SCH (10:44)
[2017-05-21] MEDS ORDERED: DOCUSATE SODIUM/SENNA 50/8.6MG TAB PO ONE (10:45)
--- NOTE | 2017-05-21 10:51 | PULMONARY PROGRESS NOTE ---
DATE: 05/21/2017 The patient was seen on 05/21/2017. The patient was seen in room 25, bed 1. PROBLEM LIST: Includes: 1. Chronic obstructive pulmonary disease with exacerbation. 2. Obstructive sleep apnea, which is mild. 3. Left upper lobe nodule with recommended followup in 3 months. SUBJECTIVE: The patient reports that she feels about the same as yesterday or slightly better. She states that she is still coughing quite a bit. The cough is nonproductive at this time. She states that she feels that there is mucus in her chest and it is moving up to the back of her throat, but she cannot get it to clear out completely; she states if she does it is very thick. Prior to hospitalization, she was having some yellow mucus as well as some blood streaking. She is not sure if she has any today. She states that she still is wheezy at times. Her chest feels as tight at times. She is using nebulizer and feels that may help briefly, but she does not feel it is doing a significant changes at this time. She has been on Breo and Spiriva at home, although she runs out of medicine and has apparently lost her prescription coverage, so she has been taking that prior to this admission; however, she has not been receiving that in the hospital again. She states that she has not had any chest pain, no angina, no known fever or chills, no sweats. She states her appetite is doing well. No nausea or vomiting. She has not had any difficulty with her bowel. Bowels are moving normally. She has not had any difficulty voiding. No hesitancy or urgency. Per nursing notes, the patient has been stable. She has been using her oxygen at 2 liters per minute overnight, which she uses at home as well. No other concerns or problems at this time. We did have a discussion about her home inhalers and informed her that she is to contact the office and we will see if we can work. With her not having insurance she may actually benefit from doing an inhaler called Trelegy that is a combination of Breo, which is inhaled corticosteroid and long-acting beta agonist as well as Incruse which is an anticholinergic and 1 inhaler and company has provided our office with vouchers for this for people with either commercial insurance or no insurance at all. This may be a means if the patient continues without insurance and we can get her inhaler and hopefully help with this. Unfortunately, there is not much we can do as far as her rescue inhaler or her nebulized solutions. However, she has Medicare part B that should help with the nebulizer solutions. OBJECTIVE: GENERAL: This patient is a 61-year-old female in no acute distress, sitting at bedside. She does have a raspy, almost barking type-cough. She does not appear in any respiratory distress, does not appear in any distress in general. Able to complete sentences without difficulty. She is alert and oriented x3. Mood is good. Affect is good. VITAL SIGNS: Temp 36.5, pulse 80, respirations 20, blood pressure is 114/72, pulse ox 97% on 2 liters. HEENT: Normocephalic, atraumatic. Pupils equal, round and reactive to light and accommodation. Extraocular movements are intact. [place] moist gingival and buccal mucosa and no white plaques evident. NECK: Short and thick. No mass. No adenopathy. No bruit. CHEST: The patient has diminished breath sounds bilaterally. There are some faint expiratory wheezes present in the upper airway primarily on forced exhalation. No rale or rhonchi noted. CARDIOVASCULAR: Regular rate and rhythm. There is no murmurs, gallops or rubs appreciated. ABDOMEN: Bowel sounds are present. Abdomen is obese, soft, nontender. No guarding, rigidity or organomegaly. EXTREMITIES: No erythema. The patient does have some increased edema of the right lower extremity. There is tenderness in the posterior calf. The patient does have a mildly positive Homans. Of note, the patient recently has had foot surgery and has been more sedentary. Fortunately, the patient is on Lovenox. NEUROLOGIC: Cranial nerves II through XII are intact. No focal deficit noted. LABORATORY DATA: Shows white count of 8000, H&H 12.8 and 39.7, and platelet count 169,000. INR was 0.9 on admission. No new imaging. IMPRESSION: 1. Chronic obstructive pulmonary disease with exacerbation. 2. Left upper lobe nodule, which will require repeat CT imaging in 3 months. 3. Obstructive sleep apnea, which was mild. 4. Right calf pain. PLAN: At this point, the patient is to continue on prednisone 40 mg daily. She is to continue on doxycycline. I think these is appropriate. We would like to see if we can do something to loosen up the mucus. We will go ahead and order a flutter valve and incentive spirometer. I did reorder her Spiriva and her combo inhaler in the form of Advair as we do not have Breo on formulary. We will reevaluate tomorrow. At this point, reconsider sleep apnea, may discuss with respiratory to see if we have capabilities of auto titration and try her on an auto titrate overnight to see if we can narrow pressure down for CPAP. We do have the availability of some used units in the office that we may be able to help her out with until we get her insurance straightened out. We will look into this and see what we can come up with. Otherwise patient is to remain on rest of the medications as they are. We will continue to follow her as an outpatient as well. Once again, we will reevaluate the patient in the morning.
[2017-05-21] MEDS: FLUTICASONE/SALMETEROL 250/50 (ADVAIR) 14 PUFF/1 INHALER INH SCH ×2 (12:07→20:27)
--- NOTE | 2017-05-21 13:34 | DIAGNOSTIC IMAGING REPORT ---
R VENOUS DOPP LOWER EXT UNILAT CLINICAL HISTORY: 61 years-old Female presenting with Right calf edema, Right calf tenderness, mildly positive Howard's. TECHNIQUE: Real-time grayscale and color and spectral Doppler ultrasound imaging of the veins of the right lower extremity was performed. Compression and augmentation were also utilized. COMPARISON: 02/28/2017. FINDINGS: Right: Common femoral vein: Patent. Femoral vein: Patent. Greater saphenous vein: Patent. Popliteal vein: Patent. Calf veins: Limited visualization. Other: None. IMPRESSION: No evidence of deep venous thrombosis. Electronically signed by: Del Caputo M.D. 05/21/2017 1:33 PM Dictated Date/Time: 05/21/2017 1:31 PM
[2017-05-21] MEDS: ENOXAPARIN 40 MG/0.4 ML SYR SC SCH (20:25)
[2017-05-22] VITALS (11 sets, daily range): BP systolic 96–149; BP diastolic 56–83; PULSE 56–94; TEMP 36.4–36.9; O2SAT 92–98
[2017-05-22] MEDS: ALBUT/IPRATROP 3MG/0.5MG NEB 3 ML VIAL INH SCH ×4 (07:10→19:37)
[2017-05-22] MEDS: FLUTICASONE/SALMETEROL 250/50 (ADVAIR) 14 PUFF/1 INHALER INH SCH ×2 (08:25→21:11)
[2017-05-22] MEDS: TIOTROPIUM BROMIDE 5 PUFF/90 MCG INH INH SCH (08:25)
[2017-05-22] MEDS: ENALAPRIL MALEATE 5 MG TAB PO SCH (08:26)
[2017-05-22] MEDS: RANITIDINE HCL 150 MG TAB PO SCH ×2 (08:26→21:11)
[2017-05-22] MEDS: DOXYCYCLINE HYCLATE 100 MG CAP PO SCH ×2 (08:26→21:11)
[2017-05-22] MEDS: DOCUSATE SODIUM/SENNA 50/8.6MG TAB PO SCH (08:27)
[2017-05-22] MEDS: INSULIN ASPART 100 UNITS/ML 3 ML PEN SC SCH ×5 (08:33→23:09)
--- NOTE | 2017-05-22 10:40 | PULMONARY PROGRESS NOTE ---
DATE: 05/22/2017 TIME: 10:15 a.m. SUBJECTIVE: The patient is generally improved. She feels that her breathing is better. She has not expectorated any significant sputum. She remains upset about the mold at home. She states that one of her sons tells her that he will not allow her to return to that home. She states they have mold in the basement, but also in her bedroom. She remains overall fairly anxious. OBJECTIVE: GENERAL: The patient looked comfortable. She was in no distress. VITAL SIGNS: Temperature is 36.6. EARS, NOSE, THROAT EXAMINATION: Unchanged from prior. CARDIAC: Rate is 88 per minute. The rhythm is regular. Blood pressure is 113/67. LUNGS: Lung larios revealed decreased breath sounds. No wheezes, rales, or rhonchi were heard. Saturations were 98% on 2 liters. Respiratory rate was 18. EXTREMITIES: Showed trace edema. There was no cyanosis or clubbing. LABORATORY DATA: Blood sugar this morning was 108. That was the only lab available. IMPRESSIONS: 1. Chronic obstructive pulmonary disease with exacerbation. 2. Left upper lobe nodule. 3. Obstructive sleep apnea. COMMENTS AND RECOMMENDATIONS: The patient is clinically improved. I believe she could be discharged soon. It may depend upon her ability to get medications or inhalers and nebulizer solutions. Apparently, the insurance issue is that she does not have any pharmacy coverage. She ultimately needs to follow up with [facility]. She does have mild sleep apnea and an attempt will need to be made to get her a CPAP machine.
[2017-05-22] MEDS: ENOXAPARIN 40 MG/0.4 ML SYR SC SCH (21:10)
--- NOTE | 2017-05-22 21:15 | Progress Note ---
Medicine Progress Note Date & Time of Visit: May 22, 2017 at 21:12. Subjective resting in bed, comfortable states breathing and cough is improving denies fever/chills no other symptoms Objective Last 8 Hrs Date Time Temp Pulse Resp B/P (MAP) Pulse Ox O2 Delivery O2 Flow Rate FiO2 05/22/17 20:00 Room Air 05/22/17 19:46 36.8 83 20 120/76 (91) 97 Room Air 05/22/17 19:37 84 16 96 Room Air 05/22/17 16:00 Nasal Cannula 2.0 05/22/17 15:14 36.9 94 18 149/82 (104) 93 Nasal Cannula 2.0 05/22/17 14:42 92 16 94 Nasal Cannula 2.0 Physical Exam: General- oriented x 3, not in distress, speaks in sentences with no effort Eyes-EOMI, anicteric Neck- supple, no JVD Lungs- clear BS BL Heart- regular rhythm; no murmur, normal rate Abdomen- normal bowel sounds, soft, nontender Extremities- no pretibial edema, no calf tenderness; peripheral pulses intact Neuro- alert, oriented x 3;no gross focal deficits Skin- warm & dry Laboratory Results: Last 24 Hours Test 05/22/17 07:49 05/22/17 11:35 05/22/17 16:25 05/22/17 20:11 Bedside Glucose 108 mg/dl 176 mg/dl 214 mg/dl 325 mg/dl Date/Time Source Procedure Growth Status 05/22/17 15:55 Sputum Expectorated Sputum Gram Stain Pending Received 05/22/17 15:55 Sputum Expectorated Sputum Sputum Culture Pending Received Assessment & Plan Acute Respiratory failure with hypoxia: Chronic Oxygen dependency: 2L QHS Patient has not been using her Nebulizers at home secondary to financial/ Insurance issues Secondary to COPD Exacerbation CXR: no signs of consolidation CTA: No PE Continue doxycycline PO BID, Prednisone Advair, Spiriva Pulmonary input appreciated possible D/C in AM will need case management to check medication options Hypertensive Urgency: Not on HTN meds at home Started on Vasotec improving Prolonged QTC: Avoid QTC prolonging meds improved DM Type II: Not taking her Metformin as prescribed Will hold oral diabetic meds Last A1c:5.8 on 02/25/17>>>. 6.2 ISS, basal Insulin, Accu checks, Diabetic diet GERD: continue ranitidine Pulmonary Nodule: Former tobacco use disorder: Needs repeat CT chest in 2-3 months Morbid obesity: BMI:45.4 DVT Px: Lovenox SQ Code Status: Full Code Disposition: patient states her house has black molds, will need to have it cleaned before moving in will check if son will let her stay with them will discuss with case management Current Inpatient Medications: Current Inpatient Medications Medications (Trade) Dose Ordered Sig/Romel Route Start Time Stop Time Status Last Admin Dose Admin Ioversol (Optiray 320) 111 ml UD PRN IV 05/19/17 14:15 05/23/17 14:14 Enoxaparin Sodium (Lovenox Inj) 40 mg Q24H SC 05/19/17 20:00 06/18/17 19:59 05/21/17 20:25 40 MG Acetaminophen (Tylenol Tab) 650 mg Q4H PRN PO 05/19/17 16:45 06/18/17 16:44 05/19/17 19:20 650 MG Doxycycline Hyclate (Vibramycin Cap) 100 mg BID PO 05/19/17 21:00 05/26/17 20:59 05/22/17 08:26 100 MG Albuterol/ Ipratropium (Duoneb) 3 ml QIDR INH 05/19/17 20:00 06/18/17 19:59 05/22/17 19:37 3 ML Albuterol/ Ipratropium (Duoneb) 3 ml Q2H PRN INH 05/19/17 17:00 06/18/17 16:59 Enalaprilat 0.625 mg/Dextrose 25.5 ml @ 100 mls/hr Q6H PRN IV 05/19/17 17:00 06/18/17 16:59 Insulin Aspart (novoLOG ASPART) SLIDING SCALE If C... ACHS SC 05/19/17 21:00 06/18/17 20:59 05/22/17 17:29 4 UNITS Glucose (Glucose 40% Gel) 15-30 GRAMS 15 GRAMS... UD PRN PO 05/19/17 17:00 06/18/17 16:59 Glucose (Glucose Chew Tab) 4-8 Tablets 4 Tabl... UD PRN PO 05/19/17 17:00 06/18/17 16:59 Dextrose (Dextrose 50% 50ML Syringe) 25-50ML OF 50% DW IV FOR... UD PRN IV 05/19/17 17:00 06/18/17 16:59 Glucagon (Glucagon Inj) 1 mg UD PRN SQ 05/19/17 17:00 06/18/17 16:59 Ranitidine HCl (zANTac TAB) 150 mg BID PO 05/19/17 21:00 06/18/17 20:59 05/22/17 08:26 150 MG Promethazine HCl 12.5 mg/Sodium Chloride 50.5 ml @ 204 mls/hr Q6H PRN IV 05/19/17 17:30 06/18/17 17:29 Prednisone (PredniSONE TAB) 40 mg DAILY PO 05/21/17 09:00 06/20/17 08:59 05/22/17 08:26 40 MG Enalapril Maleate (Vasotec Tab) 5 mg QAM PO 05/21/17 09:00 06/20/17 08:59 05/22/17 08:26 5 MG Salmeterol Xinafoate/ Fluticasone (Advair Diskus 250/50 Inh) 1 puff BID INH 05/21/17 09:00 06/20/17 08:59 05/22/17 08:25 1 PUFF Tiotropium [place] (Spiriva Handihaler Inhaler) 1 puff QAM INH 05/21/17 09:00 06/20/17 08:59 05/22/17 08:25 1 PUFF Senna/Docusate Sodium (Senokot S Tab) 1 tab QAM PO 05/22/17 09:00 06/21/17 08:59 05/22/17 08:27 1 TAB Magnesium Hydroxide (Milk Of Magnesia Susp) 30 ml Q6H PRN PO 05/21/17 10:15 06/20/17 10:14
[2017-05-22] MEDS ORDERED: INSULIN GLARGINE SOLOSTAR 100 UNITS/ML 3 ML PEN SC ONE (22:43)
[2017-05-22] MEDS ORDERED: INSULIN ASPART 100 UNITS/ML 3 ML PEN SC STA (23:11)
[2017-05-22] MEDS ORDERED: NURSING VERBAL MED ORDER ONE (23:15)
[2017-05-23] VITALS (13 sets, daily range): BP systolic 122–156; BP diastolic 58–88; PULSE 72–95; TEMP 36.6–36.8; O2SAT 94–98; Ht 167.6 cm; Wt 128.9 kg
[2017-05-23] MEDS: ALBUT/IPRATROP 3MG/0.5MG NEB 3 ML VIAL INH SCH ×4 (07:22→19:03)
[2017-05-23] MEDS: FLUTICASONE/SALMETEROL 250/50 (ADVAIR) 14 PUFF/1 INHALER INH SCH ×2 (08:41→21:03)
[2017-05-23] MEDS: TIOTROPIUM BROMIDE 5 PUFF/90 MCG INH INH SCH (08:42)
[2017-05-23] MEDS: DOCUSATE SODIUM/SENNA 50/8.6MG TAB PO SCH (08:43)
[2017-05-23] MEDS: DOXYCYCLINE HYCLATE 100 MG CAP PO SCH ×2 (08:44→21:04)
[2017-05-23] MEDS: ENALAPRIL MALEATE 5 MG TAB PO SCH (08:44)
[2017-05-23] MEDS: RANITIDINE HCL 150 MG TAB PO SCH ×2 (08:44→21:04)
[2017-05-23] MEDS: INSULIN ASPART 100 UNITS/ML 3 ML PEN SC SCH ×4 (08:47→21:00)
--- NOTE | 2017-05-23 11:40 | PROGRESS NOTE ---
DATE: 05/23/2017 [facility] PROGRESS NOTE PROBLEM LIST: Includes: 1. Chronic obstructive pulmonary disease with exacerbation. 2. Left upper lobe nodule. 3. Obstructive sleep apnea. SUBJECTIVE: The patient reports that she continues to feel improved. She states that her breathing is continuing to get better. She does not yet feel that she is back to her normal state; however, she feels that she is getting closer. She still has a cough which is more than what she normally has at home; however, the cough is dry and nonproductive. She has never had any significant mucous production. She has not had any increased shortness of breath. She apparently was up walking in the halls last afternoon or evening and did well. She has no chest pain, no chest pressure, no palpitations. There has been no fever or chills that she is aware of. No sweats. No abdominal pain. No nausea or vomiting. She is moving her bowels well. No difficulty with her voiding. No significant swelling in her extremities. The swelling that she had in the right lower extremity has resolved. She did have an ultrasound of the right leg and that was unremarkable for DVT. In discussing the issue with the mom in her home, she states that she did contact [facility] and they are going to have somebody come in tomorrow and look at it and evaluate to see what needs to be done. In discussing with her potential discharge options, it does sound like she is going to be able to go home with her son. OBJECTIVE: GENERAL: The patient is a 61-year-old female. She was sleeping when I entered, but aroused easily. She is alert and oriented x3. Mood is good. Affect is good. No respiratory distress, no acute distress. In general, she is able to complete sentences without difficulty. VITAL SIGNS: Temperature 36.8, pulse 81, respirations 20, blood pressure is 156/88, and pulse ox 94% on 2 liters. HEENT: Normocephalic, atraumatic. Pupils equal, round and reactive to light and accommodation. Extraocular movements are intact. [place] moist gingival and buccal mucosa. NECK: Supple. There is no mass, no adenopathy or bruit. CHEST: Diminished. No wheeze, rale or rhonchi were auscultated. CARDIOVASCULAR: Regular rate and rhythm. No murmurs, gallops or rubs. ABDOMEN: Bowel sounds are present. Abdomen is soft, nontender. No guarding, rigidity or organomegaly. EXTREMITIES: The patient has trace edema bilaterally. There is no erythema, no cyanosis or clubbing noted. NEUROLOGIC: Cranial nerves II through XII are intact. No focal deficit noted. LABORATORY DATA: A.m. glucose this morning was 113. IMAGING DATA: No new radiologic data. IMPRESSION: 1. This is a 61-year-old female who presented to [facility] with exacerbation of her chronic obstructive pulmonary disease. 2. Left upper lobe nodule with need for repeat CT imaging in 3 months. 3. Obstructive sleep apnea which is mild. 4. Right calf pain, which has resolved. At this point, the patient is continuing to improve. We anticipate that she should be able to be discharged from a pulmonary perspective in the next 24-48 hours. She is currently on oral prednisone 40 mg daily, would recommend to continue this during hospitalization and then do a slow taper by 5 mg every 2 days, as an outpatient. Continue doxycycline to complete a 10-day course. Would recommend that she continue to use the flutter valve and incentive spirometer. We discussed with her that I will contact our office that she is a patient at and have them set aside samples of Breo and Spiriva, for her. She is to use this until she comes in for followup. We are looking at the possibility of a triple agent that is new on the market that she may be able to get through a voucher. Also, will further discuss her CPAP options when she comes into the office. She is to ambulate today, did discuss this with nursing. She is to continue rest of pulmonary toilet as it is. She will be reevaluated in the morning.
[2017-05-23] MEDS: ENOXAPARIN 40 MG/0.4 ML SYR SC SCH (18:45)
--- NOTE | 2017-05-23 19:37 | Progress Note ---
Medicine Progress Note Date & Time of Visit: May 23, 2017 at 19:35. Subjective not in distress, comfortable breathing continues to improve cough resolving no chest pain denies other symptoms Objective Last 8 Hrs Date Time Temp Pulse Resp B/P (MAP) Pulse Ox O2 Delivery O2 Flow Rate FiO2 05/23/17 19:04 89 16 96 Room Air 05/23/17 16:12 94 Room Air 05/23/17 15:50 95 16 94 Room Air 05/23/17 15:22 36.8 95 20 151/75 (100) 94 Room Air 05/23/17 12:00 94 Nasal Cannula 2.0 Physical Exam: General- oriented x 3, not in distress, speaks in sentences with no effort Eyes- anicteric Neck- supple, no JVD Lungs- clear breath sounds bilaterally, no rales/wheezes Heart- regular rhythm; no murmur, normal rate Abdomen- normal bowel sounds, soft, nontender Extremities- no pretibial edema, no calf tenderness Neuro- alert, oriented x 3;no gross focal deficits Skin- warm & dry Laboratory Results: Last 24 Hours Test 05/22/17 20:11 05/23/17 08:12 05/23/17 11:26 05/23/17 16:42 Bedside Glucose 325 mg/dl 113 mg/dl 159 mg/dl 222 mg/dl Assessment & Plan Acute Respiratory failure with hypoxia: Chronic Oxygen dependency: 2L QHS Patient has not been using her Nebulizers at home secondary to financial/ Insurance issues Secondary to COPD Exacerbation CXR: no signs of consolidation CTA: No PE Continue doxycycline PO BID, Prednisone Advair, Spiriva Pulmonary input appreciated possible D/C tomorrow Hypertensive Urgency: Not on HTN meds at home Started on Vasotec improving Prolonged QTC: Avoid QTC prolonging meds improved DM Type II: Not taking her Metformin as prescribed hold oral diabetic meds Last A1c:5.8 on 02/25/17>>>. 6.2 ISS, basal Insulin, Accu checks, Diabetic diet GERD: continue ranitidine Pulmonary Nodule: Former tobacco use disorder: Needs repeat CT chest in 2-3 months Morbid obesity: BMI:45.4 DVT Px: Lovenox SQ Code Status: Full Code Disposition: possible d/c tomorrow anticipate d/c to son's home ff up with PCP and Pulmonary Current Inpatient Medications: Current Inpatient Medications Medications (Trade) Dose Ordered Sig/Romel Route Start Time Stop Time Status Last Admin Dose Admin Enoxaparin Sodium (Lovenox Inj) 40 mg Q24H SC 05/19/17 20:00 06/18/17 19:59 05/23/17 18:45 40 MG Acetaminophen (Tylenol Tab) 650 mg Q4H PRN PO 05/19/17 16:45 06/18/17 16:44 05/19/17 19:20 650 MG Doxycycline Hyclate (Vibramycin Cap) 100 mg BID PO 05/19/17 21:00 05/26/17 20:59 05/23/17 08:44 100 MG Albuterol/ Ipratropium (Duoneb) 3 ml QIDR INH 05/19/17 20:00 06/18/17 19:59 05/23/17 19:03 3 ML Albuterol/ Ipratropium (Duoneb) 3 ml Q2H PRN INH 05/19/17 17:00 06/18/17 16:59 Enalaprilat 0.625 mg/Dextrose 25.5 ml @ 100 mls/hr Q6H PRN IV 05/19/17 17:00 06/18/17 16:59 Insulin Aspart (novoLOG ASPART) SLIDING SCALE If C... ACHS SC 05/19/17 21:00 06/18/17 20:59 05/23/17 18:03 7 UNITS Glucose (Glucose 40% Gel) 15-30 GRAMS 15 GRAMS... UD PRN PO 05/19/17 17:00 06/18/17 16:59 Glucose (Glucose Chew Tab) 4-8 Tablets 4 Tabl... UD PRN PO 05/19/17 17:00 06/18/17 16:59 Dextrose (Dextrose 50% 50ML Syringe) 25-50ML OF 50% DW IV FOR... UD PRN IV 05/19/17 17:00 06/18/17 16:59 Glucagon (Glucagon Inj) 1 mg UD PRN SQ 05/19/17 17:00 06/18/17 16:59 Ranitidine HCl (zANTac TAB) 150 mg BID PO 05/19/17 21:00 06/18/17 20:59 05/23/17 08:44 150 MG Promethazine HCl 12.5 mg/Sodium Chloride 50.5 ml @ 204 mls/hr Q6H PRN IV 05/19/17 17:30 06/18/17 17:29 Prednisone (PredniSONE TAB) 40 mg DAILY PO 05/21/17 09:00 06/20/17 08:59 05/23/17 08:43 40 MG Enalapril Maleate (Vasotec Tab) 5 mg QAM PO 05/21/17 09:00 06/20/17 08:59 05/23/17 08:44 5 MG Salmeterol Xinafoate/ Fluticasone (Advair Diskus 250/50 Inh) 1 puff BID INH 05/21/17 09:00 06/20/17 08:59 05/23/17 08:41 1 PUFF Tiotropium [place] (Spiriva Handihaler Inhaler) 1 puff QAM INH 05/21/17 09:00 06/20/17 08:59 05/23/17 08:42 1 PUFF Senna/Docusate Sodium (Senokot S Tab) 1 tab QAM PO 05/22/17 09:00 06/21/17 08:59 05/23/17 08:43 1 TAB Magnesium Hydroxide (Milk Of Magnesia Susp) 30 ml Q6H PRN PO 05/21/17 10:15 06/20/17 10:14 Insulin Glargine (Lantus Solostar Pen) 10 units HS SC 05/23/17 21:00 06/22/17 20:59
[2017-05-23] MEDS: INSULIN GLARGINE SOLOSTAR 100 UNITS/ML 3 ML PEN SC SCH (21:08)
[2017-05-24] VITALS (9 sets, daily range): BP systolic 124–164; BP diastolic 76–85; PULSE 79–96; TEMP 36.5–37; O2SAT 93–97
[2017-05-24] MEDS: ALBUT/IPRATROP 3MG/0.5MG NEB 3 ML VIAL INH SCH (07:15)
[2017-05-24] MEDS: INSULIN ASPART 100 UNITS/ML 3 ML PEN SC SCH ×4 (08:07→20:36)
[2017-05-24] MEDS: FLUTICASONE/SALMETEROL 250/50 (ADVAIR) 14 PUFF/1 INHALER INH SCH ×2 (08:08→20:41)
[2017-05-24] MEDS: TIOTROPIUM BROMIDE 5 PUFF/90 MCG INH INH SCH (08:08)
[2017-05-24] MEDS: ENALAPRIL MALEATE 5 MG TAB PO SCH (08:09)
[2017-05-24] MEDS: DOXYCYCLINE HYCLATE 100 MG CAP PO SCH ×2 (08:09→20:35)
[2017-05-24] MEDS: DOCUSATE SODIUM/SENNA 50/8.6MG TAB PO SCH (08:09)
[2017-05-24] MEDS: RANITIDINE HCL 150 MG TAB PO SCH ×2 (08:09→20:35)
[2017-05-24] MEDS ORDERED: ALBUTEROL HFA 8 GM INHALER INH PRN (09:00)
--- NOTE | 2017-05-24 10:48 | PROGRESS NOTE ---
DATE: 05/24/2017 PROBLEM LIST: Includes: 1. Chronic obstructive pulmonary disease with exacerbation. 2. Left upper lobe nodule. 3. Obstructive sleep apnea. SUBJECTIVE: The patient reports that she is doing well today. She feels that her breathing is pretty much back to her normal. She does feel that she is ready to go home. She does have occasional cough which is dry, nonproductive. It is no worse than what she normally has at home. She has no increased shortness of breath, no increased work of breathing, no increased breathing difficulties. No chest heaviness or tightness. She has no fever or chills that she is aware of. No sweats. She has been up walking around and doing well. She has no GI symptoms. No nausea or vomiting, no indigestion or heartburn. No difficulty with her bowels. No difficulty voiding. No swelling in her extremities aside from what she normally has. OBJECTIVE: GENERAL: The patient is a 61-year-old female sitting in bed when I entered. She is alert and oriented x3. Mood is good. Affect is good. She has no respiratory distress, no acute distress. She is able to complete sentences without difficulty. VITAL SIGNS: Temp 36.9, pulse 82, respirations 18, blood pressure is 142/84, pulse ox 94% on room air. HEENT: Normocephalic, atraumatic. Pupils equal, round and reactive to light and accommodation. Extraocular movements are intact. [place] moist gingival and buccal mucosa. NECK: Supple. There is no mass, adenopathy or bruit noted. CHEST: Diminished breath sounds bilaterally. No significant wheeze, rale or rhonchi noted. Fairly good air movement throughout. CARDIOVASCULAR: Regular rate and rhythm. There are no murmurs, no gallops or rubs noted. ABDOMEN: Bowel sounds are present. Abdomen soft, nontender. EXTREMITIES: There is no erythema, no edema. No cyanosis or clubbing. NEUROLOGIC: Cranial nerves II through XII are intact. No focal deficits noted. No new laboratory data No new radiologic data. IMPRESSION: A 61-year-old female with chronic obstructive pulmonary disease with exacerbation to this who is doing better and is getting close to being back to her normal state. At this time as stated in the medical history, she will need a prednisone taper starting at 40 and decreased by 5 mg every 2 days as an outpatient. She is to complete a 10-day course of doxycycline. She is to continue with her home inhalers which include Breo and Spiriva. I did contact the office and we have samples of these set aside from her that she has to picket [employer] today. She is to continue the rest of her medications as they are. She is to continue use of flutter valve at home and she is to contact the office if there is any question or problem. She is to keep her appointment in the office as scheduled or within 1-2 weeks.
[2017-05-24] MEDS ORDERED: ALUMINUM/MAGNESIUM SUSP 30 ML UDC PO ONE (11:02)
[2017-05-24] MEDS ORDERED: METOPROLOL TARTRATE 25 MG TAB PO ONE (11:02)
--- NOTE | 2017-05-24 11:12 | Progress Note ---
Medicine Progress Note Date & Time of Visit: May 24, 2017 at 11:06. Subjective noted to have few seconds SVT this AM, RN was talking to patient, apparently asymptomatic on my exam, patient reports substernal chest pain, that started this morning, non radiating, no dyspnea/nausea/dizziness states breathing is ok, no cough reports left upper arm pain- on her "vein" no other symptoms Objective Last 8 Hrs Date Time Temp Pulse Resp B/P (MAP) Pulse Ox O2 Delivery O2 Flow Rate FiO2 05/24/17 10:43 87 159/76 (103) 05/24/17 08:11 36.9 82 18 142/84 (103) 94 Room Air 05/24/17 08:00 Room Air 05/24/17 07:27 96 16 95 Room Air 05/24/17 04:00 Nasal Cannula 2.0 05/24/17 04:00 36.8 82 19 137/82 (100) 94 Nasal Cannula 2.0 Physical Exam: General- oriented x 3, not in distress, speaks in sentences with no effort Eyes- anicteric Neck-no JVD Lungs- clear breath sounds bilaterally, no rales/wheezing Heart- regular rhythm; no murmur, normal rate Abdomen- normal bowel sounds, soft, nontender Extremities- no pretibial edema, no calf tenderness Neuro- alert, oriented x 3;no gross focal deficits Skin- warm & dry Laboratory Results: Last 24 Hours Test 05/23/17 11:26 05/23/17 16:42 05/23/17 20:02 05/24/17 07:50 Bedside Glucose 159 mg/dl 222 mg/dl 122 mg/dl 120 mg/dl Test 05/24/17 10:49 05/24/17 11:00 Assessment & Plan Acute Respiratory failure with hypoxia: Chronic Oxygen dependency: 2L QHS Patient has not been using her Nebulizers at home secondary to financial/ Insurance issues Secondary to COPD Exacerbation CXR: no signs of consolidation CTA: No PE placed on doxycycline PO BID, Prednisone, Nebs with significant improved on usual Advair, Spiriva Pulmonary input appreciated - was planning to d/c but patient now having SVT and chest pain Chest Pain SVT episode - r/o ACS risk factors: DM, HTN, Obesity, Smoking, strong family history - check cardiac markers, EKG, Echo, TSH check PRP, Mg - start Metoprolol 12.5mg BID start ASA 324mg now - stop Duoneb - will consult Cardiology NPO until seen by Nursery Rn Hypertensive Urgency: Started on Vasotec, hold for now, change to Metoprolol monitor Prolonged QTC: Avoid QTC prolonging meds improved DM Type II: Not taking her Metformin as prescribed hold oral diabetic meds Last A1c:5.8 on 02/25/17>>> 6.2 ISS, basal Insulin, Accu checks, Diabetic diet GERD: continue ranitidine Pulmonary Nodule: Former tobacco use disorder: Needs repeat CT chest in 2-3 months Morbid obesity: BMI:45.4 DVT Px: Lovenox SQ Code Status: Full Code Disposition: hold d/c, cardiac eval in progress anticipate d/c to son's home when stable ff up with PCP and Pulmonary Current Inpatient Medications: Current Inpatient Medications Medications (Trade) Dose Ordered Sig/Romel Route Start Time Stop Time Status Last Admin Dose Admin Enoxaparin Sodium (Lovenox Inj) 40 mg Q24H SC 05/19/17 20:00 06/18/17 19:59 05/23/17 18:45 40 MG Acetaminophen (Tylenol Tab) 650 mg Q4H PRN PO 05/19/17 16:45 06/18/17 16:44 05/19/17 19:20 650 MG Doxycycline Hyclate (Vibramycin Cap) 100 mg BID PO 05/19/17 21:00 05/26/17 20:59 05/24/17 08:09 100 MG Albuterol/ Ipratropium (Duoneb) 3 ml QIDR INH 05/19/17 20:00 06/18/17 19:59 05/24/17 07:15 3 ML Albuterol/ Ipratropium (Duoneb) 3 ml Q2H PRN INH 05/19/17 17:00 06/18/17 16:59 Enalaprilat 0.625 mg/Dextrose 25.5 ml @ 100 mls/hr Q6H PRN IV 05/19/17 17:00 06/18/17 16:59 Insulin Aspart (novoLOG ASPART) SLIDING SCALE If C... ACHS SC 05/19/17 21:00 06/18/17 20:59 05/24/17 08:07 5 UNITS Glucose (Glucose 40% Gel) 15-30 GRAMS 15 GRAMS... UD PRN PO 05/19/17 17:00 06/18/17 16:59 Glucose (Glucose Chew Tab) 4-8 Tablets 4 Tabl... UD PRN PO 05/19/17 17:00 06/18/17 16:59 Dextrose (Dextrose 50% 50ML Syringe) 25-50ML OF 50% DW IV FOR... UD PRN IV 05/19/17 17:00 06/18/17 16:59 Glucagon (Glucagon Inj) 1 mg UD PRN SQ 05/19/17 17:00 06/18/17 16:59 Ranitidine HCl (zANTac TAB) 150 mg BID PO 05/19/17 21:00 06/18/17 20:59 05/24/17 08:09 150 MG Promethazine HCl 12.5 mg/Sodium Chloride 50.5 ml @ 204 mls/hr Q6H PRN IV 05/19/17 17:30 06/18/17 17:29 Prednisone (PredniSONE TAB) 40 mg DAILY PO 05/21/17 09:00 06/20/17 08:59 05/24/17 08:09 40 MG Enalapril Maleate (Vasotec Tab) 5 mg QAM PO 05/21/17 09:00 06/20/17 08:59 05/24/17 08:09 5 MG Salmeterol Xinafoate/ Fluticasone (Advair Diskus 250/50 Inh) 1 puff BID INH 05/21/17 09:00 06/20/17 08:59 05/24/17 08:08 1 PUFF Tiotropium [place] (Spiriva Handihaler Inhaler) 1 puff QAM INH 05/21/17 09:00 06/20/17 08:59 05/24/17 08:08 1 PUFF Senna/Docusate Sodium (Senokot S Tab) 1 tab QAM PO 05/22/17 09:00 06/21/17 08:59 05/24/17 08:09 1 TAB Magnesium Hydroxide (Milk Of Magnesia Susp) 30 ml Q6H PRN PO 05/21/17 10:15 06/20/17 10:14 Insulin Glargine (Lantus Solostar Pen) 10 units HS SC 05/23/17 21:00 06/22/17 20:59 05/23/17 21:08 10 UNITS Albuterol (Ventolin Hfa Inhaler) 2 puffs Q4H PRN INH 05/24/17 09:00 06/23/17 08:59
[2017-05-24] MEDS ORDERED: LEVALBUTEROL 1.25MG/0.5ML NEB INH PRN (11:15)
[2017-05-24] MEDS ORDERED: ALUMINUM/MAGNESIUM SUSP 30 ML UDC PO PRN (11:15)
[2017-05-24] MEDS ORDERED: IPRATROPIUM BROMIDE NEB SOLN 0.02% 2.5 ML VIAL INH PRN (11:15)
[2017-05-24] MEDS ORDERED: LEVALBUTEROL/IPRATROPIUM NEB INH PRN (11:15)
[2017-05-24] MEDS ORDERED: ASPIRIN 81 MG CHEW PO STA (11:18)
[2017-05-24 11:22] LABS: BASO % 0.2 %; BASO ABS # 0.02 K/uL (0-0.2); COMPLETE YES; EOS % 0.4 %; IG% 0.3 %; LYMPH % 15.4 %; LYMPH ABS # 1.48 K/uL (1.2-3.4); MEAN CELL VOLUME 86.9 fL (80-100); MEAN CORPUSCULAR HEMOGLOBIN 27.7 pg (25-34); MEAN CORPUSCULAR HGB CONC 31.9 g/dl (32-36); MEAN PLATELET VOLUME 10.2 fL (7.4-10.4); MONO % 8.7 %; PLATELET COUNT 181 K/uL (130-400); RED BLOOD COUNT 4.95 M/uL (4.2-5.4); WHITE BLOOD COUNT 9.59 K/uL (4.8-10.8)
[2017-05-24 11:38] LABS: BUN/CREATININE RATIO 32.9 (10-20); CALCIUM 9.3 mg/dl (8.5-10.1); CREATININE 1.07 mg/dl (0.60-1.20); MAGNESIUM 2.1 mg/dl (1.8-2.4); POTASSIUM 3.8 mmol/L (3.5-5.1)
[2017-05-24] MEDS ORDERED: PERFLUTREN LIPID MICROSPHERE (DEFINITY) IV ONE (12:33)
--- NOTE | 2017-05-24 13:06 | DIAGNOSTIC IMAGING REPORT ---
L VENOUS DOPPLER UPR EXT UNIL CLINICAL HISTORY: 61 years-old Female presenting with r/o dvt. TECHNIQUE: Real-time grayscale and color and spectral Doppler ultrasound imaging of the veins of the left upper extremity was performed. Compression and augmentation were also utilized. COMPARISON: None. FINDINGS: Left: Internal jugular vein: Patent. Subclavian vein: Patent. Axillary vein: Patent. Basilic vein: Patent. Brachial vein: Patent. Cephalic vein: Filling defect consistent with thrombus extending from the antecubital fossa. Thrombus does not extend proximally in the cephalic vein to the venous confluence. Radial vein: Patent. Ulnar vein: Patent. Other: None. IMPRESSION: No evidence of deep venous thrombosis. Occlusive thrombus in the cephalic vein within a limited portion without extension to the venous confluence. Electronically signed by: Del Caputo M.D. 05/24/2017 1:04 PM Dictated Date/Time: 05/24/2017 1:02 PM
--- NOTE | 2017-05-24 15:31 | ECHOCARDIOGRAM REPORT ---
*NOTICE TO RECEIVING LIBERTARIAN AGENCY This information is strictly Confidential and protected under [place] law. [place] law prohibits you from making any further disclosure of this information unless further disclosure is expressly permitted by the written consent of the person to whom it pertains or is authorized by law. A general authorization for the release of medical or other information is not sufficient for this purpose. Hospital accepts no responsibility if the information is made available to any other person, INCLUDING THE PATIENT. Interpretation Summary * Name: MAHSA MERCER Study Date: 05/24/2017 11:24 AM BP: 159/76 mmHg * [facility]\S\N285\S\1 HR: 87 * : 1955 (M/d/yyyy) Gender: Female Height: 66 in * Age: 61 yrs Ethnicity: [place] Weight: 283 lb * Ordering Physician: Yared Mckee * Referring Physician: Self, Referred * Performed By: Abran Reyes RCS * * Reason For Study: Chest Pain * BSA: 2.3 m2 * The study was technically difficult. * The study was technically limited. * -- Conclusions -- * There is normal left ventricular wall thickness. * The left ventricular wall motion is grossly normal with no regional wall motion abnormalities on technically limited assessment. * The LV Ejection Fraction = 50-55%. * The right ventricle is not well visualized. * The date are insufficient to comment on the pulmonary artery systolic pressure. Procedure Details * A complete two-dimensional transthoracic echocardiogram was performed (2D, M-mode, Doppler and color flow Doppler). * A contrast injection of Definity was performed to improve assessment of LV function. * Contrast was injected into an intravenous site in the left arm. * One vial of Definity ultrasound contrast was diluted in normal saline to a total volume of 10 ml. A total of '1' ml of solution was administered during imaging. * Lot # [id number] of Definity utilized for procedure. * Expiration date [id number]. * The attending nurse who injected the contrast agent was Dawna Reynolds RN. Left Ventricle * The left ventricle is normal in size. * There is normal left ventricular wall thickness. * Ejection Fraction = 50-55%. * The left ventricular wall motion is grossly normal with no regional wall motion abnormalities on technically limited assessment. Right Ventricle * The right ventricle is not well visualized. Atria * The left atrial size is normal. * Right atrium not well visualized. Mitral Valve * The mitral valve anatomy is normal. * There is no mitral valve stenosis. * Significant mitral regurgitation is absent. Tricuspid Valve * The tricuspid valve is not well visualized. Aortic Valve * The aortic valve is not well visualized.l Doppler evaluation is adequate. * No hemodynamically significant valvular aortic stenosis. * There is no significant aortic regurgitation. Pulmonic Valve * The pulmonic valve is not well visualized. Pericardium/Pleural * There is no pericardial effusion. Great Vessels * Normal inferior vena cava size and collapsability with sniff indicates a normal right atrial pressure of 3 mmHg Left Ventricular Diastolic Function * Grade I diastolic dysfunction, (abnormal relaxation pattern). MMode 2D Measurements and Calculations IVSd 10 cm IVSs 1.2 cm LVIDd 3.8 cm LVIDs 2.8 cm LVPWd 10 cm LVPWs 1.3 cm IVS/LVPW 10 FS 27.6 % EDV(Teich) 63.0 ml ESV(Teich) 28.8 ml EF(Teich) 54.3 % EDV(cubed) 56.0 ml ESV(cubed) 21.3 ml EF(cubed) 62.0 % % IVS thick 16.0 % % LVPW thick 30.3 % LV mass(C)d 118.0 grams LV mass(C)dI 50.9 grams/m\S\2 LV mass(C)s 101.7 grams LV mass(C)sI 43.9 grams/m\S\2 SV(Teich) 34.2 ml SI(Teich) 14.7 ml/m\S\2 SV(cubed) 34.8 ml SI(cubed) 15.0 ml/m\S\2 Ao root diam 3.5 cm Ao root area 9.9 cm\S\2 ACS 1.6 cm LA dimension 3.1 cm asc Aorta Diam 3.0 cm LA/Ao 0.86 EDV(MOD-sp4) 165.3 ml ESV(MOD-sp4) 69.5 ml EF(MOD-sp4) 57.9 % EDV(MOD-sp2) 151.2 ml ESV(MOD-sp2) 83.2 ml EF(MOD-sp2) 44.9 % SV(MOD-sp4) 95.8 ml SI(MOD-sp4) 41.3 ml/m\S\2 SV(MOD-sp2) 68.0 ml SI(MOD-sp2) 29.3 ml/m\S\2 Doppler Measurements and Calculations MV E max randolph 81.5 cm/sec MV A max randolph 105.3 cm/sec MV E/A 0.77 MV P1/2t max randolph 90.6 cm/sec MV P1/2t 88.6 msec MVA(P1/2t) 2.5 cm\S\2 MV dec slope 299.6 cm/sec\S\2 MV dec time 0.36 sec Ao V2 max 132.9 cm/sec Ao max PG 7.1 mmHg Ao max PG (full) 2.6 mmHg LV V1 max PG 4.4 mmHg LV V1 max 105.2 cm/sec PA V2 max 96.4 cm/sec PA max PG 3.7 mmHg TR max randolph 221.3 cm/sec
--- NOTE | 2017-05-24 17:14 | Cardiology Consultation ---
Cardiology Consultation Date of Consultation: May 24, 2017 History of Present Illness Emelyn Lowe is a 61 year old female seen in cardiology consultation per the request of Dr. Mckee for findings of supraventricular tachycardia on telemetry. The patient states that she has no past cardiac history. She believes that she had a recent heartbeat when she took azithromycin a few years ago. The patient was initially admitted via the emergency room on 05/19/17 with complaints of worsening shortness of breath, wheezing, cough, and chest discomfort that was associated with cough as well as with deep inspiration. She was apparently confused when she first arrived. She has been treated with antibiotics, bronchodilators, and prednisone for an acute exacerbation of COPD and has had significant interval clinical improvement. She states that she is feeling back to herself. She notes that her present symptom of chest discomfort was present when her cough was worse, and she states that this has resolved. She is no longer having discomfort when she takes a deep breath in. Her ease of breathing has improved. Telemetry this morning 05/24/17 at 9:09 AM she had a 12 beat josefina of supraventricular tachycardia at 160 bpm. The QRS morphology during the josefian of tachycardia is consistent with her baseline right bundle branch block morphology noted in sinus rhythm. The patient notes no subjective palpitations. 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 She quit tobacco use 3 months ago Family History: She is family history of heart disease with her mother having had a history of an enlarged heart and apparently passing away suddenly at age 64 for presumed myocardial infarction. Review Of Systems See above for pertinent positives & negatives. A total of 10 systems reviewed and were otherwise negative. Allergies Coded Allergies: Azithromycin (Unverified Allergy, Severe, cardiac arrhythmia, 05/19/17) Penicillins (Verified Allergy, Severe, HIVES, SOB, 02/25/17) Sulfa Antibiotics (Verified Allergy, Severe, HIVES AND SOB WITH ORAL SULFA DRUGS, OK W/SILVADENE, 02/25/17) Cephalosporins (Verified Allergy, Intermediate, HIVES WITH CEFTIN, 02/25/17) Quinolones (Verified Allergy, Mild, HIVES-BUT HAD LEVAQUIN IN ER 03/05/09 W /O PROBLEM, 02/25/17) Adhesives (Verified Allergy, Unknown, TAPE-SORES ON SKIN, 02/25/17) Iodine (Verified Allergy, Unknown, REDNESS, 02/25/17) Medications Reported Home Medications Medications Dose Route/Sig Max Daily Dose Days Date Category Proventil 0.083% 2.5MG/3ML (Albuterol Sulf) 2.5 Mg/3 Ml Nebu 2.5 Mg INH Q4 PRN 02/25/17 Reported Ventolin Hfa (Albuterol) 200 Puffs/93641 Mcg Aers 2 Puffs INH Q4 PRN 02/25/17 Reported Spiriva Handihaler (Tiotropium [place]) 30 Puff/540 Mcg Aerp 1 Cap INH QAM 10/11/16 Reported Zantac (Ranitidine HCl) 300 Mg Tab 300 Mg PO BID 10/11/16 Reported Atrovent 0.02% Soln (Ipratropium [place]) 2.5 Ml Nebu 2.5 Ml INH Q6 PRN 07/26/14 Reported Oxygen Gas 2 Liters NA HS 06/25/13 Reported Levoxyl Unknown Dose (Levothyroxine Sodium) Tab 05/12/09 Reported Zocor Unkown Dose (Simvastatin) Tab 05/12/09 Reported [Meds For Hives] 1 Tab PO DAILY 05/12/09 Reported Zantac (Ranitidine HCl) 300 Mg Tab 300 Mg PO HS 05/12/09 Reported Zestril (Lisinopril) 10 Mg Tab 10 Mg PO DAILY 05/12/09 Reported Physical Exam Vital Signs (Last 8hrs): Last 8 Hrs Date Time Temp Pulse Resp B/P (MAP) Pulse Ox O2 Delivery O2 Flow Rate FiO2 05/24/17 16:00 Room Air 05/24/17 15:29 37.0 79 18 124/77 (93) 93 05/24/17 13:47 36.6 87 20 164/84 (110) 93 Room Air 05/24/17 12:00 Room Air 05/24/17 11:19 79 16 95 Nasal Cannula 2.0 05/24/17 10:43 87 159/76 (103) General Appearance: Alert and Oriented x3. NAD. Head: Normocephalic Atraumatic. Eyes: PERRLA, EOMI, conjunctiva and sclera clear Neck: Supple. No carotid bruits noted. No JVD. No HJD. Respiratory: Breath sounds clear for the most part very subtle mild upper airway inspiratory wheezing Cardiovascular: Reg rate and rhythm. S1 and S2 noted. No murmurs, rubs, gallops. PMI non displace. Abdomen: Normal bowel sounds, soft nontender. no abdominal bruits. Extremities: No edema, no clubbing or cyanosis. distal pulses 2/4 bilaterally. Neuro: No focal deficits. Psychiatric: Normal affect. Data Last Resulted 05/24/17 10:49 Red Blood Count 4.95, Mean Corpuscular Volume 86.9, Mean Corpuscular Hemoglobin 27.7, Mean Corpuscular Hemoglobin Concent 31.9, Mean Platelet Volume 10.2, Neutrophils (%) (Auto) 75.0, Lymphocytes (%) (Auto) 15.4, Monocytes (%) (Auto) 8.7, Eosinophils (%) (Auto) 0.4, Basophils (%) (Auto) 0.2, Neutrophils # (Auto) 7.19, Lymphocytes # (Auto) 1.48, Monocytes # (Auto) 0.83, Eosinophils # (Auto) 0.04, Basophils # (Auto) 0.02 Last Resulted 05/24/17 10:49 Past 24 Hours Test 05/24/17 10:49 Range/Units Creatine Kinase MB < 0.5 L 0.5-3.6 ng/ml Creatine Kinase MB Ratio 0-3.0 Total Creatine Kinase 39 26-192 U/L Troponin I < 0.015 0-0.045 ng/ml The patient has had 4 EKG tracings this hospital stay all of which reveal right bundle branch block with no significant ST changes. Compared to prior hospitalizations, the right bundle branch block is a chronic finding. Echocardiogram performed today and reviewed independently by the undersigned: The study was technically difficult. The study was technically limited. -- Conclusions -- There is normal left ventricular wall thickness. The left ventricular wall motion is grossly normal with no regional wall motion abnormalities on technically limited assessment. The LV Ejection Fraction = 50-55%. The right ventricle is not well visualized. The date are insufficient to comment on the pulmonary artery systolic pressure. Assessment & Plan Impression: 61-year-old female 1. Single, asymptomatic josefina of supraventricular tachycardia, 12 beats in duration, rate of 160 bpm, with right bundle branch block morphology similar to her QRS complexes when she is in sinus rhythm. This was noted on telemetry and per the patient, she recalls that she felt that she was having a lot of coughing this morning around that time, 9:09 AM after having been exposed to some perfume. She notes no subjective palpitations. The only palpitation she describes occurred several years ago when she received azithromycin 2. Grossly normal echocardiogram, with technical limitations due to poor acoustic windows, and patient's body habitus 3. Chronic right bundle branch block 4. Left cephalic venous thrombosis on ultrasound, at site of recent IV, no evidence of DVT Discussion/recommendations: The patient was admitted with shortness of breath, confusion, wheezing, cough and pleuritic chest pain. All of the symptoms have improved with aggressive treatment of her COPD exacerbation. I do not think it surprising that she had a short run of supraventricular tachycardia in the setting of her treatment with inhaled bronchodilators and corticosteroids. At present, I agree with Dr. Mckee's plan to start her on low-dose metoprolol tartrate 12.5 mg twice a day while she is hospitalized. As she improves, perhaps she will not even need this medication. It certainly does not appear that a low-dose beta gaby has made her pulmonary situation any worse. Xopenex as already been utilized as her inhaled nebulizer therapy should be helpful in terms of helping reduce her risk of medication-induced tachycardia. Continue subcutaneous Lovenox for DVT prophylaxis. No further cardiac testing is recommended at the present time.
[2017-05-24] MEDS: INSULIN GLARGINE SOLOSTAR 100 UNITS/ML 3 ML PEN SC SCH (20:39)
[2017-05-24] MEDS: METOPROLOL TARTRATE 25 MG TAB PO SCH (20:41)
[2017-05-24] MEDS: ENOXAPARIN 40 MG/0.4 ML SYR SC SCH (20:42)
[2017-05-24 23:38] LABS: CKMB/CK RATIO 1.9 (0-3.0)
[2017-05-25] VITALS (8 sets, daily range): BP systolic 111–164; BP diastolic 64–89; PULSE 74–89; TEMP 36.5–36.7; O2SAT 94–99
[2017-05-25] MEDS: DOXYCYCLINE HYCLATE 100 MG CAP PO SCH (08:46)
[2017-05-25] MEDS: METOPROLOL TARTRATE 25 MG TAB PO SCH (08:47)
[2017-05-25] MEDS: DOCUSATE SODIUM/SENNA 50/8.6MG TAB PO SCH (08:47)
[2017-05-25] MEDS: RANITIDINE HCL 150 MG TAB PO SCH (08:48)
[2017-05-25] MEDS: FLUTICASONE/SALMETEROL 250/50 (ADVAIR) 14 PUFF/1 INHALER INH SCH (08:48)
[2017-05-25] MEDS: TIOTROPIUM BROMIDE 5 PUFF/90 MCG INH INH SCH (08:49)
[2017-05-25] MEDS: INSULIN ASPART 100 UNITS/ML 3 ML PEN SC SCH ×3 (08:52→17:13)
--- NOTE | 2017-05-25 14:11 | Progress Note ---
Medicine Progress Note Date & Time of Visit: May 25, 2017 at 13:58. Subjective patient seen resting in bed, comfortable states she feel improved overall denies chest pain, palpitations, dizziness, dyspnea no cough arm pain improving denies other symptoms states she is ready and would like to be discharged today Objective Last 8 Hrs Date Time Temp Pulse Resp B/P (MAP) Pulse Ox O2 Delivery O2 Flow Rate FiO2 05/25/17 12:01 97 Nasal Cannula 2.0 05/25/17 11:16 36.5 76 20 144/89 (107) 95 05/25/17 08:20 36.5 78 18 117/64 (81) 97 2.0 05/25/17 08:00 97 Nasal Cannula 2.0 Physical Exam: General- oriented x 3, not in distress, speaks in sentences with no effort Eyes- anicteric Neck-no JVD Lungs- clear BS bilaterally, no rales/wheezes Heart- regular rhythm; no murmur, normal rate Abdomen- normal bowel sounds, soft, nontender Extremities- no pretibial edema, no calf tenderness Left arm- previous IV site noted on the antecubital fossa, no swelling/redness Neuro- alert, oriented x 3;no gross focal deficits Skin- warm & dry Laboratory Results: Last 24 Hours Test 05/24/17 16:14 05/24/17 17:10 05/24/17 20:35 05/24/17 22:54 Bedside Glucose 217 mg/dl 141 mg/dl Total Creatine Kinase 41 U/L 37 U/L Creatine Kinase MB < 0.5 ng/ml 0.7 ng/ml Creatine Kinase MB Ratio 1.9 Troponin I < 0.015 ng/ml < 0.015 ng/ml Test 05/25/17 07:45 05/25/17 11:29 Bedside Glucose 112 mg/dl 138 mg/dl Assessment & Plan Acute Respiratory failure with hypoxia: Chronic Oxygen dependency: 2L QHS Patient has not been using her Nebulizers at home secondary to financial/ Insurance issues Secondary to COPD Exacerbation CXR: no signs of consolidation CTA: No PE placed on doxycycline PO BID x 7 days, Prednisone, Nebs with significant improvement on usual Advair, Spiriva Pulmonary consulted - d/c on: Prednisone taper Advair, Spiriva PRN Albuterol ff up with GAYLE Kilgore at [facility] in 3-5 days Chest Pain SVT episode - ACS ruled out cardiac markers negative EKG non ischemic - TSH 5.05 - echo: * -- Conclusions -- * There is normal left ventricular wall thickness. * The left ventricular wall motion is grossly normal with no regional wall motion abnormalities on technically limited assessment. * The LV Ejection Fraction = 50-55%. * The right ventricle is not well visualized. * The date are insufficient to comment on the pulmonary artery systolic pressure. - Cardiology consulted, felt to be secondary to Beta agonist bronchodilators - started Metoprolol 12.5mg po BID, no recurrence of SVT Hypertensive Urgency: Started on Vasotec, BP improved, then changed to Metoprolol for SVTs monitor BP and HR as outpatient Prolonged QTC: Avoid QTC prolonging meds improved monitor as outpatient DM Type II: Not taking her Metformin as prescribed Last A1c: 6.2 resume Metformin daily monitor as outpatient GERD: continue ranitidine Pulmonary Nodule: Former tobacco use disorder CT chest: IMPRESSION: 1. No evidence for pulmonary embolus. 2. Mild emphysema. 3. A 9 x 7 mm nodular density within the left upper lobe which appears to represent an impacted bronchus. However, follow-up chest CT in 2-3 months is recommended to exclude underlying nodule/mass. 4. A 4 mm indeterminate pulmonary nodule within the left upper lobe. - monitor according to guidelines Code Status: Full Code Disposition: d/c home ff up with PCP in 3-5 days ff up with Pulmonary in 1 week Current Inpatient Medications: Current Inpatient Medications Medications (Trade) Dose Ordered Sig/Romel Route Start Time Stop Time Status Last Admin Dose Admin Enoxaparin Sodium (Lovenox Inj) 40 mg Q24H SC 05/19/17 20:00 06/18/17 19:59 05/24/17 20:42 40 MG Acetaminophen (Tylenol Tab) 650 mg Q4H PRN PO 05/19/17 16:45 06/18/17 16:44 05/19/17 19:20 650 MG Doxycycline Hyclate (Vibramycin Cap) 100 mg BID PO 05/19/17 21:00 05/26/17 20:59 05/25/17 08:46 100 MG Enalaprilat 0.625 mg/Dextrose 25.5 ml @ 100 mls/hr Q6H PRN IV 05/19/17 17:00 06/18/17 16:59 Insulin Aspart (novoLOG ASPART) SLIDING SCALE If C... ACHS SC 05/19/17 21:00 06/18/17 20:59 05/25/17 12:21 5 UNITS Glucose (Glucose 40% Gel) 15-30 GRAMS 15 GRAMS... UD PRN PO 05/19/17 17:00 06/18/17 16:59 Glucose (Glucose Chew Tab) 4-8 Tablets 4 Tabl... UD PRN PO 05/19/17 17:00 06/18/17 16:59 Dextrose (Dextrose 50% 50ML Syringe) 25-50ML OF 50% DW IV FOR... UD PRN IV 05/19/17 17:00 06/18/17 16:59 Glucagon (Glucagon Inj) 1 mg UD PRN SQ 05/19/17 17:00 06/18/17 16:59 Ranitidine HCl (zANTac TAB) 150 mg BID PO 05/19/17 21:00 06/18/17 20:59 05/25/17 08:48 150 MG Promethazine HCl 12.5 mg/Sodium Chloride 50.5 ml @ 204 mls/hr Q6H PRN IV 05/19/17 17:30 06/18/17 17:29 Prednisone (PredniSONE TAB) 40 mg DAILY PO 05/21/17 09:00 06/20/17 08:59 05/25/17 08:47 40 MG Salmeterol Xinafoate/ Fluticasone (Advair Diskus 250/50 Inh) 1 puff BID INH 05/21/17 09:00 06/20/17 08:59 05/25/17 08:48 1 PUFF Tiotropium [place] (Spiriva Handihaler Inhaler) 1 puff QAM INH 05/21/17 09:00 06/20/17 08:59 05/25/17 08:49 1 PUFF Senna/Docusate Sodium (Senokot S Tab) 1 tab QAM PO 05/22/17 09:00 06/21/17 08:59 05/25/17 08:47 1 TAB Magnesium Hydroxide (Milk Of Magnesia Susp) 30 ml Q6H PRN PO 05/21/17 10:15 06/20/17 10:14 Insulin Glargine (Lantus Solostar Pen) 10 units HS SC 05/23/17 21:00 06/22/17 20:59 05/24/17 20:39 10 UNITS Albuterol (Ventolin Hfa Inhaler) 2 puffs Q4H PRN INH 05/24/17 09:00 06/23/17 08:59 Metoprolol Tartrate (Lopressor Tab) 12.5 mg BID PO 05/24/17 21:00 06/23/17 20:59 05/25/17 08:47 12.5 MG Al Hydroxide/Mg Hydroxide (Maalox Susp) 30 ml Q6H PRN PO 05/24/17 11:15 06/23/17 11:14 Ipratropium [place] (Atrovent 0.02% 0.5MG/2.5ML Neb) 0.5 mg Q4H PRN INH 05/24/17 11:15 06/23/17 11:14 05/24/17 11:17 0.5 MG Levalbuterol (Xopenex 1.25MG/ 0.5ML Neb) 1.25 mg Q4H PRN INH 05/24/17 11:15 06/23/17 11:14 05/24/17 11:17 1.25 MG
[2017-05-25] MEDS ORDERED: METF500T PO (14:20)
[2017-05-25] MEDS ORDERED: XPNINS1255 INH (14:20)
[2017-05-25] MEDS ORDERED: ADVIN25050 INH (14:20)
[2017-05-25] MEDS ORDERED: VNTHFA/IN INH (14:20)
[2017-05-25] MEDS ORDERED: RANI300T2 PO (14:20)
[2017-05-25] MEDS ORDERED: LPR25 PO (14:20)
[2017-05-25] MEDS ORDERED: SPRIN/30 INH (14:20)
[2017-05-25] MEDS ORDERED: PRD10 PO ×2 (14:20→14:37)
--- NOTE | 2017-05-25 14:28 | Discharge Instructions ---
Discharge Instructions Date of Service May 25, 2017. Admission Reason for Admission: Copd Exacerbation Discharge Discharge Diagnosis / Problem: COPD EXACERBATION Discharge Goals Goal(s): Diagnostic testing, Therapeutic intervention Activity Recommendations Activity Limitations: as noted below (NO HEAVEY EXERTION UNTIL RE-EVALUATED BY PRIMARY CARE PHYSICIAN) Lifting Limitations: until after follow-up appointment Exercise/Sports Limitations: until after follow-up appointment . Instructions / Follow-Up Instructions / Follow-Up PLEASE REVIEW YOUR NEW MEDICATION LIST AND FOLLOW INSTRUCTIONS CAREFULLY. CALL YOUR PRIMARY CARE PHYSICIAN OR LUNG SPECIALIST OR RETURN TO ER IMMEDIATELY IF WITH RECURRENCE/WORSENING OF SYMPTOMS. FOLLOW UP WITH DR. GUTIERRES ON SUNDAY MAY 28, 2017 AT 11:10AM. FOLLOW UP WITH [employer] DR. FLEMING/GAYLE BOWMAN ON SATURDAY MAY 27, 2017. TEL .NO. Current Hospital Diet Patient's current hospital diet: Diabetes Type 2 Diet Discharge Diet Recommended Diet: AHA Diet (Heart Healthy), Diabetes Type 2 Diet Procedures Procedures Performed: CT SCAN OF THE CHEST, ULTRASOUND OF THE UPPER AND LOWER EXTREMITIES Pending Studies Studies pending at discharge: no Laboratory Results Hemoglobin A1c Test 05/20/17 06:16 Range/Units Estimated Average Glucose 131 mg/dl Hemoglobin A1c 6.2 H 4.5-5.6 % Medical Emergencies . Who to Call and When: Medical Emergencies: If at any time you feel your situation is an emergency, please call 911 immediately. . Non-Emergent Contact Non-Emergency issues call your: Primary Care Provider, Hospice Nurse Practitioner Call Non-Emergent contact if: you have a fever, your pain is not controlled, your pain is worsening, you have any medication questions . . "Provider Documentation" section prepared by Yared cMkee. . VTE Core Measure Inpt VTE Proph given/why not?: Enoxaparin (Lovenox)SQ
--- NOTE | 2017-05-25 14:35 | Discharge Summary ---
Discharge Summary Date of Service May 25, 2017. Discharge Summary Admission Date: May 19, 2017 at 16:48 Discharge Date: May 25, 2017 Discharge Disposition: Home Principal Diagnosis: Acute Respiratory failure with hypoxia Secondary to COPD Exacerbation Secondary Diagnoses/Problems: Please refer to hospital course below. Procedures: CHEST CTA for PULMONARY ARTERIES CT DOSE: 705.05 mGy.cm HISTORY: Short of breath. Hypoxia. TECHNIQUE: Multiaxial CT images of the chest were performed following the intravenous administration of contrast to evaluate the pulmonary arteries. Maximal intensity projection images were also obtained. A dose lowering technique was utilized adhering to the principles of ALARA. COMPARISON STUDY: Chest 05/13/1617. FINDINGS: Hepatic steatosis. The visualized spleen and left adrenal gland are unremarkable. An indeterminate 1.5 cm exophytic lesion within the upper pole the left kidney. This favors a cyst but is only partially visualized. However, this is unchanged compared to the 2013 study and is therefore likely benign. Calcification within the right thyroid lobe. Stable calcified 7 mm nodule within the right adrenal gland. No pleural or pericardial effusions. No mediastinal or hilar lymphadenopathy. The heart is normal in size. No fractures within the visualized osseous structures. No pneumothorax. Trace mucoid material within the right mainstem bronchus. Mild emphysema. A 4 mm nodule within the upper lobe on image 226. Focal branching nodular density seen within the left upper lobe on image 196. This measures 9 x 7 mm. This favors an impacted bronchus. Bibasilar linear densities consistent with subsegmental atelectasis. Normal caliber thoracic aorta with no evidence for dissection. No filling defects within the pulmonary arteries to suggest pulmonary embolus. IMPRESSION: 1. No evidence for pulmonary embolus. 2. Mild emphysema. 3. A 9 x 7 mm nodular density within the left upper lobe which appears to represent an impacted bronchus. However, follow-up chest CT in 2-3 months is recommended to exclude underlying nodule/mass. 4. A 4 mm indeterminate pulmonary nodule within the left upper lobe. Please refer to the chart below for recommended follow-up. Electronically signed by: Finn Jarrell M.D. 05/19/2017 3:04 PM R VENOUS DOPP LOWER EXT UNILAT IMPRESSION: No evidence of deep venous thrombosis. L VENOUS DOPPLER UPR EXT UNIL IMPRESSION: No evidence of deep venous thrombosis. Occlusive thrombus in the cephalic vein within a limited portion without extension to the venous confluence. Electronically signed by: Del Caputo M.D. 05/24/2017 1:04 PM Consultations: Pulmonary Dr. Fleming/GAYLE Kilgore Pending Studies/Follow-Up: Please refer to hospital course below. Medication Reconciliation New Medications: Metformin Hcl (Glucophage) 500 Mg Tab 500 MG PO DAILY for 30 Days, #30 TABS 2 Refills Prednisone (Prednisone) 10 Mg Tab 1 TAB PO UD, #14 TAB take 3 and 1/2 tabs po daily x 2 days, then take 3 tabs po daily x 2 days, then take 2 and 1/2 tabs po daily x 2 days, then take 2 tabs po daily x 2 days, then take 1 and 1/2 tabs po daily x 2 days, then take 1 tab po daily x 2 days, then take 1/2 tab po daily x 2 days, then STOP Fluticasone Prop/Salmeterol (Advair Diskus 250-50 Mcg/Dose) 14 Puff/1 Inhaler Aerp 1 PUFF INH BID for 30 Days, #1 INHALER 2 Refills Levalbuterol (Levalbuterol) 1.25 Mg/0.5 Ml Nebu 1.25 MG INH Q4H PRN for SOB/WHEEZING for 30 Days, #20 UNITS 2 Refills Metoprolol Tartrate (Lopressor) 25 Mg Tab 12.5 MG PO BID for 30 Days, #30 TAB 2 Refills Continued Medications: Albuterol Hfa (Ventolin Hfa) 200 Puffs/52324 Mcg Aers 2 PUFFS INH Q4 PRN for SOB/Wheezing for 30 Days, #1 INHALER 2 Refills (This prescription has been renewed) Home O2 Therapy (Oxygen) Gas 2 LITERS NA HS Ipratropium [place] (Atrovent 0.02% Soln) 2.5 Ml Nebu 2.5 ML INH Q6 PRN for Wheezing Ranitidine Hcl (Zantac) 300 Mg Tab 300 MG PO BID for 30 Days, #60 TAB 2 Refills (This prescription has been renewed ) Tiotropium [place] (Spiriva Handihaler) 30 Puff/540 Mcg Aerp 1 CAP INH QAM for 30 Days, #1 INHALER 2 Refills (This prescription has been renewed) Discontinued Medications: Albuterol Sulf (Proventil 0.083% 2.5MG/3ML) 2.5 Mg/3 Ml Nebu 2.5 MG INH Q4 PRN for SOB/Wheezing, EA Admission Information HPI (per Admitting provider): Patient is a 61 yr female with PMH of COPD on chronic oxygen therapy, DM II, GERD, Former tobacco use disorder, Morbid obesity and other problems presents with history of worsening SOB and wheezing, productive cough and some pleuritic chest pain which started this morning at 2am which woke her from sleep. She states she has been using her inhalers more often lately but symptoms worsened this morning. She reports that she has not been using most of her medications secondary to Insurance issues and secondary to finances. Reports having yellowish green sputum associated with left sided pain on her back which increases with breathing. Reports that she quit smoking 3 months ago. Denies any history of fever, chills, hemoptysis, nausea, vomiting, abdominal pain, chest pain, dysuria, diarrhea or any other relevant history. She is found to be 84% on room air and gets easily desaturated with minimal exertion. CTA is negative for PE. Physical Exam (per Admitting): General Appearance: no apparent distress, + obese Head: normocephalic, atraumatic Eyes: normal inspection, PERRL, EOMI, sclerae normal ENT: normal ENT inspection, hearing grossly normal Neck: supple, trachea midline Respiratory/Chest: chest non-tender, no respiratory distress, no accessory muscle use, + decreased breath sounds, + wheezing Cardiovascular: regular rate, rhythm, no edema, no murmur, + tachycardia Abdomen/GI: normal bowel sounds, non tender, soft, + pertinent finding ( obese) Back: normal inspection Extremities/Musculoskelatal: normal inspection, + pedal edema, + pertinent finding (chronic R ankle tender) Neurologic/Psych: administrative analyst II-XII nml as tested, no motor/sensory deficits, alert , normal mood/affect, oriented x 3 Skin: normal color, warm/dry Hospital Course Acute Respiratory failure with hypoxia Secondary to COPD Exacerbation Patient has not been using her Nebulizers at home secondary to financial/ Insurance issues CXR: no signs of consolidation CTA: No PE placed on doxycycline PO BID x 7 days, Prednisone, Nebs with significant improvement on usual Advair, Spiriva Pulmonary consulted- Drt. Fleming and GAYLE Kilgore - d/c on: Prednisone taper Advair, Spiriva PRN Albuterol ff up with GAYLE Kilgore at [facility] in 3-5 days Chest Pain SVT episode - ACS ruled out cardiac markers negative EKG non ischemic - TSH 5.05 - echo: * -- Conclusions -- * There is normal left ventricular wall thickness. * The left ventricular wall motion is grossly normal with no regional wall motion abnormalities on technically limited assessment. * The LV Ejection Fraction = 50-55%. * The right ventricle is not well visualized. * The date are insufficient to comment on the pulmonary artery systolic pressure. - Cardiology consulted, felt to be secondary to Beta agonist bronchodilators - started Metoprolol 12.5mg po BID, no recurrence of SVT Hypertensive Urgency: Started on Vasotec, BP improved, then changed to Metoprolol for SVTs monitor BP and HR as outpatient Prolonged QTC: Avoid QTC prolonging meds improved monitor as outpatient DM Type II: Not taking her Metformin as prescribed Last A1c: 6.2 resume Metformin daily monitor as outpatient Pulmonary Nodule: Former tobacco use disorder CT chest: IMPRESSION: 1. No evidence for pulmonary embolus. 2. Mild emphysema. 3. A 9 x 7 mm nodular density within the left upper lobe which appears to represent an impacted bronchus. However, follow-up chest CT in 2-3 months is recommended to exclude underlying nodule/mass. 4. A 4 mm indeterminate pulmonary nodule within the left upper lobe. - monitor according to guidelines (full report in the procedure section noted above) Elevated TSH TSH 5.05 repeat TFTs as outpatient Cephalic Vein Thrombus, Left Left Upper Ext US: IMPRESSION: No evidence of deep venous thrombosis. Occlusive thrombus in the cephalic vein within a limited portion without extension to the venous confluence. - monitor Disposition: d/c home ff up with PCP in 3-5 days ff up with Pulmonary in 1 week Total time spent on discharge = 40 minutes This includes examination of the patient, discharge planning, medication reconciliation, and communication with other providers. Discharge Instructions Discharge Instructions Date of Service May 25, 2017. Admission Reason for Admission: Copd Exacerbation Discharge Discharge Diagnosis / Problem: COPD EXACERBATION Discharge Goals Goal(s): Diagnostic testing, Therapeutic intervention Activity Recommendations Activity Limitations: as noted below (NO HEAVEY EXERTION UNTIL RE-EVALUATED BY PRIMARY CARE PHYSICIAN) Lifting Limitations: until after follow-up appointment Exercise/Sports Limitations: until after follow-up appointment . Instructions / Follow-Up Instructions / Follow-Up PLEASE REVIEW YOUR NEW MEDICATION LIST AND FOLLOW INSTRUCTIONS CAREFULLY. CALL YOUR PRIMARY CARE PHYSICIAN OR LUNG SPECIALIST OR RETURN TO ER IMMEDIATELY IF WITH RECURRENCE/WORSENING OF SYMPTOMS. FOLLOW UP WITH DR. GUTIERRES ON SUNDAY MAY 28, 2017 AT 11:10AM. FOLLOW UP WITH PALEOLOGY TEACHER DR. FLEMING/GAYLE KILGORE ON SATURDAY MAY 27, 2017. TEL .NO. Current Hospital Diet Patient's current hospital diet: Diabetes Type 2 Diet Discharge Diet Recommended Diet: AHA Diet (Heart Healthy), Diabetes Type 2 Diet Procedures Procedures Performed: CT SCAN OF THE CHEST, ULTRASOUND OF THE UPPER AND LOWER EXTREMITIES Pending Studies Studies pending at discharge: no Laboratory Results Hemoglobin A1c Test 05/20/17 06:16 Range/Units Estimated Average Glucose 131 mg/dl Hemoglobin A1c 6.2 H 4.5-5.6 % Medical Emergencies . Who to Call and When: Medical Emergencies: If at any time you feel your situation is an emergency, please call 911 immediately. . Non-Emergent Contact Non-Emergency issues call your: Primary Care Provider, Design Leader Call Non-Emergent contact if: you have a fever, your pain is not controlled, your pain is worsening, you have any medication questions . . "Provider Documentation" section prepared by Yared Mckee. . VTE Core Measure Inpt VTE Proph given/why not?: Enoxaparin (Lovenox)SQ
== END 2017-05-25 17:40 | disposition home or self-care (01) | DRG 189 ==
LOC: C.EDB 09:23 → C.MED 16:48 → ENRESERV 17:30
PROVIDERS: ADMIT Internal Medicine; ATTEND Internal Medicine
DX: J96.01 Acute respiratory failure with hypoxia (principal); J44.1 Chronic obstructive pulmonary disease with (acute) exacerbation; I47.1 Supraventricular tachycardia; I82.612 Acute embolism and thrombosis of superficial veins of left upper extremity; Z68.42 Body mass index [BMI] 45.0-49.9, adult; Z99.81 Dependence on supplemental oxygen; Z91.120 Patient's intentional underdosing of medication regimen due to financial hardship; G47.33 Obstructive sleep apnea (adult) (pediatric); I16.0 Hypertensive urgency; I45.81 Long QT syndrome; E11.65 Type 2 diabetes mellitus with hyperglycemia; M79.661 Pain in right lower leg; R94.6 Abnormal results of thyroid function studies; K21.9 Gastro-esophageal reflux disease without esophagitis; R91.1 Solitary pulmonary nodule; Z87.891 Personal history of nicotine dependence; E66.01 Morbid (severe) obesity due to excess calories; Z86.718 Personal history of other venous thrombosis and embolism; Z79.899 Other long term (current) drug therapy; Z88.0 Allergy status to penicillin; Z88.1 Allergy status to other antibiotic agents; Z88.2 Allergy status to sulfonamides; Z82.5 Family history of asthma and other chronic lower respiratory diseases; Z83.3 Family history of diabetes mellitus; Z82.49 Family history of ischemic heart disease and other diseases of the circulatory system

== ENCOUNTER → 2017-07-24 | Outpatient (CLI) | payer OTHER ==
[~2017-07-24] MED LIST changes: +ADVIN25050 INH; -ALBINS/ INH; -ASPI81TA28 PO; -CYAN100020 PO; -GLC500 PO; -HYDR-3124 PO; +LPR25 PO; -LPT40 PO; -LXP10 PO; +METF500T PO; -MULT-506 PO; -OXYC-57 PO; +PRD10 PO; -PRED-603 PO; -WLLSR150 PO; +XPNINS1255 INH
--- NOTE | 2017-07-24 13:46 | DIAGNOSTIC IMAGING REPORT ---
(CHEST) THORAX WITHOUT CLINICAL HISTORY: 62 years-old Female presenting with R91.1 Lung nodule. TECHNIQUE: Multidetector CT imaging of the chest was performed without the use of intravenous contrast. IV contrast: None. A dose lowering technique was used consistent with the principles of ALARA (as low as reasonably achievable). COMPARISON: 05/19/2017. CT DOSE (mGy.cm): The estimated cumulative dose is 626.08 mGycm. FINDINGS: Director Of Product Design topogram: Unremarkable. On soft tissue windows, no axillary, supraclavicular, or mediastinal lymphadenopathy. Evaluation of the ronald limited without intravenous contrast. Atherosclerosis of the aorta. Minimal coronary artery calcification at the origin of the right coronary artery. Normal heart size. No pericardial or pleural effusion. Hepatic steatosis. On lung windows, trace emphysema is present. Vague groundglass nodules evident with an upper lobe predominance. Additionally the solid spiculated left upper lobe nodule now measures 10 mm (series 4 image 79), previously 9 mm. Additional solid 3 mm nodule in the posterior apical left upper lobe (series 4 image 62), unchanged. Solid 4 mm pulmonary nodule in the azygos esophageal recess of the right lower lobe (series 4 image 190), unchanged. Punctate solid nodule in the superior segment of the right lower lobe (series 4 image 132), not clearly visualized on prior exam. Subtle mosaic attenuation diffusely suggest small airways disease. Layering debris noted in the bronchus intermedius. Mild bronchial wall thickening diffusely. On bone windows, degenerative changes of the spine. IMPRESSION: 1. Multiple solid bilateral pulmonary nodules are overall stable since the most recent exam performed approximately 2 months ago. The largest measures 10 mm in the left upper lobe with a suspicious morphology concerning for neoplasm. Close attention on follow-up. 2. Smoking related lung injury evidenced by respiratory bronchiolitis, bronchial wall thickening, and emphysema. 3. Layering debris in the bronchus intermedius. 4. Hepatic steatosis. The report will be called/faxed according to standard departmental protocol. Please refer to below summary of Fleischner Society 2017 recommendations for follow-up of incidental CT nodules (Lilliam Saucedo et al. Guidelines for management of incidental pulmonary nodules detected on CT images: From the Fleischner Society 2017. Radiology 2017; 284: 228-243.) SOLID NODULES Single nodule; size < 6 mm * Low risk patients: No routine follow-up * High risk patients: Optional CT at 12 months Single nodule; size 6-8 mm * Low risk patients: CT at 6-12 months, then consider CT at 18-24 months * High risk patients: CT at 6-12 months, then at 18-24 months Single nodule; size > 8 mm * Either low or high risk patients: Considered CT at 3 months, PET/CT, or tissue sampling Multiple nodules; size < 6 mm * Low risk patients: No routine follow up * High risk patients: Optional CT at 12 months Multiple nodules; size 6-8 mm * Low risk patients: CT at 3-6 months, then consider CT at 18-24 months * High risk patients: CT at 3-6 months, then at 18-24 months Multiple nodules; size > 8 mm * Low risk patients: CT at 3-6 months, then consider at 18-24 months * High risk patients: CT at 3-6 months, then at 18-24 months Note: These guidelines apply to incidental nodules. These guidelines do not apply to patients younger than 35 years, immunocompromised patients, or patients with cancer. * Low risk patients: Minimal or absent history of smoking and/or other known risk factors * High risk patients: History of smoking, exposure to other carcinogens, emphysema, fibrosis, upper lobe location, family history of lung cancer, etc. * If a nodule up to 8 mm is partly solid or is ground glass, further follow-up is required after 24 months to exclude possible slow growing adenocarcinoma. SUBSOLID NODULES Single ground-glass nodule * Nodule size < 6 mm: No routine follow-up * Nodule size > or = 6 mm: CT at 6-12 months to confirm persistence, then CT every 2 years until 5 years Single part-solid nodule * Nodule size < 6 mm: No routine follow-up * Nodules size > or = 6 mm: CT at 3-6 months to confirm persistence. If unchanged and solid component remains < 6 mm, annual CT should be performed for 5 years Multiple nodules * Nodule size < 6 mm: CT at 3-6 months. If stable, consider CT at 2 and 4 years. * Nodules size > or = 6 mm: CT at 3-6 months. Subsequent management based on the most suspicious nodule(s) Electronically signed by: Del Caputo M.D. 07/24/2017 1:44 PM Dictated Date/Time: 07/24/2017 1:34 PM
== END | disposition home or self-care (01) ==
LOC: C.CTS 13:22
PROVIDERS: ATTEND Physician Assistant
DX: R91.8 Other nonspecific abnormal finding of lung field (principal); K76.0 Fatty (change of) liver, not elsewhere classified

== ENCOUNTER → 2017-08-05 | Outpatient (CLI) | payer OTHER ==
--- NOTE | 2017-08-06 10:40 | DIAGNOSTIC IMAGING REPORT ---
PET/CT CLINICAL HISTORY: SINGLE PULMONARY NODULE TECHNIQUE: A PET/CT was performed from the skull base through the upper thighs following intravenous injection of 8.3 mCi of F 18 FDG IV. The injection was performed at 1:55 PM on August 05, 2017 and imaging began at 3:25 PM on August 05, 2017. Unenhanced CT was performed for attenuation correction purposes and anatomic localization. COMPARISON STUDY: Chest CTs May 19, 2017 and July 24, 2017. FINDINGS: Head and neck: No abnormal FDG uptake is identified within the neck. There is no cervical lymphadenopathy. Chest: No enlarged axillary, mediastinal or hilar lymph nodes are present. Note is made of a 1 cm lobulated left upper lobe nodule shown on axial image 85 of 311 which corresponds to the previously described nodule. This is unchanged since initial chest CT of May 19, 2017. There is mild FDG uptake within this nodule within SUV max of 2.2. Several additional smaller pulmonary nodules are too small for evaluation by PET imaging but remain unchanged. These include a 4 mm right lower lobe nodule shown on image 119 and a 4 mm left upper lobe nodule shown image 78. There is minimal tree-in-bud nodular opacity within the lingula shown image 99. There are no new nodules. Right middle lobe and lingular opacity suggest atelectasis. Abdomen and Pelvis: Fatty infiltration of the liver is noted. No abnormal FDG uptake is identified within the abdomen or the pelvis. There are several water attenuation bilateral renal lesions. These are suboptimally assessed on this unenhanced exam but likely reflect cysts. There is no abdominal or pelvic lymphadenopathy. There is colonic diverticulosis without evidence for acute diverticulitis. Left hip arthroplasty is noted. Musculoskeletal: No suspicious skeletal uptake is identified. IMPRESSION: 1. Mild FDG uptake within the lobulated 1 cm left upper lobe nodule with possible endobronchial component. This nodule is indeterminate and differential considerations include bronchogenic carcinoma and carcinoid tumor. 2. No thoracic lymphadenopathy. No evidence for metastatic disease. 3. No change in several additional tiny pulmonary nodules which are too small to evaluate by PET imaging. Electronically signed by: Marlo Ramos M.D. 08/06/2017 10:39 AM Dictated Date/Time: 08/06/2017 8:25 AM
== END | disposition home or self-care (01) ==
LOC: C.PET 12:11
PROVIDERS: ATTEND Physician Assistant
DX: R91.1 Solitary pulmonary nodule (principal)

== ENCOUNTER → 2017-09-02 | Outpatient (CLI) | payer OTHER ==
[~2017-09-02] MED LIST changes: +AMOX250C3 PO; +ASPI81TA28 PO; +DOXY100C76 PO; +FLUT1AER14 INH; +GLC/500 PO; +HYDR-3126 PO; +IBUP-1459 PO; +LEVO50TA6 PO; +PARO1TAB27 PO; +PRED-301 PO; +RANI150T85 PO
[2017-09-02 17:29] LABS: BASO % 0.2 %; BASO ABS # 0.01 K/uL (0-0.2); EOS ABS # 0.05 K/uL (0-0.5); HEMATOCRIT 43.3 % (37-47); HEMOGLOBIN 14.4 g/dL (12.0-16.0); IG# 0.01 K/uL (0.00-0.02); LYMPH % 40.4 %; MEAN CELL VOLUME 84.6 fL (80-100); MEAN CORPUSCULAR HEMOGLOBIN 28.1 pg (25-34); MEAN CORPUSCULAR HGB CONC 33.3 g/dl (32-36); MEAN PLATELET VOLUME 10.7 fL (7.4-10.4); MONO % 12.7 %; MONO ABS # 0.63 K/uL (0.11-0.59); NEUT % 45.5 %; NEUT ABS # 2.25 K/uL (1.4-6.5); PLATELET COUNT 167 K/uL (130-400); RED CELL DISTRIBUTION WIDTH CV 14.1 % (11.5-14.5); RED CELL DISTRIBUTION WIDTH SD 43.3 fL (36.4-46.3); WHITE BLOOD COUNT 4.95 K/uL (4.8-10.8)
[2017-09-02 17:51] LABS: BLOOD UREA NITROGEN 19 mg/dl (7-18); CALCIUM 9.1 mg/dl (8.5-10.1); CARBON DIOXIDE 28 mmol/L (21-32); CREATININE 0.74 mg/dl (0.60-1.20); GLUCOSE 98 mg/dl (70-99); POTASSIUM 3.7 mmol/L (3.5-5.1); SODIUM 141 mmol/L (136-145)
== END | disposition home or self-care (01) ==
LOC: C.LAB1850 15:59
PROVIDERS: ATTEND Surgery
DX: Z01.818 Encounter for other preprocedural examination (principal)

== ENCOUNTER 2017-09-04 06:47 | Inpatient (IN) | payer OTHER ==
[2017-09-02 09:31] VITALS: BMI 47.0
[2017-09-04] VITALS (30 sets, daily range): BP systolic 99–163; BP diastolic 60–91; PULSE 86–107; TEMP 36.6–37.2; O2SAT 88–100; Ht 167.6 cm; Wt 132.0 kg
[~2017-09-04] VITALS: Ht 167.6 cm; Wt 132.0 kg
[~2017-09-04 06:47] MED LIST changes: -ADVIN25050 INH; +LACTATED RINGER'S 1000ML 1,000 ML IV SCH; -LPR25 PO; -METF500T PO; -PRD10 PO; -RANI300T2 PO; -SPRIN/30 INH; -XPNINS1255 INH
[2017-09-04] MEDS ORDERED: MIDAZOLAM HCL 1 MG/ML 2ML VIAL ONE (07:57)
[2017-09-04] MEDS ORDERED: FENTANYL CITRATE INJ 50 MCG/1 ML 2 ML VIAL ONE ×3 (07:57→11:36)
[2017-09-04] MEDS ORDERED: LIDOCAINE HCL 2% 2 ML VIAL (20MG/ML) ONE ×2 (08:07→10:44)
[2017-09-04] MEDS ORDERED: SODIUM CHLORIDE 0.9% PF 50 ML VIAL ONE ×2 (08:54→08:55)
[2017-09-04] MEDS ORDERED: BUPIVACAINE LIPOSOME 1/3% 266 MG/20 ML VIAL INFIL ONE (08:55)
[2017-09-04] MEDS ORDERED: BUPIVACAINE 0.5 % 5 MG/1 ML MPF 30ML VIAL ONE (08:55)
[2017-09-04] MEDS ORDERED: ATROPINE SULFATE 0.1 MG/ML 5ML SYR IV PRN (09:00)
[2017-09-04] MEDS ORDERED: ONDANSETRON INJ 2 MG/ML 2 ML VIAL IV PRN ×2 (09:00→13:15)
[2017-09-04] MEDS ORDERED: EpHEDrine SULFATE INJ 50 MG/ML AMP IV PRN (09:00)
[2017-09-04] MEDS ORDERED: FENTANYL CITRATE INJ 50 MCG/1 ML 2 ML VIAL IV PRN (09:00)
[2017-09-04] MEDS ORDERED: DEXAMETHASONE SOD INJ 4 MG/ML VIAL ONE (10:44)
[2017-09-04] MEDS ORDERED: PROPOFOL IV EMULSION 10 MG/ML 20 ML VIAL IV ONE (10:44)
[2017-09-04] MEDS ORDERED: ONDANSETRON INJ 2 MG/ML 2 ML VIAL ONE ×2 (10:44→11:32)
[2017-09-04] MEDS ORDERED: EpHEDrine SULFATE 50MG/5ML SYR ONE (10:44)
[2017-09-04] MEDS ORDERED: PHENYLEPHRINE 100MCG/ML 5ML SYR ONE (10:44)
[2017-09-04] MEDS ORDERED: PHENYLEPHRINE HCL INJ 10 MG/ML VIAL ONE (10:47)
[2017-09-04] MEDS ORDERED: SURGICEL ABSORB HEMOSTAT 2IN X 14IN TOP ONE (12:09)
--- NOTE | 2017-09-04 12:56 | [facility] Post Operative Brief Note ---
Immediate Operative Summary Operative Date Sep 04, 2017. Pre-Operative Diagnosis Suspicious left upper lobe nodule Post-Operative Diagnosis Same Procedure(s) Performed Left Robotic Assisted Thoracoscopy with Left Upper Lobectomy and Mediastinal Lymphadenectomy Surgeon Dr Pierce Base Manager Surgeon(s) Aj Rene PA-C Estimated Blood Loss 100ml Findings Consistent with Post-Op Diagnosis Specimens A. Level 7 lymph node B. L12 lymph node x2 C. L11 lymph node x2 D. L10 lymph node E. Level 5 lymph node D. Level 6 lymph node x2 Frozen section #1 left upper lobe for bronchial margins, need diagnosis sent out at 1247 Anesthesia Type General
[2017-09-04] MEDS ORDERED: ALBUT/IPRATROP 3MG/0.5MG NEB 3 ML VIAL INH PRN (13:15)
[2017-09-04] MEDS ORDERED: ALBUTEROL HFA 8 GM INHALER INH PRN (13:15)
[2017-09-04] MEDS ORDERED: MoRPHine SULFATE 2 MG/ML CARP IV PRN (13:15)
[2017-09-04] MEDS ORDERED: ASPIRIN 81 MG ECTAB PO SCH (13:15)
[2017-09-04] MEDS ORDERED: ICU PROTOCOL FOR HYPERGLYCEMIA PRN (13:15)
--- NOTE | 2017-09-04 13:26 | OPERATIVE REPORT ---
DATE OF OPERATION: 09/04/2017 PREOPERATIVE DIAGNOSES: 1. Hypermetabolic mass, left upper lobe. 2. History of cigarette smoking. POSTOPERATIVE DIAGNOSES: Same. PROCEDURE: Robot-assisted thoracoscopic left upper lobectomy with mediastinal lymph node dissection. SURGEON: Dr. Elías Pierce. ALTERATION SPECIALIST: Justin Rene. (Mr. Rene was at the bedside for the entire case. He was at the bedside while I was at the console. He managed the camera going in and was instrumental in passing instruments and first assisting. He closed the skin incisions at the conclusion of the case.) ANESTHESIA: General anesthesia endotracheal intubation using double lumen tube. SPECIFICS OF PROCEDURE AND FINDINGS: Daniel Lowe is an extremely nice 62-year-old female who has a history of cigarette smoking who was found to have a mass in her left upper lobe which was quite suspicious in appearance, by CT. PET scan showed some hypermetabolic activity. There was no evidence of any metastatic disease or extrathoracic disease. I had a long talk about this in the office and the patient and her family were extremely desirous of addressing this. I felt that a wedge resection even with an electromagnetic navigational bronchoscopy marking was going to be extremely difficult as it was in the middle of the left upper lobe. It was also small. After much discussion, I elected to proceed straight with a left upper lobectomy. On 09/04/2017, the patient underwent an uncomplicated robot-assisted thoracoscopic left upper lobectomy. I biopsied multiple lymph node stations. She tolerated it well, was extubated in the room. DESCRIPTION OF PROCEDURE: The patient brought to the operating room and placed in supine position. General anesthesia induced and endotracheal intubation was performed. After placing the patient in a right lateral decubitus position, the left chest was prepped and draped in usual sterile fashion. After appropriate timeout have been called and appropriate and prophylactic antibiotics given, an incision was made anteriorly just above the costal margin about the eighth interspace. A 5 mm scope was placed and carbon dioxide was insufflated. I then made a 12 mm incision for the camera, 8 mm incision for 1 robotic port and another 5 mm port. These were all in approximately the eighth interspace. I then placed a 15 mm assistant signal maintainer's port anteriorly just above the diaphragm. There were no adhesions. The fissures were fairly well developed. I dissected along the posterior pleura and then came down and dissected between the aorta going down in front of the esophagus and I got down to the level 7 node and harvested this. Coming back, I then harvested a 10 node. I then carried the pleural dissection all the way up to the level of the aortic arch. Attention was then turned towards the fissure posteriorly and I was able to complete this fissure completely using dissection. After this, we could see the arterial branches. Coming back down further, I then had some difficulty in dissecting out the lingual artery as it looped over and came back up to the lingula. After dissecting this out, I was able to fire a stapler across this. I then fired a stapler over 2 of the branches more posteriorly going to the upper lobe and this freed it up quite nicely. I fired a stapler to complete the fissure anteriorly. I then took the last arterial branch to see the apical anterior branch superiorly. After this, we then took the bronchus right at its takeoff. Left upper lobe bronchus was divided with an Endo-ARTURO stapler. The left just distal vein which was divided with Endo-ARTURO stapler. This was then placed in an Endobag, but prior to removing this, I dissected out some more level 10 node, a level 5 node, and a level 6 node and multiple level 11 nodes and 12 nodes. We were then able to remove the specimen through an Endobag. We really had very little in the way of an air leak or bleeding. A 24-Gabonese chest tube was directed towards the apex through the anterior most thoracostomy port. In addition, we had done an Exparel block of not only all the incisions, but also all of the intercostal spaces. This was done with by mixing 266 mg of Exparel and 20 mL of solution with 30 mL of 0.5% bupivacaine and 150 mL of saline. This went very nicely and we did this under thoracoscopic direction. We then undocked and removed of the ports. A 24-Gabonese chest tube was placed in the anterior thoracostomy port and directed towards the apex and sutured in place with a heavy silk suture. The assistance port was where we removed the specimen has had the muscle layers closed with 0 Vicryl in running continuous fashion to close the muscle layers. 4-0 Monocryl used in running subcuticular fashion to close all of the wound edges. We had a very tiny air leak at the conclusion of the case. Blood loss was negligible. She tolerated it well. I attest to the content of the Intraoperative Record and any orders documented therein. Any exception s are noted below.
[2017-09-04] MEDS ORDERED: ROCURONIUM BROMIDE 10 MG/ML 5 ML VIAL IV ONE (13:35)
[2017-09-04] MEDS ORDERED: NEOSTIGMINE METHYLSULFATE 5 MG/5 ML SYR ONE (13:36)
[2017-09-04] MEDS ORDERED: GLYCOPYRROLATE INJ 0.2 MG/ML VIAL ONE (13:36)
--- NOTE | 2017-09-04 13:45 | DIAGNOSTIC IMAGING REPORT ---
CHEST ONE VIEW PORTABLE CLINICAL HISTORY: HAL postoperative evaluation COMPARISON STUDY: 05/19/2017. PET CT 08/05/2017 FINDINGS: Postoperative changes left hemithorax with placement of a left sided chest tube. No postprocedural pneumothorax. Atelectasis right base with the upper right lung clear. IMPRESSION: 1. Postoperative changes left hemithorax with no significant postprocedural pneumothorax. 2. Atelectasis right base. The above report was generated using voice recognition software. It may contain grammatical, syntax or spelling errors. Electronically signed by: Emre Melendrez M.D. 09/04/2017 1:44 PM Dictated Date/Time: 09/04/2017 1:43 PM
[2017-09-04] MEDS ORDERED: METOCLOPRAMIDE HCL INJ 5 MG/ML 2 ML VIAL IV. SCH (14:00)
--- NOTE | 2017-09-04 15:02 | Anesthesiology Progress Note ---
Anesthesia Post Op Note Date & Time Sep 04, 2017 at 15:02 Vital Signs Pain Intensity: 4 Vital Signs Past 12 Hours Date Time Temp Pulse Resp B/P (MAP) Pulse Ox O2 Delivery O2 Flow Rate FiO2 09/04/17 14:10 36.0 89 16 152/80 96 Oxymask 5 09/04/17 14:00 85 16 151/74 96 Oxymask 5 09/04/17 13:50 83 16 138/85 92 Oxymask 5 09/04/17 13:40 81 16 144/84 93 Oxymask 10 09/04/17 13:30 80 16 148/80 96 Oxymask 10 09/04/17 13:23 36.0 83 18 140/85 96 Oxymask 10 09/04/17 07:10 36.6 88 20 161/91 92 Room Air Notes Mental Status: alert / awake / arousable, participated in evaluation Pt Amnestic to Procedure: Yes Nausea / Vomiting: adequately controlled Pain: adequately controlled Airway Patency, RR, SpO2: stable & adequate BP & HR: stable & adequate Hydration State: stable & adequate Anesthetic Complications: no major complications apparent
[2017-09-04] MEDS: SODIUM CHLORIDE 0.9% 1000ML 1,000 ML IV SCH (15:07)
[2017-09-04] MEDS: ACETAMINOPHEN IV 1,000 MG in EMPTY BAG 0 ML IV SCH (15:30)
[2017-09-04] MEDS: KETOROLAC TROMETHAMINE 15 MG/ML VIAL IV. SCH (15:32)
--- NOTE | 2017-09-04 15:35 | Critical Care Consultation ---
Critical Care Consultation Date of Consultation: Sep 04, 2017. Attending Physician: Elías Pierce MD Reason for Consultation: ICU care and pulmonary monitoring History of Present Illness She was found to have a LLL nodule that required resection. Very long history of tobacco abuse. Preoperative evaluation suggesting good chance of surgical cure. Underlying COPD and RIANA noted. Other issues include DM2, HTN, Hypothyroidism, and history of post-procedural DVT . Her preoperative performance level was fair at best. Her BMI is >45. At the time of interview pain at the surgical site noted. No worsening dyspnea. No cardiac complaints. No GI/ concerns. Current meds noted. Past Medical/Surgical History -Obesity -RIANA -HTN -HTN -DM2 -COPD -Hypothyroidism -QT interval long Family History Patient reports no known family medical history. Social History Smoking Status: Former Smoker Drug Use: none Marital Status: Housing Status: lives with family Occupation Status: disabled Allergies Coded Allergies: Azithromycin (Verified Allergy, Severe, cardiac arrhythmia, 09/04/17) "makes my heart beat too fast" Penicillins (Verified Allergy, Severe, HIVES, SOB, 09/04/17) Sulfa Antibiotics (Verified Allergy, Severe, HIVES AND SOB WITH ORAL SULFA DRUGS, OK W/SILVADENE, 09/04/17) Cephalosporins (Verified Allergy, Intermediate, HIVES WITH CEFTIN, 09/04/17 ) Quinolones (Verified Allergy, Mild, HIVES-BUT HAD LEVAQUIN IN ER 03/05/09 W /O PROBLEM, 09/04/17) Adhesives (Verified Allergy, Unknown, TAPE-SORES ON SKIN, 09/04/17) Iodine (Verified Allergy, Unknown, REDNESS - see notes (topical), Inectable dye - n/v, 09/04/17) Patient reports Iodine was used topically about a year ago for foot surgery and did not have any problems this time Home Medications Scheduled Aspirin (Aspirin Ec), 81 MG PO UD Dfembbykrav-Qoluehzdanon-Uluhx (Trelegy Ellipta 100-62.5-25 Mcg/INH), 1 PUFF INH QAM Home O2 Therapy (Oxygen), 2 LITERS NA HS Levothyroxine Sodium (Levothyroxine Sodium), 1 TAB PO QAM Metformin Hcl (Glucophage), 500 MG PO QAM Paroxetine (Paxil), 20 MG PO QAM Ranitidine (Zantac), 150 MG PO BID Scheduled PRN Albuterol Hfa (Ventolin Hfa), 2 PUFFS INH Q4 PRN for prn Amoxicillin (Amoxil), Unknown Dose PO UD PRN for PRN Doxycycline Monohydrate (Monodox), 100 MG PO UD PRN for PRN Hydroxyzine Hcl (Atarax), 25 MG PO UD PRN for prn Ibuprofen (Motrin), 400 MG PO UD PRN for Pain Ipratropium Spencer (Atrovent 0.02% Soln), 2.5 ML INH Q6 PRN for Wheezing Prednisone (Prednisone), Unknown Dose PO UD PRN for rescue pack Current Inpatient Medications Current Inpatient Medications Medications (Trade) Dose Ordered Sig/Romel Route Start Time Stop Time Status Last Admin Dose Admin Lactated Ringer's 1,000 ml @ 15 mls/hr Q24H IV 09/04/17 06:00 09/05/17 05:59 09/04/17 07:31 15 MLS/HR Albuterol (Ventolin Hfa Inhaler) 2 puffs Q4 PRN INH 09/04/17 13:15 10/04/17 13:14 Levothyroxine Sodium (Synthroid Tab) 50 mcg DAILYBB PO 09/05/17 06:00 10/05/17 05:59 Paroxetine HCl (pAXil TAB) 20 mg QAM PO 09/05/17 09:00 10/05/17 08:59 Ranitidine HCl (zANTac TAB) 150 mg BID PO 09/04/17 21:00 10/04/17 20:59 Albuterol/ Ipratropium (Duoneb) 3 ml Q4R PRN INH 09/04/17 13:15 10/04/17 13:14 Insulin Aspart (novoLOG ASPART) SLIDING SCALE G... ACHS SC 09/04/17 16:00 10/04/17 15:59 Acetaminophen 1000 mg/Empty Bag 100 ml @ 400 mls/hr Q8H IV 09/04/17 16:00 10/04/17 15:59 Oxycodone HCl (Roxicodone Immediate Rel Tab) 5 mg Q6H PRN PO 09/04/17 13:15 09/18/17 13:14 Enoxaparin Sodium (Lovenox Inj) 40 mg DAILY SQ 09/05/17 09:00 10/05/17 08:59 UNV Docusate Sodium (coLACE CAP) 100 mg BID PO 09/04/17 21:00 10/04/17 20:59 Ketorolac Tromethamine (Toradol Inj) 15 mg Q8H IV. 09/04/17 16:00 09/06/17 08:01 Morphine Sulfate (MoRPHine SULFATE INJ) 1 mg Q1H PRN IV 09/04/17 13:15 09/18/17 13:14 Sodium Chloride 1,000 ml @ 75 mls/hr [id number] IV 09/04/17 15:00 10/04/17 14:59 09/04/17 15:07 75 MLS/HR Miscellaneous Information (Icu Protocol For Hyperglycemia) 1 ea PRN PRN N/A 09/04/17 13:15 09/06/17 13:14 Morphine Sulfate (MoRPHine SULFATE INJ) 2 mg Q1H PRN IV 09/04/17 14:45 09/18/17 14:44 Review of Systems As noted in the HPI. No cardiac concerns. No worsening dyspnea. No GI/ concerns. Meds tolerated. No neurological changes. General review negative. Physical Exam Date Time Temp Pulse Resp B/P (MAP) Pulse Ox O2 Delivery O2 Flow Rate FiO2 09/04/17 14:10 36.0 89 16 152/80 96 Oxymask 5 09/04/17 14:00 85 16 151/74 96 Oxymask 5 09/04/17 13:50 83 16 138/85 92 Oxymask 5 09/04/17 13:40 81 16 144/84 93 Oxymask 10 09/04/17 13:30 80 16 148/80 96 Oxymask 10 09/04/17 13:23 36.0 83 18 140/85 96 Oxymask 10 09/04/17 07:10 36.6 88 20 161/91 92 Room Air Gen--mild distress HEENT--no new focal issues Respiratory--exchange is fair--no loud wheezing/rhonchi--the left chest tube is functional Cardio--rate and volume status ok GI--functional and nontender --Neg Musculo--no target Neuro--no focal target Psych--acceptable Laboratory Results Last 24 Hours Test 09/04/17 13:27 Bedside Glucose 191 mg/dl Diagnostic Results All preoperative labs reviewed. QT interval is generous Assessment & Plan LLL lesion- Resection--in the setting of Obesity/OAS/HTN/DM/COPD 1. Pulmonary--toilet and spirometer--Bronchodilator therapy as required 2. Cardio--track volume status--hold the Zofran and Reglan given the QT interval.. 3. GI--OBR 4. F/E/N--tracking appropriates 5. DM--coverage as required 6. Musculoskeletal--mobilize quickly. History of DVT noted.
[2017-09-04] MEDS: OXYCODONE HCL IR 5 MG TAB (IMMEDIATE RELEASE) PO PRN (17:11)
[2017-09-04] MEDS: INSULIN ASPART 100 UNITS/ML 3 ML PEN SC SCH ×2 (17:13→20:39)
[2017-09-04] MEDS: DOCUSATE SODIUM 100 MG CAP PO SCH (20:35)
[2017-09-04] MEDS: RANITIDINE HCL 150 MG TAB PO SCH (20:35)
[2017-09-04] MEDS: MoRPHine SULFATE 2 MG/ML CARP IV PRN (21:15)
[2017-09-05] VITALS (13 sets, daily range): BP systolic 119–155; BP diastolic 59–90; PULSE 77–98; TEMP 36.4–37.1; O2SAT 89–96
[2017-09-05] MEDS: KETOROLAC TROMETHAMINE 15 MG/ML VIAL IV. SCH ×4 (00:02→23:48)
[2017-09-05] MEDS: ACETAMINOPHEN IV 1,000 MG in EMPTY BAG 0 ML IV SCH ×2 (00:03→07:48)
[2017-09-05] MEDS: LEVOTHYROXINE 50 MCG TAB PO SCH (05:37)
[2017-09-05] MEDS: SODIUM CHLORIDE 0.9% 1000ML 1,000 ML IV SCH (05:37)
[2017-09-05 06:09] LABS: EOS % 0.1 %; EOS ABS # 0.01 K/uL (0-0.5); HEMATOCRIT 39.5 % (37-47); LYMPH % 18.1 %; LYMPH ABS # 1.37 K/uL (1.2-3.4); MEAN CELL VOLUME 85.3 fL (80-100); MEAN CORPUSCULAR HEMOGLOBIN 28.1 pg (25-34); MEAN CORPUSCULAR HGB CONC 32.9 g/dl (32-36); MEAN PLATELET VOLUME 10.8 fL (7.4-10.4); MONO % 16.1 %; MONO ABS # 1.22 K/uL (0.11-0.59); NEUT % 65.7 %; NEUT ABS # 4.99 K/uL (1.4-6.5); PLATELET COUNT 167 K/uL (130-400); RED CELL DISTRIBUTION WIDTH CV 14.3 % (11.5-14.5); RED CELL DISTRIBUTION WIDTH SD 44.2 fL (36.4-46.3); WHITE BLOOD COUNT 7.59 K/uL (4.8-10.8)
[2017-09-05 06:32] LABS: CALCIUM 8.5 mg/dl (8.5-10.1); CREATININE 0.86 mg/dl (0.60-1.20); PHOSPHORUS 3.6 mg/dl (2.5-4.9); POTASSIUM 4.4 mmol/L (3.5-5.1)
--- NOTE | 2017-09-05 07:09 | DIAGNOSTIC IMAGING REPORT ---
CHEST ONE VIEW PORTABLE CLINICAL HISTORY: HAL postoperative evaluation COMPARISON STUDY: 09/04/2017 FINDINGS: Stable postoperative changes left hemithorax. Unchanging right basilar infiltrative change. No significant pneumothorax. Left-sided chest tube unchanged in appearance and location. IMPRESSION: Stable examination with unremarkable postoperative changes left hemithorax. No evidence of pneumothorax. Unchanging to slightly improved right basilar infiltrative change. The above report was generated using voice recognition software. It may contain grammatical, syntax or spelling errors. Electronically signed by: Emre Melendrez M.D. 09/05/2017 7:07 AM Dictated Date/Time: 09/05/2017 7:05 AM
[2017-09-05] MEDS: RANITIDINE HCL 150 MG TAB PO SCH ×2 (07:44→20:46)
[2017-09-05] MEDS: PAROXETINE 20 MG TAB PO SCH (07:44)
[2017-09-05] MEDS: DOCUSATE SODIUM 100 MG CAP PO SCH ×2 (07:44→20:46)
[2017-09-05] MEDS: INSULIN ASPART 100 UNITS/ML 3 ML PEN SC SCH ×4 (07:46→20:48)
[2017-09-05] MEDS: MoRPHine SULFATE 2 MG/ML CARP IV PRN ×4 (07:48→20:53)
[2017-09-05] MEDS: ENOXAPARIN 40 MG/0.4 ML SYR SQ SCH (08:32)
--- NOTE | 2017-09-05 09:08 | SURGERY PROGRESS NOTE ---
DATE: 09/05/2017 Ms. Lowe is 1 day status post a robot-assisted thoracoscopic left upper lobectomy with mediastinal lymphadenectomy for a malignant process. It is still unclear exactly what cell type but her margins are negative. Emelyn Lowe looks superb. She is sitting up in bed, has just finished a health diet without difficulty. Heart rate is in the 90s and a regular sinus rhythm. A bit more tachypneic than I would like with a respiratory rate of 24. Her blood pressure has been stable. On 4 liters she is 96% now. She has been a bit lower than this overnight. Her lungs actually sound very good. She has a regular rate and rhythm of her heart. Her sequential compression devices are in place. She ambulated in the hallway last night. We are going to send Emelyn to the floor. We will put her on third floor. I do not feel she needs to be monitored anymore. She is voiding well. We will stop her IV fluids. Her x-ray looks very good today. All of her labs look good. Her white count is 7590 with hemoglobin of 13. BUN and creatinine are 21 and 0.86 with a sodium of 139. Her blood sugars have been fairly well controlled, ranging from 138-198. ASSESSMENT AND PLAN: Postoperative day #1 status post robot-assisted thoracoscopic left upper lobectomy and mediastinal lymphadenectomy for a lung cancer. I am pleased with her overall course.
--- NOTE | 2017-09-05 09:36 | Critical Care Progress Note ---
Critical Care Progress Note Date of Service Sep 05, 2017. ICU Day ICU Day Number: 2 Attending Subjective She had a good night. No dyspnea. Pain is under good control. PO intake tolerated. Appears to be making some progress with mobility. Objective Gen--comfortable HEENT--No focal new changes. Respiratory--exchange is good--no wheezing/rhonchi--chest tube functional Cardio--rate and volume status ok--no edema of substance GI--functional Neuro--no new focal target Musculo--no target Psych--calm and appropriate Assessment & Plan S/P HAL Lobectomy-- 1. Pulmonary--stable 2. Cardio--rate and volume status good 3. GI--OBR 4. Neuro--stable Dispo--clinically ok for discharge from ICU Data Medications: Current Inpatient Medications Medications (Trade) Dose Ordered Sig/Romel Route Start Time Stop Time Status Last Admin Dose Admin Albuterol (Ventolin Hfa Inhaler) 2 puffs Q4 PRN INH 09/04/17 13:15 10/04/17 13:14 Levothyroxine Sodium (Synthroid Tab) 50 mcg DAILYBB PO 09/05/17 06:00 10/05/17 05:59 09/05/17 05:37 50 MCG Paroxetine HCl (pAXil TAB) 20 mg QAM PO 09/05/17 09:00 10/05/17 08:59 09/05/17 07:44 20 MG Ranitidine HCl (zANTac TAB) 150 mg BID PO 09/04/17 21:00 10/04/17 20:59 09/05/17 07:44 150 MG Albuterol/ Ipratropium (Duoneb) 3 ml Q4R PRN INH 09/04/17 13:15 10/04/17 13:14 Insulin Aspart (novoLOG ASPART) SLIDING SCALE G... ACHS SC 09/04/17 16:00 10/04/17 15:59 09/05/17 07:46 4 UNITS Oxycodone HCl (Roxicodone Immediate Rel Tab) 5 mg Q6H PRN PO 09/04/17 13:15 09/18/17 13:14 09/04/17 17:11 5 MG Enoxaparin Sodium (Lovenox Inj) 40 mg DAILY SQ 09/05/17 09:00 10/05/17 08:59 09/05/17 08:32 40 MG Docusate Sodium (coLACE CAP) 100 mg BID PO 09/04/17 21:00 10/04/17 20:59 09/05/17 07:44 100 MG Ketorolac Tromethamine (Toradol Inj) 15 mg Q8H IV. 09/04/17 16:00 09/06/17 08:01 09/05/17 07:45 15 MG Morphine Sulfate (MoRPHine SULFATE INJ) 1 mg Q1H PRN IV 09/04/17 13:15 09/18/17 13:14 09/05/17 06:05 2 MG Morphine Sulfate (MoRPHine SULFATE INJ) 2 mg Q1H PRN IV 09/04/17 14:45 09/18/17 14:44 09/05/17 07:48 2 MG Acetaminophen (Tylenol Tab) 650 mg Q6H PO 09/05/17 08:15 10/05/17 08:14 UNV Vital Signs: Date Time Temp Pulse Resp B/P (MAP) Pulse Ox O2 Delivery O2 Flow Rate FiO2 09/05/17 08:00 36.8 88 22 119/70 (86) 94 Nasal Cannula 2.0 09/05/17 08:00 92 Nasal Cannula 2.0 09/05/17 06:02 95 24 139/71 (93) 92 Nasal Cannula 4.0 09/05/17 05:01 93 25 132/73 (92) 93 Nasal Cannula 09/05/17 04:01 37.1 91 24 140/70 (93) 92 Nasal Cannula 4.0 09/05/17 04:00 Nasal Cannula 4.0 09/05/17 03:01 98 26 130/59 (82) 91 09/05/17 02:01 95 26 133/73 (93) 90 Nasal Cannula 4.0 09/05/17 01:01 82 27 126/60 (82) 90 09/05/17 00:01 37.0 95 24 138/73 (94) 89 Nasal Cannula 4.0 09/04/17 23:59 Nasal Cannula 4.0 09/04/17 23:01 96 25 138/71 (93) 89 09/04/17 22:01 92 24 148/86 (106) 90 09/04/17 21:30 37.0 97 20 155/79 (104) 90 Nasal Cannula 3.0 18 21:30 97 25 91 14/18 21:17 100 18 137/61 (96) 91 18 21:01 93 27 137/61 (96) 90 09/04/18 21:00 92 20 90 14/18 20:31 94 25 139/83 (104) 91 18 20:30 96 23 92 18 20:01 93 25 130/79 (94) 91 18 20:00 90 Nasal Cannula 3.0 18 20:00 37.2 89 22 155/79 (104) 92 Nasal Cannula 3.0 18 20:00 92 25 92 18 19:31 93 24 139/73 (90) 91 18 19:30 90 26 92 09/04/18 19:16 93 20 155/79 (102) 91 18 19:01 94 24 148/91 (103) 92 18 19:00 92 28 88 18 18:31 88 26 136/84 (99) 90 18 18:30 92 26 91 09/04/18 18:01 98 22 159/86 (101) 92 18 18:00 36.8 94 22 136/84 (101) 91 Nasal Cannula 2.0 18 18:00 96 23 92 18 17:30 99 25 99/85 (86) 92 18 17:01 106 19 137/60 (90) 91 18 17:00 107 26 18 16:31 98 16 143/80 (109) 92 14/18 16:30 99 21 89 14/18 16:01 94 25 162/87 (100) 93 18 16:00 96 26 14/18 15:30 36.8 93 16 163/89 96 Nasal Cannula 2.0 14/18 15:30 93 26 96 14/18 15:01 91 26 163/89 (121) 100 1418 15:00 86 26 96 18 14:10 36.0 89 16 152/80 96 Oxymask 5 18 14:00 85 16 151/74 96 Oxymask 5 09/04/17 13:50 83 16 138/85 92 Oxymask 5 09/04/17 13:40 81 16 144/84 93 Oxymask 10 09/04/17 13:30 80 16 148/80 96 Oxymask 10 09/04/17 13:23 36.0 83 18 140/85 96 Oxymask 10 Laboratory Results: Last 24 Hours Test 09/04/17 13:27 09/04/17 15:41 09/04/17 20:29 09/05/17 00:12 Bedside Glucose 191 mg/dl 198 mg/dl 172 mg/dl 154 mg/dl Test 09/05/17 05:28 09/05/17 07:40 White Blood Count 7.59 K/uL Red Blood Count 4.63 M/uL Hemoglobin 13.0 g/dL Hematocrit 39.5 % Mean Corpuscular Volume 85.3 fL Mean Corpuscular Hemoglobin 28.1 pg Mean Corpuscular Hemoglobin Concent 32.9 g/dl Platelet Count 167 K/uL Mean Platelet Volume 10.8 fL Neutrophils (%) (Auto) 65.7 % Lymphocytes (%) (Auto) 18.1 % Monocytes (%) (Auto) 16.1 % Eosinophils (%) (Auto) 0.1 % Basophils (%) (Auto) 0.0 % Neutrophils # (Auto) 4.99 K/uL Lymphocytes # (Auto) 1.37 K/uL Monocytes # (Auto) 1.22 K/uL Eosinophils # (Auto) 0.01 K/uL Basophils # (Auto) 0.00 K/uL RDW Standard Deviation 44.2 fL RDW Coefficient of Variation 14.3 % Immature Granulocyte % (Auto) 0.0 % Immature Granulocyte # (Auto) 0.00 K/uL Prothrombin Time 10.1 SECONDS Prothromb Time International Ratio 1.0 Sodium Level 139 mmol/L Potassium Level 4.4 mmol/L Chloride Level 103 mmol/L Carbon Dioxide Level 29 mmol/L Anion Gap 7.0 mmol/L Blood Urea Nitrogen 21 mg/dl Creatinine 0.86 mg/dl Est Creatinine Clear Calc Drug Dose 96.6 ml/min Estimated GFR () 84.5 Estimated GFR (Non- 72.9 BUN/Creatinine Ratio 24.8 Random Glucose 138 mg/dl Calcium Level 8.5 mg/dl Phosphorus Level 3.6 mg/dl Magnesium Level 2.3 mg/dl Bedside Glucose 156 mg/dl
[2017-09-05] MEDS: OXYCODONE HCL IR 5 MG TAB (IMMEDIATE RELEASE) PO PRN ×3 (09:37→21:27)
--- NOTE | 2017-09-05 09:48 | Anesthesiology Progress Note ---
Anesthesia Post Op Note Date & Time Sep 05, 2017 at 09:47 Vital Signs Vital Signs Past 12 Hours Date Time Temp Pulse Resp B/P (MAP) Pulse Ox O2 Delivery O2 Flow Rate FiO2 09/05/17 09:35 36.4 88 20 148/90 (109) 96 Nasal Cannula 2.0 09/05/17 08:00 36.8 88 22 119/70 (86) 94 Nasal Cannula 2.0 09/05/17 08:00 92 Nasal Cannula 2.0 09/05/17 06:02 95 24 139/71 (93) 92 Nasal Cannula 4.0 09/05/17 05:01 93 25 132/73 (92) 93 Nasal Cannula 09/05/17 04:01 37.1 91 24 140/70 (93) 92 Nasal Cannula 4.0 09/05/17 04:00 Nasal Cannula 4.0 09/05/17 03:01 98 26 130/59 (82) 91 09/05/17 02:01 95 26 133/73 (93) 90 Nasal Cannula 4.0 09/05/17 01:01 82 27 126/60 (82) 90 09/05/17 00:01 37.0 95 24 138/73 (94) 89 Nasal Cannula 4.0 09/04/17 23:59 Nasal Cannula 4.0 09/04/17 23:01 96 25 138/71 (93) 89 09/04/17 22:01 92 24 148/86 (106) 90 Notes Mental Status: alert / awake / arousable, participated in evaluation Pt Amnestic to Procedure: Yes Nausea / Vomiting: adequately controlled Pain: adequately controlled Airway Patency, RR, SpO2: stable & adequate BP & HR: stable & adequate Hydration State: stable & adequate Anesthetic Complications: no major complications apparent
[2017-09-05] MEDS: ACETAMINOPHEN 325 MG TAB PO SCH ×2 (15:43→21:28)
[2017-09-06] VITALS (7 sets, daily range): BP systolic 120–158; BP diastolic 80–89; PULSE 77–94; TEMP 36.4–36.9; O2SAT 94–96
[2017-09-06] MEDS: MoRPHine SULFATE 2 MG/ML CARP IV PRN ×4 (01:59→20:06)
[2017-09-06] MEDS: ACETAMINOPHEN 325 MG TAB PO SCH ×4 (04:00→21:06)
[2017-09-06] MEDS: LEVOTHYROXINE 50 MCG TAB PO SCH (05:33)
--- NOTE | 2017-09-06 07:44 | DIAGNOSTIC IMAGING REPORT ---
SINGLE VIEW CHEST CLINICAL HISTORY: Status post left upper lobe resection. FINDINGS: An AP, portable, upright chest radiograph is compared to study dated 09/05/2017 and correlated with chest CT dated 07/24/2017. The examination is degraded by portable technique and patient rotation. The heart is top normal for projection. The pulmonary vasculature is noncongested. Emphysema and chronic interstitial thickening are similar to previous. There is one loss in the left lung consistent with the history of left upper lobe resection. A left-sided chest tube is unchanged in position. There is increasing opacification the right lower lung. This may represent airspace consolidation versus fluid along the fissure. No pneumothorax is seen. The skeletal structures are osteopenic. The bony thorax is grossly intact. IMPRESSION: 1. Emphysema and postoperative change from left-sided pulmonary resection. 2. A left-sided chest tube is unchanged in position. No pneumothorax is seen. 3. Increasing opacification in the right lower lung. This may resent airspace consolidation versus fluid along the fissure. Clinical correlation will be required. Electronically signed by: Chandler Hernandez M.D. 09/06/2017 7:43 AM Dictated Date/Time: 09/06/2017 7:41 AM
[2017-09-06] MEDS: DOCUSATE SODIUM 100 MG CAP PO SCH ×2 (09:30→21:06)
[2017-09-06] MEDS: PAROXETINE 20 MG TAB PO SCH (09:31)
[2017-09-06] MEDS: GABAPENTIN 300 MG CAP PO SCH ×3 (09:31→21:06)
[2017-09-06] MEDS: RANITIDINE HCL 150 MG TAB PO SCH ×2 (09:31→21:06)
[2017-09-06] MEDS: ENOXAPARIN 40 MG/0.4 ML SYR SQ SCH (09:32)
[2017-09-06] MEDS: KETOROLAC TROMETHAMINE 15 MG/ML VIAL IV. SCH (09:33)
[2017-09-06] MEDS: INSULIN ASPART 100 UNITS/ML 3 ML PEN SC SCH ×4 (09:39→21:00)
[2017-09-06] MEDS: OXYCODONE HCL IR 5 MG TAB (IMMEDIATE RELEASE) PO PRN ×2 (12:27→23:49)
--- NOTE | 2017-09-06 16:24 | SURGERY PROGRESS NOTE ---
DATE: 09/06/2017 SUBJECTIVE: Ms. Lowe was seen today on postoperative day 2. I discussed her pathology findings with Dr. Guajardo and it appeared that we may well be dealing with a carcinoid. Final stains are still pending. Otherwise, she looks better to me. She is on 2 liters of O2 with excellent saturations and is ambulating in the hallway. She is afebrile with stable vital signs. Her chest tube put about 230 mL yesterday and 220 today. She still has a very small air leak, so we will not be removing this, although her x-ray looks great with no evidence of pneumothorax. She also sounds good. At this point, I think even tomorrow, it will be a little early to discharge her. We will see how her air leak looks tomorrow. We may take this out on Saturday, 48 hours from now. POPEYE
--- NOTE | 2017-09-06 22:52 | Progress Note ---
Post ICU Progress Note Date & Time Sep 06, 2017 at 22:20 Vital Signs Vital Signs Past 12 Hours Date Time Temp Pulse Resp B/P (MAP) Pulse Ox O2 Delivery O2 Flow Rate FiO2 09/06/17 15:50 96 Nasal Cannula 2.0 09/06/17 15:31 36.9 88 21 148/89 (108) 96 Nasal Cannula 2.0 Notes Mental Status: alert / awake, participated in evaluation Nausea / Vomiting: adequately controlled Pain: adequately controlled Airway Patency, RR, SpO2: stable & adequate (2L Nasal Cannula) BP & HR: stable & adequate Emelyn Lowe was admitted to [facility] by Dr. Pierce for resection of a LLL nodule and followed in the ICU overnight for close pulmonary monitoring. Pt has underlying COPD and OSE, DMN, HTY and prior post procedural DVT. Pt did well and is now upstairs under Dr. Sandy's management. I found her sitting up in the bedside chair playing on her cell phone. She states she continues with pain at the chest tube site especially with inhalation. She has cough and wheeze, which is unchanged from her chronic pattern with her COPD. She has been ambulating well and using her incentive spirometry. She is hoping that her chest tube will be removed on Saturday. She is stable and happy with her care thus far. Pt has not required intubation or central line/invasive monitoring while in the ICU. She remained in the unit overnight and transferred to telemetry the following afternoon. Consider outpatient follow up in 1 to 2 weeks with: PCP Dr. Colton Morse Repeat imaging needed: CXR per Kari's discretion Follow up cultures: NA Reviewed progress notes, labs, and inpatient medication list Continue current management Additional recommendations: None Thank you for including us in the care of this patient. She is hemodynamically stable; critical care will sign off at this time. Please feel free to reconsult as needed. Inpatient level 1 billing
[2017-09-07 00:11] VITALS: PULSE 106; O2SAT 94
[2017-09-07] MEDS: ACETAMINOPHEN 325 MG TAB PO SCH ×4 (04:00→21:45)
[2017-09-07] MEDS: LEVOTHYROXINE 50 MCG TAB PO SCH (05:47)
[2017-09-07] MEDS ORDERED: SOD PHOSPHATE/SOD BIPHOSPHATE ENEMA 132 ML BTL PR PRN (06:30)
[2017-09-07] MEDS ORDERED: BISACODYL 10 MG SUPP PR PRN (06:30)
[2017-09-07 07:18] VITALS: BP 153/93; PULSE 80; TEMP 36.4; O2SAT 98
--- NOTE | 2017-09-07 07:21 | DIAGNOSTIC IMAGING REPORT ---
CHEST ONE VIEW PORTABLE CLINICAL HISTORY: lung resection COMPARISON STUDY: 09/06/2017 FINDINGS: Improved aeration right base. Left-sided chest tube remains. Slight improvement in aeration [left retrocardiac region. No significant postprocedural pneumothorax. IMPRESSION: Improvement in aeration of both lung bases. No significant pneumothorax on the left. The above report was generated using voice recognition software. It may contain grammatical, syntax or spelling errors. Electronically signed by: Emre Melendrez M.D. 09/07/2017 7:20 AM Dictated Date/Time: 09/07/2017 7:19 AM
[2017-09-07 08:00] VITALS: O2SAT 95
--- NOTE | 2017-09-07 08:13 | Surgery Progress Note ---
Subjective Date of Service: Sep 07, 2017. Pt. denies CP or SOB. She notes discomfort from chest tube, worse with deep inspiration. No BM but passing flatus. She is tolerating diet and ambulating in hallway. No difficulty voiding. Discussed with night worker RN--no concerns noted overnight. Objective Vitals Date Time Temp Pulse Resp B/P (MAP) Pulse Ox O2 Delivery O2 Flow Rate FiO2 09/07/17 07:18 36.4 80 18 153/93 (113) 98 Nasal Cannula 2.5 09/07/17 00:11 106 94 Nasal Cannula 2.5 09/06/17 23:45 95 Nasal Cannula 2.5 09/06/17 23:44 36.9 94 18 158/87 (110) 95 Nasal Cannula 2.5 09/06/17 15:50 96 Nasal Cannula 2.0 09/06/17 15:31 36.9 88 21 148/89 (108) 96 Nasal Cannula 2.0 09/06/17 08:39 94 Nasal Cannula 2.5 09/06/17 08:23 36.4 78 19 120/80 (93) 94 Nasal Cannula 2.5 Physical Exam General: + well developed, + well nourished, No distress CV: + RRR Pulmonary: + wheezing (noted on expiration ), No accessory muscle use, No respiratory distress Abdomen: + non tender, + soft Extremities: No calf tenderness Neurologic: + powderer II-XII intact, + alert & oriented x 3 Radiology CXR today shows no pneumothorax Drains / Tubes chest tube (360 cc drainage last 24 hours; 20 cc drainage last shift; air leak noted) Assessment & Plan 62 year old female s/p HAL -keep CT in place due to air leak -pain control measures are in place -continue ambulation,coughing and deep breathing -nebs/inhalers are available for SOB/wheezing -bowel regimen implemented OTHER -lovenox in place for DVT prevention
[2017-09-07] MEDS: INSULIN ASPART 100 UNITS/ML 3 ML PEN SC SCH ×4 (08:44→21:47)
[2017-09-07] MEDS: POLYETHYLENE (MIRALAX) 17 GM PACK PO SCH (08:45)
[2017-09-07] MEDS: ENOXAPARIN 40 MG/0.4 ML SYR SQ SCH (08:46)
[2017-09-07] MEDS: GABAPENTIN 300 MG CAP PO SCH ×3 (08:46→21:43)
[2017-09-07] MEDS: PAROXETINE 20 MG TAB PO SCH (08:46)
[2017-09-07] MEDS: RANITIDINE HCL 150 MG TAB PO SCH ×2 (08:47→21:43)
[2017-09-07] MEDS: DOCUSATE SODIUM 100 MG CAP PO SCH ×2 (08:47→21:44)
[2017-09-07] MEDS: TRELEGY ELLIPTA INH SCH (09:00)
[2017-09-07] MEDS: OXYCODONE HCL IR 5 MG TAB (IMMEDIATE RELEASE) PO PRN ×2 (10:15→19:42)
[2017-09-07 15:47] VITALS: BP 134/73; PULSE 84; TEMP 36.2; O2SAT 97
[2017-09-07 22:44] VITALS: BP 152/79; PULSE 82; TEMP 37; O2SAT 98
[2017-09-08] MEDS: ACETAMINOPHEN 325 MG TAB PO SCH ×4 (04:22→22:00)
[2017-09-08] MEDS: LEVOTHYROXINE 50 MCG TAB PO SCH (06:17)
--- NOTE | 2017-09-08 07:19 | DIAGNOSTIC IMAGING REPORT ---
CHEST ONE VIEW PORTABLE HISTORY: 62 years-old Female lobectomy follow-up study in a patient status post lobectomy COMPARISON: Chest radiograph 09/07/2017 TECHNIQUE: Portable AP view of the chest FINDINGS: Left-sided chest tube projecting just lateral to the left hilum is unchanged. Small left apical pneumothorax is noted, pleural separation 7 mm. Linear subsegmental bibasilar opacities suggest atelectasis, unchanged. Cardiac silhouette is within normal limits. No overt pulmonary edema. Bones of the chest appear grossly intact. Degenerative changes are seen within the spine and shoulders. IMPRESSION: 1. Unchanged positioning of left-sided chest tube with tiny left apical pneumothorax. 2. Subsegmental bibasilar atelectasis. The above report was generated using voice recognition software. It may contain grammatical, syntax or spelling errors. Electronically signed by: Kvng Castillo M.D. 09/08/2017 7:18 AM Dictated Date/Time: 09/08/2017 7:15 AM
[2017-09-08 07:22] VITALS: BP 136/84; PULSE 76; TEMP 36.3; O2SAT 94
[2017-09-08] MEDS: POLYETHYLENE (MIRALAX) 17 GM PACK PO SCH (09:00)
[2017-09-08] MEDS: DOCUSATE SODIUM 100 MG CAP PO SCH ×2 (09:04→21:09)
[2017-09-08] MEDS: GABAPENTIN 300 MG CAP PO SCH ×3 (09:04→21:09)
[2017-09-08] MEDS: RANITIDINE HCL 150 MG TAB PO SCH ×2 (09:04→21:09)
[2017-09-08] MEDS: PAROXETINE 20 MG TAB PO SCH (09:04)
[2017-09-08] MEDS: ENOXAPARIN 40 MG/0.4 ML SYR SQ SCH (09:04)
[2017-09-08] MEDS: TRELEGY ELLIPTA INH SCH (09:05)
[2017-09-08] MEDS: INSULIN ASPART 100 UNITS/ML 3 ML PEN SC SCH ×4 (09:14→21:13)
--- NOTE | 2017-09-08 12:55 | SURGERY PROGRESS NOTE ---
DATE: 09/08/2017 SUBJECTIVE: Ms. Lowe is now postop day #4 status post a robot-assisted thoracoscopic left upper lobectomy and mediastinal lymphadenectomy. The final stains are still pending. In particular, waiting for lymph nodes. If lymph nodes are negative, of course, she will not need any further therapy. As stated in my earlier notes it does appear we are dealing with a carcinoid. The patient still has a very tiny intermittent air leak. Given that she does not have a good support system at this point, I would like that I am going to keep her at least 1 more day. I will probably remove her chest tube in the morning. I am a bit hesitant to remove it at this point. She has been walking. She did move her bowels. She is tolerating regular diet. She is still on 2 to 2.5 liters of O2 per minute nasal cannula and we are trying to wean that off.
[2017-09-08 15:14] VITALS: BP 158/91; PULSE 90; TEMP 36.7; O2SAT 97
[2017-09-08] MEDS: OXYCODONE HCL IR 5 MG TAB (IMMEDIATE RELEASE) PO PRN ×2 (15:53→23:18)
[2017-09-08 23:15] VITALS: O2SAT 97
[2017-09-08 23:36] VITALS: BP 164/89; PULSE 84; TEMP 36.7; O2SAT 95
[2017-09-09] MEDS: ACETAMINOPHEN 325 MG TAB PO SCH ×4 (04:07→21:09)
[2017-09-09] MEDS: LEVOTHYROXINE 50 MCG TAB PO SCH (05:31)
[2017-09-09 07:54] VITALS: BP 140/80; PULSE 76; TEMP 36.5; O2SAT 91
[2017-09-09 07:57] VITALS: O2SAT 96
[2017-09-09 08:08] VITALS: O2SAT 96
[2017-09-09] MEDS: PAROXETINE 20 MG TAB PO SCH (09:00)
[2017-09-09] MEDS: TRELEGY ELLIPTA INH SCH (09:00)
[2017-09-09] MEDS: POLYETHYLENE (MIRALAX) 17 GM PACK PO SCH (09:00)
[2017-09-09] MEDS: RANITIDINE HCL 150 MG TAB PO SCH ×2 (09:00→21:08)
[2017-09-09] MEDS: GABAPENTIN 300 MG CAP PO SCH ×3 (09:00→21:08)
[2017-09-09] MEDS: DOCUSATE SODIUM 100 MG CAP PO SCH ×2 (09:00→21:08)
[2017-09-09] MEDS: AMOXICILLIN/CLAVULANATE TAB 875 MG TAB PO SCH ×2 (09:00→18:38)
[2017-09-09] MEDS: ENOXAPARIN 40 MG/0.4 ML SYR SQ SCH (09:01)
[2017-09-09] MEDS: INSULIN ASPART 100 UNITS/ML 3 ML PEN SC SCH ×4 (09:05→21:07)
--- NOTE | 2017-09-09 09:23 | SURGERY PROGRESS NOTE ---
DATE: 09/09/2017 Ms. Lowe looks better to me. She is 96% sat on 2 liters. Her chest tube only put out 120 mL of serous fluid last shift. However, she still had a very tiny intermittent air leak. We are going to put her on just water seal. Her blood sugars have been well controlled, ranging from 147 and 204, but relatively well controlled. The patient is coughing up some yellowish sputum. We will get a culture and start her on Augmentin empirically. Her incisions are clean. She has had no fevers. I am actually quite happy with her. I am going to tentatively pull her chest tube tomorrow and discharge her. Final pathology is still not out yet.
--- NOTE | 2017-09-09 12:13 | Clinical Documentation Query ---
SALENA Fabian : CLINICAL DOCUMENTATION QUERY In your clinical opinion is this patient being managed for: ( X) Possible pneumonia, empirically treated with Augmentin ( ) Not Agree ( ) Other explanation of clinical findings (Please Explain) ( ) Unable to determine (Please Define) ( ) Need to Discuss The medical record reflects the following clinical findings, treatment, and risk factors. Clinical Indicators: Yellow sputum, initiated on empiric Augmentin, sputum culture Treatment: As above Risk Factors: COPD, postoperative state, closed chest drainage, pain. Please clarify and document your clinical opinion in the progress notes and discharge summary. Terms such as "probable", "suspected", "likely", "questionable", "possible", or "still to be ruled out" are acceptable. IF IN AGREEMENT, YOU MUST DOCUMENT ABOVE DIAGNOSTIC STATEMENT IN DAILY PROGRESS NOTES AND DISCHARGE SUMMARY. This document is not part of the patient's record. Thank You, Andre Huff, RN [phone]
[2017-09-09] MEDS ORDERED: ACETAMINOPHEN 325 MG TAB ONE (14:31)
[2017-09-09 15:20] VITALS: BP 142/82; PULSE 91; TEMP 36.6; O2SAT 95
[2017-09-09] MEDS: OXYCODONE HCL IR 5 MG TAB (IMMEDIATE RELEASE) PO PRN (21:10)
[2017-09-09 22:24] VITALS: BP 144/74; PULSE 89; TEMP 36.7; O2SAT 92
[2017-09-10] MEDS: ACETAMINOPHEN 325 MG TAB PO SCH ×2 (04:00→09:23)
[2017-09-10] MEDS: LEVOTHYROXINE 50 MCG TAB PO SCH (06:14)
--- NOTE | 2017-09-10 07:13 | DIAGNOSTIC IMAGING REPORT ---
CHEST ONE VIEW PORTABLE CLINICAL HISTORY: 62 years-old Female presenting with lung resection . TECHNIQUE: Portable upright AP view of the chest was obtained. COMPARISON: 09/08/2017. FINDINGS: Large bore left pleural drain remains in the left mid hemithorax. Atherosclerosis of aortic arch. Cardiac silhouette normal in size. Apparent added density at the right lung base may be due to slight BHUTANESE rotation of the patient and added overlapping soft tissue. Lungs otherwise clear. Slight elevation of the left hemidiaphragm unchanged. No significant residual pneumothorax. No large effusion. IMPRESSION: 1. Large bore left pleural drain in place. No significant residual pneumothorax. Electronically signed by: Del Caputo M.D. 09/10/2017 7:12 AM Dictated Date/Time: 09/10/2017 7:10 AM
[2017-09-10 07:19] VITALS: BP 142/84; PULSE 89; TEMP 36.4; O2SAT 92
[2017-09-10] MEDS ORDERED: ACET-1047 PO (08:27)
[2017-09-10] MEDS ORDERED: ULT/50 PO (08:27)
[2017-09-10] MEDS ORDERED: CLC100 PO (08:27)
--- NOTE | 2017-09-10 08:29 | Discharge Instructions ---
Discharge Instructions Date of Service Sep 10, 2017. Admission Reason for Admission: Left Lung Mass, Type 2 Diabetes Discharge Discharge Diagnosis / Problem: Left Lung Mass Discharge Goals Goal(s): Learn about illness Activity Recommendations Activity Limitations: as noted below Lifting Limitations: none 1. You may remove dressing in 3 days and shower thereafter. No tub baths. 2. Do not drive if taking ultram. 3. Do not drive until cleared to do so by Dr. Pierce. . Instructions / Follow-Up Instructions / Follow-Up 1. Office appointment with Dr. Pierce in 1 week. Office will call with date and time of appointment. Go to hospital 1 hour before appointment to have a chest x-ray taken. Current Hospital Diet Patient's current hospital diet: Diabetes Type 2 Diet Discharge Diet Recommended Diet: Diabetes Type 2 Diet Procedures Procedures Performed: Left Robotic Assisted Thoracoscopy with Left Upper Lobectomy and Mediastinal Lymphadenectomy Pending Studies Studies pending at discharge: no Medical Emergencies . Who to Call and When: Medical Emergencies: If at any time you feel your situation is an emergency, please call 911 immediately. . Non-Emergent Contact Non-Emergency issues call your: Surgeon Call Non-Emergent contact if: you have a fever, your pain is not controlled, wound has increased drainage . "Provider Documentation" section prepared by Justin Rene. .
--- NOTE | 2017-09-10 08:56 | DIAGNOSTIC IMAGING REPORT ---
CHEST ONE VIEW PORTABLE CLINICAL HISTORY: 62 years-old Female presenting with tube removal . TECHNIQUE: Portable upright AP view of the chest was obtained. COMPARISON: 09/10/2017 at 6:57 AM. FINDINGS: Interval removal of the large bore left pleural drain. Atherosclerosis of aortic arch. Cardiac silhouette normal in size. The patient has slightly FARIDA rotated which may account for the added density at the right lung base due to overlapping soft tissue. Suture margins in the lungs may be present in the left hilar region. Lungs otherwise clear. No large pneumothorax though a trace left apical pneumothorax may be present as on prior exam. No large pleural effusion. Osseous structures normal. IMPRESSION: 1. No significant residual pneumothorax status post removal of the large bore left pleural drain. Electronically signed by: Del Capuot M.D. 09/10/2017 8:55 AM Dictated Date/Time: 09/10/2017 8:54 AM
[2017-09-10] MEDS: POLYETHYLENE (MIRALAX) 17 GM PACK PO SCH (09:00)
[2017-09-10] MEDS: TRELEGY ELLIPTA INH SCH (09:19)
[2017-09-10] MEDS: RANITIDINE HCL 150 MG TAB PO SCH (09:20)
[2017-09-10] MEDS: DOCUSATE SODIUM 100 MG CAP PO SCH (09:20)
[2017-09-10] MEDS: GABAPENTIN 300 MG CAP PO SCH ×2 (09:20→13:46)
[2017-09-10] MEDS: PAROXETINE 20 MG TAB PO SCH (09:21)
[2017-09-10] MEDS: AMOXICILLIN/CLAVULANATE TAB 875 MG TAB PO SCH (09:21)
[2017-09-10] MEDS: ENOXAPARIN 40 MG/0.4 ML SYR SQ SCH (09:22)
[2017-09-10] MEDS: INSULIN ASPART 100 UNITS/ML 3 ML PEN SC SCH ×2 (09:25→12:00)
[2017-09-10 09:54] VITALS: BP 142/84; PULSE 89; TEMP 36.4; O2SAT 92
--- NOTE | 2017-09-10 13:58 | DISCHARGE SUMMARY ---
DISCHARGE DIAGNOSES: 1. Status post Robot-assisted thoracoscopic left upper lobectomy and mediastinal lymphadenectomy. 2. Typical carcinoid. 3. History of cigarette smoking. 4. Hypoxemia. 5. Obesity. HOSPITAL COURSE: Emelyn Lowe is a 62-year-old obese female who has a history of cigarette smoking, who was noted to have a mass which was hypermetabolic in her left upper lobe. We had a long talk about this and elected to proceed with a resection. In the middle of the lobe and not in a good position for a biopsy. On 09/04/2017, I took the patient to the operating room and did an uncomplicated left Robot-assisted thoracoscopic upper lobectomy with mediastinal lymphadenectomy. Frozen section showed this to be malignancy, although it was unclear exactly what type. She was extubated in the room; however, I did watch her in the unit overnight as she was relatively hypoxemic. This improved over the next day and I have transferred to the floor and removed all of her lines. She was ambulating in the hallway and tolerating a house diet. She did require cathartics but did move her bowels nicely. I removed her chest tube on postop day #6 as her very small air leak finally resolved. She did quite well with this. Her chest x-ray looked quite good afterwards. She is ambulating in the hallway without difficulty. Her incisions were clean. She did develop a productive cough and although she did not have a fever, I was concerned enough that I put her on Augmentin. She was discharged home on that. All in all, I was quite happy with her. She will not require any chemotherapy or radiation. I will see her back in the office next week with a chest x-ray.
== END 2017-09-10 14:49 | disposition home or self-care (01) | DRG 164 ==
LOC: C.ACU 06:47 → UNDOADMIN 09:00 → C.MSICU 09:00 → ENRESERV 13:49 → C.MSN 09-05 08:07 → C.MSICU 09-05 08:07 → ENRESERV 09-05 08:21
PROVIDERS: ADMIT Surgery; ATTEND Surgery
PROC: 07B70ZX Excision of Thorax Lymphatic, Open Approach, Diagnostic (ICD-10-PCS; principal; 2017-09-04 08:45)
PROC: 0BTG0ZZ Resection of Left Upper Lung Lobe, Open Approach (ICD-10-PCS; principal; 2017-09-04 08:45)
DX: C34.12 Malignant neoplasm of upper lobe, left bronchus or lung (principal); Z68.42 Body mass index [BMI] 45.0-49.9, adult; R91.1 Solitary pulmonary nodule; J44.9 Chronic obstructive pulmonary disease, unspecified; E66.9 Obesity, unspecified; Z87.891 Personal history of nicotine dependence; I10 Essential (primary) hypertension; E11.9 Type 2 diabetes mellitus without complications; E03.9 Hypothyroidism, unspecified; Z79.82 Long term (current) use of aspirin

== ENCOUNTER → 2017-09-17 | Outpatient (CLI) | payer OTHER ==
[~2017-09-17] MED LIST changes: +ACET-1047 PO; +CLC100 PO; -LACTATED RINGER'S 1000ML 1,000 ML IV SCH; +ULT/50 PO
--- NOTE | 2017-09-17 09:28 | DIAGNOSTIC IMAGING REPORT ---
TWO VIEW CHEST CLINICAL HISTORY: Follow-up status post left upper lobe resection. FINDINGS: PA and lateral chest radiographs are compared to study dated 09/10/2017 and correlated with chest CT dated 07/24/2017. The PA view is degraded by patient rotation. The heart is top normal for projection. The pulmonary vasculature is noncongested. Emphysema and chronic interstitial thickening are similar to previous. There is volume loss in the left lung consistent with the history of left upper lobe resection. Scarring is suggested in the suprahilar left lung. A trace left apical pneumothorax is identified. The right lung appears clear noting basilar atelectasis. No large pleural effusion is seen. The skeletal structures are osteopenic. Degenerative change and hyperkyphosis are noted in the thoracic spine. IMPRESSION: 1. Emphysema and postoperative change from left-sided pulmonary resection. 2. A trace left apical pneumothorax persists. 3. No airspace consolidation is seen typical for pneumonia. Electronically signed by: Chandler Hernandez M.D. 09/17/2017 9:27 AM Dictated Date/Time: 09/17/2017 9:24 AM
== END | disposition home or self-care (01) ==
LOC: C.LAB1850 09:13
PROVIDERS: ATTEND Surgery
DX: Z98.890 Other specified postprocedural states (principal); J43.9 Emphysema, unspecified

== ENCOUNTER 2018-09-07 22:36 | Inpatient (IN) ==
[2018-09-07] MEDS ORDERED: DEXAMETHASONE **PF** INJ 10 MG/ML VIAL IV ONE (22:48)
[2018-09-07] MEDS ORDERED: ALBUT/IPRATROP 3MG/0.5MG NEB 3 ML VIAL INH STA (22:48)
--- NOTE | 2018-09-07 22:57 | Emergency Department Note ---
History of Present Illness General Chief complaint: Leg Injury/Pain Stated complaint: LEG AND FEET CRAMPING History of Present Illness Maximum Pain Intensity: 8 This 63-year-old presents to the ER complaining of cough, short of breath and leg cramping Location: Chest and legs Quality: Hard to breathe Severity: Moderate Duration: Past few days Timing: Past few days Context: Worse and patient came in Modifying factors: better with rest; worse with activity Patient has COPD and had a lung resection in the past for lung cancer. She is currently cancer free. Patient complains of bad leg cramping. She had low potassium and magnesium before and symptoms feel similar. No history of blood clots. No prior heart disease. Patient quit smoking a year and a half ago. Patient denies chest pain, fevers, productive cough, abdominal pain, leg swelling. Home Medications Home Medications Medication Instructions Recorded Confirmed Type lisinopril 10 mg PO DAILY 09/08/18 09/08/18 History Allergies Allergy/AdvReac Type Severity Reaction Status Date / Time mivacurium Allergy Severe cardiac Verified 09/08/18 00:17 arrhythmia Penicillins Allergy Severe HIVES, SOB Verified 09/08/18 00:17 Sulfa (Sulfonamide Allergy Severe HIVES AND Verified 09/08/18 00:17 Antibiotics) SOB WITH ORAL SULFA DRUGS, OK W/SILVADENE Cephalosporins Allergy Intermediate HIVES WITH Verified 09/08/18 00:17 CEFTIN Quinolones Allergy Mild HIVES-BUT Verified 09/08/18 00:17 HAD LEVAQUIN IN ER 03/05/09 W/O PROBLEM adhesive Allergy Unknown TAPE-SORES Verified 09/08/18 00:17 ON SKIN iodine Allergy Unknown REDNESS - Verified 09/08/18 00:17 see notes (topical), Inectable dye - n/v Past Med/Surg History Medical History COPD (chronic obstructive pulmonary disease) (Chronic) Diabetes mellitus, type II (Chronic) Hypertension (Chronic) GERD (gastroesophageal reflux disease) (Chronic) Surgical History Status post hysterectomy (Chronic) Status post appendectomy (Chronic) Status post hip replacement (Chronic) Social History Preferred Language: Tam[place] Communication Ability: Effective Visual Impairment: No Limitations Hearing Ability: Normal current occupational status: employed Feels Safe at Home: Yes Smoking Status: Never smoker Hx Alcohol Use: No Review of Systems All systems reviewed & are unremarkable except as noted in HPI & below Physical Exam Vital Signs Vital Signs - 24 hr 09/07/18 22:38 09/07/18 22:48 09/08/18 00:36 Temperature 36.8 C Temperature Source Oral Sepsis Recent Fever Within 48 Hours No Sepsis Action Taken by Nursing No Action Required Pulse Rate 115 H Pulse Rate [Right Finger] 97 H Pulse Rhythm Regular Pulse Strength Normal Respiratory Rate 18 20 Respiratory Effort / Characteristics Non-Labored Spontaneous Normal for Patient Respiratory Depth Normal Respiratory Pattern Regular Blood Pressure 182/90 H Blood Pressure [Right Arm] 173/92 H Blood Pressure Mean 120 Blood Pressure Mean [Right Arm] 119 Blood Pressure Position Sitting Blood Pressure Position [Right Arm] Lying Pulse Oximetry 93 93 Oxygen Delivery Method Room Air Room Air Room Air 09/08/18 01:16 09/08/18 01:17 Temperature Temperature Source Sepsis Recent Fever Within 48 Hours Sepsis Action Taken by Nursing Pulse Rate Pulse Rate [Right Finger] Pulse Rhythm Pulse Strength Respiratory Rate Respiratory Effort / Characteristics Respiratory Depth Respiratory Pattern Blood Pressure Blood Pressure [Right Arm] Blood Pressure Mean Blood Pressure Mean [Right Arm] Blood Pressure Position Blood Pressure Position [Right Arm] Pulse Oximetry 88 L Oxygen Delivery Method Room Air Nasal Cannula VITALS: Vitals are noted on the nurse's note and reviewed by myself. Vital signs tachycardic. GENERAL: White female working to breathe, in mild acute distress, nondiaphoretic, well-developed well-nourished. SKIN: The skin was without rashes, erythema, edema, or bruising. There is no tenting of the skin. Capillary reflex less than 2 seconds. HEAD: Normocephalic atraumatic. EARS: External auditory canals clear, tympanic membranes pearly hardy without erythema or effusion bilaterally. EYES: Pupils equal round and reactive to light and accommodation. Conjunctivae without injection, sclerae without icterus. Extraocular movements intact. NOSE: Patent, turbinates without inflammation or discharge. No sinus tenderness. MOUTH: Mucous membranes moist. Pharynx without erythema or exudate. Uvula midline. Airway patent. Tongue does not deviate. NECK: Supple without nuchal rigidity. No lymphadenopathy. No thyromegaly. Cervical spine is nontender. No JVD. HEART: Regular rate and rhythm LUNGS: Diffuse inspiratory and end expiratory wheezes, without rales or rhonchi. + retractions + accessory muscle use. ABDOMEN: Positive bowel sounds x 4. Normal tympanic percussion. Soft, nontender, without masses or organomegaly. Gray sign negative. No guarding or rebound tenderness. No CVA tenderness MUSCULOSKELETAL: No muscle atrophy, erythema, noted. NEURO: Patient was alert and oriented to person place and time. Normal sensation to light and sharp touch. No focal neurological deficits. Course Administered Medications Discontinued Medications Albuterol (Duoneb) 3 ml INH NOW STA Stop: 09/07/18 22:49 Last Admin: 09/07/18 22:54 Dose: 3 ml Documented by: [id number] Dexamethasone Sodium Phosphate (Decadron Pf) 10 mg IV NOW ONE Stop: 09/07/18 22:49 Last Admin: 09/07/18 23:03 Dose: 10 mg Documented by: [id number] Diphenhydramine HCl (Benadryl) 25 mg IV NOW STA Stop: 09/07/18 23:14 Last Admin: 09/07/18 23:35 Dose: 25 mg Documented by: [id number] Heparin Sodium (Porcine) (Heparin Sodium (Porcine)) Confirm Administered Dose 10,000 units .ROUTE .STK-MED ONE Stop: 09/08/18 01:50 Last Admin: 09/08/18 01:59 Dose: 7,000 units Documented by: [id number] Cosigned by: [id number] Heparin Sodium/Dextrose (Heparin Sodium/Dextrose) Confirm Administered Dose 25,000 units IV .STK-MED ONE Stop: 09/08/18 01:50 Last Admin: 09/08/18 01:58 Dose: 1,600 units Documented by: [id number] Cosigned by: [id number] Sodium Chloride (Nss 1000ml) 1,000 mls @ 999 mls/hr IV .Q1H1M ONE Stop: 09/08/18 00:55 Last Infusion: 09/08/18 01:39 Dose: 0 mls/hr Documented by: [id number] Admin: 09/08/18 00:15 Dose: 999 mls/hr Documented by: [id number] Ondansetron HCl (Zofran) 4 mg IV NOW STA Stop: 09/07/18 23:14 Last Admin: 09/08/18 00:57 Dose: Not Given Documented by: [id number] Medical Decision Making Medical Records Attestation: I reviewed the patient's medical records. Home Medications Current Medication List: was personally reviewed by me Laboratory Data Attestation: I reviewed the patient's lab results. Result diagrams: 09/07/18 22:55 09/07/18 22:55 Lab Results 09/07/18 09/07/18 09/07/18 Range/Units 22:55 22:55 22:55 WBC 7.13 (4.8-10.8) K/uL RBC 5.32 (4.2-5.4) M/uL Hgb 15.2 (12.0-16.0) g/dL POC Hgb (12.0-16.0) g/dl Hct 45.3 (37-47) % POC Hct (37-47) % MCV 85.2 (80-100) fL MCH 28.6 (25-34) pg MCHC 33.6 (32-36) g/dL RDW Std Deviation 44.5 (36.4-46.3) fL RDW Coeff of Radha 14.3 (11.5-14.5) % Plt Count 206 (130-400) K/uL MPV 11.1 H (7.4-10.4) fL Immature Gran % (Auto) 0.3 % Neut % (Auto) 58.7 % Lymph % (Auto) 25.0 % Warren % (Auto) 14.6 % Eos % (Auto) 1.1 % Baso % (Auto) 0.3 % Immature Gran # (Auto) 0.02 (0.00-0.02) K/uL Neut # (Auto) 4.19 (1.4-6.5) K/uL Lymph # (Auto) 1.78 (1.2-3.4) K/uL Warren # (Auto) 1.04 H (0.11-0.59) K/uL Eos # (Auto) 0.08 (0-0.5) K/uL Baso # (Auto) 0.02 (0-0.2) K/uL PT 9.7 (9.0-12.0) Seconds INR 0.9 (0.9-1.1) APTT 24.2 (21.0-31.0) Seconds PTT Ratio 0.9 POC Sodium (135-144) mEq/L Sodium 138 (136-145) mmol/L POC Potassium (3.3-5.0) mEq/L Potassium 4.2 (3.5-5.1) mmol/L POC Chloride (101-112) mEq/L Chloride 101 (98-107) mmol/L Carbon Dioxide 27 (21-32) mmol/L POC Total CO2 (24-31) mEq/l Anion Gap 10.0 (3-11) POC Anion Gap (16-25) mmol/L POC BUN (7-18) mg/dl BUN 27 H (7-18) mg/dl Creatinine 0.91 (0.6-1.2) mg/dl POC Creatinine (0.6-1.3) mg/dl Est Cr Clr Drug Dosing 90.6 ml/min Est GFR ( Amer) 78.4 Est GFR (Non-Af Amer) 67.6 BUN/Creatinine Ratio 29.9 H (10-20) Glucose 310 H (70-99) mg/dl POC Glucose (other) (70-99) mg/dl Calcium 9.0 (8.5-10.1) mg/dl POC Ioniz Calcium Dipti (1.12-1.32) mmol/l Magnesium 1.9 (1.8-2.4) mg/dl Total Bilirubin 0.3 (0.2-1) mg/dl AST 21 (15-37) U/L ALT 41 (12-78) U/L Alkaline Phosphatase 72 (45-117) U/L Total Creatine Kinase 100 (26-192) U/L POC Troponin I (0-0.045) ng/ml Total Protein 7.6 (6.4-8.2) gm/dl Albumin 3.6 (3.4-5.0) gm/dl Globulin 4.0 (2.5-4.0) gm/dl Albumin/Globulin Ratio 0.9 (0.9-2) Beta-Hydroxybutyric Acd 1.43 (0.2-2.81) mg/dl Specimen Hemolysis Urine Color Urine Appearance (Clear) Urine pH (4.5-7.5) Ur Specific [place] (1.000-1.030) Urine Protein (Negative) Urine Glucose (UA) (Negative) Urine Ketones (Negative) Urine Blood (Negative) Urine Nitrite (Negative) Urine Bilirubin (Negative) Urine Urobilinogen (Negative) Ur Leukocyte Esterase (Negative) Urine WBC (Auto) (0-5) /hpf Urine RBC (Auto) (0-4) /hpf U Hyaline Cast (Auto) (0-5) /lpf U Epithel Cells (Auto) (0-5) /lpf Urine Bacteria (Auto) (Negative) 09/07/18 09/07/18 09/08/18 Range/Units 23:05 23:05 00:45 WBC (4.8-10.8) K/uL RBC (4.2-5.4) M/uL Hgb (12.0-16.0) g/dL POC Hgb 15.6 (12.0-16.0) g/dl Hct (37-47) % POC Hct 46 (37-47) % MCV (80-100) fL MCH (25-34) pg MCHC (32-36) g/dL RDW Std Deviation (36.4-46.3) fL RDW Coeff of Radha (11.5-14.5) % Plt Count (130-400) K/uL MPV (7.4-10.4) fL Immature Gran % (Auto) % Neut % (Auto) % Lymph % (Auto) % Warren % (Auto) % Eos % (Auto) % Baso % (Auto) % Immature Gran # (Auto) (0.00-0.02) K/uL Neut # (Auto) (1.4-6.5) K/uL Lymph # (Auto) (1.2-3.4) K/uL Warren # (Auto) (0.11-0.59) K/uL Eos # (Auto) (0-0.5) K/uL Baso # (Auto) (0-0.2) K/uL PT (9.0-12.0) Seconds INR (0.9-1.1) APTT (21.0-31.0) Seconds PTT Ratio POC Sodium 136 (135-144) mEq/L Sodium (136-145) mmol/L POC Potassium 4.2 (3.3-5.0) mEq/L Potassium (3.5-5.1) mmol/L POC Chloride 100 L (101-112) mEq/L Chloride (98-107) mmol/L Carbon Dioxide (21-32) mmol/L POC Total CO2 26 (24-31) mEq/l Anion Gap (3-11) POC Anion Gap 15.0 L (16-25) mmol/L POC BUN 28 H (7-18) mg/dl BUN (7-18) mg/dl Creatinine (0.6-1.2) mg/dl POC Creatinine 0.7 (0.6-1.3) mg/dl Est Cr Clr Drug Dosing ml/min Est GFR ( Amer) Est GFR (Non-Af Amer) BUN/Creatinine Ratio (10-20) Glucose (70-99) mg/dl POC Glucose (other) 322 H (70-99) mg/dl Calcium (8.5-10.1) mg/dl POC Ioniz Calcium Dipti 1.17 (1.12-1.32) mmol/l Magnesium (1.8-2.4) mg/dl Total Bilirubin (0.2-1) mg/dl AST (15-37) U/L ALT (12-78) U/L Alkaline Phosphatase (45-117) U/L Total Creatine Kinase (26-192) U/L POC Troponin I < 0.03 (0-0.045) ng/ml Total Protein (6.4-8.2) gm/dl Albumin (3.4-5.0) gm/dl Globulin (2.5-4.0) gm/dl Albumin/Globulin Ratio (0.9-2) Beta-Hydroxybutyric Acd (0.2-2.81) mg/dl Specimen Hemolysis Urine Color Yellow Urine Appearance Cloudy H (Clear) Urine pH 5.0 (4.5-7.5) Ur Specific [place] > 1.045 H (1.000-1.030) Urine Protein 1+ H (Negative) Urine Glucose (UA) 3+ H (Negative) Urine Ketones Trace H (Negative) Urine Blood 3+ H (Negative) Urine Nitrite Negative (Negative) Urine Bilirubin Negative (Negative) Urine Urobilinogen Negative (Negative) Ur Leukocyte Esterase Negative (Negative) Urine WBC (Auto) 1-5 (0-5) /hpf Urine RBC (Auto) >30 H (0-4) /hpf U Hyaline Cast (Auto) 1-5 (0-5) /lpf U Epithel Cells (Auto) >30 H (0-5) /lpf Urine Bacteria (Auto) Negative (Negative) 09/08/18 Range/Units 00:55 WBC (4.8-10.8) K/uL RBC (4.2-5.4) M/uL Hgb (12.0-16.0) g/dL POC Hgb (12.0-16.0) g/dl Hct (37-47) % POC Hct (37-47) % MCV (80-100) fL MCH (25-34) pg MCHC (32-36) g/dL RDW Std Deviation (36.4-46.3) fL RDW Coeff of Radha (11.5-14.5) % Plt Count (130-400) K/uL MPV (7.4-10.4) fL Immature Gran % (Auto) % Neut % (Auto) % Lymph % (Auto) % Warren % (Auto) % Eos % (Auto) % Baso % (Auto) % Immature Gran # (Auto) (0.00-0.02) K/uL Neut # (Auto) (1.4-6.5) K/uL Lymph # (Auto) (1.2-3.4) K/uL Warren # (Auto) (0.11-0.59) K/uL Eos # (Auto) (0-0.5) K/uL Baso # (Auto) (0-0.2) K/uL PT (9.0-12.0) Seconds INR (0.9-1.1) APTT (21.0-31.0) Seconds PTT Ratio POC Sodium (135-144) mEq/L Sodium (136-145) mmol/L POC Potassium (3.3-5.0) mEq/L Potassium (3.5-5.1) mmol/L POC Chloride (101-112) mEq/L Chloride (98-107) mmol/L Carbon Dioxide (21-32) mmol/L POC Total CO2 (24-31) mEq/l Anion Gap (3-11) POC Anion Gap (16-25) mmol/L POC BUN (7-18) mg/dl BUN (7-18) mg/dl Creatinine (0.6-1.2) mg/dl POC Creatinine (0.6-1.3) mg/dl Est Cr Clr Drug Dosing ml/min Est GFR ( Amer) Est GFR (Non-Af Amer) BUN/Creatinine Ratio (10-20) Glucose (70-99) mg/dl POC Glucose (other) (70-99) mg/dl Calcium (8.5-10.1) mg/dl POC Ioniz Calcium Dipti (1.12-1.32) mmol/l Magnesium (1.8-2.4) mg/dl Total Bilirubin (0.2-1) mg/dl AST (15-37) U/L ALT (12-78) U/L Alkaline Phosphatase (45-117) U/L Total Creatine Kinase (26-192) U/L POC Troponin I < 0.03 (0-0.045) ng/ml Total Protein (6.4-8.2) gm/dl Albumin (3.4-5.0) gm/dl Globulin (2.5-4.0) gm/dl Albumin/Globulin Ratio (0.9-2) Beta-Hydroxybutyric Acd (0.2-2.81) mg/dl Specimen Hemolysis Urine Color Urine Appearance (Clear) Urine pH (4.5-7.5) Ur Specific [place] (1.000-1.030) Urine Protein (Negative) Urine Glucose (UA) (Negative) Urine Ketones (Negative) Urine Blood (Negative) Urine Nitrite (Negative) Urine Bilirubin (Negative) Urine Urobilinogen (Negative) Ur Leukocyte Esterase (Negative) Urine WBC (Auto) (0-5) /hpf Urine RBC (Auto) (0-4) /hpf U Hyaline Cast (Auto) (0-5) /lpf U Epithel Cells (Auto) (0-5) /lpf Urine Bacteria (Auto) (Negative) Blood Pressure Blood Pressure Findings: Elevated blood pressure Blood Pressure Disposition: Referred to patients primary care provider [facility] Narrative Prior records/ancillary studies reviewed. Triage Nursing notes reviewed. The patient's history was concerning for respiratory difficulties and leg cramping. Differential diagnosis: Etiologies such as infections, reactive airway disease, electrolyte abnormality, pneumonia, pneumothorax, COPD, CHF, cardiac ischemia, pulmonary embolism, musculoskeletal, gastrointestinal, as well as others were entertained. Physical examination: As above. ER treatment provided: Nebulizer, Decadron On reassessment the patient felt better. Diagnostic interpretation by me: The electrocardiogram was negative for acute ischemic or pathologic change. Right bundle branch block, no acute ST-T wave changes, rate of 101. Impression right bundle branch block interpreted by myself The labs revealed hyperglycemia without DKA negative troponin Imaging studies: CTA CHEST: No pulmonary embolus. Pulmonary emphysema. No effusion or consolidation. Fatty liver. Radiologist: Antloin Ambrosio M.D. US VENOUS BILATERAL LOWER EXTREMITIES: Positive DVT in the left lower extremity. Thrombus in midportion of one of the duplicated peroneal veins. Remaining vessels are unremarkable. No DVT in the right lower extremity. Radiologist: Antolin Ambrosio M.D. Consultation: Consulted the hospitalist, , and will evaluate the patient for admission. The case was reviewed with him. This appears to be consistent with COPD exacerbation and DVT. Patient was hypo xic on room air and was placed on oxygen. Medicine was consulted. Medicine is requesting heparin with bolus. This was ordered. Patient has no history of GI bleeding. She is agreeable treatment plan of admission. Patient was given doxycycline for her COPD exacerbation. Patient had no PE on CTA. By the evaluation outlined above emergent etiologies such as CHF, cardiac ischemia, pulmonary embolism, reactive airway disease, pneumonia, pneumothorax, musculoskeletal, serious bacterial infections, as well as others were deemed relatively unlikely. The pt informed about the findings as listed above. All questions were answered and pleased with the treatment. condition. Case reviewed with my attending The chart was completed utilizing [employer] Speech voice recognition software. Grammatical errors, random word insertions, pronoun errors, and incomplete sentences are an occassional consequence of this system due to software limitations, ambient noise, and hardware issues. Any formal questions or concerns about the content, text, or information contained within the body of t his dictation should be directly addressed to the physician psychologist research assistant for clarification. Impression & Plan Acute exacerbation of chronic obstructive pulmonary disease (COPD), DVT (deep venous thrombosis) Discharge Plan Visit Data Chief Complaint: Leg Injury/Pain Stated Complaint: LEG AND FEET CRAMPING ED Provider: Andre Badillo ED Midlevel Provider: Ibeth Huff Discharge Problem: Acute exacerbation of chronic obstructive pulmonary disease (COPD), DVT (deep venous thrombosis) Patient Disposition: Admitted As Inpatient Condition: Good Forms Stand Alone Forms: My [facility] Prescriptions Prescriptions: No Action lisinopril 10 mg Tablet 10 mg PO DAILY RF: 0 Referrals Referrals: Colton Morse [Primary Care Provider] -
[2018-09-07] MEDS ORDERED: DiphenhydrAMINE HCL 50 MG/ML VIAL IV STA (23:13)
[2018-09-07] MEDS ORDERED: ONDANSETRON INJ 2 MG/ML 2 ML VIAL IV STA (23:13)
[2018-09-07 23:18] LABS: iSTAT Creatinine 0.7 mg/dl (0.6-1.3); iSTAT Hemoglobin 15.6 g/dl (12.0-16.0); iSTAT Ionized Calcium 1.17 mmol/l (1.12-1.32); iSTAT Potassium 4.2 mEq/L (3.3-5.0)
[2018-09-07] MEDS ORDERED: OPTIRAY 320 125ml IV PRN (23:19)
[2018-09-07 23:27] LABS: Basophils # (auto) 0.02 K/uL (0-0.2); Basophils % (auto) 0.3 %; Eosinophils # (auto) 0.08 K/uL (0-0.5); Eosinophils % (auto) 1.1 %; Hematocrit (blood only) 45.3 % (37-47); Hemoglobin 15.2 g/dL (12.0-16.0); Immature Granulocytes # (auto) 0.02 K/uL (0.00-0.02); Immature Granulocytes % (auto) 0.3 %; Lymphocytes # (auto) 1.78 K/uL (1.2-3.4); Mean Corpuscular Hgb Conc 33.6 g/dL (32-36); Mean Corpuscular Volume 85.2 fL (80-100); Mean Platelet Volume 11.1 fL (7.4-10.4); Monocytes # (auto) 1.04 K/uL (0.11-0.59); Monocytes % (auto) 14.6 %; Neutrophils # (auto) 4.19 K/uL (1.4-6.5); Neutrophils % (auto) 58.7 %; Platelet Count 206 K/uL (130-400); RDW Coefficient of Variation 14.3 % (11.5-14.5); RDW Standard Deviation 44.5 fL (36.4-46.3); Red Blood Count 5.32 M/uL (4.2-5.4); White Blood Count 7.13 K/uL (4.8-10.8)
[2018-09-07 23:37] LABS: INR 0.9 (0.9-1.1); Partial Thromboplastin Ratio 0.9; Partial Thromboplastin Time 24.2 Seconds (21.0-31.0); Prothrombin Time 9.7 Seconds (9.0-12.0)
[2018-09-07 23:55] LABS: Albumin Globulin Ratio 0.9 (0.9-2); Albumin Level 3.6 gm/dl (3.4-5.0); BUN Creatinine Ratio 29.9 (10-20); Bilirubin,Total 0.3 mg/dl (0.2-1); Creatinine Clr Calc Pharmacy 90.6 ml/min; Est GFR (African American) 78.4; Est GFR (Non-African American) 67.6; Magnesium 1.9 mg/dl (1.8-2.4); Potassium 4.2 mmol/L (3.5-5.1); Total Protein 7.6 gm/dl (6.4-8.2)
[2018-09-07] MEDS ORDERED: SODIUM CHLORIDE 0.9% 1000ML 1,000 ML IV ONE (23:55)
[2018-09-08 00:26] LABS: Beta-Hydroxybutyrate 1.43 mg/dl (0.2-2.81)
[2018-09-08 01:12] LABS: Appearance Urine Cloudy (Clear); Bacteria Urine Automated Negative (Negative); Bilirubin Urine Negative (Negative); Blood Urine 3+ (Negative); Color Urine Yellow; Epithelial Cell Urine Auto >30 /lpf (0-5); Glucose Urine UA 3+ (Negative); Ketones Urine Trace (Negative); Leukocyte Esterase Urine Negative (Negative); Nitrite Urine Negative (Negative); Protein Urine 1+ (Negative); RBC Urine Automated >30 /hpf (0-4); Specific Gravity Urine > 1.045 (1.000-1.030); Urobilinogen Urine Negative (Negative)
[2018-09-08] MEDS ORDERED: DOXYCYCLINE HYCLATE 100 MG in DEXTROSE 5% 100 ML IV STA (01:29)
[2018-09-08] MEDS ORDERED: HEPARIN 25000 UNIT/500 ML D5W IV ONE (01:49)
[2018-09-08] MEDS ORDERED: HEPARIN SOD 5,000 UNIT/0.5 ML VIAL ONE (01:49)
[2018-09-08] MEDS ORDERED: NovoLIN-R INSULIN PER UNIT CHARGE IV STA ×2 (02:45→04:42)
[2018-09-08] MEDS ORDERED: ACETAMINOPHEN 325 MG TAB PO PRN (04:42)
[2018-09-08] MEDS ORDERED: MoRPHine SULFATE 4 MG/ML 1 ML CARP\\VIAL IV PRN (04:42)
[2018-09-08] MEDS ORDERED: ALBUTEROL HFA 8 GM INHALER INH PRN (04:42)
[2018-09-08] MEDS ORDERED: IPRATROPIUM BROMIDE NEB SOLN 0.02% 2.5 ML VIAL INH PRN ×2 (04:42→05:02)
[2018-09-08] MEDS ORDERED: TRAMADOL HCL 50 MG TABLET PO PRN (04:42)
[2018-09-08] MEDS ORDERED: ONDANSETRON INJ 2 MG/ML 2 ML VIAL IV PRN (04:42)
[2018-09-08] MEDS ORDERED: ALBUTEROL 0.5% NEB SOLN 2.5 MG/0.5 ML VIAL INH PRN (04:42)
[2018-09-08] MEDS ORDERED: INSULIN REGULAR 250 UNITS in SODIUM CHLORIDE 0.9% 247.5 ML IV SCH (04:45)
[2018-09-08] MEDS ORDERED: INSULIN HUMAN REGULAR PER UNIT 5 UNITS in SYRINGE 4.95 ML IV ONE (05:00)
--- NOTE | 2018-09-08 05:28 | History and Physical Report ---
DATE OF ADMISSION: 09/08/2018 CHIEF COMPLAINT: Cramps in lower extremities. 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 Quit smoking about 19 months ago. Presents with cramping in her lower extremity and found to have left lower extremity DVT. The patient says she has pain in lower extremity about 3 weeks ago but got resolved and again started to have severe leg cramps since last 2-3 days which prompted her to come to ER. She also has some increase in cough and she was on oxygen before but was recently taken off. In the ER, she was saturating 88% on room air and requiring 2 liters of oxygen. Denies any headache, no blurred vision, no runny nose, no sore throat or difficulty swallowing. No chest pain, no nausea, no vomiting, no abdominal pain. Normal bowel and bladder movements. No hematuria, no melena, no hematochezia. Ambulates okay. Lives with her son. ALLERGIES: AZITHROMYCIN, CEFUROXIME, LEVAQUIN, PENICILLIN, SULFA ANTIBIOTICS, TAPE. PAST MEDICAL HISTORY: As mentioned above. PAST SURGICAL HISTORY: Bronchoscopy, , cystoscopy, Left hip core decompression, appendectomy, removal of kidney stone, left upper lobectomy, total abdominal hysterectomy with removal of tubes, left total hip replacement. MEDICATIONS: The patient is on glipizide 5 mg p.o. daily, lisinopril 20 mg p.o. daily, tramadol 50 mg p.o. q. 8 hours p.r.n., ipratropium nebulization 4 times a day, citalopram 20 mg p.o. daily, levothyroxine 50 mcg p.o. daily, metformin 1000 mg p.o. b.i.d., Zantac 300 mg p.o. at bedtime, Nasonex 2 sprays into each nostril daily, albuterol 2 puffs every 4 hours p.r.n., albuterol nebulization every 4 hours p.r.n., Trelegy Ellipta 1 puff daily, hydroxyzine 25 mg p.o. q. 6 hours p.r.n. FAMILY HISTORY: Significant for mother has asthma, [place]. Father from ruptured aneurysm and COPD. Sister has rhinitis. Son has asthma. Daughter has asthma. Brother has asthma. SOCIAL HISTORY: , lives with son, former smoker. Smoked 2 packs every day for 43 years. No alcohol use, no drug use. REVIEW OF SYSTEMS: As per HPI. Rest of the review of systems negative. PHYSICAL EXAMINATION: GENERAL: The patient is obese, not in acute distress. VITAL SIGNS: Temperature 36.8, pulse 97, respiratory rate 20, blood pressure 177/92, oxygen 88% on room air. HEENT: No pallor, no icterus. Pupils equal, round, and reactive to light. NECK: No JVD, no neck masses, no carotid bruits. CARDIOVASCULAR: S1, S2 heard, regular rate and rhythm, no murmur, no gallop. RESPIRATORY SYSTEM: Clear to auscultation bilaterally. No wheezing, no crackles. ABDOMEN: Soft, bowel sounds present. Nontender. No distention. CENTRAL NERVOUS SYSTEM: Cranial nerves II through XII grossly intact, nonfocal. EXTREMITIES: Left lower extremity erythematous medial aspect of thigh region. LABORATORY DATA: WBC is 7.1, hemoglobin 15.2, hematocrit 45.3, platelets 206. PT 9.7, INR of 0.9, APTT 24.2. Sodium 136, potassium 4.2, chloride 101, bicarbonate 27, BUN 27, creatinine 0.9, serum glucose 310, calcium 9, magnesium 1.9, total bilirubin 0.3, AST 21, ALT 44, alkaline phosphatase 72, total creatinine kinase 100, point of care troponin is 0.03. Urinalysis, positive for ketones, negative for leukocyte esterase and nitrites. Venous Doppler left lower DVT. CT of the chest, unofficial report, no PE. ASSESSMENT AND PLAN: This is a 63-year-old female who presents with bilateral lower extremity cramping and found to have left lower extremity deep venous thrombosis. 1. Left lower extremity deep venous thrombosis. Will Follow the official report. CT of the chest, no PE. Will Follow the official report. Started her on IV heparin with weight based protocol. The patient says she does have insurance and wants to go with Coumadin. Hypercoagulable workup drawn in the ER. Follow up with the Coumadin clinic, follow up with the family doctor for duration of the anticoagulation. 3. History of lung cancer, carcinoid tumor, status post left upper lobectomy, follow up. 4. History of chronic obstructive pulmonary disease, asthma, currently not in exacerbation. Continue her home inhalers and nebs p.r.n. Used to be on oxygen before, was hypoxic on room air when she came in . Needs two step prior to discharge. 5. Diabetes. Holding her home p.o. medication, placing her on Lantus insulin sliding scale. Follow HbA1c level,.Given a dose of iv insulin for hyperglecemia. 6. History of hypothyroidism, continue on Synthroid. 7. History of hypertension, continue on lisinopril. 8. History of SVT, stable . Currently not on any medication, we will monitor. 9. History of depression, continue Celexa. 10. Gastroesophageal reflux disease. Continue Zantac. 11. Morbid obesity. Needs followup as outpatient. can do nocturnal puse ox study in the hospital. 12. History of tobacco use, says quit smoking 19 months ago. 13. Deep venous thrombosis prophylaxis, placed her on IV heparin. 14. Disposition: Admit to medical floor, full code. Social service to help with discharge planning. POPEYE
[2018-09-08] MEDS ORDERED: HEPARIN IV BOLUS 7,000 UNITS in SYRINGE 0 ML IV ONE (05:30)
[2018-09-08] MEDS: INSULIN ASPART 100 UNITS/ML 3 ML PEN SC SCH ×5 (05:46→21:00)
[2018-09-08] MEDS: Heparin Adult STANDARD Wt-Based Dextrose 5% 25,000 units/500 mL IV SCH ×3 (05:47→17:03)
[2018-09-08] MEDS: LEVOTHYROXINE SODIUM 50 MCG TABLET PO SCH (06:25)
[2018-09-08 06:26] LABS: Basophils # (auto) 0.01 K/uL (0-0.2); Basophils % (auto) 0.2 %; Hematocrit (blood only) 43.3 % (37-47); Hemoglobin 14.5 g/dL (12.0-16.0); Immature Granulocytes # (auto) 0.03 K/uL (0.00-0.02); Immature Granulocytes % (auto) 0.6 %; Lymphocytes # (auto) 0.64 K/uL (1.2-3.4); Lymphocytes % (auto) 12.2 %; Mean Corpuscular Hgb Conc 33.5 g/dL (32-36); Mean Corpuscular Volume 84.6 fL (80-100); Monocytes # (auto) 0.12 K/uL (0.11-0.59); Monocytes % (auto) 2.3 %; Neutrophils # (auto) 4.43 K/uL (1.4-6.5); Neutrophils % (auto) 84.7 %; Platelet Count 187 K/uL (130-400); RDW Coefficient of Variation 14.1 % (11.5-14.5); Red Blood Count 5.12 M/uL (4.2-5.4); White Blood Count 5.23 K/uL (4.8-10.8)
--- NOTE | 2018-09-08 06:42 | CT Scan Report ---
CT ANGIOGRAPHY OF THE CHEST, PULMONARY EMBOLUS PROTOCOL CLINICAL HISTORY: Shortness of breath. Evaluate for pulmonary embolus. COMPARISON STUDY: Chest CT March 10, 2018. TECHNIQUE: Following IV administration of 119 mL of Optiray-320, helical axial images of the chest we re obtained utilizing the pulmonary embolus protocol. Maximal intensity projections and sagittal and coronal reformats were viewed on an independent 3D workstation. IV contrast was administered withou t complication. Automated exposure control was utilized for the study. A dose lowering technique wa s utilized adhering to the principles of ALARA. CT DOSE: 642.63 mGy.cm FINDINGS: No pulmonary emboli are identified. Thoracic aortic dissection. Size the heart is normal. There is no pericardial effusion. There is no consolidation. Patient is status post left upper lobect esme. The appearance of the chest is unchanged. A few pulmonary nodules measuring up to 5 mm are uncha nged. The largest is a 5 mm right lower lobe nodule on image 79 of 251. There is marked fatty infiltr ation of the liver. A small hyperdense right hepatic lobe lesion remains unchanged. This is similar t o CT of July 24, 2017. This is likely benign. IMPRESSION: 1. No pulmonary emboli identified. 2. Status post left upper lobectomy. No thoracic lymphadenopathy. 3. No acute intrathoracic findings. 4. Marked fatty infiltration of the liver. Electronically signed by: Marlo Ramos M.D. 09/08/2018 6:40 AM
[2018-09-08 06:59] LABS: BUN Creatinine Ratio 24.5 (10-20); Calcium 8.8 mg/dl (8.5-10.1); Creatinine Clr Calc Pharmacy 85.9 ml/min; Est GFR (African American) 73.5; Est GFR (Non-African American) 63.4; Potassium 4.4 mmol/L (3.5-5.1)
[2018-09-08 07:08] LABS: Beta-Hydroxybutyrate 1.5 mg/dl (0.2-2.81)
--- NOTE | 2018-09-08 07:12 | Ultrasound Report ---
ULTRASOUND BILATERAL LOWER EXTREMITY VENOUS CLINICAL HISTORY: Dyspnea. Clinical concern for deep venous thrombosis. COMPARISON STUDY: Right lower extremity venous ultrasound dated 05/21/2017. TECHNIQUE: Real-time, grayscale, and color Doppler sonography of the deep veins of the right and left lower extremity was performed from the inguinal crease to the calf. Compression and augmentation wer e utilized. FINDINGS: Right lower extremity: There is no sonographic evidence of deep venous thrombosis in the right lower extremity. The common femoral, superficial femoral, and popliteal veins are patent and normally compr essible. The greater saphenous vein and the profunda femoris vein at the junction with the common fem oral vein are clear. The visualized calf veins are patent. Left lower extremity: There is deep venous thrombosis in the left calf within a peroneal vein. The re maining calf vessels are patent. No above knee deep venous thrombosis seen in the left lower extremit y. The common femoral, superficial femoral, and popliteal veins are patent and normally compressible. The greater saphenous vein and the profunda femoris vein at the junction with the common femoral vei n are clear. IMPRESSION: 1. There is deep venous thrombosis in the left calf within a peroneal vein. 2. No above knee deep venous thrombosis is seen in the left lower extremity. 3. There is no sonographic evidence of deep venous thrombosis in the right lower extremity. Electronically signed by: Chandler Hernandez M.D. 09/08/2018 7:11 AM
[2018-09-08] MEDS: DOXYCYCLINE HYCLATE 100 MG CAP PO SCH ×2 (08:04→21:01)
[2018-09-08] MEDS: CITALOPRAM 20 MG TAB PO SCH (08:05)
[2018-09-08] MEDS: LISINOPRIL 20 MG TAB PO SCH (08:05)
[2018-09-08] MEDS ORDERED: INSULIN GLARGINE SOLOSTAR 100 UNITS/ML 3 ML PEN SC SCH (09:00)
[2018-09-08] MEDS ORDERED: INSULIN ASPART 100 UNITS/ML 3 ML PEN SC SCH (09:00)
[2018-09-08 09:14] LABS: Partial Thromboplastin Ratio 2.1
[2018-09-08 09:15] LABS: Partial Thromboplastin Time 57.9 Seconds (21.0-31.0)
[2018-09-08 09:53] LABS: Estimated Average Glucose 235 mg/dl; Hemoglobin A1C 9.8 % (4.5-5.6)
[2018-09-08] MEDS ORDERED: cloNIDine HCl 0.1 MG TAB PO PRN (10:13)
[2018-09-08] MEDS ORDERED: CYCLOBENZAPRINE HCL 10 MG TAB PO PRN (10:48)
[2018-09-08] MEDS ORDERED: PHARMACY GLYCEMIC MGMT CONSULT PRN (11:03)
[2018-09-08] MEDS ORDERED: INSULIN GLARGINE SOLOSTAR 100 UNITS/ML 3 ML PEN SC STA (11:27)
[2018-09-08] MEDS: predniSONE 20 MG TAB PO SCH (12:21)
--- NOTE | 2018-09-08 13:16 | Pharmacy Report ---
Glycemic Control Consultation - Date of Service September 08, 2018 - Scope Scope: Glycemic Pharmacist consulted by Dr Mckee on 09/08/18 for glycemic control and to write orders per [facility] inpatient glycemic control protocol - Objective Weight: 135 kg Accuchecks BSG (last 24hrs): 09/07/18 09/07/18 09/08/18 22:55 23:05 02:39 Glucose 310 H POC Glucose 429 H* POC Glucose (other) 322 H 09/08/18 09/08/18 09/08/18 02:41 03:22 04:10 Glucose POC Glucose 482 H* 433 H* 395 H* POC Glucose (other) 09/08/18 09/08/18 09/08/18 04:12 06:05 08:02 Glucose 352 H* POC Glucose 390 H* 333 H POC Glucose (other) 09/08/18 09/08/18 09:42 10:56 Glucose POC Glucose 353 H* 269 H POC Glucose (other) Laboratory Data (last 24hrs): 09/07/18 09/08/18 22:55 06:05 Potassium 4.2 4.4 Carbon Dioxide 27 25 Anion Gap 10.0 10.0 Creatinine 0.91 0.96 Est Cr Clr Drug Dosing 90.6 85.9 Beta-Hydroxybutyric Acd 1.43 1.50 HbA1c: Hemoglobin A1c 9.8 % (4.5-5.6) H 09/08/18 06:05 - Recent Pertinent Medications Outpatient Anti-diabetic Regimen: * Metformin, Glipizide * A1c = 9.8 % 09/08/18 - Assessment & Plan Assessment & Plan: ASSESSMENT: * Ms. Lowe is a 63yo F unbeknownst to the pharmacy glycemic service. She is maintained on metformin and glipizide, these will be held for now. PMHx consistent with DM-II, COPD, HypoTH, GERD, obesity, among others. Her outpt glycemic management is poor as evidenced by her A1C of 9.8%. * She received 10mg IV DXM in the ER overnight and will be started on prednisone. PLAN FOR INPATIENT GLYCEMIC CONTROL: * Holding outpatient oral diabetes medications * Basal insulin * Lantus 30 units total this AM, will set a scale for tonight * Bolus insulin * NovoLog per scale ACHS or Q6hrs while NPO * Goal Range: Low 110 mg/dL - High 140 mg/dL * Correction Factor: 10 mg/dL/unit * Nutritional / Prandial insulin per carb ratio of 1 unit per 4 grams CHO consumed * will order 00,04 checks * Please note that the plan above was derived based on current level of insulin resistance and hospital stress. These recommendations are appropriate for inpatient admission only. Plan of care upon discharge will need to be reassessed to avoid potential outpatient hypo/hyperglycemia. Thank you.
[2018-09-08] MEDS: IPRATROPIUM BROMIDE NEB SOLN 0.02% 2.5 ML VIAL INH SCH ×2 (13:44→19:35)
[2018-09-08] MEDS: LEVALBUTEROL HCL 0.63 MG/3 ML NEB NEB SCH ×2 (13:44→19:35)
[2018-09-08] MEDS ORDERED: XOPENEX/ATROVENT 0.63mg/0.5MG NEB COMBO NEB SCH (14:00)
--- NOTE | 2018-09-08 16:48 | Ultrasound Report ---
US arterial duplex LE BI CLINICAL HISTORY: Bilateral leg pain COMPARISON STUDY: No previous studies for comparison. FINDINGS: The right brachial artery systolic pressure was 161 mmHg. The right ankle posterior tibial systolic pressure was 1 88 mmHg. The right ankle dorsalis pedis syst olic pressure was 174 mmHg Due to a left leg DVT, ankle pressures are not obtained. A digital left toe systolic pressure was 165 mmHg.. There were triphasic waveforms within both common femoral superficial femoral and popliteal arteries. There are triphasic waveforms within both posterior tibial arteries. There are biphasic waveforms wi thin the peroneal arteries. There are triphasic waveforms within both anterior tibial arteries. No hi gh velocity jets were visualized. IMPRESSION: No evidence of lower extremity arterial stenosis. Electronically signed by: Maximiliano Solano M.D. 09/08/2018 4:46 PM
[2018-09-08] MEDS: TRELEGY ELLIPTA INH SCH (17:27)
[2018-09-08] MEDS: WARFARIN SOD 5 MG TAB PO SCH (17:28)
[2018-09-08] MEDS: INSULIN GLARGINE SOLOSTAR 100 UNITS/ML 3 ML PEN SC SCH (20:57)
--- NOTE | 2018-09-08 23:50 | Hospitalist Progress Note ---
Date of Service September 08, 2018 delayed entry date of service noted above Assessment & Plan (1) Acute DVT (deep venous thrombosis): (1) Acute exacerbation of chronic obstructive pulmonary disease (COPD): weaned off oxygen Prednisone 40mg Nebs Doxycycline, monitor (2) DVT (deep venous thrombosis): Peroneal Vein, Left has history of Lung Cancer, s/p Left Upper Lobe lobectomy discussed with Oncologist Dr. Reyes recommend 6 weeks of anticoagulation, then repeat Doppler US heparin bridge coumadin will need to establish with Coumadin clinic Hypercoagulable workup drawn in the ER-- >ff up Diabetes. Holding her home p.o. medication, placing her on Lantus insulin sliding scale. History of hypothyroidism, continue on Synthroid. History of hypertension, continue on lisinopril. History of SVT, stable . Currently not on any medication History of depression, continue Celexa. Gastroesophageal reflux disease. Continue Zantac. Morbid obesity. Needs followup as outpatient History of tobacco use, says quit smoking 19 months ago. Deep venous thrombosis prophylaxis -- Lovenox + coumadin Disposition: anticipate d/c home when medically stable ff up with PCP needs to be established with coumadin clinic Subjective ff up for DVT, COPD exacerbation seen resting in bed, on 2 L NC states breathing improved compared to admission still has occasional cough no chest pain has intermittent leg cramping- right>left, no numbness no other symptoms Physical Exam Vital Signs (Past 24 Hours): Last Vital Signs Temp 36.6 C 09/08/18 23:25 Pulse 95 H 09/08/18 23:25 Resp 20 09/08/18 23:25 BP 171/78 H 09/08/18 23:25 Pulse Ox 92 09/08/18 23:25 Physical Exam: General- oriented x 3, not in distress, speaks in sentences with no effort or accessory muscle use obese Eyes- anicteric Neck- no JVD Lungs- (+) moderate scattered wheeze b/l Heart- normal rate, regular rhythm; no murmurs Abdomen- normal bowel sounds, nondistended, soft, nontender Extremities- trace pretibial edema, no calf tenderness Neuro- alert, oriented x 3; no gross focal neurologic deficits Skin- warm & dry Results & Data Laboratory Results all noted and reviewed
[2018-09-09] MEDS: INSULIN ASPART 100 UNITS/ML 3 ML PEN SC SCH ×6 (00:11→21:55)
[2018-09-09] MEDS: IPRATROPIUM BROMIDE NEB SOLN 0.02% 2.5 ML VIAL INH SCH ×2 (02:21→07:04)
[2018-09-09] MEDS: LEVALBUTEROL HCL 0.63 MG/3 ML NEB NEB SCH ×2 (02:21→07:04)
[2018-09-09] MEDS: LEVOTHYROXINE SODIUM 50 MCG TABLET PO SCH (05:36)
[2018-09-09 05:48] LABS: Prothrombin Time 10.3 Seconds (9.0-12.0)
[2018-09-09 08:04] LABS: Partial Thromboplastin Ratio 1.7
[2018-09-09 08:11] LABS: Partial Thromboplastin Time 46.1 Seconds (21.0-31.0)
[2018-09-09] MEDS: Heparin Adult STANDARD Wt-Based Dextrose 5% 25,000 units/500 mL IV SCH ×2 (08:51→23:36)
[2018-09-09] MEDS: DOXYCYCLINE HYCLATE 100 MG CAP PO SCH ×2 (08:52→21:55)
[2018-09-09] MEDS: CITALOPRAM 20 MG TAB PO SCH (08:52)
[2018-09-09] MEDS: LISINOPRIL 20 MG TAB PO SCH (08:53)
[2018-09-09] MEDS: predniSONE 20 MG TAB PO SCH (08:53)
[2018-09-09] MEDS: TRELEGY ELLIPTA INH SCH (08:53)
[2018-09-09] MEDS: INSULIN HUMAN NPH SC SCH (08:54)
[2018-09-09] MEDS ORDERED: INSULIN GLARGINE SOLOSTAR 100 UNITS/ML 3 ML PEN SC SCH (09:00)
--- NOTE | 2018-09-09 13:25 | Pharmacy Report ---
Glycemic Control Progress Note - Date of Service September 09, 2018 - Scope Glycemic Pharmacist consulted for glycemic control to write orders per [facility] inpatient glycemic control protocol. - Objective Accuchecks BSG(last 24 hours):: 09/08/18 09/08/18 09/09/18 16:46 19:51 00:10 POC Glucose 290 H 300 H 203 H 09/09/18 09/09/18 09/09/18 04:04 07:32 11:22 POC Glucose 123 H 201 H 220 H HbA1c:: Hemoglobin A1c 9.8 % (4.5-5.6) H 09/08/18 06:05 - Recent Pertinent Medications The patient is currently receiving: * Basal insulin: Lantus 20-30 units every 12 hours * Correctional Insulin: Novolog Correction per scale ACHS Goal Range: Low 110 mg/dL - High 140 mg/dL Correction Factor: 10 mg/dL/unit * Prandial insulin: Per carb ratio of 1 unit per 4 grams CHO consumed - Outpatient Anti-Diabetic Meds GLIPIZIDE - Assessment & Plan ASSESSMENT: * See progress note from 09/08/18 for more background info, in short: * Pt receiving SQ basal bolus insulin regimen for hyperglycemia secondary to baseline DM (outpatient regimen on hold), dextrose in heparin infusion, and steroids (received 1 dose of dexamethasone yesterday plus now on prednisone 40 mg daily) * Patient is currently receiving an average of 168 units of insulin per day * 60 units of basal insulin * 108 units of prandial/correctional insulin * BSGs ranging 203 - 352 mg/dl over the past 24hrs * Changes needed to insulin regimen: * AM Fasting BSG = 201 mg/dl. This is slightly above goal range for patient based on inpatient targets and co-morbidities. Therefore Basal insulin will be increased. Start NPH 50 units (0.4 units/kg) for prednisone-related hyperglycemia. Will utilize weight-based dosing for Lantus. Fasting today was artificially high secondary to late administration of prednisone yesterday. Concern for 60 units being too aggressive currently so therefore will back off slightly. * Post-prandial BSGs did trend upwards yesterday but with additional of NPH will hold off tightening today. * Total daily dose = > 150 units. PLAN FOR INPATIENT GLYCEMIC CONTROL: * Decreasing Lantus to 25 units SQ x 1 then scale for this evening * Lantus 15 units if blood sugar under 140 mg/dL * Lantus 20 units if blood sugar 140-180 mg/dL * Lantus 25 units if blood sugar greater than 180 mg/dL * Start NPH 50 units SQ qAM with prednsione * Continuing correction factor of 10 mg/dl/unit * Continuing carb ratio of 1 unit per 4 grams CHO consumed * Continuing goal range of Low 110 mg/dL - High 140 mg/dL RECOMMENDATIONS FOR DISCHARGE: * Patient admits to stopping metformin secondary to GI side effects. Recommend starting metformin XR 500 mg daily with food. Titrate upwards slowly. * XR better tolerated than IR for GI side effects. * Recommend take with food. * Patient will most likely require insulin as an outpatient. Reasonable to see what addition of metformin can accomplish. Thank you.
[2018-09-09] MEDS: WARFARIN SOD 5 MG TAB PO SCH (17:40)
[2018-09-09] MEDS: INSULIN GLARGINE SOLOSTAR 100 UNITS/ML 3 ML PEN SC SCH (21:54)
[2018-09-10] MEDS: LEVOTHYROXINE SODIUM 50 MCG TABLET PO SCH (06:01)
[2018-09-10 06:28] LABS: Partial Thromboplastin Ratio 1.9; Prothrombin Time 10.4 Seconds (9.0-12.0)
[2018-09-10 06:31] LABS: Partial Thromboplastin Time 51.3 Seconds (21.0-31.0)
[2018-09-10] MEDS: CITALOPRAM 20 MG TAB PO SCH (08:03)
[2018-09-10] MEDS: predniSONE 20 MG TAB PO SCH (08:03)
[2018-09-10] MEDS: DOXYCYCLINE HYCLATE 100 MG CAP PO SCH ×2 (08:04→20:47)
[2018-09-10] MEDS: LISINOPRIL 20 MG TAB PO SCH (08:04)
[2018-09-10] MEDS: TRELEGY ELLIPTA INH SCH (08:04)
[2018-09-10] MEDS: INSULIN HUMAN NPH SC SCH (08:15)
[2018-09-10] MEDS: INSULIN GLARGINE SOLOSTAR 100 UNITS/ML 3 ML PEN SC SCH ×2 (08:16→20:46)
[2018-09-10] MEDS: INSULIN ASPART 100 UNITS/ML 3 ML PEN SC SCH ×4 (08:33→20:50)
--- NOTE | 2018-09-10 13:19 | Hospitalist Progress Note ---
Date of Service September 10, 2018 Assessment & Plan (1) Acute exacerbation of chronic obstructive pulmonary disease (COPD): improving weaned off oxygen taper prednisone to 30mg po daily continue Doxycycline Nebs PRN (2) DVT (deep venous thrombosis): Peroneal Vein, Left has history of Lung Cancer, s/p Left Upper Lobe lobectomy discussed with Oncologist Dr. Reyes recommend 6 weeks of anticoagulation, then repeat Doppler US heparin bridge changed to Lovenox BID today coumadin increased to 7.5mg po check INR tomorrow will need to establish with Coumadin clinic Hypercoagulable workup drawn in the ER-- >ff up Diabetes. Holding her home p.o. medication, placing her on Lantus insulin sliding scale. History of hypothyroidism, continue on Synthroid. History of hypertension, continue on lisinopril. History of SVT, stable . Currently not on any medication History of depression, continue Celexa. Gastroesophageal reflux disease. Continue Zantac. Morbid obesity. Needs followup as outpatient History of tobacco use, says quit smoking 19 months ago. Deep venous thrombosis prophylaxis -- Lovenox + coumadin Disposition: anticipate d/c home when medically stable ff up with PCP needs to be established with coumadin clinic Subjective ff up for DVT, COPD exacerbation seen resting in bed, comfortable had some right leg cramping this AM, improved with Flexeril breathing continues to improve, no cough no other symptoms Physical Exam Vital Signs (Past 24 Hours): Last Vital Signs Temp 36.4 C L 09/10/18 08:01 Pulse 75 09/10/18 08:01 Resp 20 09/10/18 08:01 BP 128/72 09/10/18 09:19 Pulse Ox 96 09/10/18 08:01 Physical Exam: General- oriented x 3, not in distress, speaks in sentences with no effort or accessory muscle use Eyes- anicteric Neck- no JVD Lungs- clear BS BL no rales/wheezing Heart- normal rate, regular rhythm; no murmurs Abdomen- normal bowel sounds, nondistended, soft, nontender Extremities- no pretibial edema, no calf tenderness, no eryth maria g/warmth/tenderness Neuro- alert, oriented x 3; no gross focal neurologic deficits Skin- warm & dry Results & Data Laboratory Results Laboratory Results - last 24 hr 09/08/18 09/09/18 09/09/18 06:05 16:42 20:11 PT INR APTT PTT Ratio POC Glucose 232 H 156 H Homocysteine 8.6 09/10/18 09/10/18 09/10/18 05:41 07:52 11:48 PT 10.4 INR 1.0 APTT 51.3 H* PTT Ratio 1.9 POC Glucose 132 H 176 H Homocysteine
--- NOTE | 2018-09-10 13:19 | Hospitalist Progress Note ---
Date of Service September 10, 2018 delayed entry date of service 09/09/18 Assessment & Plan (1) Acute DVT (deep venous thrombosis): (1) Acute exacerbation of chronic obstructive pulmonary disease (COPD): improving weaned off oxygen Prednisone 40mg Nebs PRN (2) DVT (deep venous thrombosis): Peroneal Vein, Left has history of Lung Cancer, s/p Left Upper Lobe lobectomy discussed with Oncologist Dr. Reyes recommend 6 weeks of anticoagulation, then repeat Doppler US heparin bridge coumadin check INR tomorrow will need to establish with Coumadin clinic Hypercoagulable workup drawn in the ER-- >ff up Diabetes. Holding her home p.o. medication, placing her on Lantus insulin sliding scale. History of hypothyroidism, continue on Synthroid. History of hypertension, continue on lisinopril. History of SVT, stable . Currently not on any medication History of depression, continue Celexa. Gastroesophageal reflux disease. Continue Zantac. Morbid obesity. Needs followup as outpatient History of tobacco use, says quit smoking 19 months ago. Deep venous thrombosis prophylaxis -- Lovenox + coumadin Disposition: anticipate d/c home when medically stable ff up with PCP needs to be established with coumadin clinic Subjective ff up for DVT, COPD exacerbation resting, comfortable states she feels breathing continues to improve still has occasional leg cramps r>l no dyspnea no bleeding no other symptoms Physical Exam Vital Signs (Past 24 Hours): Last Vital Signs Temp 36.4 C L 09/10/18 08:01 Pulse 75 09/10/18 08:01 Resp 20 09/10/18 08:01 BP 128/72 09/10/18 09:19 Pulse Ox 96 09/10/18 08:01 Physical Exam: General- oriented x 3, not in distress, speaks in sentences with no effort or accessory muscle use Eyes- anicteric Neck- no JVD Lungs- faint wheeze b/l Heart- normal rate, regular rhythm; no murmurs Abdomen- normal bowel sounds, nondistended, soft, nontender Extremities- no pretibial edema, no calf tenderness/warmth/tenderness Neuro- alert, oriented x 3; no gross focal neurologic deficits Skin- warm & dry Results & Data Laboratory Results allnoted and reviewed
[2018-09-10] MEDS: ENOXAPARIN INJ 120 MG/0.8 ML SYR SQ SCH (14:51)
--- NOTE | 2018-09-10 15:09 | Pharmacy Report ---
Glycemic Control Progress Note - Date of Service September 10, 2018 - Scope Glycemic Pharmacist consulted for glycemic control to write orders per [facility] inpatient glycemic control protocol. - Objective Accuchecks BSG(last 24 hours):: 09/09/18 09/09/18 09/10/18 16:42 20:11 07:52 POC Glucose 232 H 156 H 132 H 09/10/18 11:48 POC Glucose 176 H HbA1c:: Hemoglobin A1c 9.8 % (4.5-5.6) H 09/08/18 06:05 - Recent Pertinent Medications The patient is currently receiving: * Basal insulin: Lantus 15-25 units every 12 hours + NPH 50 units qam * Correctional Insulin: Novolog Correction per scale ACHS Goal Range: Low 110 mg/dL - High 140 mg/dL Correction Factor: 10 mg/dL/unit * Prandial insulin: Per carb ratio of 1 unit per 4 grams CHO consumed * Oral Agents: - Outpatient Anti-Diabetic Meds outpatient medications: Glipizide - Assessment & Plan ASSESSMENT: * See progress note from 09/09 for more background info, in short: * Pt receiving SQ basal bolus insulin regimen for hyperglycemia secondary to baseline DM (outpatient regimen on hold),on Doxycycline for possible COPD exacerbation, steroids. * Patient is currently receiving an average of 162 units of insulin per day * 95 units of basal insulin (NPH 50 units/Lantus 45 units) * 67 units of prandial/correctional insulin * BSGs ranging 125 - 232 mg/dl over the past 24hrs * Changes needed to insulin regimen: * AM Fasting BSG = 132 mg/dl. This is in goal range for patient based on inpatient targets and co-morbidities. Therefore Basal insulin needs will be changed slightly to 20 units BID (Had received 45 total units of Lantus 09/09/18). * Post-prandial BSGs were not in range yesterday but steroids are being titrated down. Will continue with a correction factor of 12 and a carb. ratio of 5 g. She is an additional day out of the dexamethasone administration from ER. * Additional notes / comments: PLAN FOR INPATIENT GLYCEMIC CONTROL: * Oral Agents * Continue to hold outpatient oral diabetes medications. * Basal insulin * Lantus 20 units SQ BID * Bolus insulin * NovoLog per scale ACHS or Q6hrs while NPO * Goal Range: Low 110 mg/dL - High 140 mg/dL * Correction Factor: 12 mg/dL/unit * Nutritional / Prandial insulin per carb ratio of 1 unit per 5 grams CHO consumed * Please note that the plan above was derived based on current level of insulin resistance and hospital stress. These recommendations are appropriate for inpatient admission only. Plan of care upon discharge will need to be reassessed to avoid potential outpatient hypo/hyperglycemia. Thank you.
[2018-09-10] MEDS: NEOMYCIN/POLYMYX/HYDROCORT OT SOLN 10 ML BTL OT SCH ×2 (15:19→20:45)
[2018-09-10] MEDS: WARFARIN SOD 7.5 MG TAB PO SCH (15:19)
[2018-09-11] MEDS: ENOXAPARIN INJ 120 MG/0.8 ML SYR SQ SCH ×2 (00:03→08:38)
[2018-09-11] MEDS: LEVOTHYROXINE SODIUM 50 MCG TABLET PO SCH (05:53)
[2018-09-11 06:52] LABS: INR 1.2 (0.9-1.1); Prothrombin Time 11.9 Seconds (9.0-12.0)
[2018-09-11] MEDS: LISINOPRIL 20 MG TAB PO SCH (08:36)
[2018-09-11] MEDS: DOXYCYCLINE HYCLATE 100 MG CAP PO SCH ×2 (08:36→21:00)
[2018-09-11] MEDS: CITALOPRAM 20 MG TAB PO SCH (08:37)
[2018-09-11] MEDS: NEOMYCIN/POLYMYX/HYDROCORT OT SOLN 10 ML BTL OT SCH ×3 (08:38→21:02)
[2018-09-11] MEDS: TRELEGY ELLIPTA INH SCH (08:39)
[2018-09-11] MEDS: INSULIN GLARGINE SOLOSTAR 100 UNITS/ML 3 ML PEN SC SCH ×2 (08:42→21:11)
[2018-09-11] MEDS: INSULIN ASPART 100 UNITS/ML 3 ML PEN SC SCH ×4 (08:48→21:10)
[2018-09-11] MEDS: predniSONE 10 MG TABLET PO SCH (10:14)
[2018-09-11] MEDS: INSULIN HUMAN NPH SC SCH (10:16)
--- NOTE | 2018-09-11 13:37 | Pharmacy Report ---
Pharmacy Glycemic Short Note 2 - Date of Service September 11, 2018 - Glycemic Short BSG Results (Last 24 hours): 09/10/18 09/10/18 09/11/18 16:38 20:31 08:34 POC Glucose 176 H 154 H 112 H 09/11/18 10:55 POC Glucose 174 H OUTPATIENT ANTIDIABETIC REGIMEN: * Metformin 1000mg PO BID -- patient is not compliant d/t GI complaints * Glipizide (?) * HbA1c: 9.8% (09/08/18) ASSESSMENT: * Ms Lowe is a 63yo diabetic female admitted with LE DVT. * Patient is receiving prednisone for a COPD exacerbation, which is contributing to steroid-induced hyperglycemia. * BSGs have been relatively well-controlled for the past 24 hours since being established on a basal/bolus insulin regimen, with NPH in addition to cover the prednisone. * Prednisone dose was reduced this morning, so NPH was reduced accordingly. * Lantus dose will be reduced beginning with tonight's dose d/t fasting BSG below goal this morning. PLAN FOR INPATIENT GLYCEMIC CONTROL: * Hold outpatient oral diabetes medications * Basal insulin * Lantus 15 units SQ BID * NPH 40 units SQ daily (~0.3 units/kg), at the same time that prednisone is administered * Bolus insulin * NovoLog per scale ACHS or Q6hrs while NPO * Goal Range: Low 110 mg/dL - High 140 mg/dL * Correction Factor: 12 mg/dL/unit * Nutritional / Prandial insulin per carb ratio of 1 unit per 5 grams CHO consumed PLAN FOR DISCHARGE: * Patient's A1c (9.8%) indicates sub-optimal glycemic control as an outpatient. * Patient reports that she does not take her Metformin d/t GI discomfort. * Consider re-initiating Metformin using the extended-release formulation, to minimize GI distress. * Patient may require the addition of insulin if steroids are considered to continue post-discharge or until A1c normalizes. * Consider CDE consult during admission to review the importance of dietary considerations in glycemic management. * Recommend prompt f/u with PCP after discharge to work toward optimizing glycemic control.
[2018-09-11 15:07] LABS: Anti Cardiolipin Ab IgG <14 GPL (< = 14); Anti Cardiolipin Ab IgM <12 MPL (< = 12); Anti-Thrombin III Activity 124 % activity (80-120); B2 Glycoprotein IgA <9 SAU (<=20); B2 Glycoprotein IgG <9 SGU (<=20); B2 Glycoprotein IgM <9 SMU (<=20); Lupus Anticoagulant Negative (Negative); Protein S Functional(Activity) 119 % (60-140)
[2018-09-11] MEDS: WARFARIN SOD 7.5 MG TAB PO SCH (16:01)
--- NOTE | 2018-09-11 16:55 | Hospitalist Progress Note ---
Date of Service September 11, 2018 Assessment & Plan (1) Acute DVT (deep venous thrombosis): acute exacerbation of chronic obstructive pulmonary disease (COPD): -the excacerbation has been resolved -currently on room air -has been on Doxycycline BID, will continue -on Prednisone 30mg, continue -nebulizers are as needed DVT (deep venous thrombosis): -has history of Lung Cancer, s/p Left Upper Lobe lobectomy -The DVT is localized to Left Peroneal Vein -Labs for Hypercoagulable risks were drawn in the the ER on admission -previous hospitalist had discussed with Oncologist Dr. Reyes who recommend 6 weeks of anticoagulation, then repeat Doppler US -Patient could not afford anticoagulation other than coumadin and currently the patient on Lovenox as 1 mg/kg BID (135 mg BID) with daily coumadin -INR on 09/11/18 is 1.2 -trend INR 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 , not on terminal superintendent use of insulin at home -holding home dose metformin -HbA1c 9.8 -on Lantus and insulin sliding scale while in the hospital -will need to discuss with case management about patient's ability to afford insulin on discharge History of hypothyroidism continue on Synthroid. History of hypertension continue on lisinopril. History of SVT heart rhythm is currently sinus Currently not on any medication History of depression continue Celexa. Gastroesophageal reflux disease Continue Zantac. Morbid obesity with BMI 48 Needs followup as outpatient History of tobacco use, says quit smoking 19 months ago. Deep venous thrombosis prophylaxis: Lovenox with coumadin Subjective Patient denies chest pain or shortness of breath. Is ambulatory. denies blood in urine or blood in stool or blood from mouth Physical Exam Vital Signs (Past 24 Hours): Last Vital Signs Temp 36.8 C 09/11/18 15:24 Pulse 90 09/11/18 15:24 Resp 16 09/11/18 15:24 BP 126/81 09/11/18 15:24 Pulse Ox 93 09/11/18 15:24 Constitutional: WD/WN, vitals as above + obese Eyes: PERRL, conjunctivae normal, anicteric sclerae EOM intact bilaterally ENMT: external ear and nose normal, oropharynx normal Neck: trachea midline, no thyromegaly Respiratory: normal respiratory effort, lungs clear to auscultation Cardiovascular: Rate/Rhythm: regular rate and regular rhythm Gastrointestinal (Abdomen): normal bowel sounds, soft, nontender, no hepatosplenomegaly Musculoskeletal: no cyanosis or clubbing, extremities motor strength 5/5 Head/Neck/Chest: normocephalic and head atraumatic Neurologic: PERRL, EOMI, accommodation nl, no face palsy, no dysarthria CN's II-XI intact bilaterally Psychiatric: A+Ox3, euthymic affect
[2018-09-11] MEDS: ENOXAPARIN 150 MG/ML SYR SQ SCH (21:06)
[2018-09-12] MEDS: LEVOTHYROXINE SODIUM 50 MCG TABLET PO SCH (06:33)
[2018-09-12 07:02] LABS: Hematocrit (blood only) 43.7 % (37-47); Hemoglobin 14.4 g/dL (12.0-16.0); Mean Corpuscular Volume 85.9 fL (80-100); Mean Platelet Volume 10.3 fL (7.4-10.4); Platelet Count 169 K/uL (130-400); RDW Coefficient of Variation 14.9 % (11.5-14.5); RDW Standard Deviation 47.2 fL (36.4-46.3); Red Blood Count 5.09 M/uL (4.2-5.4); White Blood Count 6.87 K/uL (4.8-10.8)
[2018-09-12 07:11] LABS: INR 1.5 (0.9-1.1); Prothrombin Time 14.9 Seconds (9.0-12.0)
[2018-09-12 07:40] LABS: BUN Creatinine Ratio 32.7 (10-20); Calcium 8.9 mg/dl (8.5-10.1); Creatinine Clr Calc Pharmacy 108.5 ml/min; Est GFR (African American) 97.4; Est GFR (Non-African American) 84.1; Potassium 3.5 mmol/L (3.5-5.1)
[2018-09-12] MEDS: LISINOPRIL 20 MG TAB PO SCH (08:14)
[2018-09-12] MEDS: predniSONE 10 MG TABLET PO SCH (08:14)
[2018-09-12] MEDS: CITALOPRAM 20 MG TAB PO SCH (08:14)
[2018-09-12] MEDS: NEOMYCIN/POLYMYX/HYDROCORT OT SOLN 10 ML BTL OT SCH ×3 (08:14→21:40)
[2018-09-12] MEDS: TRELEGY ELLIPTA INH SCH (08:15)
[2018-09-12] MEDS: DOXYCYCLINE HYCLATE 100 MG CAP PO SCH ×2 (08:15→21:39)
[2018-09-12] MEDS: INSULIN ASPART 100 UNITS/ML 3 ML PEN SC SCH ×4 (08:17→21:37)
[2018-09-12] MEDS: INSULIN HUMAN NPH SC SCH (08:22)
[2018-09-12] MEDS: INSULIN GLARGINE SOLOSTAR 100 UNITS/ML 3 ML PEN SC SCH ×2 (08:28→21:38)
[2018-09-12] MEDS: ENOXAPARIN 150 MG/ML SYR SQ SCH ×2 (09:39→21:38)
[2018-09-12] MEDS: WARFARIN SOD 7.5 MG TAB PO SCH (16:00)
--- NOTE | 2018-09-12 16:41 | Hospitalist Progress Note ---
Date of Service September 12, 2018 Assessment & Plan (1) Acute DVT (deep venous thrombosis): acute exacerbation of chronic obstructive pulmonary disease (COPD): -the exacerbation has been resolved -currently on room air -has been on Doxycycline BID, will continue -will de-escalate prednisone to taper -nebulizers are as needed DVT (deep venous thrombosis): -has history of Lung Cancer, s/p Left Upper Lobe lobectomy -The DVT is localized to Left Peroneal Vein -Labs for Hypercoagulable risks were drawn in the the ER on admission -previous hospitalist had discussed with Oncologist Dr. Reyes who recommend 6 weeks of anticoagulation, then repeat Doppler US -Patient could not afford anticoagulation other than coumadin and currently the patient on Lovenox as 1 mg/kg BID (135 mg BID) with daily coumadin -INR on 09/12/18 is 1.5 -trend INR 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 , not on [facility] use of insulin at home -holding home dose metformin -HbA1c 9.8 -on Lantus and insulin sliding scale while in the hospital -continue discussion with case management about patient's ability to afford insulin on discharge History of hypothyroidism continue on Synthroid. History of hypertension continue on lisinopril. History of SVT heart rhythm is currently sinus Currently not on any medication History of depression continue Celexa. Gastroesophageal reflux disease Continue Zantac. Morbid obesity with BMI 48 Needs followup as outpatient History of tobacco use, says quit smoking 19 months ago. Deep venous thrombosis prophylaxis: Lovenox with coumadin Subjective Patient denies chest pain or shortness of breath. Is ambulatory. denies blood in urine or blood in stool or blood from mouth INR is 1.5 while on coumadin and full dosed Lovenox Physical Exam Vital Signs (Past 24 Hours): Last Vital Signs Temp 36.7 C 09/12/18 15:14 Pulse 82 09/12/18 15:14 Resp 19 09/12/18 15:14 BP 133/81 09/12/18 15:14 Pulse Ox 90 09/12/18 15:14 Constitutional: WD/WN, vitals as above + obese Eyes: PERRL, conjunctivae normal, anicteric sclerae EOM intact bilaterally ENMT: external ear and nose normal, oropharynx normal Neck: trachea midline, no thyromegaly Respiratory: normal respiratory effort, lungs clear to auscultation Cardiovascular: Rate/Rhythm: regular rate and regular rhythm Gastrointestinal (Abdomen): normal bowel sounds, soft, nontender, no hepatosplenomegaly Musculoskeletal: no cyanosis or clubbing, extremities motor strength 5/5 Head/Neck/Chest: normocephalic and head atraumatic Neurologic: PERRL, EOMI, accommodation nl, no face palsy, no dysarthria CN's II-XI intact bilaterally Psychiatric: A+Ox3, euthymic affect
[2018-09-13] MEDS: LEVOTHYROXINE SODIUM 50 MCG TABLET PO SCH (05:52)
[2018-09-13 06:34] LABS: Basophils # (auto) 0.02 K/uL (0-0.2); Basophils % (auto) 0.3 %; Eosinophils # (auto) 0.03 K/uL (0-0.5); Eosinophils % (auto) 0.5 %; Hematocrit (blood only) 44.6 % (37-47); Hemoglobin 14.5 g/dL (12.0-16.0); Immature Granulocytes # (auto) 0.05 K/uL (0.00-0.02); Immature Granulocytes % (auto) 0.8 %; Lymphocytes # (auto) 2.21 K/uL (1.2-3.4); Lymphocytes % (auto) 33.9 %; Mean Corpuscular Hgb Conc 32.5 g/dL (32-36); Mean Corpuscular Volume 86.4 fL (80-100); Mean Platelet Volume 10.7 fL (7.4-10.4); Monocytes # (auto) 0.87 K/uL (0.11-0.59); Monocytes % (auto) 13.4 %; Neutrophils # (auto) 3.33 K/uL (1.4-6.5); Neutrophils % (auto) 51.1 %; Platelet Count 169 K/uL (130-400); RDW Standard Deviation 47.7 fL (36.4-46.3); Red Blood Count 5.16 M/uL (4.2-5.4); White Blood Count 6.51 K/uL (4.8-10.8)
[2018-09-13 06:41] LABS: INR 1.7 (0.9-1.1); Prothrombin Time 16.5 Seconds (9.0-12.0)
[2018-09-13 07:10] LABS: BUN Creatinine Ratio 29.9 (10-20); Calcium 8.5 mg/dl (8.5-10.1); Creatinine Clr Calc Pharmacy 90.6 ml/min; Est GFR (African American) 78.4; Est GFR (Non-African American) 67.6; Potassium 3.5 mmol/L (3.5-5.1)
[2018-09-13] MEDS: CITALOPRAM 20 MG TAB PO SCH (08:12)
[2018-09-13] MEDS: ENOXAPARIN 150 MG/ML SYR SQ SCH ×2 (08:12→20:28)
[2018-09-13] MEDS: DOXYCYCLINE HYCLATE 100 MG CAP PO SCH ×2 (08:13→20:34)
[2018-09-13] MEDS: LISINOPRIL 20 MG TAB PO SCH (08:13)
[2018-09-13] MEDS: TRELEGY ELLIPTA INH SCH (08:14)
--- NOTE | 2018-09-13 08:15 | Hospitalist Progress Note ---
Date of Service September 13, 2018 Assessment & Plan (1) Acute DVT (deep venous thrombosis): acute exacerbation of chronic obstructive pulmonary disease (COPD): -the exacerbation has been resolved -currently on room air -has been on Doxycycline BID, will continue -continue prednisone taper -nebulizers are as needed DVT (deep venous thrombosis): -has history of Lung Cancer, s/p Left Upper Lobe lobectomy -The DVT is localized to Left Peroneal Vein -Labs for Hypercoagulable risks were drawn in the the ER on admission -previous hospitalist had discussed with Oncologist Dr. 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 History of hypertension continue on lisinopril. History of SVT heart rhythm is currently sinus Currently not on any medication History of depression continue Celexa. Gastroesophageal reflux disease Continue Zantac. Morbid obesity with BMI 48 Needs followup as outpatient History of tobacco use, says quit smoking 19 months ago. Deep venous thrombosis prophylaxis: Lovenox 135 mg BID with daily coumadin; trend INR, the target INR for which to discontinue the BID Lovenox is between levels of INR 2 to 3 Subjective Patient denies chest pain or shortness of breath. Is ambulatory. denies blood in urine or blood in stool or blood from mouth INR is 1.7 while on coumadin and full dosed BID Lovenox Physical Exam Vital Signs (Past 24 Hours): Last Vital Signs Temp 36.6 C 09/13/18 07:39 Pulse 68 09/13/18 07:39 Resp 17 09/13/18 07:39 BP 150/80 H 09/13/18 07:39 Pulse Ox 97 09/13/18 07:39 Constitutional: WD/WN, vitals as above + obese Eyes: PERRL, conjunctivae normal, anicteric sclerae EOM intact bilaterally ENMT: external ear and nose normal, oropharynx normal Neck: trachea midline, no thyromegaly Respiratory: normal respiratory effort, lungs clear to auscultation Cardiovascular: Rate/Rhythm: regular rate and regular rhythm Gastrointestinal (Abdomen): normal bowel sounds, soft, nontender, no hepatosplenomegaly Musculoskeletal: no cyanosis or clubbing, extremities motor strength 5/5 Head/Neck/Chest: normocephalic and head atraumatic Neurologic: PERRL, EOMI, accommodation nl, no face palsy, no dysarthria CN's II-XI intact bilaterally Psychiatric: A+Ox3, euthymic affect
[2018-09-13] MEDS: INSULIN ASPART 100 UNITS/ML 3 ML PEN SC SCH ×4 (08:22→20:30)
[2018-09-13] MEDS: INSULIN GLARGINE SOLOSTAR 100 UNITS/ML 3 ML PEN SC SCH ×2 (08:24→20:29)
[2018-09-13] MEDS: NEOMYCIN/POLYMYX/HYDROCORT OT SOLN 10 ML BTL OT SCH ×3 (08:24→20:36)
[2018-09-13] MEDS ORDERED: INSULIN GLARGINE SOLOSTAR 100 UNITS/ML 3 ML PEN SC SCH (09:00)
[2018-09-13] MEDS ORDERED: predniSONE 20 MG TAB PO SCH (09:00)
[2018-09-13] MEDS ORDERED: INSULIN HUMAN NPH SC SCH (09:00)
--- NOTE | 2018-09-13 10:50 | Pharmacy Report ---
Pharmacy Glycemic Short Note 2 - Date of Service September 13, 2018 - Glycemic Short BSG Results (Last 24 hours): 09/12/18 09/12/18 09/12/18 11:22 16:55 20:41 Glucose POC Glucose 139 H 205 H 136 H 09/13/18 09/13/18 05:19 07:39 Glucose 128 H POC Glucose 110 H OUTPATIENT ANTIDIABETIC REGIMEN: * Metformin 1000mg PO BID -- patient is not compliant d/t GI complaints * Glipizide (?) * HbA1c: 9.8% (09/08/18) ASSESSMENT: * Ms Lowe is a 63yo diabetic female admitted with LE DVT. * Patient is receiving prednisone for a COPD exacerbation, which is contributing to steroid-induced hyperglycemia. Dose of prednisone is tapering daily. Pharmacy is tapering insulin regimen with each step down in steroid dosing. * BSGs have been relatively well-controlled for the past 24 hours since being established on a basal/bolus insulin regimen, with NPH in addition to cover the prednisone. * Prednisone dose was reduced this morning, so NPH was reduced accordingly. * Lantus dose also reduced for AM fasting BSG below goal this morning. PLAN FOR INPATIENT GLYCEMIC CONTROL: * Hold outpatient oral diabetes medications * Basal insulin * Decrease: Lantus 12 units SQ BID * Decrease: NPH 27 units SQ daily (~0.2 units/kg), at the same time that prednisone is administered for prednisone 20mg * Bolus insulin: no change * NovoLog per scale ACHS or Q6hrs while NPO * Goal Range: Low 110 mg/dL - High 140 mg/dL * Correction Factor: 12 mg/dL/unit * Nutritional / Prandial insulin per carb ratio of 1 unit per 5 grams CHO consumed PLAN FOR DISCHARGE: * Patient's A1c (9.8%) indicates sub-optimal glycemic control as an outpatient. * Patient reports that she does not take her Metformin d/t GI discomfort. * Consider re-initiating Metformin using the extended-release formulation, to minimize GI distress. * Patient may require the addition of insulin if steroids are considered to co ntinue post-discharge or until A1c normalizes. * Consider CDE consult during admission to review the importance of dietary considerations in glycemic management. * Recommend prompt f/u with PCP after discharge to work toward optimizing glycemic control.
[2018-09-13] MEDS: WARFARIN SOD 7.5 MG TAB PO SCH (15:41)
[2018-09-13 23:04] VITALS: TEMP 97.5
[2018-09-14] MEDS: LEVOTHYROXINE SODIUM 50 MCG TABLET PO SCH (06:28)
[2018-09-14 06:33] LABS: INR 2.2 (0.9-1.1); Prothrombin Time 21.3 Seconds (9.0-12.0)
[2018-09-14 07:26] VITALS: O2SAT 96
--- NOTE | 2018-09-14 08:14 | Pharmacy Report ---
Pharmacy Glycemic Short Note 2 - Date of Service September 14, 2018 - Glycemic Short BSG Results (Last 24 hours): 09/13/18 09/13/18 09/13/18 11:26 16:41 20:11 POC Glucose 125 H 218 H 194 H 09/14/18 07:32 POC Glucose 117 H OUTPATIENT ANTIDIABETIC REGIMEN: * Metformin 1000mg PO BID -- patient is not compliant d/t GI complaints * Glipizide (?) * HbA1c: 9.8% (09/08/18) ASSESSMENT: * Ms Lowe is a 63yo diabetic female admitted with LE DVT. * Patient is receiving prednisone for a COPD exacerbation, which is contributing to steroid-induced hyperglycemia. Dose of prednisone is tapering daily. Pharmacy is tapering insulin regimen with each step down in steroid dosing. * BSGs have been relatively well-controlled for the past 24 hours since being established on a basal/bolus insulin regimen, with NPH in addition to cover the prednisone. * Prednisone dose was reduced this morning, so NPH was reduced accordingly. * AM fasting BSG in goal this morning. No changes needed to Lantus dosing PLAN FOR INPATIENT GLYCEMIC CONTROL: * Hold outpatient oral diabetes medications * Basal insulin * NO CHANGE Lantus 12 units SQ BID * Decrease: NPH 15 units SQ daily (~0.1 units/kg), at the same time that prednisone is administered for prednisone 10mg * Bolus insulin: no change * NovoLog per scale ACHS or Q6hrs while NPO * Goal Range: Low 110 mg/dL - High 140 mg/dL * Correction Factor: 12 mg/dL/unit * Nutritional / Prandial insulin per carb ratio of 1 unit per 5 grams CHO consumed PLAN FOR DISCHARGE: * Patient's A1c (9.8%) indicates sub-optimal glycemic control as an outpatient. * Patient reports that she does not take her Metformin d/t GI discomfort. * Consider re-initiating Metformin using the extended-release formulation, to minimize GI distress. * Patient may require the addition of insulin if steroids are considered to continue post-discharge or until A1c normalizes. * Consider CDE consult during admission to review the importance of dietary considerations in glycemic management. * Recommend prompt f/u with PCP after discharge to work toward optimizing glycemic control.
[2018-09-14] MEDS: LISINOPRIL 20 MG TAB PO SCH (08:29)
[2018-09-14] MEDS: CITALOPRAM 20 MG TAB PO SCH (08:29)
[2018-09-14] MEDS: INSULIN ASPART 100 UNITS/ML 3 ML PEN SC SCH ×2 (08:30→12:31)
[2018-09-14] MEDS: NEOMYCIN/POLYMYX/HYDROCORT OT SOLN 10 ML BTL OT SCH (08:30)
[2018-09-14] MEDS: INSULIN GLARGINE SOLOSTAR 100 UNITS/ML 3 ML PEN SC SCH (08:31)
[2018-09-14] MEDS: TRELEGY ELLIPTA INH SCH (08:31)
[2018-09-14] MEDS ORDERED: INSULIN HUMAN NPH SC SCH (09:00)
[2018-09-14] MEDS ORDERED: predniSONE 10 MG TABLET PO SCH (09:00)
--- NOTE | 2018-09-14 11:59 | Hospitalist Progress Note ---
Date of Service September 14, 2018 Assessment & Plan (1) Acute DVT (deep venous thrombosis): acute exacerbation of chronic obstructive pulmonary disease (COPD): -the exacerbation has been resolved, has received nebulizer treatments on this admission -currently on room air -has been on Doxycycline BID and completed 6 days of antibiotics -completed the prednisone taper -patient to resume home inhaler on discharge DVT (deep venous thrombosis): acute left lower extremity DVT (DVT is localized t o Left Peroneal Vein) has history of Lung Cancer with Left Upper Lobe lobectomy -The DVT is localized to Left Peroneal Vein -Labs for Hypercoagulable risks were drawn in the the ER on admission -previous hospitalist had discussed with Oncologist Dr. Reyes who recommend 6 weeks of anticoagulation, then repeat Doppler US -Patient could not afford anticoagulation other than coumadin and currently the patient on Lovenox as 1 mg/kg BID (135 mg BID) with daily coumadin -INR on 09/13/18 is 1.7 -INR on 09/14/18 is 2.2; and the Lovenox is stopped -Patient has outpatient follow up 09/18/2018 1:10 PM Provider Colton Morse DO Department [facility] ([facility] clinic appointment line also called to scheduled an appointment to coumadin clinic) Patient should have INR checked while on coumadin to obtain INR of 2 to 3 for protection from deep vein thrombosis Patient was taking coumadin 7.5 mg daily while in the hospital to get a a therapeutic INR. INR on 09/14/18 is 2.2. Patient receive coumadin 5 mg by mouth on 09/14/18 prior to discharge and given prescription coumadin with 5 mg daily to start on 09/15/18 avoid excessively high INR. 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, with hyperglycemia -holding home dose metformin -HbA1c 9.8 -on Lantus and insulin sliding scale while in the hospital -09/14/18: Patient should discuss with primary care doctor about further use of insulin for control of Type 2 diabetes mellitus Patient may resume the metformin as 1000 mg twice a day on discharge Patient discharged on Lantus 10 units daily (but she may need to be on more insulin in future because HbA1c 9.8, in the hospital when metformin was held she was on Lantus 12 units BID and Novolin 15 units) Patient given paper prescriptions for diabetes supplies History of hypothyroidism continue on Synthroid. History of hypertension continue on lisinopril. History of SVT heart rhythm is currently sinus Currently not on any medication History of depression continue Celexa. Gastroesophageal reflux disease Continue Zantac. Morbid obesity with BMI 48 Needs followup as outpatient History of tobacco use, says quit smoking 19 months ago. Deep venous thrombosis prophylaxis: therapeutic INR Discharge Diagnosis 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 with elevated HbA1c from hyperglycemia, acute left lower extremity DVT (DVT is localized to Left Peroneal Vein), acute exacerbation of chronic obstructive pulmonary disease, history of Lung Cancer with Left Upper Lobe lobectomy Discharge Instructions Discharge to home 09/18/2018 1:10 PM Provider DO [facility] to scheduled an appointment to coumadin clinic) Patient should have INR checked while on coumadin to obtain INR of 2 to 3 for protection from deep vein thrombosis Patient was taking coumadin 7.5 mg daily while in the hospital to get a a therapeutic INR. INR on 09/14/18 is 2.2. Patient receive coumadin 5 mg by mouth on 09/14/18 prior to discharge and given prescription coumadin with 5 mg daily to start on 09/15/18 avoid excessively high INR. Patient should discuss with primary care doctor about further use of insulin for control of Type 2 diabetes mellitus Patient may resume the metformin as 1000 mg twice a day on discharge Patient discharged on Lantus 10 units daily (but she may need to be on more insulin in future because HbA1c 9.8, in the hospital when metformin was held she was on Lantus 12 units BID and Novolin 15 units) Patient given paper prescriptions for diabetes supplies Subjective Patient denies chest pain or shortness of breath. Is ambulatory. denies blood in urine or blood in stool or blood from mouth INR is 2.2 while on coumadin; The Lovenox has been stopped because the INR at goal. Discharge plans and instructions were discussed at length with the patient Physical Exam Vital Signs (Past 24 Hours): Last Vital Signs Temp 36.4 C L 09/14/18 07:25 Pulse 60 09/14/18 07:25 Resp 16 09/14/18 07:25 BP 117/76 09/14/18 07:25 Pulse Ox 96 09/14/18 07:25 Constitutional: WD/WN, vitals as above + obese Eyes: PERRL, conjunctivae normal, anicteric sclerae EOM intact bilaterally ENMT: external ear and nose normal, oropharynx normal Neck: trachea midline, no thyromegaly Respiratory: normal respiratory effort, lungs clear to auscultation Cardiovascular: Rate/Rhythm: regular rate and regular rhythm Gastrointestinal (Abdomen): normal bowel sounds, soft, nontender, no hepatosplenomegaly Musculoskeletal: no cyanosis or clubbing, extremities motor strength 5/5 Head/Neck/Chest: normocephalic and head atraumatic Neurologic: PERRL, EOMI, accommodation nl, no face palsy, no dysarthria CN's II-XI intact bilaterally Psychiatric: A+Ox3, euthymic affect
--- NOTE | 2018-09-14 12:08 | Discharge Summary ---
Date of Service September 14, 2018 Admission HPI Per Admitting Provider [facility], [place] History and Physical Report Signed Patient: GAYLA MERCER Date: 09/08/18 MR#: [id number] Phy: aYred Mckee MD Acct ID:[id number] Phy: Colton Morse, D.O. Date: 1955Fam Phy: Elías Pierce MD Age: 63Location: 4E Sex: F Room/Bed: [facility] cc: Schuyler Mccann MD~ DICTATED BY: Schuyler Mccann MD DATE OF ADMISSION: 09/08/2018 CHIEF COMPLAINT: Cramps in lower extremities. 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 Quit smoking about 19 months ago. Presents with cramping in her lower extremity and found to have left lower extremity DVT. The patient says she has pain in lower extremity about 3 weeks ago but got resolved and again started to have severe leg cramps since last 2-3 days which prompted her to come to ER. She also has some increase in cough and she was on oxygen before but was recently taken off. In the ER, she was saturating 88% on room air and requiring 2 liters of oxygen. Denies any headache, no blurred vision, no runny nose, no sore throat or difficulty swallowing. No chest pain, no nausea, no vomiting, no abdominal pain. Normal bowel and bladder movements. No hematuria, no melena, no hematochezia. Ambulates okay. Lives with her son. ALLERGIES: AZITHROMYCIN, CEFUROXIME, LEVAQUIN, PENICILLIN, SULFA ANTIBIOTICS, TAPE. PAST MEDICAL HISTORY: As mentioned above. PAST SURGICAL HISTORY: Bronchoscopy, , cystoscopy, Left hip core decompression, appendectomy, removal of kidney stone, left upper lobectomy, total abdominal hysterectomy with removal of tubes, left total hip replacement. MEDICATIONS: The patient is on glipizide 5 mg p.o. daily, lisinopril 20 mg p.o. daily, tramadol 50 mg p.o. q. 8 hours p.r.n., ipratropium nebulization 4 times a day, citalopram 20 mg p.o. daily, levothyroxine 50 mcg p.o. daily, metformin 1000 mg p.o. b.i.d., Zantac 300 mg p.o. at bedtime, Nasonex 2 sprays into each nostril daily, albuterol 2 puffs every 4 hours p.r.n., albuterol nebulization every 4 hours p.r.n., Trelegy Ellipta 1 puff daily, hydroxyzine 25 mg p.o. q. 6 hours p.r.n. FAMILY HISTORY: Significant for mother has asthma, MD. Father from ruptured aneurysm and COPD. Sister has rhinitis. Son has asthma. Daughter has asthma. Brother has asthma. SOCIAL HISTORY: , lives with son, former smoker. Smoked 2 packs every day for 43 years. No alcohol use, no drug use. Admission Exam Per Admitting Provider REVIEW OF SYSTEMS: As per HPI. Rest of the review of systems negative. PHYSICAL EXAMINATION: GENERAL: The patient is obese, not in acute distress. VITAL SIGNS: Temperature 36.8, pulse 97, respiratory rate 20, blood pressure 177/92, oxygen 88% on room air. HEENT: No pallor, no icterus. Pupils equal, round, and reactive to light. NECK: No JVD, no neck masses, no carotid bruits. CARDIOVASCULAR: S1, S2 heard, regular rate and rhythm, no murmur, no gallop. RESPIRATORY SYSTEM: Clear to auscultation bilaterally. No wheezing, no crackles. ABDOMEN: Soft, bowel sounds present. Nontender. No distention. CENTRAL NERVOUS SYSTEM: Cranial nerves II through XII grossly intact, nonfocal. EXTREMITIES: Left lower extremity erythematous medial aspect of thigh region. Principal Diagnosis 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 , not on intermediate use of insulin at home with elevated HbA1c from hyperglycemia, acute left lower extremity DVT (DVT is localized to Left Peroneal Vein), acute exacerbation of chronic obstructive pulmonary disease, history of Lung Cancer with Left Upper Lobe lobectomy Discharge Exam Constitutional WD/WN, vitals as above + obese Eyes PERRL, conjunctivae normal, anicteric sclerae EOM intact bilaterally ENMT external ear and nose normal, oropharynx normal Neck trachea midline, no thyromegaly Respiratory normal respiratory effort, lungs clear to auscultation Cardiovascular Rate/Rhythm: regular rate and regular rhythm Gastrointestinal (Abdomen) normal bowel sounds, soft, nontender, no hepatosplenomegaly Musculoskeletal no cyanosis or clubbing, extremities motor strength 5/5 Head/Neck/Chest: normocephalic and head atraumatic Neurologic PERRL, EOMI, accommodation nl, no face palsy, no dysarthria CN's II-XI intact bilaterally Psychiatric A+Ox3, euthymic affect Discharge Data Allergies Allergy/AdvReac Type Severity Reaction Status Date / Time mivacurium Allergy Severe cardiac Verified 09/08/18 00:17 arrhythmia Penicillins Allergy Severe HIVES, SOB Verified 09/08/18 00:17 Sulfa (Sulfonamide Allergy Severe HIVES AND Verified 09/08/18 00:17 Antibiotics) SOB WITH ORAL SULFA DRUGS, OK W/SILVADENE Cephalosporins Allergy Intermediate HIVES WITH Verified 09/08/18 00:17 CEFTIN Quinolones Allergy Mild HIVES-BUT Verified 09/08/18 00:17 HAD LEVAQUIN IN ER 03/05/09 W/O PROBLEM adhesive Allergy Unknown TAPE-SORES Verified 09/08/18 00:17 ON SKIN iodine Allergy Unknown REDNESS - Verified 09/08/18 00:17 see notes (topical), Inectable dye - n/v Consultations 09/08/18 01:31 ED Decision to Admit Stat 09/08/18 04:42 Consult Case Management - Discharge Planning Routine Ordered Studies 09/07/18 22:48 US venous doppler LE Urgent 09/07/18 22:51 CT angio chest PE protocol Urgent 09/08/18 10:45 US arterial duplex [facility] Routine Hospital Course (1) Acute DVT (deep venous thrombosis): acute exacerbation of chronic obstructive pulmonary disease (COPD): -the exacerbation has been resolved, has received nebulizer treatments on this admission -currently on room air -has been on Doxycycline BID and completed 6 days of antibiotics -completed the prednisone taper -patient to resume home inhaler on discharge DVT (deep venous thrombosis): acute left lower extremity DVT (DVT is localized to Left Peroneal Vein) has history of Lung Cancer with Left Upper Lobe lobectomy -The DVT is localized to Left Peroneal Vein -Labs for Hypercoagulable risks were drawn in the the ER on admission -previous hospitalist had discussed with Oncologist Dr. Reyes who recommend 6 weeks of anticoagulation, then repeat Doppler US -Patient could not afford anticoagulation other than coumadin and currently the patient on Lovenox as 1 mg/kg BID (135 mg BID) with daily coumadin -INR on 09/13/18 is 1.7 -INR on 09/14/18 is 2.2; and the Lovenox is stopped -Patient has outpatient follow up 09/18/2018 1:10 PM Provider Colton Morse DO [facility] ([facility] clinic appointment line also called to scheduled an appointment to coumadin clinic) Patient should have INR checked while on coumadin to obtain INR of 2 to 3 for protection from deep vein thrombosis Patient was taking coumadin 7.5 mg daily while in the hospital to get a a therapeutic INR. INR on 09/14/18 is 2.2. Patient receive coumadin 5 mg by mouth on 09/14/18 prior to discharge and given prescription coumadin with 5 mg daily to start on 09/15/18 avoid excessively high INR. 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 , not on intermediate use of insulin at home, with hyperglycemia -holding home dose metformin -HbA1c 9.8 -on Lantus and insulin sliding scale while in the hospital -09/14/18: Patient should discuss with primary care doctor about further use of insulin for control of Type 2 diabetes mellitus Patient may resume the metformin as 1000 mg twice a day on discharge Patient discharged on Lantus 10 units daily (but she may need to be on more insulin in future because HbA1c 9.8, in the hospital when metformin was held she was on Lantus 12 units BID and Novolin 15 units) Patient given paper prescriptions for diabetes supplies History of hypothyroidism continue on Synthroid. History of hypertension continue on lisinopril. History of SVT heart rhythm is currently sinus Currently not on any medication History of depression continue Celexa. Gastroesophageal reflux disease Continue Zantac. Morbid obesity with BMI 48 Needs followup as outpatient History of tobacco use, says quit smoking 19 months ago. Deep venous thrombosis prophylaxis: therapeutic INR Discharge Diagnosis 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 , not on continuous churn buttermaker use of insulin at home with elevated HbA1c from hyperglycemia, acute left lower extremity DVT (DVT is localized to Left Peroneal Vein), acute exacerbation of chronic obstructive pulmonary disease, history of Lung Cancer with Left Upper Lobe lobectomy Discharge Instructions Discharge to home 09/18/2018 1:10 PM Provider Colton Morse DO [facility] ([facility] clinic appointment line also called to scheduled an appointment to coumadin clinic) Patient should have INR checked while on coumadin to obtain INR of 2 to 3 for protection from deep vein thrombosis Patient was taking coumadin 7.5 mg daily while in the hospital to get a a therapeutic INR. INR on 09/14/18 is 2.2. Patient receive coumadin 5 mg by mouth on 09/14/18 prior to discharge and given prescription coumadin with 5 mg daily to start on 09/15/18 avoid excessively high INR. Patient should discuss with primary care doctor about further use of insulin for control of Type 2 diabetes mellitus Patient may resume the metformin as 1000 mg twice a day on discharge Patient discharged on Lantus 10 units daily (but she may need to be on more insulin in future because HbA1c 9.8, in the hospital when metformin was held she was on Lantus 12 units BID and Novolin 15 units) Patient given paper prescriptions for diabetes supplies Total Time Total Time Spent Total Time Spent (In Minutes): 40 minutes Total Time Includes: Examination of the Patient, Discharge Planning and Medic ation Reconciliation Discharge Plan Discharge Items Patient Disposition: Home - Self-Care Reason For Visit: LEG PAIN Discharge Diagnosis: 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 , not on continuous churn buttermaker use of insulin at home with elevated HbA1c from hyperglycemia, acute left lower extremity DVT (DVT is localized to Left Peroneal Vein), acute exacerbation of chronic obstructive pulmonary disease, history of Lung Cancer with Left Upper Lobe lobectomy Condition: Good Discharge Goals: Improve disease control Activity: Resume your previous activity Non-emergency contact: Primary Care Provider Call non-emergency contact if: you have any medication questions Follow-up/Referrals: Colton Morse [Primary Care Provider] - Diet: Carb Consistent or DM2 Addtl Provider Instructions: Discharge to home 09/18/2018 1:10 PM Provider Colton Morse DO [facility] ([facility] clinic appointment line also called to scheduled an appointment to coumadin clinic) Patient should have INR checked while on coumadin to obtain INR of 2 to 3 for protection from deep vein thrombosis Patient was taking coumadin 7.5 mg daily while in the hospital to get a a therapeutic INR. INR on 09/14/18 is 2.2. Patient receive coumadin 5 mg by mouth on 09/14/18 prior to discharge and given prescription coumadin with 5 mg daily to start on 09/15/18 avoid excessively high INR. Patient should discuss with primary care doctor about further use of insulin for control of Type 2 diabetes mellitus Patient may resume the metformin as 1000 mg twice a day on discharge Patient discharged on Lantus 10 units daily (but she may need to be on more insulin in future because HbA1c 9.8, in the hospital when metformin was held she was on Lantus 12 units BID and Novolin 15 units) Patient given paper prescriptions for diabetes supplies Prescriptions: New lisinopril 20 mg Tablet 20 mg PO DAILY 30 Days Qty: 30 RF: 0 warfarin [Coumadin] 5 mg Tablet 5 mg PO DAILY@1600 30 Days Qty: 30 RF: 0 metformin 1,000 mg tablet,ER sierra.retention 24 hr 1,000 mg PO BID 30 Days Qty: 60 RF: 0 Lantus Solostar U-100 Insulin 100 unit/mL (3 mL) Insulin Pen 10 unit SC DAILY 30 Days Qty: 3 RF: 0 Continued tramadol 50 mg Tablet 50 mg PO Q8 PRN (Reason: Pain) RF: 0 ranitidine HCl 150 mg Tablet 150 mg PO BID RF: 0 albuterol sulfate [Ventolin HFA] 90 mcg/actuation Hfa Aerosol Inhaler 2 puff INHALATION Q4 PRN (Reason: Shortness Of Breath) RF: 0 ipratropium bromide 0.02 % Solution 2.5 mg INHALATION Q6H PRN (Reason: Shortness Of Breath) RF: 0 Trelegy Ellipta 100-62.5-25 mcg Blister With Device 1 inh INHALATION DAILY PRN (Reason: Shortness Of Breath) RF: 0 albuterol sulfate 2.5 mg /3 mL (0.083 %) Solution For Nebulization 2.5 mg INHALATION QID PRN (Reason: Shortness Of Breath Or Wheezing) RF: 0 lisinopril 20 mg Tablet 20 mg PO DAILY RF: 0 citalopram [Celexa] 20 mg Tablet 20 mg PO DAILY RF: 0 hydroxyzine HCl 25 mg Tablet 25 mg PO QID PRN (Reason: Allergic Reaction) RF: 0 levothyroxine 50 mcg Capsule 50 mcg PO DAILY RF: 0 Nasonex 2 sprays 2 spray NA DAILY RF: 0 Discontinued metformin 1,000 mg Tablet 1,000 mg PO AMPM RF: 0 Stand-Alone Forms: [facility] Discharge Orders: Discharge Order (Routine); Ordered 09/14/18 Ordered By: Rey Wright Admission Data Admit Date/Time: 09/08/18 02:17 Attending Provider: Rey Wright Admit Provider: Schuyler Mccann Primary Care Provider: Colton Morse Other Providers: Schuyler Mccann Service: Medical
[2018-09-14 12:09] VITALS: BP 120/77; PULSE 74
[2018-09-14] MEDS ORDERED: WARFARIN SOD 5 MG TAB PO SCH (16:00)
[2018-09-14] MEDS ORDERED: METFORMIN HCL ER 500 MG TABCR PO SCH (17:00)
== END 2018-09-14 13:03 | disposition home or self-care (01) | DRG 300 ==
LOC: ED 22:36 → 4E 09-08 02:17 → SUATTDRO 09-08 02:17 → 4E 09-08 03:39

== ENCOUNTER 2019-05-16 22:51 | Inpatient (IN) ==
[2019-05-16] MEDS ORDERED: ALBUT/IPRATROP 3MG/0.5MG NEB 3 ML VIAL INH STA (23:07)
[2019-05-16] MEDS ORDERED: methylPREDNISolone 125 MG/2 ML VIAL IV STA (23:07)
[2019-05-16] MEDS: MAGNESIUM SULFATE / D5W 1 GM/100 ML BAG IV SCH (23:30)
[2019-05-16 23:34] LABS: Basophils # (auto) 0.01 K/uL (0-0.2); Basophils % (auto) 0.2 %; Eosinophils # (auto) 0.06 K/uL (0-0.5); Eosinophils % (auto) 0.9 %; Hematocrit (blood only) 40.5 % (37-47); Hemoglobin 13.7 g/dL (12.0-16.0); Immature Granulocytes # (auto) 0.01 K/uL (0.00-0.02); Immature Granulocytes % (auto) 0.2 %; Lymphocytes # (auto) 1.83 K/uL (1.2-3.4); Lymphocytes % (auto) 27.5 %; Mean Corpuscular Hemoglobin 27.9 pg (25-34); Mean Corpuscular Hgb Conc 33.8 g/dL (32-36); Mean Corpuscular Volume 82.5 fL (80-100); Mean Platelet Volume 10.2 fL (7.4-10.4); Monocytes # (auto) 0.78 K/uL (0.11-0.59); Monocytes % (auto) 11.7 %; Neutrophils # (auto) 3.96 K/uL (1.4-6.5); Neutrophils % (auto) 59.5 %; Platelet Count 154 K/uL (130-400); RDW Coefficient of Variation 14.7 % (11.5-14.5); RDW Standard Deviation 44.4 fL (36.4-46.3); Red Blood Count 4.91 M/uL (4.2-5.4); White Blood Count 6.65 K/uL (4.8-10.8)
[2019-05-16 23:45] LABS: Partial Thromboplastin Time 26.1 Seconds (21.0-31.0); Prothrombin Time 10.1 Seconds (9.0-12.0)
[2019-05-16 23:51] LABS: Alanine Aminotransferase 21 U/L (12-78); Albumin Level 3.5 gm/dl (3.4-5.0); Aspartate Aminotransferase 15 U/L (15-37); BUN Creatinine Ratio 21.9 (10-20); Blood Urea Nitrogen 25 mg/dl (7-18); Carbon Dioxide 27 mmol/L (21-32); Chloride 103 mmol/L (98-107); Creatinine Clr Calc Pharmacy 71.3 ml/min; Est GFR (African American) 58.4; Est GFR (Non-African American) 50.4; Glucose 248 mg/dl (70-99); Potassium 3.3 mmol/L (3.5-5.1); Sodium 137 mmol/L (136-145)
[2019-05-16 23:54] LABS: Albumin Globulin Ratio 0.9 (0.9-2); Alkaline Phosphatase 62 U/L (45-117); Bilirubin,Total 0.2 mg/dl (0.2-1); Globulin 3.9 gm/dl (2.5-4.0); Total Protein 7.4 gm/dl (6.4-8.2)
[2019-05-17 00:08] LABS: Troponin I < 0.015 ng/ml (0-0.045)
[2019-05-17] MEDS ORDERED: POTASSIUM CHLORIDE 20 MEQ TABCR PO STA (00:29)
[2019-05-17] MEDS ORDERED: LACTATED RINGER'S 1,000 ML IV ONE ×2 (00:29→05:00)
[2019-05-17] MEDS ORDERED: INSULIN GLARGINE SOLOSTAR 100 UNITS/ML 3 ML PEN SC STA ×2 (00:40→02:49)
[2019-05-17] MEDS: MAGNESIUM SULFATE / D5W 1 GM/100 ML BAG IV SCH (00:40)
[2019-05-17 00:59] LABS: Magnesium 1.7 mg/dl (1.8-2.4)
[2019-05-17] MEDS ORDERED: DOXYCYCLINE HYCLATE 100 MG in DEXTROSE 5% 100 ML IV STA (01:16)
--- NOTE | 2019-05-17 01:18 | History & Physical Report ---
Date of Service May 17, 2019 Assessment & Plan (1) Acute hypoxemic respiratory failure: Secondary to COPD exacerbation/complicated bronchitis No sepsis for now Rule out PE given pleuritic chest pain, history DVT status post Coumadin history lung cancer (carcinoid tumor) status post surgery hypertension, elevated secondary to illness DM2 insulin requiring, suboptimal control as of recent hemoglobin A1c of 9.29 August 2018 hypothyroidism, TSH noted to be elevated Past tobacco abuse Medical therapy Supplemental O2 Baseline ABG Doxycycline, nebs, prednisone course CT chest PE study Pulmonary consult RE respiratory failure (Patient known to [facility] Facilitate home BP meds, may need titration Basal insulin, ISS BG goal [id number], carb count coverage, update hemoglobin A1c Adjust home levothyroxine and recheck level outpatient next month. DVT prophylaxis. Lovenox subcu Full code History of Present Illness Chief Complaint: Cough, S OB Primary Care Provider: Colton Morse DO History obtained from patient and records. Medical history significant for COPD, past tobacco abuse, history lung cancer (carcinoid tumor) status post surgery, hypertension, hyperlipidemia, PSVT, DM2 insulin requiring, history of GERD, history DVT status post Coumadin. Recent confinement August 2018 for acute DVT status post Coumadin Rx. 2 weeks ago, patient seen at PCPs office for COPD exacerbation. Improved with outpatient doxycycline and prednisone course. Patient noted increased shortness of breath cough, junky cough symptoms, pleur itic chest pain after exposure to grease fumes from her kitchen oven yesterday. No recent aspiration events. Worsening symptoms throughout the day. At the ER, patient received Solu-Medrol and neb treatment for COPD exacerbation. MEDICAL HISTORY: As above. SURGERIES: Hysterectomy, appendectomy, hip replacement, lower extremity, other orthopedic procedures, urologic procedures, wrist surgery, left lung lobectomy, lymphadenectomy FAMILY HISTORY: Asthma, diabetes. PERSONAL AND SOCIAL HISTORY: Half pack daily. No chronic intake of alcohol. 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 Allergies Allergy/AdvReac Type Severity Reaction Status Date / Time azithromycin Allergy Severe cardiac Verified 05/16/19 23:29 arrhythmia Penicillins Allergy Severe HIVES, SOB Verified 05/16/19 23:29 Sulfa (Sulfonamide Allergy Severe HIVES AND Verified 05/16/19 23:29 Antibiotics) SOB WITH ORAL SULFA DRUGS, OK W/SILVADENE Cephalosporins Allergy Intermediate HIVES WITH Verified 05/16/19 23:29 CEFTIN Quinolones Allergy Mild HIVES-BUT Verified 05/16/19 23:29 HAD LEVAQUIN IN ER 03/05/09 W/O PROBLEM adhesive Allergy Unknown TAPE-SORES Verified 05/16/19 23:29 ON SKIN iodine Allergy Unknown REDNESS - Verified 05/16/19 23:29 see notes (topical), Inectable dye - n/v cefuroxime Allergy Unknown Verified 05/16/19 23:29 Iodinated Contrast Media Allergy skin Verified 05/17/19 01:53 [Iodinated Contrast- Oral burning and IV Dye] years ago levofloxacin [From Levaquin] Allergy Unknown Verified 05/16/19 23:29 Home Medications Home Medications Medication Instructions Recorded Confirmed Type albuterol sulfate [Ventolin HFA] 2 puff INHALATION Q4 PRN 04/27/18 05/16/19 History ipratropium bromide 2.5 mg INHALATION Q6H PRN 04/27/18 05/16/19 History ranitidine HCl 300 mg PO BID 04/27/18 05/16/19 History tramadol 50 - 100 mg PO Q8 PRN 04/27/18 05/16/19 History albuterol sulfate 2.5 mg INHALATION QID PRN 09/08/18 05/16/19 History hydroxyzine HCl 25 mg PO QID PRN 09/08/18 05/16/19 History levothyroxine 50 mcg PO DAILY 09/08/18 05/16/19 History lisinopril 20 mg PO DAILY 09/08/18 05/16/19 History insulin NPH and regular human 10 unit SUBCUT AC 12/18/18 05/16/19 History [Novolin 70/30 U-100 Insulin] mometasone [Nasonex] 2 spray INTRANASAL DAILY PRN 12/18/18 05/16/19 History sertraline [Zoloft] 25 mg PO DAILY 12/18/18 05/16/19 History prednisone 10 mg tablet 10 mg PO .Start by taking 4 pi #36 01/14/19 05/16/19 History tab codeine-guaifenesin [Guaifenesin 5 ml PO Q4H PRN 05/16/19 05/16/19 History AC] fluticasone furoate-vilanterol 1 inh INHALATION DAILY 05/16/19 05/16/19 History [Breo Ellipta] glipizide 5 mg PO BID 05/16/19 05/16/19 History Past Med/Surg History Medical History (Updated 05/17/19 @ 08:24 by Elías Montiel MD) Anxiety state, unspecified (Acute) Asthma, moderate persistent (Acute) Calculus of kidney and ureter (Acute) Cancer of upper lobe of left lung (Acute) COPD (chronic obstructive pulmonary disease) (Chronic) Diabetes mellitus, type II (Chronic) GERD (gastroesophageal reflux disease) (Chronic) Hypertension (Chronic) Surgical History (Updated 01/14/19 @ 12:02 by Mathieu Guillory) History of bronchoscopy History of lung surgery Status post appendectomy (Chronic) Status post hip replacement (Chronic) Status post hysterectomy (Chronic) Family History (Updated 01/14/19 @ 12:04 by Mathieu Guillory) Father Asthma Family/Other Asthma Grandmother Uterine cancer Diabetes Unknown Coronary heart disease Social History Preferred Language: Japanese Communication Ability: Effective Visual Impairment: No Limitations Hearing Ability: Normal Scientific Informatics Analyst Required: No Beliefs That Will Affect Care: None Current Living Situation: Family current occupational status: employed Other Information That Helps Us Care for You: No Feels Safe at Home: Yes Safety Concerns: Feels Safe At This Time Smoking Status: Former smoker Cigarettes Per Day: 20 ; Hx Alcohol Use: Yes Alcohol type: hard liquor Hx Substance Use: No Review of Systems Review of Systems: As per HPI, all 10 systems reviewed, all other ROS negative Physical Exam Physical Exam: GENERAL: uncomfortable, morbidly obese, somewhat dysphonic, minimal respiratory distress SKIN: Normal color, warm HEENT: [place] palpebral conjunctivae, no ptosis, dry buccal mucosa, nasal cannula in place NECK : Supple, short neck, no tenderness CHEST : Decreased breath sounds, expiratory wheezes, no tenderness HEART : Tachycardic, no obvious murmurs ABDOMEN: Some distention, nontender EXTREMITIES : Bilateral LE swelling (R > L) with minimal tenderness, no other conspicuous deformities noted NEUROLOGIC : Coherent, no facial asymmetry, no other gross focality Results & Data Vital Signs (Past 12 Hours) Vital Signs Temp Pulse Pulse Resp BP BP Pulse Ox 05/17/19 01:03 92 05/17/19 00:59 126 H 22 150/60 H 98 05/16/19 23:35 99 05/16/19 23:12 117 H 28 H 96 05/16/19 22:53 36.6 C 126 H 28 H 171/127 H 94 Laboratory Results Laboratory Results WBC 6.65 K/uL (4.8-10.8) 05/16/19 23:24 RBC 4.91 M/uL (4.2-5.4) 05/16/19 23:24 Hgb 13.7 g/dL (12.0-16.0) 05/16/19 23:24 Hct 40.5 % (37-47) 05/16/19 23:24 MCV 82.5 fL (80-100) 05/16/19 23:24 MCH 27.9 pg (25-34) 05/16/19 23:24 MCHC 33.8 g/dL (32-36) 05/16/19 23:24 RDW Std Deviation 44.4 fL (36.4-46.3) 05/16/19 23: RDW Coeff of Radha 14.7 % (11.5-14.5) H 05/16/19 23:24 Plt Count 154 K/uL (130-400) 05/16/19 23:24 MPV 10.2 fL (7.4-10.4) 05/16/19 23:24 Immature Gran % (Auto) 0.2 % 05/16/19 23:24 Neut % (Auto) 59.5 % 05/16/19 23:24 Lymph % (Auto) 27.5 % 05/16/19 23:24 [place] % (Auto) 11.7 % 05/16/19 23:24 Eos % (Auto) 0.9 % 05/16/19 23:24 Baso % (Auto) 0.2 % 05/16/19 23:24 Immature Gran # (Auto) 0.01 K/uL (0.00-0.02) 05/16/19 23:24 Neut # (Auto) 3.96 K/uL (1.4-6.5) 05/16/19 23:24 Lymph # (Auto) 1.83 K/uL (1.2-3.4) 05/16/19 23:24 [facility] # (Auto) 0.78 K/uL (0.11-0.59) H 05/16/19 23:24 Eos # (Auto) 0.06 K/uL (0-0.5) 05/16/19 23:24 Baso # (Auto) 0.01 K/uL (0-0.2) 05/16/19 23:24 PT 10.1 Seconds (9.0-12.0) 05/16/19 23:24 INR 1.0 (0.9-1.1) 05/16/19 23:24 APTT 26.1 Seconds (21.0-31.0) 05/16/19 23:24 PTT Ratio 1.0 05/16/19 23:24 Sodium 137 mmol/L (136-145) 05/16/19 23:24 Potassium 3.3 mmol/L (3.5-5.1) L 05/16/19 23:24 Chloride 103 mmol/L (98-107) 05/16/19 23:24 Carbon Dioxide 27 mmol/L (21-32) 05/16/19 23:24 Anion Gap 7.0 (3-11) 05/16/19 23:24 BUN 25 mg/dl (7-18) H 05/16/19 23:24 Creatinine 1.16 mg/dl (0.6-1.2) 05/16/19 23:24 Est Cr Clr Drug Dosing 71.3 ml/min 05/16/19 23:24 Est GFR ( Amer) 58.4 05/16/19 23:24 Est GFR (Non-Af Amer) 50.4 05/16/19 23:24 BUN/Creatinine Ratio 21.9 (10-20) H 05/16/19 23:24 Glucose 248 mg/dl (70-99) H 05/16/19 23:24 Calcium 9.0 mg/dl (8.5-10.1) 05/16/19 23:24 Magnesium 1.7 mg/dl (1.8-2.4) L 05/16/19 23:24 Total Bilirubin 0.2 mg/dl (0.2-1) 05/16/19 23:24 AST 15 U/L (15-37) 05/16/19 23:24 ALT 21 U/L (12-78) 05/16/19 23:24 Alkaline Phosphatase 62 U/L (45-117) 05/16/19 23:24 Troponin I < 0.015 ng/ml (0-0.045) 05/16/19 23:24 Total Protein 7.4 gm/dl (6.4-8.2) 05/16/19 23:24 Albumin 3.5 gm/dl (3.4-5.0) 05/16/19 23:24 Globulin 3.9 gm/dl (2.5-4.0) 05/16/19 23: Albumin/Globulin Ratio 0.9 (0.9-2) 05/16/19 23: TSH 18.000 uIu/ml (0.300-4.500) H 05/16/19 23: Free T4 0.60 ng/dl (0.8-1.6) L 05/16/19 23:24 Diagnostic Findings Chest x-ray as per my interpretation no infiltrate EKG as per my interpretation : Rate 115, sinus tachycardia, LAD, LAFB, RBBB, no ischemia
[2019-05-17] MEDS: LISINOPRIL 20 MG TAB PO SCH (01:26)
[2019-05-17 01:43] LABS: Influenza A virus by PCR Neg for Influ A (Neg); Influenza B virus by PCR Neg for Influ B (Neg)
[2019-05-17] MEDS ORDERED: DiphenhydrAMINE HCL 50 MG/ML VIAL IV STA (01:51)
[2019-05-17] MEDS ORDERED: OPTIRAY 320 125ml IV PRN (02:17)
[2019-05-17] MEDS ORDERED: GLUCOSE 40% GEL 15 GM TUBE PO PRN (02:24)
[2019-05-17] MEDS ORDERED: GLUCAGON FOR INJ 1 MG VIAL SQ PRN (02:24)
[2019-05-17] MEDS ORDERED: PROMETHAZINE HCL 12.5 MG in SODIUM CHLORIDE 0.9% 50 ML IV PRN (02:24)
[2019-05-17] MEDS ORDERED: INSULIN ASPART 100 UNITS/ML 3 ML PEN SC SCH (02:24)
[2019-05-17] MEDS ORDERED: MoRPHine SULFATE 4 MG/ML 1 ML CARP\\VIAL IV PRN (02:24)
[2019-05-17] MEDS ORDERED: TRAMADOL HCL 50 MG TABLET PO PRN (02:24)
[2019-05-17] MEDS ORDERED: CARBOHYDRATES FOR HYPOGLYCEMIA PO PRN (02:24)
[2019-05-17] MEDS ORDERED: DEXTROSE 50% 50 ML SYRINGE IV PRN (02:24)
[2019-05-17] MEDS ORDERED: GLUCOSE 10 TABS/TUBE PO PRN (02:24)
[2019-05-17] MEDS ORDERED: ACETAMINOPHEN 325 MG TAB PO PRN (02:24)
--- NOTE | 2019-05-17 02:32 | Emergency Department Note ---
Entered by Taurus Sood acting as a scribe for History of Present Illness General Chief complaint: Shortness of Breath/Dyspnea Stated complaint: SOB, SORE THROAT, COUGH Time Seen by Provider: 05/16/19 22:59 Source: patient History of Present Illness Onset (ago): day(s) (this afternoon) Location: chest Pain Consistency: + other (worsening) Maximum Pain Intensity: 8 Quality: + other (SOB) Associated symptoms: + other (Positive for cough. Negative for abdominal pain.) The patient is a 63 year old female who presents to the emergency department with complaints of worsening SOB beginning this afternoon. The patient states that she was diagnosed with pneumonia two weeks ago. She notes that the pneumonia has not gotten better, and she reports that her SOB worsened this afternoon while she was at work. The patient states that she is on antibiotics and an inhaler, and she notes that she finished her prescribed steroids. She reports that she took two albuterol breathing treatments prior to coming to the emergency department. The patient states that she has also been using a codeine containing cough syrup. She also complains of a cough but she denies any abdominal pain. She notes that she has a history of asthma and COPD. Home Medications Home Medications Medication Instructions Recorded Confirmed Type albuterol sulfate [Ventolin HFA] 2 puff INHALATION Q4 PRN 04/27/18 05/16/19 History ipratropium bromide 2.5 mg INHALATION Q6H PRN 04/27/18 05/16/19 History ranitidine HCl 300 mg PO BID 04/27/18 05/16/19 History tramadol 50 - 100 mg PO Q8 PRN 04/27/18 05/16/19 History albuterol sulfate 2.5 mg INHALATION QID PRN 09/08/18 05/16/19 History hydroxyzine HCl 25 mg PO QID PRN 09/08/18 05/16/19 History levothyroxine 50 mcg PO DAILY 09/08/18 05/16/19 History lisinopril 20 mg PO DAILY 09/08/18 05/16/19 History insulin NPH and regular human 10 unit SUBCUT AC 12/18/18 05/16/19 History [Novolin 70/30 U-100 Insulin] mometasone [Nasonex] 2 spray INTRANASAL DAILY PRN 12/18/18 05/16/19 History sertraline [Zoloft] 25 mg PO DAILY 12/18/18 05/16/19 History prednisone 10 mg tablet 10 mg PO .Start by taking 4 pi #36 01/14/19 05/16/19 History tab codeine-guaifenesin [Guaifenesin 5 ml PO Q4H PRN 05/16/19 05/16/19 History AC] fluticasone furoate-vilanterol 1 inh INHALATION DAILY 05/16/19 05/16/19 History [Breo Ellipta] glipizide 5 mg PO BID 05/16/19 05/16/19 History Allergies Allergy/AdvReac Type Severity Reaction Status Date / Time azithromycin Allergy Severe cardiac Verified 05/16/19 23:29 arrhythmia Penicillins Allergy Severe HIVES, SOB Verified 05/16/19 23:29 Sulfa (Sulfonamide Allergy Severe HIVES AND Verified 05/16/19 23:29 Antibiotics) SOB WITH ORAL SULFA DRUGS, OK W/SILVADENE Cephalosporins Allergy Intermediate HIVES WITH Verified 05/16/19 23:29 CEFTIN Quinolones Allergy Mild HIVES-BUT Verified 05/16/19 23:29 HAD LEVAQUIN IN ER 03/05/09 W/O PROBLEM adhesive Allergy Unknown TAPE-SORES Verified 05/16/19 23:29 ON SKIN iodine Allergy Unknown REDNESS - Verified 05/16/19 23:29 see notes (topical), Inectable dye - n/v cefuroxime Allergy Unknown Verified 05/16/19 23:29 Iodinated Contrast Media Allergy skin Verified 05/17/19 01:53 [Iodinated Contrast- Oral burning and IV Dye] years ago levofloxacin [From Levaquin] Allergy Unknown Verified 05/16/19 23:29 cefuroxime Allergy Unknown Uncoded 04/22/19 19:10 Past Med/Surg History Medical History (Updated 05/17/19 @ 02:32 by Calli Winter DO) Anxiety state, unspecified (Acute) Asthma, moderate persistent (Acute) Calculus of kidney and ureter (Acute) Cancer of upper lobe of left lung (Acute) COPD (chronic obstructive pulmonary disease) (Chronic) Diabetes mellitus, type II (Chronic) GERD (gastroesophageal reflux disease) (Chronic) Hypertension (Chronic) Surgical History (Updated 01/14/19 @ 12:02 by Mathieu Guillory) History of bronchoscopy History of lung surgery Status post appendectomy (Chronic) Status post hip replacement (Chronic) Status post hysterectomy (Chronic) Family History (Updated 01/14/19 @ 12:04 by Mathieu Guillory) Father Asthma Family/Other Asthma Grandmother Uterine cancer Diabetes Unknown Coronary heart disease Social History Preferred Language: [place] Communication Ability: Effective Visual Impairment: No Limitations Hearing Ability: Normal 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 and A total of 10 systems reviewed and were otherwise negative Physical Exam Vital Signs Vital Signs - 24 hr 05/16/19 22:53 05/16/19 23:12 05/16/19 23:35 Temperature 36.6 C Temperature Source Oral Pulse Rate 126 H Pulse Rate [Apical] 117 H Respiratory Rate 28 H 28 H Respiratory Effort / Characteristics Spontaneous Labored Short of Breath Respiratory Depth Blood Pressure 171/127 H Blood Pressure [Left Arm] Blood Pressure Mean 141 Blood Pressure Mean [Left Arm] Pulse Oximetry 94 96 99 Oxygen Delivery Method Room Air Room Air Nebulizer Oxygen Flow Rate Sepsis Recent Fever Within 48 Hours No Sepsis New/Unexplained Change in Mental Status No Sepsis Action Taken by Nursing No Action Required Oxygen Flow Rate - Titration Pulse Oximetry Post Tiitration 05/17/19 00:59 05/17/19 01:03 Temperature Temperature Source Pulse Rate Pulse Rate [Apical] 126 H Respiratory Rate 22 Respiratory Effort / Characteristics Non-Labored Respiratory Depth Normal Blood Pressure Blood Pressure [Left Arm] 150/60 H Blood Pressure Mean Blood Pressure Mean [Left Arm] 90 Pulse Oximetry 98 92 Oxygen Delivery Method Nasal Cannula Nasal Cannula Oxygen Flow Rate 2 0 Sepsis Recent Fever Within 48 Hours Sepsis New/Unexplained Change in Mental Status Sepsis Action Taken by Nursing Oxygen Flow Rate - Titration 2 Pulse Oximetry Post Tiitration 98 General: Appears extremely short of breath and tachypneic. HEENT: Head - normocephalic and atraumatic Pupils are equal, round, and reactive to light. Extraocular eye muscles are intact, and sclera are anicteric. Nose - moist nasal mucosa without discharge. Mouth - moist buccal mucosa. Oropharynx is nonerythematous and there is no tonsillar exudate or edema noted. Neck: Supple; no JVD, nuchal rigidity, cervical lymphadenopathy. Heart: Regular rhythm and tachycardic. There is a normal S1 and S2 with no murmurs, clicks, or gallops appreciated. Lungs: No rales or rhonchi. Minimal air movement, tight wheezes throughout lung larios. Abdomen: Soft, completely nontender, nondistended, with good bowel sounds. There are no palpable pulsatile masses or hepatosplenomegaly. There is no guarding, rigidity, or rebound noted. Extremities: No evidence of cyanosis or clubbing. There are easily palpable peripheral pulses. Trace pedal edema. Skin: warm with good turgor and no rashes. Diaphoretic. Course Course 2300: The patient was evaluated in room B3. A complete history and physical examination were performed. Nursing notes and previous electronic medical records were reviewed. IV lock was established and labs were drawn as above. The patient was on the engine monitor and pulse oximeter. She was sinus tachycardia with a rate in the 120s. She required cardiac monitoring secondary to shortness of breath. 2311: Albuterol 12ml [id number] nebulizer treatment 2330: Magnesium Sulfate/Dextrose 1gm in 100 mls @ 100 mls/hr IV, Methylprednisolone 125mg IV 2342: I reevaluated and updated the patient. Her oxygen saturation is 99%. She in on an hour long nebulizer treatment. 0017: I rechecked the patient. Her lungs are more clear but she remained tachypneic. Her oxygen saturation is stable on supplemental oxygen. 0022: Upon reevaluation, the patient is stable. I discussed the findings and the treatment plan with the patient. She expresses agreement and understanding. I spoke with Dr. Montiel of the [facility]. The patient will be evaluated for further management. Consultations Consultation #1: I reviewed the patient's case with Dr. Montiel - [facility]. He will evaluate the patient for further management. Time: 00:22 Administered Medications Lactated Ringer's (Lr) 1,000 mls @ 250 mls/hr IV .Q4H ONE Stop: 05/17/19 04:28 Last Admin: 05/17/19 00:51 Dose: 250 mls/hr Documented by: [id number] Ioversol (Optiray 320 125ml) 85 ml IV ONCE PRN PRN Reason: Interaction Checking Stop: 05/21/19 02:16 Last Admin: 05/17/19 02:17 Dose: 85 ml Documented by: [id number] Lisinopril (Zestril) 20 mg PO DAILY RAMONITA Stop: 06/16/19 00:29 Last Admin: 05/17/19 01:26 Dose: 20 mg Documented by: [id number] Discontinued Medications Albuterol (Duoneb) 12 ml INH ONE STA Stop: 05/16/19 23:08 Last Admin: 05/16/19 23:11 Dose: 12 ml Documented by: [id number] Diphenhydramine HCl (Benadryl) 12.5 mg IV NOW STA Stop: 05/17/19 01:52 Last Admin: 05/17/19 02:12 Dose: 12.5 mg Documented by: [id number] Magnesium Sulfate/Dextrose (Magnesium Sulfate / D5w) 1 gm in 100 mls @ 100 mls/hr IV Q1H RAMONITA Stop: 05/17/19 01:14 Last Infusion: 05/17/19 02:02 Dose: 0 mls/hr Documented by: [id number] Admin: 05/17/19 00:40 Dose: 100 mls/hr Documented by: [id number] Infusion: 05/17/19 00:30 Dose: 100 mls/hr Documented by: [id number] Admin: 05/16/19 23:30 Dose: 100 mls/hr Documented by: [id number] Insulin Glargine (Lantus Solostar Pen) 20 units SC NOW STA Stop: 05/17/19 00:41 Last Admin: 05/17/19 01:37 Dose: 20 units Documented by: [id number] Cosigned by: [id number] Methylprednisolone (Solumedrol) 125 mg IV NOW STA Stop: 05/16/19 23:08 Last Admin: 05/16/19 23:30 Dose: 125 mg Documented by: [id number] Potassium Chloride (Klor-Con M20) 40 meq PO NOW STA Stop: 05/17/19 00:30 Last Admin: 05/17/19 00:45 Dose: 40 meq Documented by: [id number] Medical Decision Making Differential Diagnosis Differential diagnoses include: respiratory failure, hypercapnia, asthma exacerbation, COPD exacerbation, and pneumonia. Medical Records Attestation: I reviewed the patient's medical records. Home Medications Current Medication List: was personally reviewed by me Laboratory Data Attestation: I reviewed the patient's lab results. Result diagrams: 05/16/19 23:24 05/16/19 23:24 Lab Results 05/16/19 05/16/19 05/16/19 Range/Units 23:24 23:24 23:24 WBC 6.65 (4.8-10.8) K/uL RBC 4.91 (4.2-5.4) M/uL Hgb 13.7 (12.0-16.0) g/dL Hct 40.5 (37-47) % MCV 82.5 (80-100) fL MCH 27.9 (25-34) pg MCHC 33.8 (32-36) g/dL RDW Std Deviation 44.4 (36.4-46.3) fL RDW Coeff of Radha 14.7 H (11.5-14.5) % Plt Count 154 (130-400) K/uL MPV 10.2 (7.4-10.4) fL Immature Gran % (Auto) 0.2 % Neut % (Auto) 59.5 % Lymph % (Auto) 27.5 % Deuel % (Auto) 11.7 % Eos % (Auto) 0.9 % Baso % (Auto) 0.2 % Immature Gran # (Auto) 0.01 (0.00-0.02) K/uL Neut # (Auto) 3.96 (1.4-6.5) K/uL Lymph # (Auto) 1.83 (1.2-3.4) K/uL Deuel # (Auto) 0.78 H (0.11-0.59) K/uL Eos # (Auto) 0.06 (0-0.5) K/uL Baso # (Auto) 0.01 (0-0.2) K/uL PT 10.1 (9.0-12.0) Seconds INR 1.0 (0.9-1.1) APTT 26.1 (21.0-31.0) Seconds PTT Ratio 1.0 Sodium 137 (136-145) mmol/L Potassium 3.3 L (3.5-5.1) mmol/L Chloride 103 (98-107) mmol/L Carbon Dioxide 27 (21-32) mmol/L Anion Gap 7.0 (3-11) BUN 25 H (7-18) mg/dl Creatinine 1.16 (0.6-1.2) mg/dl Est Cr Clr Drug Dosing 71.3 ml/min Est GFR ( Amer) 58.4 Est GFR (Non-Af Amer) 50.4 BUN/Creatinine Ratio 21.9 H (10-20) Glucose 248 H (70-99) mg/dl Calcium 9.0 (8.5-10.1) mg/dl Magnesium 1.7 L (1.8-2.4) mg/dl Total Bilirubin 0.2 (0.2-1) mg/dl AST 15 (15-37) U/L ALT 21 (12-78) U/L Alkaline Phosphatase 62 (45-117) U/L Troponin I < 0.015 (0-0.045) ng/ml Total Protein 7.4 (6.4-8.2) gm/dl Albumin 3.5 (3.4-5.0) gm/dl Globulin 3.9 (2.5-4.0) gm/dl Albumin/Globulin Ratio 0.9 (0.9-2) TSH 18.000 H (0.300-4.500) uIu/ml Free T4 0.60 L (0.8-1.6) ng/dl Influenza Type A (PCR) (Neg) Influenza Type B (PCR) (Neg) 05/17/19 Range/Units 00:54 WBC (4.8-10.8) K/uL RBC (4.2-5.4) M/uL Hgb (12.0-16.0) g/dL Hct (37-47) % MCV (80-100) fL MCH (25-34) pg MCHC (32-36) g/dL RDW Std Deviation (36.4-46.3) fL RDW Coeff of Radha (11.5-14.5) % Plt Count (130-400) K/uL MPV (7.4-10.4) fL Immature Gran % (Auto) % Neut % (Auto) % Lymph % (Auto) % Deuel % (Auto) % Eos % (Auto) % Baso % (Auto) % Immature Gran # (Auto) (0.00-0.02) K/uL Neut # (Auto) (1.4-6.5) K/uL Lymph # (Auto) (1.2-3.4) K/uL Deuel # (Auto) (0.11-0.59) K/uL Eos # (Auto) (0-0.5) K/uL Baso # (Auto) (0-0.2) K/uL PT (9.0-12.0) Seconds INR (0.9-1.1) APTT (21.0-31.0) Seconds PTT Ratio Sodium (136-145) mmol/L Potassium (3.5-5.1) mmol/L Chloride (98-107) mmol/L Carbon Dioxide (21-32) mmol/L Anion Gap (3-11) BUN (7-18) mg/dl Creatinine (0.6-1.2) mg/dl Est Cr Clr Drug Dosing ml/min Est GFR ( Amer) Est GFR (Non-Af Amer) BUN/Creatinine Ratio (10-20) Glucose (70-99) mg/dl Calcium (8.5-10.1) mg/dl Magnesium (1.8-2.4) mg/dl Total Bilirubin (0.2-1) mg/dl AST (15-37) U/L ALT (12-78) U/L Alkaline Phosphatase (45-117) U/L Troponin I (0-0.045) ng/ml Total Protein (6.4-8.2) gm/dl Albumin (3.4-5.0) gm/dl Globulin (2.5-4.0) gm/dl Albumin/Globulin Ratio (0.9-2) TSH (0.300-4.500) uIu/ml Free T4 (0.8-1.6) ng/dl Influenza Type A (PCR) Neg for Influ A (Neg) Influenza Type B (PCR) Neg for Influ B (Neg) Imaging Data Attestation: I personally reviewed and interpreted this imaging study as follows: My Impression: CHEST X-RAY: No pleural effusions. No obvious pneumothorax or pulmonary infiltrate. ECG Data Attestation: I personally reviewed and interpreted this ECG as follows: Indication: + SOB/dyspnea Rate (beats per minute): 114 Rhythm: + sinus tachycardia ECG Intervals/blocks: + Right Bundle branch block ECG ST segments: no ST depression and no ST elevation Comparison ECG Date: from (09/07/2018) Change: no significant change Blood Pressure Blood Pressure Findings: Elevated blood pressure Blood Pressure Disposition: further management by hospitalist KYUNG Narrative The patient is a 63 year old female who presents to the emergency department with complaints of worsening SOB beginning this afternoon. The patient has a history of asthma and COPD. She recently finished a course of antibiotics and steroids for an episode of pneumonia. Despite using her inhalers and nebulizer treatments, her shortness of breath worsened. She presents to the emergency department in respiratory failure with significant wheezing and tachypnea. An hour-long nebulizer treatment, IV magnesium, and IV steroids seem to help slightly. Chest x-ray shows no evidence of pulmonary infiltrate or pneumothorax. O2 saturations remained stable. I discussed the case with the [facility] Hospitalist and they will evaluate for further management. Impression & Plan COPD exacerbation, Hyperglycemia Discharge Plan Visit Data Chief Complaint: Shortness of Breath/Dyspnea Stated Complaint: SOB, SORE THROAT, COUGH ED Provider: Calli Winter Discharge Problem: COPD exacerbation, Hyperglycemia Patient Disposition: Being Evaluated by Hospitalist Discharge Instructions Interventions: ED Discharge Assessment Last Done: 05/17/19 02:12 The scribe's documentation has been prepared under my direction and personally reviewed by me in its entirety. I confirm that the note above accurately reflects all work, treatment, procedures, and medical decision making performed by me.
[2019-05-17] MEDS ORDERED: POTASSIUM CHLORIDE 20 MEQ TABCR PO ONE (03:00)
[2019-05-17 03:05] LABS: Base Excess ABG -5.8 mEq/L (-9-1.8); HCO3 ABG 19 mmol/L (19-24); Oxygen Saturation ABG 94.4 % (90-95); PCO2 ABG 36 mmHg (35-46); PO2 ABG 72 mm/Hg (80-95); pH ABG 7.35 (7.35-7.45)
[2019-05-17 03:06] LABS: Allen Test Pos (Pos); Basophils # (auto) 0.01 K/uL (0-0.2); Basophils % (auto) 0.1 %; Eosinophils # (auto) 0.01 K/uL (0-0.5); Eosinophils % (auto) 0.1 %; Hematocrit (blood only) 40.7 % (37-47); Hemoglobin 13.7 g/dL (12.0-16.0); Immature Granulocytes # (auto) 0.02 K/uL (0.00-0.02); Immature Granulocytes % (auto) 0.2 %; Lymphocytes # (auto) 0.56 K/uL (1.2-3.4); Lymphocytes % (auto) 6.2 %; Mean Corpuscular Hemoglobin 27.7 pg (25-34); Mean Corpuscular Hgb Conc 33.7 g/dL (32-36); Mean Corpuscular Volume 82.4 fL (80-100); Mean Platelet Volume 10.4 fL (7.4-10.4); Monocytes # (auto) 0.26 K/uL (0.11-0.59); Monocytes % (auto) 2.9 %; Neutrophils # (auto) 8.23 K/uL (1.4-6.5); Neutrophils % (auto) 90.5 %; Platelet Count 166 K/uL (130-400); RDW Coefficient of Variation 14.8 % (11.5-14.5); RDW Standard Deviation 44.6 fL (36.4-46.3); Red Blood Count 4.94 M/uL (4.2-5.4); White Blood Count 9.09 K/uL (4.8-10.8)
[2019-05-17] MEDS: LEVALBUTEROL 1.25MG/0.5ML NEB INH SCH ×6 (03:27→22:48)
[2019-05-17] MEDS: IPRATROPIUM BROMIDE NEB SOLN 0.02% 2.5 ML VIAL INH SCH ×6 (03:27→22:48)
[2019-05-17 03:30] LABS: BUN Creatinine Ratio 23.1 (10-20); Calcium 8.6 mg/dl (8.5-10.1); Creatinine Clr Calc Pharmacy 75.2 ml/min; Est GFR (African American) 62.3; Est GFR (Non-African American) 53.8; Magnesium 2.3 mg/dl (1.8-2.4); Potassium 3.7 mmol/L (3.5-5.1)
[2019-05-17 03:40] LABS: Beta-Hydroxybutyrate 2.35 mg/dl (0.2-2.81)
[2019-05-17] MEDS ORDERED: XOPENEX/ATROVENT 1.25mg/0.5MG NEB COMBO NEB SCH (04:00)
--- NOTE | 2019-05-17 05:03 | XRay Report ---
XR chest 1V portable CLINICAL HISTORY: Dyspnea COMPARISON STUDY: No previous studies for comparison. FINDINGS: The bones soft tissues and hemidiaphragms are normal. The cardiomediastinal silhouette is n ormal. The lungs are clear. The pulmonary vasculature is normal. IMPRESSION: Negative chest. The above report was generated using voice recognition software. It may contain grammatical, syntax or spelling errors. Electronically signed by: Emre Melendrez M.D. 05/17/2019 5:02 AM
--- NOTE | 2019-05-17 05:29 | CT Scan Report ---
CT angio chest PE protocol CT DOSE: 1046.17 mGy.cm HISTORY: Chest pain. Dyspnea. PE TECHNIQUE: Multiaxial CT images of the chest were performed following the intravenous administration of contrast to evaluate the pulmonary arteries. Maximal intensity projection images were also obtaine d. A dose lowering technique was utilized adhering to the principles of ALARA. COMPARISON STUDY: 09/07/2017 FINDINGS: Mild emphysematous change. No evidence for pulmonary embolism. Small parenchymal infiltrate right base. Left lung is clear. Pulmonary apices are clear. Asymmetric pulmonary vasculature with the pulmonary apices suggests a component of emphysematous wagner ge. IMPRESSION: 1. No evidence for pulmonary embolus. 2. Emphysematous change. 3. Small parenchymal infiltrate right base. The above report was generated using voice recognition software. It may contain grammatical, syntax or spelling errors. Electronically signed by: Emre Melendrez M.D. 05/17/2019 5:27 AM
[2019-05-17] MEDS: LEVOTHYROXINE SODIUM 75 MCG TABLET PO SCH (06:13)
[2019-05-17] MEDS ORDERED: INSULIN GLARGINE SOLOSTAR 100 UNITS/ML 3 ML PEN SQ SCH ×2 (06:15→09:00)
[2019-05-17] MEDS: INSULIN ASPART 100 UNITS/ML 3 ML PEN SC SCH ×5 (06:35→20:42)
[2019-05-17] MEDS: ENOXAPARIN INJ 40 MG/0.4 ML SYR SQ SCH (08:02)
[2019-05-17] MEDS: SERTRALINE HCL 50 MG TABLET PO SCH (08:02)
[2019-05-17] MEDS: INSULIN GLARGINE SOLOSTAR 100 UNITS/ML 3 ML PEN SQ SCH ×2 (08:48→20:41)
[2019-05-17] MEDS ORDERED: predniSONE 20 MG TAB PO SCH (09:00)
[2019-05-17] MEDS ORDERED: DOXYCYCLINE HYCLATE 100 MG CAP PO SCH (09:00)
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
[2019-05-17] MEDS: ARFORMOTEROL TART 15MCG/2ML VIAL INH SCH (19:02)
[2019-05-17] MEDS: methylPREDNISolone 80 MG in SYRINGE 0 ML IV SCH (20:43)
[2019-05-17] MEDS: DOXYCYCLINE HYCLATE 100 MG CAP PO SCH (21:43)
[2019-05-18] MEDS ORDERED: INSULIN ASPART 100 UNITS/ML 3 ML PEN SC SCH (01:00)
[2019-05-18] MEDS: LEVALBUTEROL 1.25MG/0.5ML NEB INH SCH ×6 (02:12→23:11)
[2019-05-18] MEDS: IPRATROPIUM BROMIDE NEB SOLN 0.02% 2.5 ML VIAL INH SCH ×6 (02:12→23:11)
[2019-05-18 05:39] LABS: Estimated Average Glucose 183 mg/dl
[2019-05-18] MEDS: LEVOTHYROXINE SODIUM 75 MCG TABLET PO SCH (05:47)
[2019-05-18] MEDS: ARFORMOTEROL TART 15MCG/2ML VIAL INH SCH ×2 (06:58→18:52)
[2019-05-18] MEDS: INSULIN ASPART 100 UNITS/ML 3 ML PEN SC SCH ×4 (08:26→21:41)
[2019-05-18] MEDS: INSULIN GLARGINE SOLOSTAR 100 UNITS/ML 3 ML PEN SQ SCH (08:27)
[2019-05-18] MEDS: methylPREDNISolone 80 MG in SYRINGE 0 ML IV SCH ×2 (08:28→20:29)
[2019-05-18] MEDS: DOXYCYCLINE HYCLATE 100 MG CAP PO SCH ×2 (08:29→20:32)
[2019-05-18] MEDS: SERTRALINE HCL 50 MG TABLET PO SCH (08:30)
[2019-05-18] MEDS: ENOXAPARIN INJ 40 MG/0.4 ML SYR SQ SCH (08:30)
[2019-05-18] MEDS: LISINOPRIL 20 MG TAB PO SCH (10:03)
[2019-05-18] MEDS ORDERED: DC ALL PREVIOUSLY ORDERED DIABETES MEDS ONE (17:03)
[2019-05-18] MEDS ORDERED: MODERATE STRESS LEVEL ONE (17:03)
[2019-05-18] MEDS ORDERED: INSULIN PROTOCOL GOAL RANGE ONE (17:03)
--- NOTE | 2019-05-18 18:55 | Pulmonology Progress Note ---
Date of Service May 18, 2019 Assessment & Plan (1) COPD exacerbation: Consulted by the hospitalist team for respiratory failure Patient had no significant hypoxia Arterial blood gases were within normal limits as reflected below CTA was negative for pulmonary embolus but showed possibility of a small right lower lobe infiltrate Patient started on doxycycline 100 mg p.o. twice daily -today is day #2 No leukocytosis Patient started on methylprednisolone is currently on 80 mg IV twice daily No bronchospasm on exam Would do rapid taper of steroids From a pulmonary standpoint, patient is probably ready for discharge Would defer back to outpatient treatment with Ashleigh Webb PA-C Thank you very much for including us in the care of this patient. We will sign off at this time. Please feel free to reconsult as needed. Subjective Attending: Dr. Rod This is a 63-year-old female that follows with Ashleigh Webb PA-C at the outpatient pulmonary office with [facility]. She presented with shortness of breath several days ago and progressed until Saturday she felt like she would "". She presented to the emergency department was given antibiotics and steroids and nebulizer treatments and is "done a complete turnaround". She currently is oxygenating well on room air at 94%. She has no further bronchospasm. She does have a nonproductive cough. She has no chest pain or tightness. She is able to talk in full sentences. She has no fever, chills, sweats, rigors. From a pulmonary perspective, the patient feels as though she is ready be discharged home. She is still struggling with elevated glucose and has a hemoglobin A1c of 8. The patient states that she only has 2 puffs of Trelegy Ellipta remaining and has no insurance. She is questioning outpatient treatment options as she cannot afford this medication. There are no further questions. Review of Systems Review of Systems: All systems reviewed & are unremarkable except as noted in HPI & below Physical Exam Physical Exam: GENERAL : No acute distress EYES: No icterus, gaze conjugate NOSE: No evidence of epistaxis MOUTH: No lesions or candidiasis NECK: Supple LUNGS: CTA B/L, no wheezes, rales or rhonchi. Good inspiratory effort. Breath sounds to the bases are equal. HEART: Regular, rate controlled ABDOMEN: Soft, NT, ND, BS Present EXTREMITIES: No LE edema, pedal pulses intact NEURO: A&OX3 Results & Data Vital Signs (Past 12 Hours) Vital Signs Temp Pulse Pulse Resp BP BP Pulse Ox 05/18/19 16:00 105 H 05/18/19 15:28 36.6 C 101 H 20 142/82 H 90 05/18/19 15:19 104 H 18 94 05/18/19 11:49 36.3 C L 106 H 18 122/58 L 93 05/18/19 11:16 99 H 18 97 05/18/19 08:40 106 H 112/50 L 142/79 H 05/18/19 07:15 100 H 05/18/19 07:00 36.4 C L 97 H 20 99/47 L 95 05/18/19 06:58 100 H 18 98 Laboratory Results 05/17/19 02:52 05/17/19 02:[address] angio chest PE protocol CT DOSE: 1046.17 mGy.cm HISTORY: Chest pain. Dyspnea. PE TECHNIQUE: Multiaxial CT images of the chest were performed following the intravenous administration of contrast to evaluate the pulmonary arteries. Maximal intensity projection images were also obtained. A dose lowering technique was utilized adhering to the principles of ALARA. COMPARISON STUDY: 09/07/2017 FINDINGS: Mild emphysematous change. No evidence for pulmonary embolism. Small parenchymal infiltrate right base. Left lung is clear. Pulmonary apices are clear. Asymmetric pulmonary vasculature with the pulmonary apices suggests a component of emphysematous change. IMPRESSION: 1. No evidence for pulmonary embolus. 2. Emphysematous change. 3. Small parenchymal infiltrate right base. Electronically signed by: Emre Melendrez M.D. 05/17/2019 5:27 AM PG Care Time/CCT Total # of Minutes Spent Total Time Spent with Patient: Total time spent is greater than 50% in coordination of care (as documented) at patient's floor/unit and/or counseling patient: 20 minutes
[2019-05-18] MEDS ORDERED: INSULIN HUMAN REGULAR IV BOLUS 3.5 UNITS in SYRINGE 0 ML IV ONE (20:15)
[2019-05-18] MEDS: INSULIN REGULAR 250 UNITS in SODIUM CHLORIDE 0.9% 247.5 ML IV SCH (20:22)
--- NOTE | 2019-05-18 23:02 | Hospitalist Progress Note ---
Date of Service May 18, 2019 Assessment & Plan (1) COPD exacerbation: Presented with cough, wheezing, worsening dyspnea. Portable chest x-ray did not show any apparent infiltrates, effusions, CHF. CTA chest negative for pulmonary embolism, but demonstrated small parenchymal infiltrate right base. Exacerbation of COPD probably secondary to pneumonia as discussed below. Exposure to smoke from cooking may be contributing factor. Received intravenous methylprednisolone in the ED and transitioned to prednisone 40 mg daily. Continue nebulizer treatments. (2) Pneumonia: CTA chest negative for pulmonary embolism, but demonstrated small parenchymal infiltrate right base. Possible community-acquired pneumonia, present on admission. Sputum Gram stain, culture and sensitivity ordered, but still pending. Allergic to multiple antibiotics including quinolones, penicillins, cephalosporins, macrolides. Receiving doxycycline with improvement. (3) Type 2 diabetes mellitus with unspecified complications: History of diabetes mellitus type 2. Managed primarily with glipizide. Prescribed insulin 70/30, but not using it recently. Random blood sugar at time of admission 248. Hemoglobin A1C 8.0. Receiving IV methylprednisolone. Blood sugars > 300 despite fairly aggressive coverage with basal / bolus insulin. Change to insulin infusion until blood sugars under better control. (4) Hypertension: Continue lisinopril. (5) DVT prophylaxis: Enoxaparin. Ambulate. (6) Discharge planning issues: Anticipated discharge to home. Family Medicine follow-up with Dr. Colton Morse. Subjective Recheck for exacerbation of COPD. Patient seen in their room around 0950. Cough and wheezing improved. Chest wall pain with coughing. Blood sugars elevated. Review of Systems: Constitutional- no fever. Cardiac- no anginal pain. Pulmonary- as noted above. GI- no nausea, vomiting, diarrhea, melena, hematochezia. - no urinary symptoms. Otherwise, as noted above. Physical Exam Constitutional: no acute distress Eyes: + anicteric sclerae Respiratory: no respiratory distress Auscultation: + rhonchi and + wheezes Cardiovascular: Rate/Rhythm: regular rate and regular rhythm Heart Sounds: no gallop and no cardiac rub Vessels: no JVD Extremities: + edema (trace pretibial); no calf tenderness Gastrointestinal (Abdomen): normal bowel sounds, soft, nontender, no hepatosplenomegaly Skin: no rashes, warm and dry Psychiatric: Orientation: alert and oriented x 3 Results & Data Vital Signs (Past 12 Hours) Vital Signs Temp Pulse Pulse Pulse Resp BP BP 05/18/19 19:41 36.5 C 108 H 18 138/76 05/18/19 18:54 108 H 16 05/18/19 16:00 105 H 05/18/19 15:28 36.6 C 101 H 20 142/82 H 05/18/19 15:19 104 H 18 05/18/19 11:49 36.3 C L 106 H 18 122/58 L 05/18/19 11:16 99 H 18 Pulse Ox 05/18/19 19:41 93 05/18/19 18:54 95 05/18/19 16:00 05/18/19 15:28 90 05/18/19 15:19 94 05/18/19 11:49 93 05/18/19 11:16 97 Laboratory Results 05/17/19 02:52 05/17/19 02:52
[2019-05-19] MEDS: IPRATROPIUM BROMIDE NEB SOLN 0.02% 2.5 ML VIAL INH SCH ×6 (03:59→23:21)
[2019-05-19] MEDS: LEVALBUTEROL 1.25MG/0.5ML NEB INH SCH ×6 (03:59→23:22)
[2019-05-19] MEDS: LEVOTHYROXINE SODIUM 75 MCG TABLET PO SCH (06:36)
[2019-05-19 06:58] LABS: Calcium 9.8 mg/dl (8.5-10.1); Est GFR (African American) 74.4; Est GFR (Non-African American) 64.2; Potassium 4.2 mmol/L (3.5-5.1)
[2019-05-19] MEDS: ENOXAPARIN INJ 40 MG/0.4 ML SYR SQ SCH (07:08)
[2019-05-19] MEDS: DOXYCYCLINE HYCLATE 100 MG CAP PO SCH ×2 (07:09→20:37)
[2019-05-19] MEDS: LISINOPRIL 20 MG TAB PO SCH (07:09)
[2019-05-19] MEDS: predniSONE 20 MG TAB PO SCH (07:09)
[2019-05-19] MEDS: SERTRALINE HCL 50 MG TABLET PO SCH (07:10)
[2019-05-19] MEDS: ARFORMOTEROL TART 15MCG/2ML VIAL INH SCH ×2 (07:24→19:29)
[2019-05-19] MEDS: INSULIN REGULAR 250 UNITS in SODIUM CHLORIDE 0.9% 247.5 ML IV SCH ×3 (08:38→11:37)
[2019-05-19] MEDS ORDERED: DC IV INSULIN INFUSION 1 EA DEVI PRN (09:14)
[2019-05-19] MEDS: INSULIN ASPART 100 UNITS/ML 3 ML PEN SC SCH ×4 (09:29→20:36)
[2019-05-19] MEDS ORDERED: INSULIN GLARGINE SOLOSTAR 100 UNITS/ML 3 ML PEN SC STA (09:31)
[2019-05-19] MEDS: INSULIN GLARGINE SOLOSTAR 100 UNITS/ML 3 ML PEN SC SCH (20:42)
[2019-05-19] MEDS ORDERED: ALBUTEROL HFA 8 GM INHALER INH PRN (20:44)
--- NOTE | 2019-05-19 20:44 | Hospitalist Progress Note ---
Date of Service May 19, 2019 Assessment & Plan (1) COPD exacerbation: Presented with cough, wheezing, worsening dyspnea. Portable chest x-ray did not show any apparent infiltrates, effusions, CHF. CTA chest negative for pulmonary embolism, but demonstrated small parenchymal infiltrate right base. Exacerbation of COPD probably secondary to pneumonia as discussed below. Exposure to smoke from cooking may be contributing factor. Received intravenous methylprednisolone in the ED and transitioned to prednisone 40 mg daily. Continue nebulizer treatments. (2) Pneumonia: CTA chest negative for pulmonary embolism, but demonstrated small parenchymal infiltrate right base. Possible community-acquired pneumonia, present on admission. Sputum Gram stain, culture and sensitivity ordered, but still pending. Allergic to multiple antibiotics including quinolones, penicillins, cephalosporins, macrolides. Receiving doxycycline with improvement. (3) Type 2 diabetes mellitus with unspecified complications: History of diabetes mellitus type 2. Managed primarily with glipizide. Prescribed insulin 70/30, but not using it recently. Random blood sugar at time of admission 248. Hemoglobin A1C 8.0. Receiving IV methylprednisolone. Blood sugars > 300 despite fairly aggressive coverage with basal / bolus insulin. Changed to insulin infusion with improvement. Transition back to SQ basal / bolus insulin. (4) Hypertension: Continue lisinopril. (5) DVT prophylaxis: Enoxaparin. Ambulate. (6) Discharge planning issues: Anticipated discharge to home. Family Medicine follow-up with Dr. Colton Morse. Subjective Recheck for exacerbation of COPD. Patient seen in their room around 1410. Cough and wheezing improved. Blood sugars improved on insulin infusion. Review of Systems: Constitutional- no fever. Cardiac- no anginal pain. Pulmonary- as noted above. GI- no nausea, vomiting, diarrhea, melena, hematochezia. - no urinary symptoms. Otherwise, as noted above. Physical Exam Constitutional: no acute distress Eyes: + anicteric sclerae Respiratory: no respiratory distress Auscultation: + wheezes Cardiovascular: Rate/Rhythm: regular rate and regular rhythm Heart Sounds: no gallop and no cardiac rub Vessels: no JVD Extremities: + edema (trace pretibial); no calf tenderness Gastrointestinal (Abdomen): normal bowel sounds, soft, nontender, no hepatosplenomegaly Skin: no rashes, warm and dry Psychiatric: Orientation: alert and oriented x 3 Results & Data Vital Signs (Past 12 Hours) Vital Signs Temp Pulse Pulse Resp BP BP Pulse Ox 05/19/19 19:32 96 H 16 95 05/19/19 19:07 36.7 C 87 18 148/84 H 89 L 05/19/19 18:06 94 H 05/19/19 15:17 104 H 18 95 05/19/19 15:00 36.8 C 79 18 126/77 97 05/19/19 12:00 36.4 C L 76 20 136/60 91 05/19/19 11:11 94 H 18 98 Laboratory Results 05/17/19 02:52 05/19/19 05:50
[2019-05-20] MEDS: LEVALBUTEROL 1.25MG/0.5ML NEB INH SCH ×3 (03:35→11:04)
[2019-05-20] MEDS: IPRATROPIUM BROMIDE NEB SOLN 0.02% 2.5 ML VIAL INH SCH ×3 (03:35→11:04)
[2019-05-20] MEDS: LEVOTHYROXINE SODIUM 75 MCG TABLET PO SCH (05:52)
[2019-05-20] MEDS: ARFORMOTEROL TART 15MCG/2ML VIAL INH SCH (07:13)
[2019-05-20 07:15] VITALS: TEMP 97.9
[2019-05-20] MEDS: INSULIN ASPART 100 UNITS/ML 3 ML PEN SC SCH ×2 (08:21→12:38)
[2019-05-20] MEDS: INSULIN GLARGINE SOLOSTAR 100 UNITS/ML 3 ML PEN SC SCH (08:23)
[2019-05-20] MEDS: LISINOPRIL 20 MG TAB PO SCH (08:24)
[2019-05-20] MEDS: SERTRALINE HCL 50 MG TABLET PO SCH (08:24)
[2019-05-20] MEDS: predniSONE 20 MG TAB PO SCH (08:24)
[2019-05-20] MEDS: ENOXAPARIN INJ 40 MG/0.4 ML SYR SQ SCH (08:25)
[2019-05-20] MEDS: DOXYCYCLINE HYCLATE 100 MG CAP PO SCH (08:25)
[2019-05-20 11:07] VITALS: PULSE 94; O2SAT 95
--- NOTE | 2019-05-20 12:37 | Hospitalist Progress Note ---
Date of Service May 20, 2019 Assessment & Plan (1) COPD exacerbation: Presented with cough, wheezing, worsening dyspnea. Portable chest x-ray did not show any apparent infiltrates, effusions, CHF. CTA chest negative for pulmonary embolism, but demonstrated small parenchymal infiltrate right base. Exacerbation of COPD probably secondary to pneumonia as discussed below. Exposure to smoke from cooking may be contributing factor. Received intravenous methylprednisolone in the ED and transitioned to prednisone 40 mg daily. Discharge on prednisone 40 mg daily + doxycycline for 4 more days. (2) Pneumonia: CTA chest negative for pulmonary embolism, but demonstrated small parenchymal infiltrate right base. Possible community-acquired pneumonia, present on admission. Sputum Gram stain, culture and sensitivity ordered, but still pending. Allergic to multiple antibiotics including quinolones, penicillins, cephalosporins, macrolides. Receiving doxycycline with improvement. Discharge on doxycycline for 4 more days. (3) Type 2 diabetes mellitus with unspecified complications: History of diabetes mellitus type 2. Managed primarily with glipizide. Prescribed insulin 70/30, but not using it recently. Random blood sugar at time of admission 248. Hemoglobin A1C 8.0. Receiving IV methylprednisolone. Blood sugars > 300 despite fairly aggressive coverage with basal / bolus insulin. Changed to insulin infusion with improvement. Transitioned back to SQ basal / bolus insulin. FBS this morning = 127. Discharge on glipizide 5 mg BID with extra dose BID if blood glucose > 200. Does not tolerate metformin. Discharge on 70/30 sliding scale while on prednisone. Further management per PCP. (4) Hypertension: Continue lisinopril. (5) DVT prophylaxis: Enoxaparin. Ambulate. (6) Discharge planning issues: Discharge to home. Family Medicine follow-up with Dr. Colton Morse. Subjective Recheck for exacerbation of COPD. Patient seen in their room around 1100. Cough and wheezing improved. Blood sugars improved. Ready to go home. Review of Systems: Constitutional- no fever. Cardiac- no anginal pain. Pulmonary- as noted above. GI- no nausea, vomiting, diarrhea, melena, hematochezia. - no urinary symptoms. Otherwise, as noted above. Physical Exam Constitutional: no acute distress Eyes: + anicteric sclerae Respiratory: no respiratory distress Auscultation: + wheezes (diffuse, mild) Cardiovascular: Rate/Rhythm: regular rate and regular rhythm Heart Sounds: no gallop and no cardiac rub Vessels: no JVD Extremities: + edema (trace pretibial); no calf tenderness Gastrointestinal (Abdomen): normal bowel sounds, soft, nontender, no hepatosplenomegaly Skin: no rashes, warm and dry Psychiatric: Orientation: alert and oriented x 3 Results & Data Vital Signs (Past 12 Hours) Vital Signs Temp Pulse Pulse Pulse Resp BP BP 05/20/19 11:05 94 H 16 05/20/19 11:02 36.6 C 81 18 162/94 H 05/20/19 07:44 78 05/20/19 07:14 36.6 C 77 93 H 16 165/106 H 05/20/19 04:00 36.8 C 66 20 116/69 05/20/19 01:28 86 Pulse Ox 05/20/19 11:05 95 05/20/19 11:02 93 05/20/19 07:44 05/20/19 07:14 91 05/20/19 04:00 94 05/20/19 01:28
[2019-05-20 12:53] VITALS: BP 165/106
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
== END 2019-05-20 13:35 | disposition home or self-care (01) | DRG 193 ==
LOC: ED 22:51 → SUATTDRO 05-17 01:21 → 2W 05-17 01:21

== ENCOUNTER 2019-06-23 20:41 | Inpatient (IN) ==
[2019-06-23] MEDS ORDERED: OXYCODONE/ACETAMINOPHEN 5mg/325mg TAB PO STA (21:06)
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
[2019-06-23 22:04] LABS: iSTAT Creatinine 0.6 mg/dl (0.6-1.3); iSTAT Ionized Calcium 1.09 mmol/l (1.12-1.32); iSTAT Potassium 3.8 mEq/L (3.3-5.0)
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
[2019-06-23 22:52] LABS: Basophils # (auto) 0.01 K/uL (0-0.2); Basophils % (auto) 0.1 %; Eosinophils # (auto) 0.02 K/uL (0-0.5); Eosinophils % (auto) 0.3 %; Hematocrit (blood only) 44.9 % (37-47); Hemoglobin 15.2 g/dL (12.0-16.0); Immature Granulocytes # (auto) 0.02 K/uL (0.00-0.02); Immature Granulocytes % (auto) 0.3 %; Lymphocytes # (auto) 1.46 K/uL (1.2-3.4); Lymphocytes % (auto) 20.5 %; Mean Corpuscular Hgb Conc 33.9 g/dL (32-36); Mean Corpuscular Volume 82.8 fL (80-100); Mean Platelet Volume 11.3 fL (7.4-10.4); Monocytes # (auto) 0.76 K/uL (0.11-0.59); Monocytes % (auto) 10.7 %; Neutrophils # (auto) 4.85 K/uL (1.4-6.5); Neutrophils % (auto) 68.1 %; Platelet Count 171 K/uL (130-400); RDW Coefficient of Variation 14.5 % (11.5-14.5); RDW Standard Deviation 43.7 fL (36.4-46.3); Red Blood Count 5.42 M/uL (4.2-5.4); White Blood Count 7.12 K/uL (4.8-10.8)
[2019-06-23] MEDS ORDERED: ONDANSETRON INJ 2 MG/ML 2 ML VIAL IV STA (22:57)
[2019-06-23] MEDS ORDERED: SODIUM CHLORIDE 0.9% 1000ML 500 ML IV ONE (22:57)
[2019-06-23 23:13] LABS: BUN Creatinine Ratio 16.6 (10-20); Calcium 9.8 mg/dl (8.5-10.1); Creatinine Clr Calc Pharmacy 80.1 ml/min; Est GFR (African American) 68.3; Est GFR (Non-African American) 58.9
[2019-06-23 23:27] LABS: Troponin I 0.726 ng/ml (0-0.045)
[2019-06-23] MEDS ORDERED: methylPREDNISolone 125 MG/2 ML VIAL IV STA (23:56)
[2019-06-23] MEDS ORDERED: DiphenhydrAMINE HCL 50 MG/ML VIAL IV STA (23:56)
[2019-06-24] MEDS ORDERED: METOPROLOL TARTRATE 1 MG/ML VIAL IV STA (00:08)
[2019-06-24] MEDS ORDERED: lisinopriL 5 MG TAB PO STA (00:09)
[2019-06-24] MEDS ORDERED: OPTIRAY 320 125ml IV PRN (00:28)
[2019-06-24 00:55] LABS: Partial Thromboplastin Ratio 0.9; Partial Thromboplastin Time 25.6 Seconds (21.0-31.0)
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
[2019-06-24 01:34] LABS: Albumin Level 3.3 gm/dl (3.4-5.0); Bilirubin Direct 0.1 mg/dl (0-0.2); Bilirubin,Total 0.6 mg/dl (0.2-1); Magnesium 1.8 mg/dl (1.8-2.4); Thyroid Stimulating Hormone 8.99 uIu/ml (0.300-4.500); Total Protein 6.9 gm/dl (6.4-8.2); Troponin I 0.763 ng/ml (0-0.045)
[2019-06-24 01:55] LABS: T4 Free Thyroxine 0.82 ng/dl (0.8-1.6)
[2019-06-24] MEDS ORDERED: PROMETHAZINE HCL 12.5 MG in SODIUM CHLORIDE 0.9% 50 ML IV PRN (02:18)
[2019-06-24] MEDS ORDERED: INSULIN GLARGINE SOLOSTAR 100 UNITS/ML 3 ML PEN SC STA ×3 (02:18→04:33)
[2019-06-24] MEDS ORDERED: GLUCOSE 40% GEL 15 GM TUBE PO PRN (02:18)
[2019-06-24] MEDS ORDERED: MoRPHine SULFATE 4 MG/ML 1 ML CARP\\VIAL IV PRN (02:18)
[2019-06-24] MEDS ORDERED: TRAMADOL HCL 50 MG TABLET PO PRN (02:18)
[2019-06-24] MEDS ORDERED: CARBOHYDRATES FOR HYPOGLYCEMIA PO PRN (02:18)
[2019-06-24] MEDS ORDERED: GLUCAGON FOR INJ 1 MG VIAL SQ PRN (02:18)
[2019-06-24] MEDS ORDERED: DEXTROSE 50% 50 ML SYRINGE IV PRN (02:18)
[2019-06-24] MEDS ORDERED: NSS + 20MEQ KCL 20 MEQ/1,000 ML BAG IV ONE (02:18)
[2019-06-24] MEDS ORDERED: GLUCOSE 10 TABS/TUBE PO PRN (02:18)
[2019-06-24] MEDS ORDERED: dilTIAZem HCl 5 MG/ML 5 ML VIAL IV STA (02:30)
[2019-06-24] MEDS: INSULIN ASPART 100 UNITS/ML 3 ML PEN SC SCH ×5 (03:07→21:13)
[2019-06-24 03:15] LABS: Prothrombin Time 10.3 Seconds (9.0-12.0)
[2019-06-24] MEDS ORDERED: lisinopriL 20 MG TAB PO STA (04:28)
[2019-06-24 06:25] LABS: Hematocrit (blood only) 43.3 % (37-47); Hemoglobin 14.5 g/dL (12.0-16.0); Immature Granulocytes # (auto) 0.01 K/uL (0.00-0.02); Immature Granulocytes % (auto) 0.2 %; Lymphocytes # (auto) 0.54 K/uL (1.2-3.4); Mean Corpuscular Hemoglobin 27.9 pg (25-34); Mean Corpuscular Hgb Conc 33.5 g/dL (32-36); Mean Corpuscular Volume 83.3 fL (80-100); Mean Platelet Volume 11.3 fL (7.4-10.4); Monocytes # (auto) 0.08 K/uL (0.11-0.59); Monocytes % (auto) 1.3 %; Neutrophils # (auto) 5.34 K/uL (1.4-6.5); Neutrophils % (auto) 89.5 %; Platelet Count 145 K/uL (130-400); RDW Coefficient of Variation 14.6 % (11.5-14.5); RDW Standard Deviation 44.3 fL (36.4-46.3); White Blood Count 5.97 K/uL (4.8-10.8)
[2019-06-24] MEDS: LEVOTHYROXINE SODIUM 50 MCG TABLET PO SCH (06:37)
[2019-06-24 07:09] LABS: BUN Creatinine Ratio 16.3 (10-20); Creatinine Clr Calc Pharmacy 78.6 ml/min; Est GFR (African American) 66.7; Est GFR (Non-African American) 57.5; Potassium 4.5 mmol/L (3.5-5.1); Troponin I 0.533 ng/ml (0-0.045)
[2019-06-24 07:22] LABS: Beta-Hydroxybutyrate 6.58 mg/dl (0.2-2.81)
[2019-06-24] MEDS ORDERED: INSULIN HUMAN REGULAR PER UNIT 5 UNITS in SYRINGE 4.95 ML IV STA (08:05)
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
[2019-06-24] MEDS ORDERED: INSULIN HUMAN REGULAR PER UNIT 10 UNITS in SYRINGE 9.9 ML IV STA (09:40)
[2019-06-24] MEDS: ENOXAPARIN INJ 40 MG/0.4 ML SYR SQ SCH (10:45)
[2019-06-24] MEDS: FAMOTIDINE 20 MG TAB PO SCH ×2 (10:46→21:13)
[2019-06-24] MEDS: SERTRALINE HCL 50 MG TABLET PO SCH (10:46)
[2019-06-24] MEDS ORDERED: PHARMACY GLYCEMIC MGMT CONSULT SCH (11:39)
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
[2019-06-24] MEDS: INSULIN REGULAR 250 UNITS in SODIUM CHLORIDE 0.9% 247.5 ML IV SCH (11:59)
[2019-06-24] MEDS ORDERED: INSULIN ASPART 100 UNITS/ML 3 ML PEN SC SCH (12:00)
[2019-06-24] MEDS ORDERED: NovoLIN-R BOLUS FROM BAG IV ONE (12:00)
[2019-06-24 16:56] LABS: BUN Creatinine Ratio 14.9 (10-20); Calcium 9.3 mg/dl (8.5-10.1); Creatinine Clr Calc Pharmacy 67.6 ml/min; Est GFR (African American) 55.5; Est GFR (Non-African American) 47.9
[2019-06-24] MEDS ORDERED: INSULIN GLARGINE SOLOSTAR 100 UNITS/ML 3 ML PEN SQ SCH (21:00)
[2019-06-25 05:51] LABS: Hematocrit (blood only) 41.7 % (37-47); Hemoglobin 13.6 g/dL (12.0-16.0); Mean Corpuscular Hemoglobin 27.5 pg (25-34); Mean Corpuscular Hgb Conc 32.6 g/dL (32-36); Mean Corpuscular Volume 84.4 fL (80-100); Mean Platelet Volume 11.2 fL (7.4-10.4); Platelet Count 161 K/uL (130-400); RDW Standard Deviation 46.2 fL (36.4-46.3); Red Blood Count 4.94 M/uL (4.2-5.4); White Blood Count 6.88 K/uL (4.8-10.8)
[2019-06-25] MEDS: LEVOTHYROXINE SODIUM 50 MCG TABLET PO SCH (06:13)
[2019-06-25 06:21] LABS: BUN Creatinine Ratio 22.4 (10-20); Calcium 8.7 mg/dl (8.5-10.1); Est GFR (African American) 69.1; Est GFR (Non-African American) 59.6; Potassium 3.8 mmol/L (3.5-5.1)
[2019-06-25] MEDS: INSULIN ASPART 100 UNITS/ML 3 ML PEN SC SCH ×4 (08:07→20:46)
[2019-06-25] MEDS: ENOXAPARIN INJ 40 MG/0.4 ML SYR SQ SCH (08:09)
[2019-06-25] MEDS: FAMOTIDINE 20 MG TAB PO SCH ×2 (08:09→20:45)
[2019-06-25] MEDS: lisinopriL 20 MG TAB PO SCH (08:09)
[2019-06-25] MEDS: SERTRALINE HCL 50 MG TABLET PO SCH (08:10)
[2019-06-25] MEDS ORDERED: ACETAMINOPHEN 325 MG TAB PO PRN (08:17)
[2019-06-25] MEDS ORDERED: lisinopriL 20 MG TAB PO SCH (09:00)
[2019-06-25] MEDS ORDERED: lisinopriL 40 MG TAB PO SCH (09:00)
[2019-06-25] MEDS ORDERED: INSULIN GLARGINE SOLOSTAR 100 UNITS/ML 3 ML PEN SQ SCH (09:00)
[2019-06-25] MEDS: FLUTICASONE/SALMETEROL 100/50 (ADVAIR) 14 PUFF/1 INHALER INH SCH ×2 (09:51→20:45)
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
[2019-06-25] MEDS: INSULIN REGULAR 250 UNITS in SODIUM CHLORIDE 0.9% 247.5 ML IV SCH (12:51)
--- NOTE | 2019-06-25 14:21 | Pharmacy Report ---
Pharmacy Glycemic Short Note 2 - Date of Service June 25, 2019 - Glycemic Short BSG Results (Last 24 hours): 06/24/19 06/24/19 06/24/19 15:03 16:00 16:23 Glucose 244 H POC Glucose 301 H* 252 H 06/24/19 06/24/19 06/24/19 17:03 18:03 19:02 Glucose POC Glucose 227 H 272 H 193 H 06/24/19 06/24/19 06/24/19 20:03 21:01 22:07 Glucose POC Glucose 146 H 144 H 161 H 06/24/19 06/25/19 06/25/19 23:56 01:05 01:21 Glucose POC Glucose 115 H 96 100 H 06/25/19 06/25/19 06/25/19 01:38 01:55 02:12 Glucose POC Glucose 111 H 116 H 132 H 06/25/19 06/25/19 06/25/19 02:34 03:41 04:43 Glucose POC Glucose 146 H 173 H 167 H 06/25/19 06/25/19 06/25/19 05:11 05:46 07:40 Glucose 168 H POC Glucose 160 H 188 H 06/25/19 06/25/19 06/25/19 08:45 09:40 10:46 Glucose POC Glucose 196 H 241 H 168 H 06/25/19 06/25/19 11:23 12:25 Glucose POC Glucose 183 H 219 H OUTPATIENT ANTIDIABETIC REGIMEN: * glipizide 5 mg BID, Novolin 70/30 55 units ASSESSMENT: * Started on insulin infusion yesterday for persistent hyperglycemia, BSGs trended down overnight, drip running at an average of 1.4 units this morning * 40 units of lantus given to transition off of insulin infusion, in past patient required ~30-45 units of lantus * Start novolog parameters ~ weight based stress of 3, correction factor slightly loosened than previous admissions * Patient to be NPO at midnight for cardiac cath tomorrow, will determine AM dose of lantus depending on fasting BSG PLAN FOR INPATIENT GLYCEMIC CONTROL: * Hold outpatient oral diabetes medications * Basal insulin * Lantus 40 units SQ this AM, tomorrows dose to be determined * Bolus insulin * NovoLog per scale ACHS or Q6hrs while NPO * Goal Range: Low 120 mg/dL - High 160 mg/dL * Correction Factor: 15 mg/dL/unit * Nutritional / Prandial insulin per carb ratio of 1 unit per 4 grams CHO consumed PLAN FOR DISCHARGE: * Per life educator recommendations continue lantus on discharge and transition back to 70/30 with outpatient provider. Dosing recommendation to follow.
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
[2019-06-25] MEDS: SODIUM CHLORIDE 0.9% 1000ML 1,000 ML IV SCH (23:26)
[2019-06-26] MEDS: LEVOTHYROXINE SODIUM 50 MCG TABLET PO SCH (06:08)
[2019-06-26] MEDS ORDERED: INSULIN GLARGINE SOLOSTAR 100 UNITS/ML 3 ML PEN SQ SCH (09:00)
[2019-06-26] MEDS ORDERED: HEPARIN (PORCINE) 1000 UNIT/ML 10 ML (CATH LAB USE ONLY) ONE (09:11)
[2019-06-26] MEDS ORDERED: fentaNYL citrate 100 MCG/2 ML VIAL ONE (09:11)
[2019-06-26] MEDS ORDERED: NiCARDipine HCL INJ 2.5 MG/ML 10 ML AMP ONE (09:11)
[2019-06-26] MEDS ORDERED: MIDAZOLAM HCL 1 MG/ML 2ML VIAL ONE (09:11)
[2019-06-26] MEDS ORDERED: NITROGLYCERIN/D5W 100MCG/ML 20ML SYR ONE (09:12)
[2019-06-26] MEDS ORDERED: raNITIdine HCl 25 MG/ML VIAL IV ONE (09:43)
[2019-06-26] MEDS ORDERED: methylPREDNISolone 125 MG/2 ML VIAL ONE (09:43)
[2019-06-26] MEDS ORDERED: DiphenhydrAMINE HCL 50 MG/ML VIAL ONE (09:43)
[2019-06-26] MEDS ORDERED: DiphenhydrAMINE HCL 50 MG/ML VIAL IV ONE (09:44)
[2019-06-26] MEDS ORDERED: methylPREDNISolone 120 MG in SYRINGE 0 ML IV STA (09:44)
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
[2019-06-26] MEDS ORDERED: INSULIN GLARGINE SOLOSTAR 100 UNITS/ML 3 ML PEN SC ONE (11:45)
[2019-06-26] MEDS: INSULIN ASPART 100 UNITS/ML 3 ML PEN SC SCH ×5 (12:20→20:54)
[2019-06-26] MEDS: FAMOTIDINE 20 MG TAB PO SCH ×2 (12:21→20:55)
[2019-06-26] MEDS: lisinopriL 20 MG TAB PO SCH (12:21)
[2019-06-26] MEDS: FLUTICASONE/SALMETEROL 100/50 (ADVAIR) 14 PUFF/1 INHALER INH SCH ×2 (12:21→20:54)
[2019-06-26] MEDS: SERTRALINE HCL 50 MG TABLET PO SCH (12:22)
[2019-06-26] MEDS ORDERED: SODIUM CHLORIDE 0.9% 1000ML 1,000 ML IV SCH (13:15)
[2019-06-26] MEDS: SODIUM CHLORIDE 0.9% 1000ML 1,000 ML IV SCH (13:35)
--- NOTE | 2019-06-26 15:00 | Pharmacy Report ---
Pharmacy Glycemic Short Note 2 - Date of Service June 26, 2019 - Glycemic Short BSG Results (Last 24 hours): 06/25/19 06/25/19 06/26/19 16:18 20:41 07:11 POC Glucose 141 H 179 H 155 H 06/26/19 11:05 POC Glucose 206 H OUTPATIENT ANTIDIABETIC REGIMEN: * glipizide 5 mg BID, Novolin 70/30 55 units ASSESSMENT: 06/26 * Patient received 40 units of lantus yesterday and was successfully transitioned off of insulin infusion * BSGs remained <180 with current correction/carb ratio, continue for now * Fasting this morning 155, Patient was NPO for cath, reduced AM lantus dose 20% to 32 units, however, this was not given prior to cath * Lunch BSG elevated 206 and patient received 125 mg of solu-medrol, 55 units of lantus given at lunch today 06/25 * Started on insulin infusion yesterday for persistent hyperglycemia, BSGs trended down overnight, drip running at an average of 1.4 units this morning * 40 units of lantus given to transition off of insulin infusion, in past patien t required ~30-45 units of lantus * Start novolog parameters ~ weight based stress of 3, correction factor slightly loosened than previous admissions * Patient to be NPO at midnight for cardiac cath tomorrow, will determine AM dose of lantus depending on fasting BSG PLAN FOR INPATIENT GLYCEMIC CONTROL: * Hold outpatient oral diabetes medications * Basal insulin * Lantus 40 units SQ this AM, tomorrows dose to be determined * Bolus insulin * NovoLog per scale ACHS or Q6hrs while NPO * Goal Range: Low 120 mg/dL - High 160 mg/dL * Correction Factor: 15 mg/dL/unit * Nutritional / Prandial insulin per carb ratio of 1 unit per 4 grams CHO consumed PLAN FOR DISCHARGE: * A1c 8.0% 05/16/19 this is improved from previous , goal A1c <7.0% based on age and comorbidities * Patient previously on metformin but was unable to tolerate due to GI side effects * Per personal development educator recommendations continue lantus on discharge and transi tion back to 70/30 with outpatient provider.
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
--- NOTE | 2019-06-26 19:15 | XRay Report ---
XR chest 2V PA/lateral HISTORY: productive cough COMPARISON: Chest 05/16/2019. FINDINGS: The heart is normal in size. No pleural effusions. No pneumothorax. Increased markings at t he lung bases may be due to vascular crowding or overlying soft tissue. This remains unchanged. No ne w focal lung consolidations to suggest pneumonia. No evidence for pulmonary edema. IMPRESSION: No significant change compared to the prior study. No acute process. ACT 112: Negative or not required by law. Electronically signed by: Finn Jarrell M.D. 06/26/2019 7:14 PM
[2019-06-27] MEDS: INSULIN ASPART 100 UNITS/ML 3 ML PEN SC SCH ×4 (00:03→12:33)
[2019-06-27] MEDS: LEVOTHYROXINE SODIUM 50 MCG TABLET PO SCH (05:58)
[2019-06-27 06:00] LABS: Hematocrit (blood only) 41.8 % (37-47); Hemoglobin 13.4 g/dL (12.0-16.0); Mean Corpuscular Hemoglobin 27.3 pg (25-34); Mean Corpuscular Hgb Conc 32.1 g/dL (32-36); Mean Corpuscular Volume 85.3 fL (80-100); Mean Platelet Volume 10.5 fL (7.4-10.4); Platelet Count 156 K/uL (130-400); RDW Coefficient of Variation 14.8 % (11.5-14.5); RDW Standard Deviation 46.4 fL (36.4-46.3); White Blood Count 6.56 K/uL (4.8-10.8)
[2019-06-27 06:32] LABS: BUN Creatinine Ratio 22.1 (10-20); Calcium 8.7 mg/dl (8.5-10.1); Creatinine Clr Calc Pharmacy 103.9 ml/min; Est GFR (Non-African American) 80.2; Potassium 3.8 mmol/L (3.5-5.1)
--- NOTE | 2019-06-27 07:45 | Electrocardiogram Report ---
Test Reason : Blood Pressure : / mmHG Vent. Rate : 076 BPM Atrial Rate : 076 BPM P-R Int : 194 ms QRS Dur : 132 ms QT Int : 508 ms P-R-T Axes : 081 254 243 degrees QTc Int : 571 ms Normal sinus rhythm Right bundle branch block Marked T-wave abnormality, consider inferolateral ischemia vs cerebrovascular event Abnormal ECG When compared with ECG of 24-JUN-2019 07:51, T wave changes are more severe QT has lengthened Confirmed by Sukhdev Barrios ([id number]) on 06/27/2019 7:45:08 AM Referred By: REFERRED SELF Confirmed By:Leonardo Barrios
[2019-06-27] MEDS: FAMOTIDINE 20 MG TAB PO SCH (08:21)
[2019-06-27] MEDS: FLUTICASONE/SALMETEROL 100/50 (ADVAIR) 14 PUFF/1 INHALER INH SCH (08:21)
[2019-06-27] MEDS: SERTRALINE HCL 50 MG TABLET PO SCH (08:22)
[2019-06-27] MEDS: lisinopriL 20 MG TAB PO SCH (08:22)
[2019-06-27] MEDS ORDERED: INSULIN GLARGINE SOLOSTAR 100 UNITS/ML 3 ML PEN SQ SCH (09:00)
--- NOTE | 2019-06-27 10:53 | Pharmacy Report ---
Pharmacy Glycemic Short Note 2 - Date of Service June 27, 2019 - Glycemic Short BSG Results (Last 24 hours): 06/26/19 06/26/19 06/26/19 11:05 16:34 20:20 Glucose POC Glucose 206 H 287 H 289 H 06/26/19 06/27/19 06/27/19 23:59 04:12 05:36 Glucose 157 H POC Glucose 279 H 170 H 06/27/19 07:43 Glucose POC Glucose 192 H OUTPATIENT ANTIDIABETIC REGIMEN: * glipizide 5 mg BID, Novolin 70/30 55 units ASSESSMENT: * 63yo T2DM female with sub-optimal degree of outpatient control. See dc recs below. * 06/24/19: Pt initiated on IV insulin infusion for severe hyperglycemia per protocol * 06/25/19: Pt transitioned from IV to SQ basal bolus insulin regimen per protocol * 06/26/19: Pt received 113 units of insulin * 55 units of basal * 58 units of bolus * BSGs 155-289 mg/dl * Pt received one time dose of solumedrol 125 mg IV which caused steroid induced hyperglycemia * 06/27/19: Planning for dc soon. Outpatient regimen will need adjusted d/t lack of secondary insurance (she only has Medicare parts A[employer]B). Low cost insulin necessary for compliance. PLAN FOR INPATIENT GLYCEMIC CONTROL: * Hold outpatient oral diabetes medications * Basal insulin: decrease dose slightly since steady state nearly reached and no steroids given today. * Lantus 40 units SQ this AM, tomorrows dose to be determined * Bolus insulin: loosen CF & CR w/o steroids on board and lower goal range * NovoLog per scale ACHS or Q6hrs while NPO * Goal Range: Low 120 mg/dL - High 150 mg/dL * Correction Factor: 20 mg/dL/unit * Nutritional / Prandial insulin per carb ratio of 1 unit per 6 grams CHO consumed PLAN FOR DISCHARGE: * A1c 8.0% 05/16/19 this is improved from previous , goal A1c <7.0% based on age and comorbidities * Patient previously on metformin but was unable to tolerate due to GI side effects * Per clinical educator recommendations continue lantus on discharge and transition back to 70/30 with outpatient provider. Recommend * Lantus 40 units SQ daily in AM until current pen gone. * Continue glipizide 5mg PO BIDM Then, change to: * Novolin 70/30 insulin monotherapy (stop glipizide) * 70/30 insulin 40-50 units in AM with breakfast + 20-30 units in PM with dinner. * Titrate dosing with outpatient provider to reach fasting BG ~90-140.
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
== END 2019-06-27 16:20 | disposition home or self-care (01) | DRG 287 ==
LOC: ED 20:41 → 2E 20:41

== ENCOUNTER 2020-12-28 10:08 | Inpatient (IN) ==
--- NOTE | 2020-12-28 10:47 | Emergency Department Note ---
Impression & Plan COPD (chronic obstructive pulmonary disease), Hypoxemia ED Provider Note NAME: GAYLA MERCER AGE: 65 SEX: F : 1955 ARRIVES VIA: Walk-In INFORMANT: Patient, ED PROVIDER(S): Heri Watts MD Chief Complaint: Shortness of breath HPI: Patient was seen in the outpatient setting by Shay Kilgore due to concern for hypoxia and COPD. Patient is having a likely COPD exacerbation who was satting 84 to 86% on room air. Patient is already on 2 antibiotics and prednisone with worsening symptoms. Patient is at symptoms approximate 10 days. She started on doxycycline. Amoxicillin was added 3 days after her initial symptom onset. Patient states that the humidity and activity do make her symptoms worse. The patient has had a dry nonproductive cough. The patient is a former smoker last smoked 4 years ago. Patient denies any fevers or chills. The patient is vaccinated for Covid. Patient denies any lower extremity swelling. The patient has a remote history of DVT 2 years ago but is not on any current anticoagulation therapy. Patient denies any chest pains. The patient does wear oxygen at nighttime. Patient has had to use her oxygen all week. Patient has been compliant with her medications but did not take her morning meds that she had her early appointment. ROS: See HPI for pertinent positives and negatives. A total of 10 systems were reviewed and otherwise negative. Past medical history: See below Surgical history: See below Social history: See below Physical Exam: GENERAL: Nasal cannula in place, nontoxic in appearance. EYE EXAM: Normal conjunctiva. PERRL, no anisocoria and EOM's grossly intact w/o pain. NECK: Supple, no nuchal rigidity, no adenopathy, non-tender. No signs of meningismus. Not stridulous. LUNGS: Diffuse inspiratory and expiratory wheezing throughout, prolonged expiratory phase. HEART: NSR, no MRG. ABDOMEN: Abdomen soft, non-tender, normo-active bowel sounds, no masses, no rebound or guarding. BACK: No CVA TTP. SKIN: No rashes and no bruising. UPPER EXTREMITIES: Upper extremities are grossly normal. LOWER EXTREMITIES: Grossly normal, no edema. Negative Homans' sign bilaterally. NEURO EXAM: A&O x3, cranial nerves II-XII grossly intact, normal speech, moves all 4 extremities on command w/o issue. Differential diagnoses: Reactive airway disease, pneumonia, pneumothorax, COPD, CHF, infections, cardiac ischemia, pulmonary embolism, musculoskeletal, gastrointestinal, as well as other pathologies. Course: Patient was seen and evaluated the bedside. Full history physical exam was performed. EKG interpreted by me Normal sinus rhythm, rate of 87, normal PA, wide QRS, left axis deviation, right bundle branch block pattern. Imaging Studies: See below Cardiac monitoring: An order was placed for continuous cardiac monitoring. The monitor shows a rate of 88 with sinus rhythm. MDM: Patient did present with concern for COPD type symptoms and associated shortness of breath. Blood work was obtained and the patient was treated symptomatically. The patient was requiring continuous oxygen therapy which the patient typically does not require. EKG with no concerning changes. Patient is no white count H&H and platelet count. The patient's kidney function shows some prerenal azotemia. Troponin not detectable. BNP is not elevated. Pro-Nael not elevated. Covid negative. Patient may have an element of pneumonitis versus atelectasis. The patient has had a dry nonproductive cough. Given the patient's chronic antibiotic use patient may benefit from continued therapy. Patient did not want to use Levaquin as this caused some issues with her in the past. This was held and deferred to the inpatient team at this time. I did speak the on-call hospitalist Stephany Uriarte PA-C and the patient was admitted by Dr. Benavides. Critical Care: I have personally spent 45 minutes of critical care time in direct management of this patient. This includes bedside care, interpretation of diagnostic studies, and testing, discussion with consultants, patient, and family members, and other require inpatient management activities. This 45 minutes is in excess of all separately billable procedures. Past Med/Surg History Medical History (Updated 12/28/20 @ 16:57 by Heri Watts MD) Anxiety state, unspecified Asthma, moderate persistent Calculus of kidney and ureter 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 COPD (chronic obstructive pulmonary disease) Diabetes mellitus, type II GERD (gastroesophageal reflux disease) Hypertension Tobacco use disorder Surgical History History of bronchoscopy History of History of cystoscopy History of lung surgery lobectomy Status post appendectomy Status post hip replacement Status post hysterectomy Family History Father Asthma Family/Other Asthma Grandmother Uterine cancer Diabetes Unknown Coronary heart disease Social History Smoking Status: Former smoker Tobacco Type: Cigarettes Years Smoked: 43; Cigarettes Per Day: 20; Number of Years Since Quit: 4; Second Hand Exposure: No; Do You Dip or Chew Tobacco: No; Tobacco Cessation Education Requested by Patient: No Hx Alcohol Use: No Hx Substance Use: No Preferred Language: Korean Communication Ability: Effective Visual Impairment: No Limitations Hearing Ability: Normal Laundry Routeman Required: No Beliefs That Will Affect Care: None marital status: Single Current Living Situation: Family Current Living Situation Comment: lives with daughter current occupational status: employed Other Information That Helps Us Care for You: No Feels Safe at Home: Yes Safety Concerns: Feels Safe At This Time Assistive Devices: Oxygen - at Night Assistive Devices Comment: pt has been wearing her o2 2lnc prn for sob as well as hs Allergies Allergies Allergy/AdvReac Type Severity Reaction Status Date / Time azithromycin Allergy Severe cardiac Verified 12/28/20 08:58 arrhythmia Penicillins Allergy Severe HIVES, SOB Verified 12/28/20 08:58 Sulfa (Sulfonamide Allergy Severe HIVES AND Verified 12/28/20 08:58 Antibiotics) SOB WITH ORAL SULFA DRUGS, OK W/SILVADENE Cephalosporins Allergy Intermediate HIVES WITH Verified 12/28/20 08:58 CEFTIN Quinolones Allergy Mild HIVES-BUT Verified 12/28/20 08:58 HAD LEVAQUIN IN ER 03/05/09 W/O PROBLEM adhesive Allergy Unknown TAPE-SORES Verified 12/28/20 08:58 ON SKIN cefuroxime Allergy Unknown Unknown Verified 12/28/20 08:58 iodine Allergy Unknown REDNESS - Verified 12/28/20 08:58 see notes (topical), Inectable dye - n/v levofloxacin [From Levaquin] Allergy Unknown Unknown Verified 12/28/20 08:58 Iodinated Contrast Media AdvReac Intermediate skin Verified 12/28/20 08:58 [Iodinated Contrast- Oral burning and IV Dye] years ago Home Meds Home Medications Medication Instructions Recorded Confirmed albuterol sulfate [Ventolin HFA] 2 puff INHALATION Q4 PRN 04/27/18 12/28/20 ipratropium bromide 2.5 mg INHALATION Q6H PRN 04/27/18 12/28/20 mometasone [Nasonex] 2 spray INTRANASAL DAILY PRN 12/18/18 12/28/20 levothyroxine 50 mcg capsule 88 mcg PO DAILY cap 02/10/20 12/28/20 bupropion HCl 150 mg 24 hr tablet, 150 mg PO BID tab 12/28/20 12/28/20 extended release [id number]-zryjpzpsc-hoptyqxg 1 inh INHALATION DAILY 12/28/20 12/28/20 [Trelegy Ellipta] insulin NPH-regular 70-30 U-100 See Rx Instructions .ROUTE 12/28/20 12/28/20 insulin 100 unit/mL subcutaneous .COMPLEX ml pen lisinopril 20 mg PO DAILY 12/28/20 12/28/20 naltrexone 50 mg tablet 50 mg PO DAILY 12/28/20 12/28/20 Previous Rx's Medication Instructions Recorded hydrochlorothiazide 25 mg tablet 25 mg PO DAILY #60 tab 03/16/20 pantoprazole 40 mg tablet,delayed 40 mg PO DAILY #30 tab 08/31/20 release Results & Data (ED) Vital Signs Vital Signs - 24 hr 12/28/20 10:15 12/28/20 10:21 12/28/20 11:28 Temperature 36.5 C Temperature Source Temporal Artery Scan Pulse Rate 99 H Pulse Rate [Right Finger] 88 Pulse Rate from SpO2 Sensor Respiratory Rate 26 H 20 Respiratory Effort / Characteristics Short of Breath Short of Breath Spontaneous Respiratory Pattern Tachypnea Blood Pressure 206/76 H Blood Pressure Mean 119 Blood Pressure Position Sitting Pulse Oximetry 91 91 96 Oxygen Delivery Method Room Air Nasal Cannula Nasal Cannula Oxygen Flow Rate 2 Sepsis Recent Fever Within 48 Hours No Sepsis New/Unexplained Change in Mental Status N/A Sepsis Action Taken by Nursing No Action Required Oxygen Flow Rate - Titration 2 Pulse Oximetry Post Tiitration 93 12/28/20 12:02 12/28/20 12:30 12/28/20 13:00 Temperature Temperature Source Pulse Rate 91 H 90 87 Pulse Rate [Right Finger] Pulse Rate from SpO2 Sensor 92 H 90 87 Respiratory Rate 20 25 H 29 H Respiratory Effort / Characteristics Respiratory Pattern Blood Pressure 154/109 H 169/71 H 158/72 H Blood Pressure Mean 124 103 100 Blood Pressure Position Pulse Oximetry 96 96 93 Oxygen Delivery Method Nasal Cannula Nasal Cannula Oxygen Flow Rate 2 2 Sepsis Recent Fever Within 48 Hours Sepsis New/Unexplained Change in Mental Status Sepsis Action Taken by Nursing Oxygen Flow Rate - Titration Pulse Oximetry Post Tiitration Home Medications Current Medication List: was personally reviewed by me Laboratory Data Attestation: I reviewed the patient's lab results. Result diagrams: 12/28/20 11:37 12/28/20 11:37 Lab Results 12/28/20 12/28/20 12/28/20 Range/Units 11:37 11:37 12:06 WBC 6.05 (4.8-10.8) K/uL RBC 5.08 (4.2-5.4) M/uL Hgb 14.5 (12.0-16.0) g/dL Hct 43.1 (37-47) % MCV 84.8 (80-100) fL MCH 28.5 (25-34) pg MCHC 33.6 (32-36) g/dL RDW Std Deviation 42.3 (36.4-46.3) fL RDW Coeff of Radha 13.7 (11.5-14.5) % Plt Count 189 (130-400) K/uL MPV 10.4 (7.4-10.4) fL Immature Gran % (Auto) 0.2 % Neut % (Auto) 59.6 % Lymph % (Auto) 27.8 % Hamlin % (Auto) 10.7 % Eos % (Auto) 1.5 % Baso % (Auto) 0.2 % Neut # (Auto) 3.61 (1.4-6.5) K/uL Lymph # (Auto) 1.68 (1.2-3.4) K/uL Hamlin # (Auto) 0.65 H (0.11-0.59) K/uL Eos # (Auto) 0.09 (0-0.5) K/uL Baso # (Auto) 0.01 (0-0.2) K/uL Immature Gran # (Auto) 0.01 (0.00-0.02) K/uL Sodium 138 (136-145) mmol/L Potassium 3.7 (3.5-5.1) mmol/L Chloride 102 (98-107) mmol/L Carbon Dioxide 32 (21-32) mmol/L Anion Gap 4.0 (3-11) BUN 23 H (7-18) mg/dl Creatinine 0.85 (0.6-1.2) mg/dl Est Cr Clr Drug Dosing 95.7 ml/min Est GFR ( Amer) 83.9 ml/min Est GFR (Non-Af Amer) 72.4 ml/min BUN/Creatinine Ratio 26.6 H (10-20) Glucose 175 H (70-99) mg/dl Calcium 9.3 (8.5-10.1) mg/dl Total Bilirubin 0.3 (0.2-1) mg/dl AST 14 L (15-37) U/L ALT 23 (12-78) U/L Alkaline Phosphatase 60 (45-117) U/L Troponin I < 0.015 (0-0.045) ng/ml NT-Pro-B Natriuret Pep 57 (0-900) pg/ml Total Protein 7.3 (6.4-8.2) gm/dl Albumin 3.4 (3.4-5.0) gm/dl Globulin 3.9 (2.5-4.0) gm/dl Albumin/Globulin Ratio 0.9 (0.9-2) COVID-19 Eval Order Covid19 at [facility] SARS-CoV-2 (PCR) (Negative) 12/28/20 Range/Units 12:06 WBC (4.8-10.8) K/uL RBC (4.2-5.4) M/uL Hgb (12.0-16.0) g/dL Hct (37-47) % MCV (80-100) fL MCH (25-34) pg MCHC (32-36) g/dL RDW Std Deviation (36.4-46.3) fL RDW Coeff of Radha (11.5-14.5) % Plt Count (130-400) K/uL MPV (7.4-10.4) fL Immature Gran % (Auto) % Neut % (Auto) % Lymph % (Auto) % Hamlin % (Auto) % Eos % (Auto) % Baso % (Auto) % Neut # (Auto) (1.4-6.5) K/uL Lymph # (Auto) (1.2-3.4) K/uL Hamlin # (Auto) (0.11-0.59) K/uL Eos # (Auto) (0-0.5) K/uL Baso # (Auto) (0-0.2) K/uL Immature Gran # (Auto) (0.00-0.02) K/uL Sodium (136-145) mmol/L Potassium (3.5-5.1) mmol/L Chloride (98-107) mmol/L Carbon Dioxide (21-32) mmol/L Anion Gap (3-11) BUN (7-18) mg/dl Creatinine (0.6-1.2) mg/dl Est Cr Clr Drug Dosing ml/min Est GFR ( Amer) ml/min Est GFR (Non-Af Amer) ml/min BUN/Creatinine Ratio (10-20) Glucose (70-99) mg/dl Calcium (8.5-10.1) mg/dl Total Bilirubin (0.2-1) mg/dl AST (15-37) U/L ALT (12-78) U/L Alkaline Phosphatase (45-117) U/L Troponin I (0-0.045) ng/ml NT-Pro-B Natriuret Pep (0-900) pg/ml Total Protein (6.4-8.2) gm/dl Albumin (3.4-5.0) gm/dl Globulin (2.5-4.0) gm/dl Albumin/Globulin Ratio (0.9-2) COVID-19 Eval Order SARS-CoV-2 (PCR) NEGATIVE (Negative) Administered Medications Albuterol (Albut/Ipratrop 3mg/0.5mg Neb 3 Ml Vial) 3 ml NEB QIDR RAMONITA Stop: 01/27/21 16:00 Last Admin: 12/28/20 16:17 Dose: 3 ml Documented by: [id number] Benzonatate (Benzonatate 100 Mg Capsule) 100 mg PO TID RAMONITA Stop: 01/27/21 16:00 Last Admin: 12/28/20 16:44 Dose: 100 mg Documented by: [id number] Discontinued Medications Albuterol (Albut/Ipratrop 3mg/0.5mg Neb 3 Ml Vial) 6 ml INH NOW STA Stop: 12/28/20 11:01 Last Admin: 12/28/20 11:27 Dose: 6 ml Documented by: [id number] Sodium Chloride (Nss) 500 mls @ 999 mls/hr IV .Q31M STA Stop: 12/28/20 11:30 Last Infusion: 12/28/20 12:38 Dose: 0 mls/hr Documented by: [id number] Admin: 12/28/20 12:07 Dose: 999 mls/hr Documented by: [id number] Magnesium Sulfate/Dextrose (Magnesium Sulfate / D5w) 1 gm in 100 mls @ 100 mls/hr IV NOW STA Stop: 12/28/20 12:00 Last Infusion: 12/28/20 13:09 Dose: 0 mls/hr Documented by: [id number] Admin: 12/28/20 12:08 Dose: 100 mls/hr Documented by: [id number] Levofloxacin/Dextrose (Levaquin/D5w) 750 mg in 150 mls @ 100 mls/hr IV NOW STA Stop: 12/28/20 14:01 Last Admin: 12/28/20 13:27 Dose: Not Given Documented by: [id number] Aztreonam 2,000 mg/ Dextrose 110 mls @ 100 mls/hr IV NOW STA; Protocol Stop: 12/28/20 15:26 Last Admin: 12/28/20 14:50 Dose: 100 mls/hr Documented by: [id number] Levothyroxine Sodium (Levothyroxine Sodium 88 Mcg Tablet) 88 mcg PO NOW STA Stop: 12/28/20 14:23 Last Admin: 12/28/20 14:50 Dose: 88 mcg Documented by: [id number] Lisinopril (Lisinopril 20 Mg Tab) 20 mg PO NOW STA Stop: 12/28/20 14:23 Last Admin: 12/28/20 14:50 Dose: 20 mg Documented by: [id number] Methylprednisolone (Methylprednisolone 125 Mg/2 Ml Vial) 60 mg IV NOW STA Stop: 12/28/20 11:01 Last Admin: 12/28/20 12:07 Dose: 60 mg Documented by: [id number] Imaging Data Radiologist's Impression: Chest X-Ray 12/28/20 11:01 XR chest 1V portable HISTORY: 65 years-old Female Dyspnea acute shortness of breath COMPARISON: Chest radiographs of same day at 8:39 AM, chest CT 09/12/2020 TECHNIQUE: Portable AP view of the chest FINDINGS: Cardiac mediastinal and hilar silhouettes are within normal limits. Ill-defined interstitial opacities of the right lung base are new/progressed from comparison study from earlier today. No pneumothorax, pleural effusion or overt pulmonary edema. Degenerative changes of the shoulders and spine. IMPRESSION: Ill-defined opacities of the right lung base are suggestive of atelectasis versus pneumonitis. ACT 112: Negative or not required by law. The above report was generated using voice recognition software. It may contain grammatical, syntax or spelling errors. Electronically signed by: Yung Castillo M.D. 12/28/2020 11:42 AM Discharge Plan Visit Data Chief Complaint: Shortness of Breath/Dyspnea Stated Complaint: HAS PNEUMONIA DOC REF ED Provider: Heri Watts Discharge Problem: COPD (chronic obstructive pulmonary disease), Hypoxemia Patient Disposition: Admitted As Inpatient Discharge Instructions Interventions: ED Discharge Assessment Last Done: 12/28/20 14:42 Discharge Problem: COPD (chronic obstructive pulmonary disease) Qualifiers: COPD type: COPD with acute exacerbation Qualified Code(s): J44.1 - Chronic obstructive pulmonary disease with (acute) exacerbation
[2020-12-28] MEDS ORDERED: SODIUM CHLORIDE 0.9% 500 ML IV STA (11:00)
[2020-12-28] MEDS ORDERED: ALBUT/IPRATROP 3MG/0.5MG NEB 3 ML VIAL INH STA (11:00)
[2020-12-28] MEDS ORDERED: methylPREDNISolone 125 MG/2 ML VIAL IV STA (11:00)
[2020-12-28] MEDS ORDERED: MAGNESIUM SULFATE / D5W 1 GM/100 ML BAG IV STA (11:01)
--- NOTE | 2020-12-28 11:43 | XRay Report ---
XR chest 1V portable HISTORY: 65 years-old Female Dyspnea acute shortness of breath COMPARISON: Chest radiographs of same day at 8:39 AM, chest CT 09/12/2020 TECHNIQUE: Portable AP view of the chest FINDINGS: Cardiac mediastinal and hilar silhouettes are within normal limits. Ill-defined interstitial opacitie s of the right lung base are new/progressed from comparison study from earlier today. No pneumothorax , pleural effusion or overt pulmonary edema. Degenerative changes of the shoulders and spine. IMPRESSION: Ill-defined opacities of the right lung base are suggestive of atelectasis versus pneumonitis. ACT 112: Negative or not required by law. The above report was generated using voice recognition software. It may contain grammatical, syntax o r spelling errors. Electronically signed by: Yung Castillo M.D. 12/28/2020 11:42 AM
[2020-12-28 12:00] LABS: Basophils # (auto) 0.01 K/uL (0-0.2); Basophils % (auto) 0.2 %; Eosinophils # (auto) 0.09 K/uL (0-0.5); Eosinophils % (auto) 1.5 %; Hematocrit (blood only) 43.1 % (37-47); Hemoglobin 14.5 g/dL (12.0-16.0); Immature Granulocytes # (auto) 0.01 K/uL (0.00-0.02); Immature Granulocytes % (auto) 0.2 %; Lymphocytes # (auto) 1.68 K/uL (1.2-3.4); Lymphocytes % (auto) 27.8 %; Mean Corpuscular Hemoglobin 28.5 pg (25-34); Mean Corpuscular Hgb Conc 33.6 g/dL (32-36); Mean Corpuscular Volume 84.8 fL (80-100); Mean Platelet Volume 10.4 fL (7.4-10.4); Monocytes # (auto) 0.65 K/uL (0.11-0.59); Monocytes % (auto) 10.7 %; Neutrophils # (auto) 3.61 K/uL (1.4-6.5); Neutrophils % (auto) 59.6 %; Platelet Count 189 K/uL (130-400); RDW Coefficient of Variation 13.7 % (11.5-14.5); RDW Standard Deviation 42.3 fL (36.4-46.3); Red Blood Count 5.08 M/uL (4.2-5.4); White Blood Count 6.05 K/uL (4.8-10.8)
[2020-12-28 12:20] LABS: Alanine Aminotransferase 23 U/L (12-78); Albumin Level 3.4 gm/dl (3.4-5.0); Aspartate Aminotransferase 14 U/L (15-37); BUN Creatinine Ratio 26.6 (10-20); Blood Urea Nitrogen 23 mg/dl (7-18); Calcium 9.3 mg/dl (8.5-10.1); Carbon Dioxide 32 mmol/L (21-32); Chloride 102 mmol/L (98-107); Creatinine Clr Calc Pharmacy 95.7 ml/min; Est GFR (African American) 83.9 ml/min; Est GFR (Non-African American) 72.4 ml/min; Glucose 175 mg/dl (70-99); Potassium 3.7 mmol/L (3.5-5.1); Sodium 138 mmol/L (136-145)
[2020-12-28 12:25] LABS: Albumin Globulin Ratio 0.9 (0.9-2); Alkaline Phosphatase 60 U/L (45-117); Bilirubin,Total 0.3 mg/dl (0.2-1); Globulin 3.9 gm/dl (2.5-4.0); NT Pro B Type Natriuretic Pept 57 pg/ml (0-900); Total Protein 7.3 gm/dl (6.4-8.2); Troponin I < 0.015 ng/ml (0-0.045)
[2020-12-28] MEDS ORDERED: levoFLOXacin/D5W 750 MG/150 ML BAG IV STA (12:32)
--- NOTE | 2020-12-28 13:19 | History & Physical Report ---
Date of Service December 28, 2020 Assessment & Plan (1) COPD exacerbation: (2) Hypoxia: (3) Pneumonia: This is a 65-year-old female who has significant PMH of HTN, HLD, IDDM 2, COPD with nocturnal hypoxemia, hypothyroidism, history of lung cancer status post lobectomy, hepatic steatosis, depression, GERD who presents to ED secondary to worsening shortness of breath x10 days. Patient failed outpatient treatment for acute COPD exacerbation with hypoxia, documented O2 saturation 86%. Treated outpatient with oral doxycycline, Augmentin and prednisone without relief. Also on Trelegy and ipratropium. Chest x-ray concerning for right lower lobe pneumonitis versus atelectasis. SARS COV2 negative, she is fully vaccinated as of October. Admit to med telemetry Continue IV antibiotics with Azactam and oral doxycycline secondary to multiple drug allergies Solu-Medrol 40 mg IV every 8 Aggressive pulmonary toilet with DuoNeb, flutter valve, incentive spirometry Guaifenesin 600 every 12 Tessalon Perle 100 every 8 Procalcitonin, sputum culture Continue oxygen supplementation as needed Patient follows with [facility] pulmonology Consult Dr. Luna (4) Diabetes mellitus, type II: Poorly controlled, insulin-dependent, last A1c 8.7 on 09/28/2020 Continue NPH and insulin sliding scale Will consult glycemic pharmacy secondary to uncontrolled diabetes and steroid use -appreciate their assistance (5) Hypertension: Blood pressure elevated in ED Patient did not take morning medications, give lisinopril 20 mg x 1 now Continue lisinopril and HCTZ Monitor BMP (6) Nocturnal hypoxia: On 2 L of O2 at bedtime chronically (7) DVT prophylaxis: SQ Lovenox BID Dispo: admit to med tele, expect hospitalization 2-3 days depending on clinical course given failed outpt management PCP: Laz Morse FULL CODE Patient was seen and examined in collaboration with Dr. Benavides, please see addendum History of Present Illness Chief Complaint: Worsening SOB x 10 days. Primary Care Provider: Colton Morse, This is a 65-year-old female who has significant PMH of HTN, HLD, IDDM 2, COPD with nocturnal hypoxemia, hypothyroidism, history of lung cancer status post lobectomy, hepatic steatosis, depression, GERD who presents to ED secondary to worsening shortness of breath x10 days. She complaints of productive cough discolored sputum, wheezing, chest tightness, pain with deep breathing and increasing SOB. Denies f/c/s, dizziness, lightheaded, chest pain, n/v, abd pain, change in bowel or bladder habits. She has not used any OTC cough suppressants. She does have mild diarrhea and feels 2/2 to antibiotics. She has been having 2- 3 BM a day. She completed a course of doxycycline and start augmentin 1 week ago. She also started rescue pack of prednisone and currently on 10mg daily for 4 days. She is fully vaccinated for covid-19 in October. Hx of tobacco abuse but quit ~ 4 years ago. No known sick contacts. She does use 2 L of O2 at HS but has been using it during the day over the past week. She has been compliant with trelegy and nebs at home, but has not been getting relief. Appetite has been good. Denies hemoptysis. She does have hx of vertigo. Further has mild WOODARD. Patient was seen and evaluated by PCP on 12/20. This is when initial antibiotics with doxycycline was started. She was also seen and evaluated by her log loader helper Shay Kilgore today who referred her to ED secondary to likely hospitalization due to noted hypoxia and increased wheezing. In ED she remained hemodynamically stable although did require 2 L of oxygen to maintain normal saturation. Her CBC and CMP were generally unremarkable except for hyperglycemia with a glucose of 175. She did take her insulin this morning but did not take any of her oral medications. Chest x-ray revealed ill-defined opacities of right lung base suggestive of atelectasis versus pneumonitis. Allergies Allergy/AdvReac Type Severity Reaction Status Date / Time azithromycin Allergy Severe cardiac Verified 12/28/20 08:58 arrhythmia Penicillins Allergy Severe HIVES, SOB Verified 12/28/20 08:58 Sulfa (Sulfonamide Allergy Severe HIVES AND Verified 12/28/20 08:58 Antibiotics) SOB WITH ORAL SULFA DRUGS, OK W/SILVADENE Cephalosporins Allergy Intermediate HIVES WITH Verified 12/28/20 08:58 CEFTIN Quinolones Allergy Mild HIVES-BUT Verified 12/28/20 08:58 HAD LEVAQUIN IN ER 03/05/09 W/O PROBLEM adhesive Allergy Unknown TAPE-SORES Verified 12/28/20 08:58 ON SKIN cefuroxime Allergy Unknown Unknown Verified 12/28/20 08:58 iodine Allergy Unknown REDNESS - Verified 12/28/20 08:58 see notes (topical), Inectable dye - n/v levofloxacin [From Levaquin] Allergy Unknown Unknown Verified 12/28/20 08:58 Iodinated Contrast Media AdvReac Intermediate skin Verified 12/28/20 08:58 [Iodinated Contrast- Oral burning and IV Dye] years ago Home Medications Medication Instructions Recorded Confirmed Type albuterol sulfate [Ventolin HFA] 2 puff INHALATION Q4 PRN 04/27/18 12/28/20 History ipratropium bromide 2.5 mg INHALATION Q6H PRN 04/27/18 12/28/20 History mometasone [Nasonex] 2 spray INTRANASAL DAILY PRN 12/18/18 12/28/20 History levothyroxine 50 mcg capsule 88 mcg PO DAILY cap 02/10/20 12/28/20 History hydrochlorothiazide 25 mg tablet 25 mg PO DAILY #60 tab 03/16/20 12/28/20 Rx pantoprazole 40 mg tablet,delayed 40 mg PO DAILY #30 tab 08/31/20 12/28/20 Rx release bupropion HCl 150 mg 24 hr tablet, 150 mg PO BID tab 12/28/20 12/28/20 History extended release yrdjhapukzm-tdcnoixdk-ppalotlk 1 inh INHALATION DAILY 12/28/20 12/28/20 History [Trelegy Ellipta] insulin NPH-regular 70-30 U-100 See Rx Instructions .ROUTE 12/28/20 12/28/20 History insulin 100 unit/mL subcutaneous .COMPLEX ml pen lisinopril 20 mg PO DAILY 12/28/20 12/28/20 History naltrexone 50 mg tablet 50 mg PO DAILY 12/28/20 12/28/20 History Past Med/Surg History Medical History (Updated 12/28/20 @ 16:57 by Heri Watts MD) Anxiety state, unspecified Asthma, moderate persistent Calculus of kidney and ureter 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 COPD (chronic obstructive pulmonary disease) Diabetes mellitus, type II GERD (gastroesophageal reflux disease) Hypertension Tobacco use disorder Surgical History History of bronchoscopy History of History of cystoscopy History of lung surgery lobectomy Status post appendectomy Status post hip replacement Status post hysterectomy Family History Father Asthma Family/Other Asthma Grandmother Uterine cancer Diabetes Unknown Coronary heart disease Social History Smoking Status: Former smoker Tobacco Type: Cigarettes Years Smoked: 43; Cigarettes Per Day: 20; Number of Years Since Quit: 4; Second Hand Exposure: No; Do You Dip or Chew Tobacco: No; Tobacco Cessation Education Requested by Patient: No Hx Alcohol Use: No Hx Substance Use: No Preferred Language: Danish Communication Ability: Effective Visual Impairment: No Limitations Hearing Ability: Normal Care Mgr Required: No Beliefs That Will Affect Care: None marital status: Single Current Living Situation: Family Current Living Situation Comment: lives with daughter current occupational status: employed Other Information That Helps Us Care for You: No Feels Safe at Home: Yes Safety Concerns: Feels Safe At This Time Assistive Devices: Oxygen - at Night Assistive Devices Comment: pt has been wearing her o2 2lnc prn for sob as well as hs Review of Systems Review of Systems: All systems reviewed & are unremarkable except as noted in HPI & below Physical Exam Physical Exam: Constitutional: Morbidly obese, female, WD/WN, vitals as above, NAD, sitting up in bed, pleasant, conversing easily Head: Normocephalic, Atraumatic Eyes: PERRL, conjunctivae normal, anicteric sclerae ENMT: external ear and nose normal, oropharynx normal Neck: trachea midline, no thyromegaly normal visual inspection Respiratory: On 2 L of O2 via NC, normal respiratory effort, expiratory wheeze noted throughout, no rales or rhonchi, decreased breath sounds throughout. Normal insp/exp effort, no accessory muscle use Cardiovascular: RRR, trace lower extremity edema, no murmur Vessels: no JVD or carotid bruit Chest: normal inspection of chest Abdomen: Obese abdomen, normal bowel sounds, soft, nontender, no hepatosplenomegaly Musculoskeletal: no cyanosis or clubbing, extremities motor strength 5/5 Skin: no rashes, warm and dry normal turgor Neurologic: PERRL, EOMI, accommodation nl, no face palsy, no dysarthria CN's II-XI intact bilaterally and moves all extremities Psychiatric: A+Ox3, euthymic affect Lymphatic: no cervical or axillary lymphadenopathy : deferred Results & Data Results & Data ([facility]) Vital Signs (Past 12 Hours) Vital Signs Temp Pulse Pulse Resp BP Pulse Ox 12/28/20 12:02 91 H 20 154/109 H 96 12/28/20 11:28 88 20 96 12/28/20 10:21 91 12/28/20 10:15 36.5 C 99 H 26 H 206/76 H 91 Diagnostic Findings Chest X-Ray 12/28/20 11:01 XR chest 1V portable HISTORY: 65 years-old Female Dyspnea acute shortness of breath COMPARISON: Chest radiographs of same day at 8:39 AM, chest CT 09/12/2020 TECHNIQUE: Portable AP view of the chest FINDINGS: Cardiac mediastinal and hilar silhouettes are within normal limits. Ill-defined interstitial opacities of the right lung base are new/progressed from comparison study from earlier today. No pneumothorax, pleural effusion or overt pulmonary edema. Degenerative changes of the shoulders and spine. IMPRESSION: Ill-defined opacities of the right lung base are suggestive of atelectasis versus pneumonitis. ACT 112: Negative or not required by law. The above report was generated using voice recognition software. It may contain grammatical, syntax or spelling errors. Electronically signed by: Yung Castillo M.D. 12/28/2020 11:42 AM Medications Administered Medication List Levofloxacin/Dextrose (Levaquin/D5w) 750 mg in 150 mls @ 100 mls/hr IV NOW STA Stop: 12/28/20 14:01 Last Admin: 12/28/20 13:27 Dose: Not Given Documented by: [id number] Discontinued Medications Albuterol (Albut/Ipratrop 3mg/0.5mg Neb 3 Ml Vial) 6 ml INH NOW STA Stop: 12/28/20 11:01 Last Admin: 12/28/20 11:27 Dose: 6 ml Documented by: [id number] Sodium Chloride (Nss) 500 mls @ 999 mls/hr IV .Q31M STA Stop: 12/28/20 11:30 Last Infusion: 12/28/20 12:38 Dose: 0 mls/hr Documented by: [id number] Admin: 12/28/20 12:07 Dose: 999 mls/hr Documented by: [id number] Magnesium Sulfate/Dextrose (Magnesium Sulfate / D5w) 1 gm in 100 mls @ 100 mls/hr IV NOW STA Stop: 12/28/20 12:00 Last Infusion: 12/28/20 13:09 Dose: 0 mls/hr Documented by: [id number] Admin: 12/28/20 12:08 Dose: 100 mls/hr Documented by: [id number] Methylprednisolone (Methylprednisolone 125 Mg/2 Ml Vial) 60 mg IV NOW STA Stop: 12/28/20 11:01 Last Admin: 12/28/20 12:07 Dose: 60 mg Documented by: [id number] ECG Rate (beats per minute): 87 Findings: + RBBB and + prolonged QT (495ms) COVID-19 Results Results COVID-19 Adm Lab Results: RBC 5.08 M/uL (4.2-5.4) 12/28/20 WBC 6.05 K/uL (4.8-10.8) 12/28/20 Hgb 14.5 g/dL (12.0-16.0) 12/28/20 Hct 43.1 % (37-47) 12/28/20 Plt Count 189 K/uL (130-400) 12/28/20 Neutrophils (%) (Auto) 59.6 % 12/28/20 Lymphocytes (%) (Auto) 27.8 % 12/28/20 Monocytes # (Auto) 0.65 K/uL (0.11-0.59) H 12/28/20 Eosinophils # (Auto) 0.09 K/uL (0-0.5) 12/28/20 Immature Granulocyte % (Auto) 0.2 % 12/28/20 Neutrophils # (Auto) 3.61 K/uL (1.4-6.5) 12/28/20 Lymphocytes # (Auto) 1.68 K/uL (1.2-3.4) 12/28/20 Monocytes # (Auto) 0.65 K/uL (0.11-0.59) H 12/28/20 Eosinophils # (Auto) 0.09 K/uL (0-0.5) 12/28/20 Basophils # (Auto) 0.01 K/uL (0-0.2) 12/28/20 Immature Granulocyte # (Auto) 0.01 K/uL (0.00-0.02) 12/28/20 Na 138 mmol/L (136-145) 12/28/20 K 3.7 mmol/L (3.5-5.1) 12/28/20 Cl 102 mmol/L (98-107) 12/28/20 CO2 32 mmol/L (21-32) 12/28/20 Anion Gap 4.0 (3-11) 12/28/20 BUN 23 mg/dl (7-18) H 12/28/20 Creatinine 0.85 mg/dl (0.6-1.2) 12/28/20 BUN/Creatinine Ratio 26.6 (10-20) H 12/28/20 Glucose Level 175 mg/dl (70-99) H 12/28/20 Ca 9.3 mg/dl (8.5-10.1) 12/28/20 Total Bilirubin 0.3 mg/dl (0.2-1) 12/28/20 AST/SGOT 14 U/L (15-37) L 12/28/20 ALT/SGPT 23 U/L (12-78) 12/28/20 Alkaline Phosphatase 60 U/L (45-117) 12/28/20 Total Protein 7.3 gm/dl (6.4-8.2) 12/28/20 Albumin 3.4 gm/dl (3.4-5.0) 12/28/20 Globulin 3.9 gm/dl (2.5-4.0) 12/28/20 Albumin/Globulin Ratio 0.9 (0.9-2) 12/28/20 Troponin I < 0.015 ng/ml (0-0.045) 12/28/20 IN-Zbf-I-Type Natriuretic Pep 57 pg/ml (0-900) 12/28/20 Procalcitonin < 0.05 ng/ml (0-0.5) 12/28/20 COVID-19 PCR NEGATIVE (Negative) 12/28/20 Chest X-Ray 12/28/20 Code Status & VTE Plan Code Status Full Code VTE Prophylaxis Plan VTE Prophylaxis will be ordered: Yes Supervising Physician Co-Signing Physician Notes Patient is a 65-year-old female with history of hypertension, diabetes mellitus, COPD, chronic oxygen dependency, hypothyroidism, history of lung cancer (carcinoid tumor) S/P left upper lobe lobectomy and other medical problems presents with history of worsening shortness of breath, cough with expectoration associated with chest tightness and wheezing since 10 days duration. Patient has been on oral antibiotics and prednisone taper course and has been following with pulmonology as outpatient but did not improve her symptoms. Please review HPI for complete details of presentation. Chest x-ray showed ill-defined opacity of the right lung base suggestive of possible atelectasis versus pneumonitis. Procalcitonin is within normal limits. She was found to be hypoxic in 80s on room air while in ED. On exam patient is morbidly obese, no apparent distress, normocephalic atraumatic, lungs--decreased breath sounds, expiratory wheezes, S1-S2, no murmur, trace pedal edema, abdomen soft, nontender, normal bowel sounds, alert, awake, oriented, grossly no focal deficits. Patient is admitted for management of acute COPD exacerbation. Will start on doxycycline, Azactam, bronchodilators, IV Solu-Medrol. Pulmonary hygiene with flutter valve, incentive spirometry. Antitussives as needed. Manage diabetes mellitus with insulin therapy, monitor blood glucose levels closely. I personally reviewed the record. Patient is interviewed and examined at bedside. Patient's care is coordinated with Stephany Mcwilliams PA-C. Please refer to the documentation above for details of patient's presentation and for discussion of other issues.
[2020-12-28] MEDS ORDERED: AZTREONAM 2,000 MG in DEXTROSE 5% 100 ML IV STA (14:21)
[2020-12-28] MEDS ORDERED: LEVOTHYROXINE SODIUM 88 MCG TABLET PO STA (14:22)
[2020-12-28] MEDS ORDERED: lisinopril 20 MG TAB PO STA (14:22)
[2020-12-28] MEDS ORDERED: CARBOHYDRATES FOR HYPOGLYCEMIA PO PRN (16:01)
[2020-12-28] MEDS ORDERED: ACETAMINOPHEN 325 MG TAB PO PRN (16:01)
[2020-12-28] MEDS ORDERED: MAGNESIUM HYDROXIDE SUSP 30 ML UDC PO PRN (16:01)
[2020-12-28] MEDS ORDERED: ALUMINUM/MAGNESIUM SUSP 30 ML UDC PO PRN (16:01)
[2020-12-28] MEDS ORDERED: POLYETHYLENE (MIRALAX) 17 GM PACK PO PRN (16:01)
[2020-12-28] MEDS ORDERED: PROMETHAZINE HCL 12.5 MG in SODIUM CHLORIDE 0.9% 50 ML IV PRN (16:01)
[2020-12-28] MEDS ORDERED: DEXTROSE 50% 50 ML SYRINGE IV PRN (16:01)
[2020-12-28] MEDS ORDERED: GLUCOSE 40% GEL 15 GM TUBE PO PRN (16:01)
[2020-12-28] MEDS ORDERED: GLUCAGON FOR INJ 1 MG VIAL SQ PRN (16:01)
[2020-12-28] MEDS ORDERED: GLUCOSE 10 TABS/TUBE PO PRN (16:01)
[2020-12-28] MEDS ORDERED: PHARMACY GLYCEMIC MGMT CONSULT PRN (16:11)
[2020-12-28] MEDS: ALBUT/IPRATROP 3MG/0.5MG NEB 3 ML VIAL NEB SCH ×2 (16:17→19:23)
[2020-12-28] MEDS ORDERED: FLUTICASONE PROPIONATE NA SPR 16 GM BTL NAE PRN (16:25)
[2020-12-28] MEDS ORDERED: INSULIN ASPART 100 UNITS/ML 3 ML PEN SC SCH (16:30)
[2020-12-28] MEDS: BENZONATATE 100 MG CAPSULE PO SCH ×2 (16:44→20:48)
[2020-12-28] MEDS ORDERED: INSULIN HUMAN NPH SC ONE (17:00)
[2020-12-28] MEDS ORDERED: methylPREDNISolone 40 MG in SYRINGE 0 ML IV SCH (18:00)
--- NOTE | 2020-12-28 18:53 | Pulmonary Consultation ---
Date of Consultation December 29, 2020 Assessment & Plan (1) Acute hypoxemic respiratory failure: CT chest 01/18/2020 personally reviewed: Centrilobular emphysema appreciated, left upper lobectomy, rahul in place Multiple pulmonary nodules appreciated bilaterally Chest x-ray from 12/28/20 personally reviewed: Good respiratory effort, bilateral costophrenic and cardiophrenic angles are clean, agent is appreciated in the right lower lobe --Acute on chronic hypoxic respiratory failure Likely secondary to COPD exacerbation COVID-19 PCR negative, procalcitonin negative Continue with O2 supplementation to keep oxygen saturation between 88-92% BiPAP nightly and as needed shortness of breath --COPD with emphysema On Trelegy at home Consideration for Roflumilast as an outpatient should be thought PFTs 07/22/2017: FVC 64%, FEV1 53%, FEV1/FVC 85%, TLC 96% --Multiple pulmonary nodules Yearly CAT scan as the patient is high risk We will repeat a CT chest without contrast --Morbid obesity With high possibility of RIANA Recommend outpatient polysomnography Continue with BiPAP nightly and as needed shortness of breath Plan: Continue with Solu-Medrol every 12 Starting tomorrow I think we can start tapering to prednisone 40 mg for the 4 days followed by 20 mg for 3 days Continue with doxycycline for atypical coverage Follow-up CT chest Please make note of the consult is for the date 12/29/2020 Please note the above document was generated using voice recognition software. It may contain grammatical, syntax or spelling errors.Any formal questions or concerns about the content, text or information contained within the body of this dictation should be directly addressed to the provider for clarification. 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 She stated that she is feeling better compared to before coming to the hospital. She has been having shortness of breath which has been going on since last approximately 10 days. She was initially bringing up phlegm which was yellow to clear. No hemoptysis. In the last couple of days she was even having difficulty bringing up the phlegm. Patient denies any chest pain, no headache, no dizziness, no nausea, no vomiting, no dysuria, no diarrhea. Patient is compliant with her inhalers at home. States that she use it on a regular basis. Social history: Quit 2017, [id number] smoking history. Has edible marijuana PFTs 07/22/2017: FVC 64%, FEV1 53%, FEV1/FVC 85%, TLC 96% Allergies Allergy/AdvReac Type Severity Reaction Status Date / Time azithromycin Allergy Severe cardiac Verified 12/28/20 08:58 arrhythmia Penicillins Allergy Severe HIVES, SOB Verified 12/28/20 08:58 Sulfa (Sulfonamide Allergy Severe HIVES AND Verified 12/28/20 08:58 Antibiotics) SOB WITH ORAL SULFA DRUGS, OK W/SILVADENE Cephalosporins Allergy Intermediate HIVES WITH Verified 12/28/20 08:58 CEFTIN Quinolones Allergy Mild HIVES-BUT Verified 12/28/20 08:58 HAD LEVAQUIN IN ER 03/05/09 W/O PROBLEM adhesive Allergy Unknown TAPE-SORES Verified 12/28/20 08:58 ON SKIN cefuroxime Allergy Unknown Unknown Verified 12/28/20 08:58 iodine Allergy Unknown REDNESS - Verified 12/28/20 08:58 see notes (topical), Inectable dye - n/v levofloxacin [From Levaquin] Allergy Unknown Unknown Verified 12/28/20 08:58 Iodinated Contrast Media AdvReac Intermediate skin Verified 12/28/20 08:58 [Iodinated Contrast- Oral burning and IV Dye] years ago Home Medications Medication Instructions Recorded Confirmed Type albuterol sulfate [Ventolin HFA] 2 puff INHALATION Q4 PRN 04/27/18 12/28/20 History ipratropium bromide 2.5 mg INHALATION Q6H PRN 04/27/18 12/28/20 History mometasone [Nasonex] 2 spray INTRANASAL DAILY PRN 12/18/18 12/28/20 History levothyroxine 50 mcg capsule 88 mcg PO DAILY cap 02/10/20 12/28/20 History hydrochlorothiazide 25 mg tablet 25 mg PO DAILY #60 tab 03/16/20 12/28/20 Rx pantoprazole 40 mg tablet,delayed 40 mg PO DAILY #30 tab 08/31/20 12/28/20 Rx release bupropion HCl 150 mg 24 hr tablet, 150 mg PO BID tab 12/28/20 12/28/20 History extended release psiicngxnqu-fioxkxymw-wxzrpwga 1 inh INHALATION DAILY 12/28/20 12/28/20 History [Trelegy Ellipta] insulin NPH-regular 70-30 U-100 See Rx Instructions .ROUTE 12/28/20 12/28/20 History insulin 100 unit/mL subcutaneous .COMPLEX ml pen lisinopril 20 mg PO DAILY 12/28/20 12/28/20 History naltrexone 50 mg tablet 50 mg PO DAILY 12/28/20 12/28/20 History Patient History Medical History (Updated 12/29/20 @ 13:18 by Luba Luna MD) Anxiety state, unspecified Asthma, moderate persistent Calculus of kidney and ureter 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 COPD (chronic obstructive pulmonary disease) Diabetes mellitus, type II GERD (gastroesophageal reflux disease) Hypertension Tobacco use disorder Surgical History History of bronchoscopy History of History of cystoscopy History of lung surgery lobectomy Status post appendectomy Status post hip replacement Status post hysterectomy Family History Father Asthma Family/Other Asthma Grandmother Uterine cancer Diabetes Unknown Coronary heart disease Social History Smoking Status: Former smoker Tobacco Type: Cigarettes Years Smoked: 43; Cigarettes Per Day: 20; Number of Years Since Quit: 4; Second Hand Exposure: No; Do You Dip or Chew Tobacco: No; Tobacco Cessation Education Requested by Patient: No Hx Alcohol Use: No Hx Substance Use: No Preferred Language: Dutch Communication Ability: Effective Visual Impairment: No Limitations Hearing Ability: Normal Geospatial Imagery Intelligence Analyst Required: No Beliefs That Will Affect Care: None marital status: Single Current Living Situation: Family Current Living Situation Comment: lives with daughter current occupational status: employed Other Information That Helps Us Care for You: No Feels Safe at Home: Yes Safety Concerns: Feels Safe At This Time Assistive Devices: Oxygen - Continuous Assistive Devices Comment: pt has been wearing her o2 2lnc prn for sob as well as hs Review of Systems Review of Systems: All systems reviewed & are unremarkable except as noted in HPI & below Physical Exam Physical Exam: Constitutional: No acute distress HEENT: EOMI, PERRLA Respiratory system: Decreased air entry bilaterally, no rhonchi, positive crackles bilateral lower lobes, mild expiratory wheeze CVS: S1-S2 positive, no murmurs or gallops, distant heart sounds Abdomen: Soft, nontender, nondistended, positive bowel sounds x4, obese Extremities: +2 pulses bilaterally radialis/ dorsalis pedis, no cyanosis, +1 pitting edema bilateral lower extremity Neuro: Awake alert oriented x3 Psych: Normal mood and affect G/U: No [place] Skin: no rashes, warm and dry Lymphatic: no cervical or axillary lymphadenopathy Results & Data Results & Data ([facility]) Vital Signs (Past 12 Hours) Vital Signs Temp Pulse Pulse Resp BP BP Pulse Ox 12/28/20 16:32 90 20 94 12/28/20 15:30 36.7 C 98 H 24 161/85 H 94 12/28/20 15:21 97 H 12/28/20 14:54 91 H 20 182/111 H 92 12/28/20 13:30 90 28 H 177/89 H 97 12/28/20 13:00 87 29 H 158/72 H 93 12/28/20 12:30 90 25 H 169/71 H 96 12/28/20 12:02 91 H 20 154/109 H 96 12/28/20 11:28 88 20 96 12/28/20 10:21 91 12/28/20 10:15 36.5 C 99 H 26 H 206/76 H 91 12/29/20 07:26 12/29/20 07:26 PG Care Time/CCT Total # of Minutes Spent Total Time Spent with Patient: Total time spent is greater than 50% in fieldwork coordinator rdination of care (as documented) at patient's floor/unit and/or counseling patient: Coding Level of Care Code 42989 Initial Inpt Care Lvl 3 Diagnoses Acute hypoxemic respiratory failure J96.01 COPD exacerbation J44.1 Sleep apnea G47.30 Morbid obesity E66.01 Chronic obstructive pulmonary disease J44.1 COPD type: COPD with acute exacerbation Acute on chronic respiratory failure with hypoxemia J96.21 Comment Consult is for the date 12/29/2020
[2020-12-28] MEDS ORDERED: POTASSIUM CHLORIDE CRTAB 20 MEQ TABCR PO ONE (19:15)
[2020-12-28] MEDS: buPROPion XL 150 MG TABCR PO SCH (20:48)
[2020-12-28] MEDS: guaiFENesin 600 MG TABCR PO SCH (20:48)
[2020-12-28] MEDS: ENOXAPARIN INJ 40 MG/0.4 ML SYR SQ SCH (20:48)
[2020-12-28] MEDS: DOXYCYCLINE HYCLATE 100 MG CAP PO SCH (20:48)
[2020-12-28] MEDS ORDERED: INSULIN HUMAN REGULAR IV BOLUS 5 UNITS in SYRINGE 0 ML IV ONE (21:00)
[2020-12-28] MEDS: INSULIN REGULAR 250 UNITS in SODIUM CHLORIDE 0.9% 247.5 ML IV SCH (21:57)
[2020-12-28] MEDS: AZTREONAM 2,000 MG in DEXTROSE 5% 100 ML IV SCH (22:05)
[2020-12-28 22:18] LABS: Appearance Urine Clear (Clear); Bacteria Urine Automated Negative (Negative); Bilirubin Urine Negative (Negative); Blood Urine 1+ (Negative); Cast Urine Automated 0 /lpf (0-5); Color Urine Yellow; Glucose Urine UA 3+ (Negative); Ketones Urine 1+ (Negative); Leukocyte Esterase Urine Negative (Negative); Nitrite Urine Negative (Negative); Protein Urine Negative (Negative); RBC Urine Automated 0-4 /hpf (0-4); Specific Gravity Urine 1.022 (1.000-1.030); Urobilinogen Urine Negative (Negative); WBC Urine Automated 0 /hpf (0-5)
[2020-12-28] MEDS: INSULIN ASPART 100 UNITS/ML 3 ML PEN SC SCH (22:35)
[2020-12-29] MEDS ORDERED: INSULIN ASPART 100 UNITS/ML 3 ML PEN SC SCH
[2020-12-29] MEDS: LEVOTHYROXINE SODIUM 88 MCG TABLET PO SCH (06:14)
[2020-12-29] MEDS: AZTREONAM 2,000 MG in DEXTROSE 5% 100 ML IV SCH ×3 (06:14→21:17)
[2020-12-29] MEDS: methylPREDNISolone 40 MG in SYRINGE 0 ML IV SCH ×2 (06:14→18:05)
--- NOTE | 2020-12-29 06:45 | Electrocardiogram Report ---
Test Reason : Blood Pressure : / mmHG Vent. Rate : 087 BPM Atrial Rate : 087 BPM P-R Int : 186 ms QRS Dur : 142 ms QT Int : 412 ms P-R-T Axes : 080 -76 038 degrees QTc Int : 495 ms Normal sinus rhythm Left axis deviation Right bundle branch block Abnormal ECG When compared with ECG of 12-JAN-2020 17:52, No significant change was found Confirmed by Richard Rosen ([id number] on 12/29/2020 6:45:10 AM Referred By: Catalino Kilgore Confirmed By:Richard Rosen
[2020-12-29] MEDS: ALBUT/IPRATROP 3MG/0.5MG NEB 3 ML VIAL NEB SCH ×4 (07:04→19:12)
[2020-12-29] MEDS ORDERED: INSULIN HUMAN NPH SC ONE ×2 (07:30→14:15)
[2020-12-29 07:49] LABS: Hematocrit (blood only) 43.2 % (37-47); Hemoglobin 14.2 g/dL (12.0-16.0); Mean Corpuscular Hemoglobin 28.1 pg (25-34); Mean Corpuscular Hgb Conc 32.9 g/dL (32-36); Mean Corpuscular Volume 85.5 fL (80-100); Mean Platelet Volume 10.7 fL (7.4-10.4); Platelet Count 230 K/uL (130-400); RDW Coefficient of Variation 14.1 % (11.5-14.5); RDW Standard Deviation 43.3 fL (36.4-46.3); Red Blood Count 5.05 M/uL (4.2-5.4); White Blood Count 7.75 K/uL (4.8-10.8)
[2020-12-29] MEDS: lisinopril 20 MG TAB PO SCH (07:49)
[2020-12-29] MEDS: PANTOprazole 40 MG TAB PO SCH (07:49)
[2020-12-29] MEDS: hydroCHLOROthiazide 25 MG TAB PO SCH (07:50)
[2020-12-29] MEDS: BENZONATATE 100 MG CAPSULE PO SCH ×2 (07:50→13:54)
[2020-12-29] MEDS: ENOXAPARIN INJ 40 MG/0.4 ML SYR SQ SCH ×2 (07:51→20:44)
[2020-12-29] MEDS: guaiFENesin 600 MG TABCR PO SCH ×2 (07:51→20:41)
[2020-12-29] MEDS: DOXYCYCLINE HYCLATE 100 MG CAP PO SCH ×2 (07:51→20:40)
[2020-12-29] MEDS: buPROPion XL 150 MG TABCR PO SCH ×2 (07:51→20:40)
[2020-12-29] MEDS: FLUTICASONE FUROATE 100MCG 14 PUFFS/INHALER INH SCH (07:52)
[2020-12-29] MEDS: UMECLIDINIUM/VILANTEROL 62.5/25MCG 7 PUFFS/INHALER INH SCH (07:52)
[2020-12-29 07:56] LABS: Estimated Average Glucose 197 mg/dl; Hemoglobin A1C 8.5 % (4.5-5.6)
[2020-12-29 08:21] LABS: BUN Creatinine Ratio 26.9 (10-20); Calcium 9.5 mg/dl (8.5-10.1); Creatinine Clr Calc Pharmacy 84.7 ml/min; Est GFR (African American) 72.4 ml/min; Est GFR (Non-African American) 62.5 ml/min; Magnesium 2.1 mg/dl (1.8-2.4); Potassium 4.1 mmol/L (3.5-5.1)
--- NOTE | 2020-12-29 08:21 | Hospitalist Progress Note ---
Date of Service December 29, 2020 Assessment & Plan (1) COPD exacerbation: (2) Hypoxia: (3) Pneumonia: This is a 65-year-old female who has significant PMH of HTN, HLD, IDDM 2, COPD with nocturnal hypoxemia, hypothyroidism, history of lung cancer status post lobectomy, hepatic steatosis, depression, GERD who presents to ED secondary to worsening shortness of breath x10 days. Patient failed outpatient treatment for acute COPD exacerbation with hypoxia, documented O2 saturation 86%. Treated outpatient with oral doxycycline, Augmentin and prednisone without relief. Also on Trelegy and ipratropium. Chest x-ray concerning for right lower lobe pneumonitis versus atelectasis. SARS COV2 negative, she is fully vaccinated as of October. Admit to med telemetry Continue IV antibiotics with Azactam and oral doxycycline secondary to multiple drug allergies Solu-Medrol 40 mg IV every 8 - will decrease to q12hrs Aggressive pulmonary toilet with DuoNeb, flutter valve, incentive spirometry Guaifenesin Tessalon Perls prn Procalcitonin - negative sputum culture ordered Continue oxygen supplementation as needed Patient follows with [facility] pulmonology Consult Dr. Luna - CT chest ordered BiPAP at night and as needed Consideration for Roflumilast as an outpatient should be thought Recommend outpatient polysomnography for possible RIANA (4) Diabetes mellitus, type II: Poorly controlled, insulin-dependent, last A1c 8.7 on 09/28/2020 Current A1c 8.5% Continue NPH and insulin sliding scale Will consult glycemic pharmacy secondary to uncontrolled diabetes and steroid use -appreciate their assistance Currently on Iv insulin (5) Hypertension: Blood pressure elevated in ED, now well controlled Continue lisinopril and HCTZ Monitor BMP (6) Nocturnal hypoxia: On 2 L of O2 at bedtime chronically (7) DVT prophylaxis: SQ Lovenox BID Dispo: admit to med tele, expect hospitalization 2-3 days depending on clinical course given failed outpt management PCP: Laz Morse F[facility] DONNA Admission and Anticipated Discharge Date Admission Date: December 28, 2020 Subjective Patient seen in follow-up of COPD exacerbation, acute hypoxic respiratory failure Currently patient is lying in bed, in no acute distress, on 2 L of oxygen via nasal cannula She is able to speak in full sentences, breathing is unlabored Says she feels little better since she came to the hospital but not by much Denies any sputum production today, however reports sputum at home No chest pain, fevers chills Review of Systems Review of Systems: All systems reviewed & are unremarkable except as noted in HPI & below Constitutional: no fever and no chills Respiratory: + cough (on and off) and + dyspnea (improved) Cardiovascular: no chest pain and no palpitations Gastrointestinal: no abdominal pain, no nausea and no vomiting Physical Exam Physical Exam: Constitutional: Morbidly obese, female, NAD, conversing easily Head: Normocephalic, Atraumatic Eyes: PERRL, EOMI, conjunctivae normal, anicteric sclerae ENMT: external ear and nose normal, oropharynx normal Neck: trachea midline, no thyromegaly normal visual inspection Respiratory: On 2 L of O2 via NC, normal respiratory effort, no significant wheezes noted (improved from previous exam), no rhonchi, + mild bibasilar crackles, decreased breath sounds throughout. Normal insp/exp effort, no accessory muscle use Cardiovascular: RRR, trace lower extremity edema, no murmur Vessels: no JVD or carotid bruit Chest: normal inspection of chest Abdomen: Obese abdomen, normal bowel sounds, soft, nontender Musculoskeletal: no cyanosis or clubbing, extremities motor strength 5/5 Skin: no rashes, warm and dry normal turgor Neurologic: PERRL, EOMI, no face palsy, no dysarthria, no facial asymmetry, moves all extremities Psychiatric: A+Ox3, euthymic affect Results & Data Results & Data ([facility]) Vital Signs (Past 12 Hours) Vital Signs Temp Pulse Pulse Resp BP Pulse Ox 12/29/20 07:27 36.4 C L 83 20 109/61 95 12/29/20 07:05 86 20 97 12/29/20 03:20 36.4 C L 87 18 117/72 93 12/28/20 22:47 36.5 C 95 H 18 145/73 H 97 12/28/20 22:20 94 H Laboratory Results 12/29/20 12/29/20 12/29/20 Range/Units 14:12 14:00 13:02 WBC (4.8-10.8) K/uL RBC (4.2-5.4) M/uL Hgb (12.0-16.0) g/dL Hct (37-47) % MCV (80-100) fL MCH (25-34) pg MCHC (32-36) g/dL RDW Std Deviation (36.4-46.3) fL RDW Coeff of Radha (11.5-14.5) % Plt Count (130-400) K/uL MPV (7.4-10.4) fL Sodium Pending (136-145) mmol/L Potassium Pending (3.5-5.1) mmol/L Chloride Pending (98-107) mmol/L Carbon Dioxide Pending (21-32) mmol/L Anion Gap Pending (3-11) BUN Pending (7-18) mg/dl Creatinine Pending (0.6-1.2) mg/dl Est Cr Clr Drug Dosing Pending ml/min Est GFR ( Amer) Pending ml/min Est GFR (Non-Af Amer) Pending ml/min BUN/Creatinine Ratio Pending (10-20) Glucose Pending (70-99) mg/dl POC Glucose 214 H 232 H (70-99) mg/dl Estimat Average Glucose mg/dl Hemoglobin A1c (4.5-5.6) % Calcium Pending (8.5-10.1) mg/dl Phosphorus Pending Magnesium Pending (1.8-2.4) mg/dl Procalcitonin (0-0.5) ng/ml Urine Color Urine Appearance (Clear) Urine pH (4.5-7.5) Ur Specific [place] (1.000-1.030) Urine Protein (Negative) Urine Glucose (UA) (Negative) Urine Ketones (Negative) Urine Blood (Negative) Urine Nitrite (Negative) Urine Bilirubin (Negative) Urine Urobilinogen (Negative) Ur Leukocyte Esterase (Negative) Urine WBC (Auto) (0-5) /hpf Urine RBC (Auto) (0-4) /hpf U Hyaline Cast (Auto) (0-5) /lpf U Epithel Cells (Auto) (0-5) /lpf Urine Bacteria (Auto) (Negative) 12/29/20 12/29/20 12/29/20 Range/Units 12:01 11:02 10:00 WBC (4.8-10.8) K/uL RBC (4.2-5.4) M/uL Hgb (12.0-16.0) g/dL Hct (37-47) % MCV (80-100) fL MCH (25-34) pg MCHC (32-36) g/dL RDW Std Deviation (36.4-46.3) fL RDW Coeff of Radha (11.5-14.5) % Plt Count (130-400) K/uL MPV (7.4-10.4) fL Sodium (136-145) mmol/L Potassium (3.5-5.1) mmol/L Chloride (98-107) mmol/L Carbon Dioxide (21-32) mmol/L Anion Gap (3-11) BUN (7-18) mg/dl Creatinine (0.6-1.2) mg/dl Est Cr Clr Drug Dosing ml/min Est GFR ( Amer) ml/min Est GFR (Non-Af Amer) ml/min BUN/Creatinine Ratio (10-20) Glucose (70-99) mg/dl POC Glucose 212 H 246 H 298 H (70-99) mg/dl Estimat Average Glucose mg/dl Hemoglobin A1c (4.5-5.6) % Calcium (8.5-10.1) mg/dl Phosphorus Magnesium (1.8-2.4) mg/dl Procalcitonin (0-0.5) ng/ml Urine Color Urine Appearance (Clear) Urine pH (4.5-7.5) Ur Specific [place] (1.000-1.030) Urine Protein (Negative) Urine Glucose (UA) (Negative) Urine Ketones (Negative) Urine Blood (Negative) Urine Nitrite (Negative) Urine Bilirubin (Negative) Urine Urobilinogen (Negative) Ur Leukocyte Esterase (Negative) Urine WBC (Auto) (0-5) /hpf Urine RBC (Auto) (0-4) /hpf U Hyaline Cast (Auto) (0-5) /lpf U Epithel Cells (Auto) (0-5) /lpf Urine Bacteria (Auto) (Negative) 12/29/20 12/29/20 12/29/20 Range/Units 09:03 08:01 07:26 WBC (4.8-10.8) K/uL RBC (4.2-5.4) M/uL Hgb (12.0-16.0) g/dL Hct (37-47) % MCV (80-100) fL MCH (25-34) pg MCHC (32-36) g/dL RDW Std Deviation (36.4-46.3) fL RDW Coeff of Radha (11.5-14.5) % Plt Count (130-400) K/uL MPV (7.4-10.4) fL Sodium (136-145) mmol/L Potassium (3.5-5.1) mmol/L Chloride (98-107) mmol/L Carbon Dioxide (21-32) mmol/L Anion Gap (3-11) BUN (7-18) mg/dl Creatinine (0.6-1.2) mg/dl Est Cr Clr Drug Dosing ml/min Est GFR ( Amer) ml/min Est GFR (Non-Af Amer) ml/min BUN/Creatinine Ratio (10-20) Glucose (70-99) mg/dl POC Glucose 274 H 174 H (70-99) mg/dl Estimat Average Glucose 197 mg/dl Hemoglobin A1c 8.5 H (4.5-5.6) % Calcium (8.5-10.1) mg/dl Phosphorus Magnesium (1.8-2.4) mg/dl Procalcitonin (0-0.5) ng/ml Urine Color Urine Appearance (Clear) Urine pH (4.5-7.5) Ur Specific [place] (1.000-1.030) Urine Protein (Negative) Urine Glucose (UA) (Negative) Urine Ketones (Negative) Urine Blood (Negative) Urine Nitrite (Negative) Urine Bilirubin (Negative) Urine Urobilinogen (Negative) Ur Leukocyte Esterase (Negative) Urine WBC (Auto) (0-5) /hpf Urine RBC (Auto) (0-4) /hpf U Hyaline Cast (Auto) (0-5) /lpf U Epithel Cells (Auto) (0-5) /lpf Urine Bacteria (Auto) (Negative) 12/29/20 12/29/20 12/29/20 Range/Units 07:26 07:26 07:02 WBC 7.75 (4.8-10.8) K/uL RBC 5.05 (4.2-5.4) M/uL Hgb 14.2 (12.0-16.0) g/dL Hct 43.2 (37-47) % MCV 85.5 (80-100) fL MCH 28.1 (25-34) pg MCHC 32.9 (32-36) g/dL RDW Std Deviation 43.3 (36.4-46.3) fL RDW Coeff of Radha 14.1 (11.5-14.5) % Plt Count 230 (130-400) K/uL MPV 10.7 H (7.4-10.4) fL Sodium 136 (136-145) mmol/L Potassium 4.1 (3.5-5.1) mmol/L Chloride 102 (98-107) mmol/L Carbon Dioxide 27 (21-32) mmol/L Anion Gap 7.0 (3-11) BUN 26 H (7-18) mg/dl Creatinine 0.96 (0.6-1.2) mg/dl Est Cr Clr Drug Dosing 84.7 ml/min Est GFR ( Amer) 72.4 ml/min Est GFR (Non-Af Amer) 62.5 ml/min BUN/Creatinine Ratio 26.9 H (10-20) Glucose 191 H (70-99) mg/dl POC Glucose 191 H (70-99) mg/dl Estimat Average Glucose mg/dl Hemoglobin A1c (4.5-5.6) % Calcium 9.5 (8.5-10.1) mg/dl Phosphorus Magnesium 2.1 (1.8-2.4) mg/dl Procalcitonin (0-0.5) ng/ml Urine Color Urine Appearance (Clear) Urine pH (4.5-7.5) Ur Specific [place] (1.000-1.030) Urine Protein (Negative) Urine Glucose (UA) (Negative) Urine Ketones (Negative) Urine Blood (Negative) Urine Nitrite (Negative) Urine Bilirubin (Negative) Urine Urobilinogen (Negative) Ur Leukocyte Esterase (Negative) Urine WBC (Auto) (0-5) /hpf Urine RBC (Auto) (0-4) /hpf U Hyaline Cast (Auto) (0-5) /lpf U Epithel Cells (Auto) (0-5) /lpf Urine Bacteria (Auto) (Negative) 12/29/20 12/29/20 12/29/20 Range/Units 06:09 05:00 04:03 WBC (4.8-10.8) K/uL RBC (4.2-5.4) M/uL Hgb (12.0-16.0) g/dL Hct (37-47) % MCV (80-100) fL MCH (25-34) pg MCHC (32-36) g/dL RDW Std Deviation (36.4-46.3) fL RDW Coeff of Radha (11.5-14.5) % Plt Count (130-400) K/uL MPV (7.4-10.4) fL Sodium (136-145) mmol/L Potassium (3.5-5.1) mmol/L Chloride (98-107) mmol/L Carbon Dioxide (21-32) mmol/L Anion Gap (3-11) BUN (7-18) mg/dl Creatinine (0.6-1.2) mg/dl Est Cr Clr Drug Dosing ml/min Est GFR ( Amer) ml/min Est GFR (Non-Af Amer) ml/min BUN/Creatinine Ratio (10-20) Glucose (70-99) mg/dl POC Glucose 175 H 194 H 204 H (70-99) mg/dl Estimat Average Glucose mg/dl Hemoglobin A1c (4.5-5.6) % Calcium (8.5-10.1) mg/dl Phosphorus Magnesium (1.8-2.4) mg/dl Procalcitonin (0-0.5) ng/ml Urine Color Urine Appearance (Clear) Urine pH (4.5-7.5) Ur Specific [place] (1.000-1.030) Urine Protein (Negative) Urine Glucose (UA) (Negative) Urine Ketones (Negative) Urine Blood (Negative) Urine Nitrite (Negative) Urine Bilirubin (Negative) Urine Urobilinogen (Negative) Ur Leukocyte Esterase (Negative) Urine WBC (Auto) (0-5) /hpf Urine RBC (Auto) (0-4) /hpf U Hyaline Cast (Auto) (0-5) /lpf U Epithel Cells (Auto) (0-5) /lpf Urine Bacteria (Auto) (Negative) 12/29/20 12/29/20 12/29/20 Range/Units 03:04 02:05 01:05 WBC (4.8-10.8) K/uL RBC (4.2-5.4) M/uL Hgb (12.0-16.0) g/dL Hct (37-47) % MCV (80-100) fL MCH (25-34) pg MCHC (32-36) g/dL RDW Std Deviation (36.4-46.3) fL RDW Coeff of Radha (11.5-14.5) % Plt Count (130-400) K/uL MPV (7.4-10.4) fL Sodium (136-145) mmol/L Potassium (3.5-5.1) mmol/L Chloride (98-107) mmol/L Carbon Dioxide (21-32) mmol/L Anion Gap (3-11) BUN (7-18) mg/dl Creatinine (0.6-1.2) mg/dl Est Cr Clr Drug Dosing ml/min Est GFR ( Amer) ml/min Est GFR (Non-Af Amer) ml/min BUN/Creatinine Ratio (10-20) Glucose (70-99) mg/dl POC Glucose 232 H 268 H 279 H (70-99) mg/dl Estimat Average Glucose mg/dl Hemoglobin A1c (4.5-5.6) % Calcium (8.5-10.1) mg/dl Phosphorus Magnesium (1.8-2.4) mg/dl Procalcitonin (0-0.5) ng/ml Urine Color Urine Appearance (Clear) Urine pH (4.5-7.5) Ur Specific [place] (1.000-1.030) Urine Protein (Negative) Urine Glucose (UA) (Negative) Urine Ketones (Negative) Urine Blood (Negative) Urine Nitrite (Negative) Urine Bilirubin (Negative) Urine Urobilinogen (Negative) Ur Leukocyte Esterase (Negative) Urine WBC (Auto) (0-5) /hpf Urine RBC (Auto) (0-4) /hpf U Hyaline Cast (Auto) (0-5) /lpf U Epithel Cells (Auto) (0-5) /lpf Urine Bacteria (Auto) (Negative) 12/28/20 12/28/20 12/28/20 Range/Units 23:59 23:09 23:08 WBC (4.8-10.8) K/uL RBC (4.2-5.4) M/uL Hgb (12.0-16.0) g/dL Hct (37-47) % MCV (80-100) fL MCH (25-34) pg MCHC (32-36) g/dL RDW Std Deviation (36.4-46.3) fL RDW Coeff of Radha (11.5-14.5) % Plt Count (130-400) K/uL MPV (7.4-10.4) fL Sodium (136-145) mmol/L Potassium (3.5-5.1) mmol/L Chloride (98-107) mmol/L Carbon Dioxide (21-32) mmol/L Anion Gap (3-11) BUN (7-18) mg/dl Creatinine (0.6-1.2) mg/dl Est Cr Clr Drug Dosing ml/min Est GFR ( Amer) ml/min Est GFR (Non-Af Amer) ml/min BUN/Creatinine Ratio (10-20) Glucose (70-99) mg/dl POC Glucose 344 H* 351 H* 359 H* (70-99) mg/dl Estimat Average Glucose mg/dl Hemoglobin A1c (4.5-5.6) % Calcium (8.5-10.1) mg/dl Phosphorus Magnesium (1.8-2.4) mg/dl Procalcitonin (0-0.5) ng/ml Urine Color Urine Appearance (Clear) Urine pH (4.5-7.5) Ur Specific [place] (1.000-1.030) Urine Protein (Negative) Urine Glucose (UA) (Negative) Urine Ketones (Negative) Urine Blood (Negative) Urine Nitrite (Negative) Urine Bilirubin (Negative) Urine Urobilinogen (Negative) Ur Leukocyte Esterase (Negative) Urine WBC (Auto) (0-5) /hpf Urine RBC (Auto) (0-4) /hpf U Hyaline Cast (Auto) (0-5) /lpf U Epithel Cells (Auto) (0-5) /lpf Urine Bacteria (Auto) (Negative) 12/28/20 12/28/20 12/28/20 Range/Units 22:03 21:45 20:24 WBC (4.8-10.8) K/uL RBC (4.2-5.4) M/uL Hgb (12.0-16.0) g/dL Hct (37-47) % MCV (80-100) fL MCH (25-34) pg MCHC (32-36) g/dL RDW Std Deviation (36.4-46.3) fL RDW Coeff of Radha (11.5-14.5) % Plt Count (130-400) K/uL MPV (7.4-10.4) fL Sodium (136-145) mmol/L Potassium (3.5-5.1) mmol/L Chloride (98-107) mmol/L Carbon Dioxide (21-32) mmol/L Anion Gap (3-11) BUN (7-18) mg/dl Creatinine (0.6-1.2) mg/dl Est Cr Clr Drug Dosing ml/min Est GFR ( Amer) ml/min Est GFR (Non-Af Amer) ml/min BUN/Creatinine Ratio (10-20) Glucose (70-99) mg/dl POC Glucose 387 H* 386 H* (70-99) mg/dl Estimat Average Glucose mg/dl Hemoglobin A1c (4.5-5.6) % Calcium (8.5-10.1) mg/dl Phosphorus Magnesium (1.8-2.4) mg/dl Procalcitonin (0-0.5) ng/ml Urine Color Yellow Urine Appearance Clear (Clear) Urine pH 5.0 (4.5-7.5) Ur Specific [place] 1.022 (1.000-1.030) Urine Protein Negative (Negative) Urine Glucose (UA) 3+ H (Negative) Urine Ketones 1+ H (Negative) Urine Blood 1+ H (Negative) Urine Nitrite Negative (Negative) Urine Bilirubin Negative (Negative) Urine Urobilinogen Negative (Negative) Ur Leukocyte Esterase Negative (Negative) Urine WBC (Auto) 0 (0-5) /hpf Urine RBC (Auto) 0-4 (0-4) /hpf U Hyaline Cast (Auto) 0 (0-5) /lpf U Epithel Cells (Auto) 10-20 H (0-5) /lpf Urine Bacteria (Auto) Negative (Negative) 12/28/20 12/28/20 12/28/20 Range/Units 20:23 16:43 16:42 WBC (4.8-10.8) K/uL RBC (4.2-5.4) M/uL Hgb (12.0-16.0) g/dL Hct (37-47) % MCV (80-100) fL MCH (25-34) pg MCHC (32-36) g/dL RDW Std Deviation (36.4-46.3) fL RDW Coeff of Radha (11.5-14.5) % Plt Count (130-400) K/uL MPV (7.4-10.4) fL Sodium (136-145) mmol/L Potassium (3.5-5.1) mmol/L Chloride (98-107) mmol/L Carbon Dioxide (21-32) mmol/L Anion Gap (3-11) BUN (7-18) mg/dl Creatinine (0.6-1.2) mg/dl Est Cr Clr Drug Dosing ml/min Est GFR ( Amer) ml/min Est GFR (Non-Af Amer) ml/min BUN/Creatinine Ratio (10-20) Glucose (70-99) mg/dl POC Glucose 381 H* 383 H* 384 H* (70-99) mg/dl Estimat Average Glucose mg/dl Hemoglobin A1c (4.5-5.6) % Calcium (8.5-10.1) mg/dl Phosphorus Magnesium (1.8-2.4) mg/dl Procalcitonin (0-0.5) ng/ml Urine Color Urine Appearance (Clear) Urine pH (4.5-7.5) Ur Specific [place] (1.000-1.030) Urine Protein (Negative) Urine Glucose (UA) (Negative) Urine Ketones (Negative) Urine Blood (Negative) Urine Nitrite (Negative) Urine Bilirubin (Negative) Urine Urobilinogen (Negative) Ur Leukocyte Esterase (Negative) Urine WBC (Auto) (0-5) /hpf Urine RBC (Auto) (0-4) /hpf U Hyaline Cast (Auto) (0-5) /lpf U Epithel Cells (Auto) (0-5) /lpf Urine Bacteria (Auto) (Negative) 12/28/20 12/28/20 Range/Units 15:16 14:04 WBC (4.8-10.8) K/uL RBC (4.2-5.4) M/uL Hgb (12.0-16.0) g/dL Hct (37-47) % MCV (80-100) fL MCH (25-34) pg MCHC (32-36) g/dL RDW Std Deviation (36.4-46.3) fL RDW Coeff of Radha (11.5-14.5) % Plt Count (130-400) K/uL MPV (7.4-10.4) fL Sodium (136-145) mmol/L Potassium (3.5-5.1) mmol/L Chloride (98-107) mmol/L Carbon Dioxide (21-32) mmol/L Anion Gap (3-11) BUN (7-18) mg/dl Creatinine (0.6-1.2) mg/dl Est Cr Clr Drug Dosing ml/min Est GFR ( Amer) ml/min Est GFR (Non-Af Amer) ml/min BUN/Creatinine Ratio (10-20) Glucose (70-99) mg/dl POC Glucose 252 H (70-99) mg/dl Estimat Average Glucose mg/dl Hemoglobin A1c (4.5-5.6) % Calcium (8.5-10.1) mg/dl Phosphorus Magnesium (1.8-2.4) mg/dl Procalcitonin < 0.05 (0-0.5) ng/ml Urine Color Urine Appearance (Clear) Urine pH (4.5-7.5) Ur Specific [place] (1.000-1.030) Urine Protein (Negative) Urine Glucose (UA) (Negative) Urine Ketones (Negative) Urine Blood (Negative) Urine Nitrite (Negative) Urine Bilirubin (Negative) Urine Urobilinogen (Negative) Ur Leukocyte Esterase (Negative) Urine WBC (Auto) (0-5) /hpf Urine RBC (Auto) (0-4) /hpf U Hyaline Cast (Auto) (0-5) /lpf U Epithel Cells (Auto) (0-5) /lpf Urine Bacteria (Auto) (Negative) Medications Administered Current Inpatient Medications Acetaminophen (Acetaminophen 325 Mg Tab) 650 mg PO Q4H PRN PRN Reason: Pain or Fever Stop: 01/27/21 16:00 Al Hydrox/Mg Hydrox/Simethicone (Aluminum/Magnesium Susp 30 Ml Udc) 15 ml PO Q4H PRN PRN Reason: Dyspepsia Stop: 01/27/21 16:00 Albuterol (Albut/Ipratrop 3mg/0.5mg Neb 3 Ml Vial) 3 ml NEB QIDR [facility]ON[facility] Stop: 01/27/21 16:00 Last Admin: 12/29/20 07:04 Dose: 3 ml Documented by: Benzonatate (Benzonatate 100 Mg Capsule) 100 mg PO TID [facility] Stop: 01/27/21 16:00 Last Admin: 12/29/20 07:50 Dose: 100 mg Documented by: Bupropion HCl (Bupropion Xl 150 Mg Tabcr) 150 mg PO BID [facility] Stop: 01/27/21 20:59 Last Admin: 12/29/20 07:51 Dose: 150 mg Documented by: Dextrose (Dextrose 50% 50 Ml Syringe) 25 - 50 ml IV UD PRN; Protocol PRN Reason: Hypoglycemia Protocol Stop: 01/27/21 16:00 Doxycycline Hyclate (Doxycycline Hyclate 100 Mg Cap) 100 mg PO BID [facility] Stop: 01/04/21 20:59 Last Admin: 12/29/20 07:51 Dose: 100 mg Documented by: Enoxaparin Sodium (Enoxaparin Inj 40 Mg/0.4 Ml Syr) 40 mg SQ Q12H [facility] Stop: 01/27/21 20:59 Last Admin: 12/29/20 07:51 Dose: 40 mg Documented by: Fluticasone Furoate (Fluticasone Furoate 100mcg 14 Puffs/Inhaler) 1 puffs INH DAILY [facility]ONITA; Protocol Stop: 01/28/21 08:59 Last Admin: 12/29/20 07:52 Dose: 1 puffs Documented by: Fluticasone Propionate (Fluticasone Propionate Na Spr 16 Gm Btl) 2 sprays DEISI DAILY PRN; Protocol PRN Reason: Nasal Congestion Stop: 01/27/21 16:24 Last Admin: 12/29/20 07:52 Dose: 2 sprays Documented by: Glucagon (Glucagon For Inj 1 Mg Vial) 1 mg SQ UD PRN; Protocol PRN Reason: Hypoglycemia Protocol Stop: 01/27/21 16:00 Glucose (Glucose 10 Tabs/Tube) 4 - 8 tabs PO UD PRN; Protocol PRN Reason: Hypoglycemia Protocol Stop: 01/27/21 16:00 Glucose (Glucose 40% Gel 15 Gm Tube) 15 - 30 gm PO UD PRN; Protocol PRN Reason: Hypoglycemia Protocol Stop: 01/27/21 16:00 Guaifenesin (Guaifenesin 600 Mg Tabcr) 600 mg PO Q12 [facility] Stop: 01/27/21 20:59 Last Admin: 12/29/20 07:51 Dose: 600 mg Documented by: Hydrochlorothiazide (Hydrochlorothiazide 25 Mg Tab) 25 mg PO DAILY [facility] Stop: 01/28/21 08:59 Last Admin: 12/29/20 07:50 Dose: 25 mg Documented by: Aztreonam 2,000 mg/ Dextrose 110 mls @ 100 mls/hr IV Q8H [facility]; Protocol Stop: 01/04/21 13:59 Last Infusion: 12/29/20 07:53 Dose: Infused Documented by: Promethazine HCl 12.5 mg/ (Sodium Chloride) 50.5 mls @ 202 mls/hr IV Q6H PRN PRN Reason: Nausea And Vomiting Stop: 01/27/21 16:00 Methylprednisolone 40 mg/ (Syringe) 0.64 mls @ 1.5 mls/min IV Q12H [facility] Stop: 01/28/21 05:59 Last Admin: 12/29/20 06:14 Dose: 1.5 mls/min Documented by: Insulin Human Regular 250 (units/ Sodium Chloride) 250 mls @ 10.3 mls/hr IV .Q24H [facility]; Protocol Stop: 01/27/21 20:59 Last Titration: 12/29/20 07:07 Dose: 10.3 units/hr, 10.3 mls/hr Documented by: Insulin Aspart (Insulin Aspart 100 Units/Ml 3 Ml Pen) 0 units SC ACHS [facility] Stop: 01/27/21 20:59 Last Admin: 12/28/20 22:35 Dose: Not Given Documented by: Levothyroxine Sodium (Levothyroxine Sodium 88 Mcg Tablet) 88 mcg PO DAILYBB [facility] Stop: 01/28/21 06:29 Last Admin: 12/29/20 06:14 Dose: 88 mcg Documented by: Lisinopril (Lisinopril 20 Mg Tab) 20 mg PO DAILY [facility] Stop: 01/28/21 08:59 Last Admin: 12/29/20 07:49 Dose: 20 mg Documented by: Magnesium Hydroxide (Magnesium Hydroxide Susp 30 Ml Udc) 30 ml PO Q12H PRN PRN Reason: Constipation Stop: 01/27/21 16:00 Miscellaneous (Carbohydrates For Hypoglycemia ) 15 - 30 gm PO UD PRN PRN Reason: Hypoglycemia Protocol Stop: 01/27/21 16:00 Miscellaneous Information (Pharmacy Glycemic Mgmt Consult) 1 ea N/A UD PRN; Protocol PRN Reason: Consult Stop: 01/27/21 16:10 Naltrexone HCl (Naltrexone Hcl 50 Mg Tab) 50 mg PO DAILY RAMONITA Stop: 01/28/21 08:59 Pantoprazole Sodium (Pantoprazole 40 Mg Tab) 40 mg PO DAILY RAMONITA Stop: 01/28/21 08:59 Last Admin: 12/29/20 07:49 Dose: 40 mg Documented by: Polyethylene Glycol (Polyethylene (Miralax) 17 Gm Pack) 17 gm PO DAILY PRN PRN Reason: Constipation Stop: 01/27/21 16:00 Umeclidinium/Vilanterol (Umeclidinium/Vilanterol 62.5/25mcg 7 Puffs/Inhaler) 1 puffs INH DAILY RAMONITA; Protocol Stop: 01/28/21 08:59 Last Admin: 12/29/20 07:52 Dose: 1 puffs Documented by:
[2020-12-29] MEDS: INSULIN ASPART 100 UNITS/ML 3 ML PEN SC SCH ×4 (08:25→20:41)
[2020-12-29] MEDS: NALTREXONE HCL 50 MG TAB PO SCH (08:39)
--- NOTE | 2020-12-29 14:13 | Pharmacy Report ---
Pharmacy Glycemic Short Note 2 - Date of Service December 29, 2020 - Glycemic Short BSG Results (Last 24 hours): 12/28/20 12/28/20 12/28/20 15:16 16:42 16:43 Glucose POC Glucose 252 H 384 H* 383 H* 12/28/20 12/28/20 12/28/20 20:23 20:24 22:03 Glucose POC Glucose 381 H* 386 H* 387 H* 12/28/20 12/28/20 12/28/20 23:08 23:09 23:59 Glucose POC Glucose 359 H* 351 H* 344 H* 12/29/20 12/29/20 12/29/20 01:05 02:05 03:04 Glucose POC Glucose 279 H 268 H 232 H 12/29/20 12/29/20 12/29/20 04:03 05:00 06:09 Glucose POC Glucose 204 H 194 H 175 H 12/29/20 12/29/20 12/29/20 07:02 07:26 08:01 Glucose 191 H POC Glucose 191 H 174 H 12/29/20 12/29/20 12/29/20 09:03 10:00 11:02 Glucose POC Glucose 274 H 298 H 246 H 12/29/20 12/29/20 12/29/20 12:01 13:02 14:00 Glucose POC Glucose 212 H 232 H 214 H OUTPATIENT ANTIDIABETIC REGIMEN: * Novolin 70/30 70 units QAM, 30 units QPM ASSESSMENT: * 65 year old female admitted with COPD exacerbation/hypoxia, on IV steroids and insulin drip * Insulin drip running at 24.2 units/hr, RN check line, infusing correctly, no infiltration * Dr Barlow aware, need to keep IV steroids on for at least another 24 hours, will monitor BMP * Patient K = 4.1, had 40meq last night when drip was started * Will tighten fixed CR, as patient is eating while on the insulin drip and give additional NPH (as patient is on Novolin at home) PLAN FOR INPATIENT GLYCEMIC CONTROL: * IV Insulin infusion - current rate 24.2units/hr * goal range 120-180mg/dl * Basal insulin * NPH 20 units last night * NPH 50 units today at 0800 and 1430, further dosing tomorrow * Bolus insulin * Nutritional / Prandial insulin per carb ratio of 1 unit per 2 grams CHO consumed PLAN FOR DISCHARGE: * to be determined based on in discharged on steroids
[2020-12-29 14:54] LABS: Calcium 9.4 mg/dl (8.5-10.1); Creatinine Clr Calc Pharmacy 66.6 ml/min; Est GFR (African American) 54.2 ml/min; Est GFR (Non-African American) 46.8 ml/min; Magnesium 2.1 mg/dl (1.8-2.4); Phosphorus 2.3 mg/dl (2.5-4.9)
--- NOTE | 2020-12-29 14:58 | CT Scan Report ---
CT SCAN OF THE CHEST WITHOUT IV CONTRAST CLINICAL HISTORY: Dyspnea. COMPARISON STUDY: Chest CT scans dated 09/12/2020 and 03/10/2018. TECHNIQUE: CT scan of the thorax was performed from the thoracic inlet to the upper abdomen. Images are reviewed in the axial, sagittal, and coronal planes. IV contrast was not administered for this ex amination as per the referring clinician. A dose lowering technique was utilized adhering to the jovanna stephenson of [facility]. CT DOSE: 925.85 mGy.cm FINDINGS: Thyroid: Normal in size and heterogeneous in attenuation. A coarse calcification is noted in the righ t lobe. Thoracic aorta: The thoracic aorta is normal in caliber and demonstrates bovine variant arch anatomy. Heart: The heart is normal in size and without pericardial effusion. Lungs and pleural spaces: Emphysematous change is noted. Postoperative change and volume loss is seen in the left lung. The trachea and central airways are clear. There is no airspace consolidation typi carlos for pneumonia or pleural effusion. Foci of scarring/atelectasis are present throughout both lungs , greatest at the right lung base. The trachea and central airways are clear. There are numerous (at least 10) pulmonary nodules scattered throughout the right lung. An 10 mm groundglass nodule in the r ight upper lobe is seen on image #117. A 6 mm right lower lobe nodule seen image #193. Additional rep resentative nodules are seen in the right lower lobe measuring 4 mm on image #173 and in the right up per lobe measuring 3 mm as seen on image #64. The majority of these nodules have not significantly ch anged dating back to 2018. Mediastinum: There is no mediastinal lymphadenopathy. Zunilda: Not well assessed without IV contrast. Axillae: There is no axillary lymphadenopathy. Upper abdomen: The liver is enlarged and steatotic. A small hiatal hernia is noted. A 10 mm calcified right adrenal nodule is similar to previous. Skeletal structures: The skeletal structures are osteopenic. Degenerative change and hyperkyphosis is noted in the thoracic spine. No lytic or blastic bony lesions are seen. IMPRESSION: 1. Emphysema and postoperative change from left-sided pulmonary resection. 2. There is no airspace consolidation or pleural effusion. 3. Scattered solid and groundglass pulmonary nodules are again seen throughout the right lung. The la rgest groundglass nodule is present in the right upper lobe and measures up to 10 mm. Continued atten tion at follow-up is recommended. 4. Hepatomegaly and hepatic steatosis. 5. Additional findings as above. ACT 112: Negative or not required by law. Electronically signed by: Chandler Hernandez M.D. 12/29/2020 2:57 PM
[2020-12-29] MEDS: INSULIN REGULAR 250 UNITS in SODIUM CHLORIDE 0.9% 247.5 ML IV SCH (16:27)
[2020-12-30] MEDS: INSULIN REGULAR 250 UNITS in SODIUM CHLORIDE 0.9% 247.5 ML IV SCH ×3 (01:41→16:56)
[2020-12-30] MEDS: AZTREONAM 2,000 MG in DEXTROSE 5% 100 ML IV SCH ×3 (06:15→22:06)
[2020-12-30] MEDS: LEVOTHYROXINE SODIUM 88 MCG TABLET PO SCH (06:19)
[2020-12-30] MEDS: methylPREDNISolone 40 MG in SYRINGE 0 ML IV SCH (06:19)
[2020-12-30] MEDS: ALBUT/IPRATROP 3MG/0.5MG NEB 3 ML VIAL NEB SCH ×4 (06:55→19:06)
[2020-12-30 07:22] LABS: BUN Creatinine Ratio 30.6 (10-20); Calcium 9.3 mg/dl (8.5-10.1); Creatinine Clr Calc Pharmacy 76.7 ml/min; Est GFR (African American) 64.3 ml/min; Est GFR (Non-African American) 55.4 ml/min; Magnesium 2.4 mg/dl (1.8-2.4); Potassium 4.4 mmol/L (3.5-5.1)
[2020-12-30 07:26] LABS: Phosphorus 3.8 mg/dl (2.5-4.9)
[2020-12-30] MEDS ORDERED: INSULIN HUMAN NPH SC ONE (07:30)
[2020-12-30] MEDS ORDERED: INSULIN ASPART 100 UNITS/ML 3 ML PEN SC SCH (07:30)
[2020-12-30] MEDS: DOXYCYCLINE HYCLATE 100 MG CAP PO SCH ×2 (08:10→21:29)
[2020-12-30] MEDS: buPROPion XL 150 MG TABCR PO SCH ×2 (08:10→21:29)
[2020-12-30] MEDS: NALTREXONE HCL 50 MG TAB PO SCH (08:11)
[2020-12-30] MEDS: guaiFENesin 600 MG TABCR PO SCH ×2 (08:11→21:28)
[2020-12-30] MEDS: PANTOprazole 40 MG TAB PO SCH (08:12)
[2020-12-30] MEDS: lisinopril 20 MG TAB PO SCH (08:12)
[2020-12-30] MEDS: hydroCHLOROthiazide 25 MG TAB PO SCH (08:12)
[2020-12-30] MEDS: ENOXAPARIN INJ 40 MG/0.4 ML SYR SQ SCH ×2 (08:13→21:31)
[2020-12-30] MEDS: FLUTICASONE FUROATE 100MCG 14 PUFFS/INHALER INH SCH (08:13)
[2020-12-30] MEDS: UMECLIDINIUM/VILANTEROL 62.5/25MCG 7 PUFFS/INHALER INH SCH (08:17)
--- NOTE | 2020-12-30 08:32 | Hospitalist Progress Note ---
Date of Service December 30, 2020 Assessment & Plan (1) COPD exacerbation: (2) Hypoxia: (3) Pneumonia: This is a 65-year-old female who has significant PMH of HTN, HLD, IDDM 2, COPD with nocturnal hypoxemia, hypothyroidism, history of lung cancer status post lobectomy, hepatic steatosis, depression, GERD who presents to ED secondary to worsening shortness of breath x10 days. Patient failed outpatient treatment for acute COPD exacerbation with hypoxia, documented O2 saturation 86%. Treated outpatient with oral doxycycline, Augmentin and prednisone without relief. Also on Trelegy and ipratropium. Chest x-ray concerning for right lower lobe pneumonitis versus atelectasis. SARS COV2 negative, she is fully vaccinated as of October. Admit to med telemetry Continue IV antibiotics with Azactam and oral doxycycline secondary to multiple drug allergies Solu-Medrol 40 mg IV every 8 - decreased to q12hrs, now will stop and switch to PO prednisone Aggressive pulmonary toilet with DuoNeb, flutter valve, incentive spirometry Guaifenesin Tessalon Perls prn Procalcitonin - negative sputum culture ordered Continue oxygen supplementation as needed Patient follows with DC pulmonology Consult Dr. Luna - CT chest ordered, no sign of infection/ pneumonia BiPAP at night and as needed Consideration for Roflumilast as an outpatient should be thought Recommend outpatient polysomnography for possible RIANA (4) Diabetes mellitus, type II: Poorly controlled, insulin-dependent, last A1c 8.7 on 09/28/2020 Current A1c 8.5% Continue NPH and insulin sliding scale Will consult glycemic pharmacy secondary to uncontrolled diabetes and steroid use -appreciate their assistance Currently on Iv insulin - will stop as IV solumedrol stopped (5) Hypertension: Blood pressure elevated in ED, now well controlled Continue lisinopril and HCTZ Monitor BMP (6) Nocturnal hypoxia: On 2 L of O2 at bedtime chronically (7) DVT prophylaxis: SQ Lovenox BID Dispo: admit to med tele, expect hospitalization 2-3 days depending on clinical course given failed outpt management PCP: Laz Morse FULL CODE Admission and Anticipated Discharge Date Admission Date: December 29, 2020 Subjective Patient seen in follow-up of COPD exacerbation, acute hypoxic respiratory failure Currently patient is lying in bed, in no acute distress, on 2 L of oxygen via nasal cannula She is able to speak in full sentences, breathing is unlabored Says she feels much better Also reports sleeping well on bipap Denies any sputum production No chest pain, fevers chills Review of Systems Review of Systems: All systems reviewed & are unremarkable except as noted in HPI & below Constitutional: no fever and no chills Respiratory: + cough (on and off) and + dyspnea (improved) Cardiovascular: no chest pain and no palpitations Gastrointestinal: no abdominal pain, no nausea and no vomiting Physical Exam 2 Physical Exam: Constitutional: Morbidly obese, female, NAD, conversing easily Head: Normocephalic, Atraumatic Eyes: PERRL, EOMI, conjunctivae normal, anicteric sclerae ENMT: external ear and nose normal, oropharynx normal Neck: trachea midline, no thyromegaly normal visual inspection Respiratory: On 2 L of O2 via NC, normal respiratory effort, no significant wheezes noted (improved from previous exam), no rhonchi, + mild bibasilar crackles, decreased breath sounds throughout. Normal insp/exp effort, no accessory muscle use Cardiovascular: RRR, trace lower extremity edema, no murmur Vessels: no JVD or carotid bruit Chest: normal inspection of chest Abdomen: Obese abdomen, normal bowel sounds, soft, nontender Musculoskeletal: no cyanosis or clubbing, extremities motor strength 5/5 Skin: no rashes, warm and dry normal turgor Neurologic: PERRL, EOMI, no face palsy, no dysarthria, no facial asymmetry, moves all extremities Psychiatric: A+Ox3, euthymic affect Results & Data Results & Data ([facility]) Vital Signs (Past 12 Hours) Vital Signs Temp Pulse Pulse Resp BP BP Pulse Ox 12/30/20 07:44 36.4 C L 84 16 109/64 97 12/30/20 06:55 81 18 98 12/30/20 03:50 19 12/30/20 03:18 36.3 C L 87 20 119/76 98 12/29/20 23:08 87 12/29/20 22:40 83 24 98 12/29/20 22:34 36.5 C 86 18 110/52 L 94 Laboratory Results 12/30/20 12/30/20 12/30/20 Range/Units 07:01 06:04 06:01 Sodium 138 (136-145) mmol/L Potassium 4.4 (3.5-5.1) mmol/L Chloride 106 (98-107) mmol/L Carbon Dioxide 29 (21-32) mmol/L Anion Gap 3.0 (3-11) BUN 32 H (7-18) mg/dl Creatinine 1.06 (0.6-1.2) mg/dl Est Cr Clr Drug Dosing 76.7 ml/min Est GFR ( Amer) 64.3 ml/min Est GFR (Non-Af Amer) 55.4 ml/min BUN/Creatinine Ratio 30.6 H (10-20) Glucose 116 H (70-99) mg/dl POC Glucose 177 H 109 H (70-99) mg/dl Calcium 9.3 (8.5-10.1) mg/dl Phosphorus 3.8 D (2.5-4.9) mg/dl Magnesium 2.4 (1.8-2.4) mg/dl 12/30/20 12/30/20 12/30/20 Range/Units 05:04 03:59 03:04 Sodium (136-145) mmol/L Potassium (3.5-5.1) mmol/L Chloride (98-107) mmol/L Carbon Dioxide (21-32) mmol/L Anion Gap (3-11) BUN (7-18) mg/dl Creatinine (0.6-1.2) mg/dl Est Cr Clr Drug Dosing ml/min Est GFR ( Amer) ml/min Est GFR (Non-Af Amer) ml/min BUN/Creatinine Ratio (10-20) Glucose (70-99) mg/dl POC Glucose 109 H 87 90 (70-99) mg/dl Calcium (8.5-10.1) mg/dl Phosphorus (2.5-4.9) mg/dl Magnesium (1.8-2.4) mg/dl 12/30/20 12/30/20 12/29/20 Range/Units 01:00 00:00 22:59 Sodium (136-145) mmol/L Potassium (3.5-5.1) mmol/L Chloride (98-107) mmol/L Carbon Dioxide (21-32) mmol/L Anion Gap (3-11) BUN (7-18) mg/dl Creatinine (0.6-1.2) mg/dl Est Cr Clr Drug Dosing ml/min Est GFR ( Amer) ml/min Est GFR (Non-Af Amer) ml/min BUN/Creatinine Ratio (10-20) Glucose (70-99) mg/dl POC Glucose 143 H 148 H 164 H (70-99) mg/dl Calcium (8.5-10.1) mg/dl Phosphorus (2.5-4.9) mg/dl Magnesium (1.8-2.4) mg/dl 12/29/20 12/29/20 12/29/20 Range/Units 21:57 21:06 20:02 Sodium (136-145) mmol/L Potassium (3.5-5.1) mmol/L Chloride (98-107) mmol/L Carbon Dioxide (21-32) mmol/L Anion Gap (3-11) BUN (7-18) mg/dl Creatinine (0.6-1.2) mg/dl Est Cr Clr Drug Dosing ml/min Est GFR ( Amer) ml/min Est GFR (Non-Af Amer) ml/min BUN/Creatinine Ratio (10-20) Glucose (70-99) mg/dl POC Glucose 185 H 158 H 192 H (70-99) mg/dl Calcium (8.5-10.1) mg/dl Phosphorus (2.5-4.9) mg/dl Magnesium (1.8-2.4) mg/dl 12/29/20 12/29/20 12/29/20 Range/Units 19:01 18:02 17:01 Sodium (136-145) mmol/L Potassium (3.5-5.1) mmol/L Chloride (98-107) mmol/L Carbon Dioxide (21-32) mmol/L Anion Gap (3-11) BUN (7-18) mg/dl Creatinine (0.6-1.2) mg/dl Est Cr Clr Drug Dosing ml/min Est GFR ( Amer) ml/min Est GFR (Non-Af Amer) ml/min BUN/Creatinine Ratio (10-20) Glucose (70-99) mg/dl POC Glucose 202 H 247 H 219 H (70-99) mg/dl Calcium (8.5-10.1) mg/dl Phosphorus (2.5-4.9) mg/dl Magnesium (1.8-2.4) mg/dl 12/29/20 12/29/20 12/29/20 Range/Units 16:00 15:00 14:12 Sodium 135 L (136-145) mmol/L Potassium 4.0 (3.5-5.1) mmol/L Chloride 102 (98-107) mmol/L Carbon Dioxide 27 (21-32) mmol/L Anion Gap 6.0 (3-11) BUN 28 H (7-18) mg/dl Creatinine 1.22 H (0.6-1.2) mg/dl Est Cr Clr Drug Dosing 66.6 ml/min Est GFR ( Amer) 54.2 ml/min Est GFR (Non-Af Amer) 46.8 ml/min BUN/Creatinine Ratio 23.0 H (10-20) Glucose 215 H (70-99) mg/dl POC Glucose 228 H 206 H (70-99) mg/dl Calcium 9.4 (8.5-10.1) mg/dl Phosphorus 2.3 L (2.5-4.9) mg/dl Magnesium 2.1 (1.8-2.4) mg/dl 12/29/20 12/29/20 12/29/20 Range/Units 14:00 13:02 12:01 Sodium (136-145) mmol/L Potassium (3.5-5.1) mmol/L Chloride (98-107) mmol/L Carbon Dioxide (21-32) mmol/L Anion Gap (3-11) BUN (7-18) mg/dl Creatinine (0.6-1.2) mg/dl Est Cr Clr Drug Dosing ml/min Est GFR ( Amer) ml/min Est GFR (Non-Af Amer) ml/min BUN/Creatinine Ratio (10-20) Glucose (70-99) mg/dl POC Glucose 214 H 232 H 212 H (70-99) mg/dl Calcium (8.5-10.1) mg/dl Phosphorus (2.5-4.9) mg/dl Magnesium (1.8-2.4) mg/dl 12/29/20 12/29/20 12/29/20 Range/Units 11:02 10:00 09:03 Sodium (136-145) mmol/L Potassium (3.5-5.1) mmol/L Chloride (98-107) mmol/L Carbon Dioxide (21-32) mmol/L Anion Gap (3-11) BUN (7-18) mg/dl Creatinine (0.6-1.2) mg/dl Est Cr Clr Drug Dosing ml/min Est GFR ( Amer) ml/min Est GFR (Non-Af Amer) ml/min BUN/Creatinine Ratio (10-20) Glucose (70-99) mg/dl POC Glucose 246 H 298 H 274 H (70-99) mg/dl Calcium (8.5-10.1) mg/dl Phosphorus (2.5-4.9) mg/dl Magnesium (1.8-2.4) mg/dl Medications Administered Current Inpatient Medications Acetaminophen (Acetaminophen 325 Mg Tab) 650 mg PO Q4H PRN PRN Reason: Pain or Fever Stop: 01/27/21 16:00 Al Hydrox/Mg Hydrox/Simethicone (Aluminum/Magnesium Susp 30 Ml Udc) 15 ml PO Q4H PRN PRN Reason: Dyspepsia Stop: 01/27/21 16:00 Albuterol (Albut/Ipratrop 3mg/0.5mg Neb 3 Ml Vial) 3 ml NEB QIDR RAMONITA Stop: 01/27/21 16:00 Last Admin: 12/30/20 06:55 Dose: 3 ml Documented by: Benzonatate (Benzonatate 100 Mg Capsule) 100 mg PO TID PRN PRN Reason: cough Stop: 01/27/21 16:00 Bupropion HCl (Bupropion Xl 150 Mg Tabcr) 150 mg PO BID RAMONITA Stop: 01/27/21 20:59 Last Admin: 12/30/20 08:10 Dose: 150 mg Documented by: Dextrose (Dextrose 50% 50 Ml Syringe) 25 - 50 ml IV UD PRN; Protocol PRN Reason: Hypoglycemia Protocol Stop: 01/27/21 16:00 Doxycycline Hyclate (Doxycycline Hyclate 100 Mg Cap) 100 mg PO BID RAMONITA Stop: 01/04/21 20:59 Last Admin: 12/30/20 08:10 Dose: 100 mg Documented by: Enoxaparin Sodium (Enoxaparin Inj 40 Mg/0.4 Ml Syr) 40 mg SQ Q12H RAMONITA Stop: 01/27/21 20:59 Last Admin: 12/30/20 08:13 Dose: 40 mg Documented by: Fluticasone Furoate (Fluticasone Furoate 100mcg 14 Puffs/Inhaler) 1 puffs INH DAILY RAMONITA; Protocol Stop: 01/28/21 08:59 Last Admin: 12/30/20 08:13 Dose: 1 puffs Documented by: Fluticasone Propionate (Fluticasone Propionate Na Spr 16 Gm Btl) 2 sprays DEISI DAILY PRN; Protocol PRN Reason: Nasal Congestion Stop: 01/27/21 16:24 Last Admin: 12/29/20 07:52 Dose: 2 sprays Documented by: Glucagon (Glucagon For Inj 1 Mg Vial) 1 mg SQ UD PRN; Protocol PRN Reason: Hypoglycemia Protocol Stop: 01/27/21 16:00 Glucose (Glucose 10 Tabs/Tube) 4 - 8 tabs PO UD PRN; Protocol PRN Reason: Hypoglycemia Protocol Stop: 01/27/21 16:00 Glucose (Glucose 40% Gel 15 Gm Tube) 15 - 30 gm PO UD PRN; Protocol PRN Reason: Hypoglycemia Protocol Stop: 01/27/21 16:00 Guaifenesin (Guaifenesin 600 Mg Tabcr) 1,200 mg PO Q12 [facility] Stop: 01/28/21 20:59 Last Admin: 12/30/20 08:11 Dose: 1,200 mg Documented by: Hydrochlorothiazide (Hydrochlorothiazide 25 Mg Tab) 25 mg PO DAILY [facility] Stop: 01/28/21 08:59 Last Admin: 12/30/20 08:12 Dose: 25 mg Documented by: Aztreonam 2,000 mg/ Dextrose 110 mls @ 100 mls/hr IV Q8H [facility]; Protocol Stop: 01/04/21 13:59 Last Infusion: 12/30/20 07:26 Dose: Infused Documented by: Promethazine HCl 12.5 mg/ (Sodium Chloride) 50.5 mls @ 202 mls/hr IV Q6H PRN PRN Reason: Nausea And Vomiting Stop: 01/27/21 16:00 Methylprednisolone 40 mg/ (Syringe) 0.64 mls @ 1.5 mls/min IV Q12H [facility] Stop: 01/28/21 05:59 Last Admin: 12/30/20 06:19 Dose: 1.5 mls/min Documented by: Insulin Human Regular 250 (units/ Sodium Chloride) 250 mls @ 27.8 mls/hr IV .Q9H [facility]; Protocol Stop: 01/27/21 20:59 Last Titration: 12/30/20 08:23 Dose: 0 units/hr, 0 mls/hr Documented by: Insulin Aspart (Insulin Aspart 100 Units/Ml 3 Ml Pen) 0 units SC ACHS [facility] Stop: 01/27/21 20:59 Last Admin: 12/29/20 20:41 Dose: 21 units Documented by: Insulin Aspart (Insulin Aspart 100 Units/Ml 3 Ml Pen) 0 units SC 0730 [facility] Stop: 12/30/20 09:30 Last Admin: 12/30/20 08:17 Dose: 25 units Documented by: Levothyroxine Sodium (Levothyroxine Sodium 88 Mcg Tablet) 88 mcg PO DAILYBB [facility] Stop: 01/28/21 06:29 Last Admin: 12/30/20 06:19 Dose: 88 mcg Documented by: Lisinopril (Lisinopril 20 Mg Tab) 20 mg PO DAILY [facility] Stop: 01/28/21 08:59 Last Admin: 12/30/20 08:12 Dose: 20 mg Documented by: Magnesium Hydroxide (Magnesium Hydroxide Susp 30 Ml Udc) 30 ml PO Q12H PRN PRN Reason: Constipation Stop: 01/27/21 16:00 Miscellaneous (Carbohydrates For Hypoglycemia ) 15 - 30 gm PO UD PRN PRN Reason: Hypoglycemia Protocol Stop: 01/27/21 16:00 Miscellaneous Information (Pharmacy Glycemic Mgmt Consult) 1 ea N/A UD PRN; Protocol PRN Reason: Consult Stop: 01/27/21 16:10 Naltrexone HCl (Naltrexone Hcl 50 Mg Tab) 50 mg PO DAILY [facility] Stop: 01/28/21 08:59 Last Admin: 12/30/20 08:11 Dose: 50 mg Documented by: Pantoprazole Sodium (Pantoprazole 40 Mg Tab) 40 mg PO DAILY RAMONITA Stop: 01/28/21 08:59 Last Admin: 12/30/20 08:12 Dose: 40 mg Documented by: Polyethylene Glycol (Polyethylene (Miralax) 17 Gm Pack) 17 gm PO DAILY PRN PRN Reason: Constipation Stop: 01/27/21 16:00 Umeclidinium/Vilanterol (Umeclidinium/Vilanterol 62.5/25mcg 7 Puffs/Inhaler) 1 puffs INH DAILY [facility]; Protocol Stop: 01/28/21 08:59 Last Admin: 12/30/20 08:17 Dose: 1 puffs Documented by:
--- NOTE | 2020-12-30 11:12 | Pharmacy Report ---
Pharmacy Glycemic Short Note 2 - Date of Service December 30, 2020 - Glycemic Short BSG Results (Last 24 hours): 12/29/20 12/29/20 12/29/20 11:02 12:01 13:02 Glucose POC Glucose 246 H 212 H 232 H 12/29/20 12/29/20 12/29/20 14:00 14:12 15:00 Glucose 215 H POC Glucose 214 H 206 H 12/29/20 12/29/20 12/29/20 16:00 17:01 18:02 Glucose POC Glucose 228 H 219 H 247 H 12/29/20 12/29/20 12/29/20 19:01 20:02 21:06 Glucose POC Glucose 202 H 192 H 158 H 12/29/20 12/29/20 12/30/20 21:57 22:59 00:00 Glucose POC Glucose 185 H 164 H 148 H 12/30/20 12/30/20 12/30/20 01:00 03:04 03:59 Glucose POC Glucose 143 H 90 87 12/30/20 12/30/20 12/30/20 05:04 06:01 06:04 Glucose 116 H POC Glucose 109 H 109 H 12/30/20 12/30/20 12/30/20 07:01 09:02 09:58 Glucose POC Glucose 177 H 248 H 253 H OUTPATIENT ANTIDIABETIC REGIMEN: * Novolin 70/30 70 units QAM, 30 units QPM ASSESSMENT: 12/30/20: * Susan continues to require significant amounts of insulin due to steroid induced hyperglycemia on top of significant home doses * Yesterday, she received 100 units of NPH and 87 units of Novolog overlapped with an IV insulin infusion (up to a rate of 29 units/hr during part of the day). IV insulin was held for ~5 hours overnight and then resumed this morning when BSG climbed back up to 248 mg/dL. * Patient received last dose of solu medrol 40 mg IV this AM. She will start prednisone 40 mg daily on 12/31. * Will continue IV insulin until better glycemic control is achieved and hopefully transition off later today. 12/29/20: * 65 year old female admitted with COPD exacerbation/hypoxia, on IV steroids and insulin drip * Insulin drip running at 24.2 units/hr, RN check line, infusing correctly, no infiltration * Dr Barlow aware, need to keep IV steroids on for at least another 24 hours, will monitor BMP * Patient K = 4.1, had 40meq last night when drip was started * Will tighten fixed CR, as patient is eating while on the insulin drip and give additional NPH (as patient is on Novolin at home) PLAN FOR INPATIENT GLYCEMIC CONTROL: Current orders: * IV Insulin infusion - current rate 13.4 units/hr * goal range 120-180mg/dl * Basal insulin * NPH 60 units SQ this AM * NPH 10-15 units SQ with dinner * Bolus insulin * Nutritional / Prandial insulin per carb ratio of 1 unit per 3 grams CHO consumed Once IV infusion has been discontinued, start: * Basal insulin * NPH 70 units SQ qAM * NPH 20 units SQ with dinner (may require adjustment tomorrow) * Bolus insulin * Correction factor: 10 mg/dL/unit * Nutritional / Prandial insulin per carb ratio of 1 unit per 4 grams CHO consumed PLAN FOR DISCHARGE: * to be determined based on in discharged on steroids
[2020-12-30] MEDS: INSULIN ASPART 100 UNITS/ML 3 ML PEN SC SCH ×3 (12:17→22:03)
[2020-12-30] MEDS: DC IV INSULIN INFUSION 1 EA DEVI SCH ×2 (16:28→21:30)
[2020-12-30] MEDS ORDERED: INSULIN HUMAN NPH SC SCH (16:30)
--- NOTE | 2020-12-30 17:36 | Pulmonology Progress Note ---
Date of Service December 30, 2020 Assessment & Plan (1) Acute hypoxemic respiratory failure: CT chest 01/18/2020 personally reviewed: Centrilobular emphysema appreciated, left upper lobectomy, rahul in place Multiple pulmonary nodules appreciated bilaterally Chest x-ray from 12/28/20 personally reviewed: Good respiratory effort, bilateral costophrenic and cardiophrenic angles are clean, agent is appreciated in the right lower lobe CT chest 12/29/2020 personally reviewed: Centrilobular emphysema appreciated bilaterally, left upper lobectomy rahul in place Minimal groundglass opacities right upper lobe with some tree-in-bud. No mediastinal lymphadenopathy --Acute on chronic hypoxic respiratory failure Likely secondary to COPD exacerbation COVID-19 PCR negative, procalcitonin negative Continue with O2 supplementation to keep oxygen saturation between 88-92% BiPAP nightly and as needed shortness of breath --COPD with emphysema On Trelegy at home Consideration for Roflumilast as an outpatient should be thought PFTs 07/22/2017: FVC 64%, FEV1 53%, FEV1/FVC 85%, TLC 96% --Multiple pulmonary nodules Yearly CAT scan as the patient is high risk We will repeat a CT chest without contrast --Morbid obesity With high possibility of RIANA Recommend outpatient polysomnography Continue with BiPAP nightly and as needed shortness of breath --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 Recommend discontinuing aztreonam Continue with doxycycline for atypical coverage. Continue with diuretics Please note the above document was generated using voice recognition software. It may contain grammatical, syntax or spelling errors.Any formal questions or concerns about the content, text or information contained within the body of this dictation should be directly addressed to the provider for clarification. (2) COPD exacerbation: (3) Sleep apnea: (4) Morbid obesity: (5) Chronic obstructive pulmonary disease: COPD type: COPD with acute exacerbation Qualified Code(s): J44.1 - Chronic obstructive pulmonary disease with (acute) exacerbation (6) Acute on chronic respiratory failure with hypoxemia: Admission and Anticipated Discharge Date Admission Date: December 29, 2020 Subjective Patient seen and examined bedside. No acute distress, no adverse events overnight. Patient states she is feeling better compared to yesterday. She is still coughing not bringing up phlegm. Denies any chest pain, has been urinating well. Good appetite. Denies any chills. Patient used BiPAP overnight and really liked it. Stated she slept well after very long time. Review of Systems Review of Systems: All systems reviewed & are unremarkable except as noted in Subjective Physical Exam Physical Exam: Constitutional: No acute distress HEENT: EOMI, PERRLA Respiratory system: Decreased air entry bilaterally, no rhonchi, positive crackles bilateral lower lobes, no wheeze CVS: S1-S2 positive, no murmurs or gallops, distant heart sounds Abdomen: Soft, nontender, nondistended, positive bowel sounds x4, obese Extremities: +2 pulses bilaterally radialis/ dorsalis pedis, no cyanosis, +1 pitting edema bilateral lower extremity Neuro: Awake alert oriented x3 Psych: Normal mood and affect G/U: No [place] Skin: no rashes, warm and dry Lymphatic: no cervical or axillary lymphadenopathy Results & Data Results & Data ([facility]) Vital Signs (Past 12 Hours) Vital Signs Temp Pulse Pulse Resp BP Pulse Ox 12/30/20 15:56 36.4 C L 87 16 125/77 96 12/30/20 15:22 87 20 98 12/30/20 15:10 91 H 12/30/20 11:59 36.4 C L 80 16 123/76 91 12/30/20 11:01 82 18 96 12/30/20 08:56 82 12/30/20 07:44 36.4 C L 84 16 109/64 97 12/30/20 06:55 81 18 98 12/29/20 07:26 12/30/20 06:04 PG Care Time/CCT Total # of Minutes Spent Total Time Spent with Patient: Total time spent is greater than 50% in coordination of care (as documented) at patient's floor/unit and/or counseling patient: Coding Level of Care Code 50637 Subseq Hosp Care Lvl 3 Diagnoses Acute hypoxemic respiratory failure J96.01 COPD exacerbation J44.1 Sleep apnea G47.30 Morbid obesity E66.01 Chronic obstructive pulmonary disease J44.1 COPD type: COPD with acute exacerbation Acute on chronic respiratory failure with hypoxemia J96.21
[2020-12-30] MEDS: BENZONATATE 100 MG CAPSULE PO PRN (22:29)
[2020-12-31] MEDS: AZTREONAM 2,000 MG in DEXTROSE 5% 100 ML IV SCH (06:15)
[2020-12-31] MEDS: LEVOTHYROXINE SODIUM 88 MCG TABLET PO SCH (06:18)
[2020-12-31 07:13] LABS: BUN Creatinine Ratio 40.6 (10-20); Creatinine Clr Calc Pharmacy 76.6 ml/min; Est GFR (African American) 64.3 ml/min; Est GFR (Non-African American) 55.4 ml/min; Magnesium 2.5 mg/dl (1.8-2.4); Potassium 3.9 mmol/L (3.5-5.1)
[2020-12-31] MEDS: ALBUT/IPRATROP 3MG/0.5MG NEB 3 ML VIAL NEB SCH ×4 (07:35→19:33)
[2020-12-31] MEDS ORDERED: INSULIN HUMAN NPH SC SCH ×3 (08:00→16:30)
[2020-12-31] MEDS: DOXYCYCLINE HYCLATE 100 MG CAP PO SCH ×2 (08:06→20:25)
[2020-12-31] MEDS: hydroCHLOROthiazide 25 MG TAB PO SCH (08:07)
[2020-12-31] MEDS: guaiFENesin 600 MG TABCR PO SCH ×2 (08:07→20:25)
[2020-12-31] MEDS: lisinopril 20 MG TAB PO SCH (08:07)
[2020-12-31] MEDS: NALTREXONE HCL 50 MG TAB PO SCH (08:08)
[2020-12-31] MEDS: predniSONE 20 MG TAB PO SCH (08:08)
[2020-12-31] MEDS: PANTOprazole 40 MG TAB PO SCH (08:08)
[2020-12-31] MEDS: buPROPion XL 150 MG TABCR PO SCH ×2 (08:09→20:25)
[2020-12-31] MEDS: UMECLIDINIUM/VILANTEROL 62.5/25MCG 7 PUFFS/INHALER INH SCH (08:09)
[2020-12-31] MEDS: FLUTICASONE FUROATE 100MCG 14 PUFFS/INHALER INH SCH (08:09)
[2020-12-31] MEDS: ENOXAPARIN INJ 40 MG/0.4 ML SYR SQ SCH ×2 (08:10→21:11)
[2020-12-31] MEDS: INSULIN ASPART 100 UNITS/ML 3 ML PEN SC SCH ×4 (08:12→21:09)
[2020-12-31] MEDS ORDERED: predniSONE 20 MG TAB PO SCH (09:00)
--- NOTE | 2020-12-31 11:34 | Pulmonology Progress Note ---
Date of Service December 31, 2020 Assessment & Plan (1) Acute hypoxemic respiratory failure: CT chest 01/18/2020 personally reviewed: Centrilobular emphysema appreciated, left upper lobectomy, rahul in place Multiple pulmonary nodules appreciated bilaterally Chest x-ray from 12/28/20 personally reviewed: Good respiratory effort, bilateral costophrenic and cardiophrenic angles are clean, agent is appreciated in the right lower lobe CT chest 12/29/2020 personally reviewed: Centrilobular emphysema appreciated bilaterally, left upper lobectomy rahul in place Minimal groundglass opacities right upper lobe with some tree-in-bud. No mediastinal lymphadenopathy --Acute on chronic hypoxic respiratory failure Likely secondary to COPD exacerbation COVID-19 PCR negative, procalcitonin negative Continue with O2 supplementation to keep oxygen saturation between 88-92% BiPAP nightly and as needed shortness of breath --COPD with emphysema On Trelegy at home Consideration for Roflumilast as an outpatient should be thought PFTs 07/22/2017: FVC 64%, FEV1 53%, FEV1/FVC 85%, TLC 96% --Multiple pulmonary nodules Yearly CAT scan as the patient is high risk We will repeat a CT chest without contrast --Morbid obesity With high possibility of RIANA Recommend outpatient polysomnography Continue with BiPAP nightly and as needed shortness of breath --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 Continue with diuretics Outpatient polysomnography. Repeat PFTs as an outpatient No further recommendation from pulmonary perspective. Call directly with any questions. Please note the above document was generated using voice recognition software. It may contain grammatical, syntax or spelling errors.Any formal questions or concerns about the content, text or information contained within the body of this dictation should be directly addressed to the provider for clarification. (2) COPD exacerbation: (3) Sleep apnea: (4) Morbid obesity: (5) Chronic obstructive pulmonary disease: COPD type: COPD with acute exacerbation Qualified Code(s): J44.1 - Chronic obstructive pulmonary disease with (acute) exacerbation (6) Acute on chronic respiratory failure with hypoxemia: Admission and Anticipated Discharge Date Admission Date: December 29, 2020 Subjective Patient seen and examined at bedside. No acute distress, no adverse events overnight. Patient says she is doing better when it comes to her breathing. Still complaining of cough not bringing up any phlegm. Denies any chest pain, no headache, no nausea, no vomiting. Fair appetite. Review of Systems Review of Systems: All systems reviewed & are unremarkable except as noted in Subjective Physical Exam Physical Exam: Constitutional: No acute distress HEENT: EOMI, PERRLA Respiratory system: Decreased air entry bilaterally, no rhonchi, positive crackles bilateral lower lobes, minimal expiratory wheeze CVS: S1-S2 positive, no murmurs or gallops, distant heart sounds Abdomen: Soft, nontender, nondistended, positive bowel sounds x4, obese Extremities: +2 pulses bilaterally radialis/ dorsalis pedis, no cyanosis, +1 pitting edema bilateral lower extremity Neuro: Awake alert oriented x3 Psych: Normal mood and affect G/U: No [place] Skin: no rashes, warm and dry Lymphatic: no cervical or axillary lymphadenopathy Results & Data Results & Data ([facility]) Vital Signs (Past 12 Hours) Vital Signs Temp Pulse Pulse Pulse Resp BP BP 12/31/20 11:19 81 18 12/31/20 08:00 36.2 C L 76 18 100/72 12/31/20 07:47 96 H 12/31/20 07:35 86 18 12/31/20 04:46 36.6 C 83 20 93/62 L 12/31/20 02:40 21 Pulse Ox 12/31/20 11:19 93 12/31/20 08:00 96 12/31/20 07:47 12/31/20 07:35 95 12/31/20 04:46 96 12/31/20 02:40 12/29/20 07:26 12/31/20 06:37 PG Care Time/CCT Total # of Minutes Spent Total Time Spent with Patient: Total time spent is greater than 50% in coordination of care (as documented) at patient's floor/unit and/or counseling patient: Coding Level of Care Code 45586 Subseq Hosp Care Lvl 3 Diagnoses Acute hypoxemic respiratory failure J96.01 COPD exacerbation J44.1 Sleep apnea G47.30 Morbid obesity E66.01 Chronic obstructive pulmonary disease J44.1 COPD type: COPD with acute exacerbation Acute on chronic respiratory failure with hypoxemia J96.21
--- NOTE | 2020-12-31 12:21 | Pharmacy Report ---
Pharmacy Glycemic Short Note 2 - Date of Service December 31, 2020 - Glycemic Short BSG Results (Last 24 hours): 12/30/20 12/30/20 12/30/20 13:00 14:03 15:08 Glucose POC Glucose 179 H 143 H 125 H 12/30/20 12/30/20 12/30/20 16:12 17:04 18:59 Glucose POC Glucose 130 H 122 H 144 H 12/30/20 12/30/20 12/30/20 21:03 22:13 23:13 Glucose POC Glucose 95 107 H 132 H 12/31/20 12/31/20 12/31/20 00:48 01:51 02:50 Glucose POC Glucose 86 78 79 12/31/20 12/31/20 12/31/20 03:58 06:05 06:37 Glucose 109 H POC Glucose 84 98 12/31/20 12/31/20 07:54 11:35 Glucose POC Glucose 103 H 143 H OUTPATIENT ANTIDIABETIC REGIMEN: * Novolin 70/30 70 units QAM, 30 units QPM ASSESSMENT: 12/31/20 * Patient was eventually stopped yesterday evening. Patient received 179 units of insulin (70 units of basal and 109 units of bolus) plus insulin infusion. * Fasting BSG was 98 mg/dL. * Patient switched to prednisone 40 mg daily today. * Plan determined by yesterday's glycemic pharmacist worked well. Gave 70 units of NPH this morning (includes extra basal for steroid induced hyperglycemia) and will give 10 units this evening as this appeared effective based on fasting BSG. * Loosened Novolog slightly. 12/30/20: * Susan continues to require significant amounts of insulin due to steroid induced hyperglycemia on top of significant home doses * Yesterday, she received 100 units of NPH and 87 units of Novolog overlapped with an IV insulin infusion (up to a rate of 29 units/hr during part of the day). IV insulin was held for ~5 hours overnight and then resumed this morning when BSG climbed back up to 248 mg/dL. * Patient received last dose of solu medrol 40 mg IV this AM. She will start prednisone 40 mg daily on 12/31. * Will continue IV insulin until better glycemic control is achieved and hopefully transition off later today. 12/29/20: * 65 year old female admitted with COPD exacerbation/hypoxia, on IV steroids and insulin drip * Insulin drip running at 24.2 units/hr, RN check line, infusing correctly, no infiltration * Dr Barlow aware, need to keep IV steroids on for at least another 24 hours, will monitor BMP * Patient K = 4.1, had 40meq last night when drip was started * Will tighten fixed CR, as patient is eating while on the insulin drip and give additional NPH (as patient is on Novolin at home) PLAN FOR INPATIENT GLYCEMIC CONTROL: * Basal insulin * NPH 70 units SQ qAM * NPH 10 units SQ with dinner ( * Bolus insulin * Correction factor: 10 mg/dL/unit * Nutritional / Prandial insulin per carb ratio of 1 unit per 4 grams CHO consumed PLAN FOR DISCHARGE: * to be determined based on in discharged on steroids
--- NOTE | 2020-12-31 13:13 | Hospitalist Progress Note ---
Date of Service December 31, 2020 Assessment & Plan (1) COPD exacerbation: (2) Hypoxia: (3) Pneumonia: This is a 65-year-old female who has significant PMH of HTN, HLD, IDDM 2, COPD with nocturnal hypoxemia, hypothyroidism, history of lung cancer status post lobectomy, hepatic steatosis, depression, GERD who presents to ED secondary to worsening shortness of breath x10 days. Patient failed outpatient treatment for acute COPD exacerbation with hypoxia, documented O2 saturation 86%. Treated outpatient with oral doxycycline, Augmentin and prednisone without relief. Also on Trelegy and ipratropium. Chest x-ray concerning for right lower lobe pneumonitis versus atelectasis. SARS COV2 negative, she is fully vaccinated as of October. Admit to med telemetry Continue IV antibiotics with Azactam and oral doxycycline secondary to multiple drug allergies Solu-Medrol 40 mg IV every 8 - decreased to q12hrs, now switched to PO prednisone 40 mg daily Aggressive pulmonary toilet with DuoNeb, flutter valve, incentive spirometry Guaifenesin Tessalon Perls prn Procalcitonin - negative sputum culture ordered Continue oxygen supplementation as needed Patient follows with [facility] pulmonology Consult Dr. Luna - CT chest ordered, no sign of infection/ pneumonia BiPAP at night and as needed Consideration for Roflumilast as an outpatient should be thought Recommend outpatient polysomnography for possible RIANA (4) Diabetes mellitus, type II: Poorly controlled, insulin-dependent, last A1c 8.7 on 09/28/2020 Current A1c 8.5% Continue NPH and insulin sliding scale Will consult glycemic pharmacy secondary to uncontrolled diabetes and steroid use -appreciate their assistance stopped IV insulin as IV solumedrol stopped, BS improved (5) Hypertension: Blood pressure elevated in ED, now well controlled Continue lisinopril and HCTZ Monitor BMP (6) Nocturnal hypoxia: On 2 L of O2 at bedtime chronically (7) DVT prophylaxis: SQ Lovenox BID Dispo: admit to med tele, expect hospitalization 2-3 days depending on clinical course given failed outpt management PCP: Laz Morse FULL CODE Admission and Anticipated Discharge Date Admission Date: December 29, 2020 Subjective Patient seen in follow-up of COPD exacerbation, acute hypoxic respiratory failure Currently patient is lying in bed, in no acute distress, on RA She is able to speak in full sentences, breathing is unlabored Says she feels much better Also reports sleeping well on bipap Denies any sputum production No chest pain, fevers chills Review of Systems Review of Systems: All systems reviewed & are unremarkable except as noted in HPI & below Constitutional: no fever and no chills Respiratory: + cough (improved) and + dyspnea (improved) Cardiovascular: no chest pain and no palpitations Gastrointestinal: no abdominal pain, no nausea and no vomiting Physical Exam Physical Exam: Constitutional: Morbidly obese, female, NAD, conversing easily, on RA Head: Normocephalic, Atraumatic Eyes: PERRL, EOMI, conjunctivae normal, anicteric sclerae ENMT: external ear and nose normal, oropharynx normal Neck: trachea midline, no thyromegaly normal visual inspection Respiratory: normal respiratory effort, mild exp. wheezes noted (improved from previous exam), no rhonchi or crackles, no accessory muscle use, now on RA Cardiovascular: RRR, trace lower extremity edema, no murmur Vessels: no JVD or carotid bruit Chest: normal inspection of chest Abdomen: Obese abdomen, normal bowel sounds, soft, nontender Musculoskeletal: no cyanosis or clubbing, extremities motor strength 5/5 Skin: no rashes, warm and dry normal turgor Neurologic: PERRL, EOMI, no face palsy, no dysarthria, no facial asymmetry, moves all extremities Psychiatric: A+Ox3, euthymic affect Results & Data Results & Data ([facility]) Vital Signs (Past 12 Hours) Vital Signs Temp Pulse Pulse Pulse Resp BP BP 12/31/20 12:00 36.4 C L 76 17 102/66 12/31/20 11:19 81 18 12/31/20 08:00 36.2 C L 76 18 100/72 12/31/20 07:47 96 H 12/31/20 07:35 86 18 12/31/20 04:46 36.6 C 83 20 93/62 L 12/31/20 02:40 21 Pulse Ox 12/31/20 12:00 93 12/31/20 11:19 93 12/31/20 08:00 96 12/31/20 07:47 12/31/20 07:35 95 12/31/20 04:46 96 12/31/20 02:40 Laboratory Results 12/31/20 12/31/20 12/31/20 Range/Units 11:35 07:54 06:37 Sodium 137 (136-145) mmol/L Potassium 3.9 (3.5-5.1) mmol/L Chloride 106 (98-107) mmol/L Carbon Dioxide 28 (21-32) mmol/L Anion Gap 3.0 (3-11) BUN 43 H (7-18) mg/dl Creatinine 1.06 (0.6-1.2) mg/dl Est Cr Clr Drug Dosing 76.6 ml/min Est GFR ( Amer) 64.3 ml/min Est GFR (Non-Af Amer) 55.4 ml/min BUN/Creatinine Ratio 40.6 H (10-20) Glucose 109 H (70-99) mg/dl POC Glucose 143 H 103 H (70-99) mg/dl Calcium 9.0 (8.5-10.1) mg/dl Magnesium 2.5 H (1.8-2.4) mg/dl Hepatitis C Ab Screen 12/31/20 12/31/20 12/31/20 Range/Units 06:37 06:05 03:58 Sodium (136-145) mmol/L Potassium (3.5-5.1) mmol/L Chloride (98-107) mmol/L Carbon Dioxide (21-32) mmol/L Anion Gap (3-11) BUN (7-18) mg/dl Creatinine (0.6-1.2) mg/dl Est Cr Clr Drug Dosing ml/min Est GFR ( Amer) ml/min Est GFR (Non-Af Amer) ml/min BUN/Creatinine Ratio (10-20) Glucose (70-99) mg/dl POC Glucose 98 84 (70-99) mg/dl Calcium (8.5-10.1) mg/dl Magnesium (1.8-2.4) mg/dl Hepatitis C Ab Screen Pending 12/31/20 12/31/20 12/31/20 Range/Units 02:50 01:51 00:48 Sodium (136-145) mmol/L Potassium (3.5-5.1) mmol/L Chloride (98-107) mmol/L Carbon Dioxide (21-32) mmol/L Anion Gap (3-11) BUN (7-18) mg/dl Creatinine (0.6-1.2) mg/dl Est Cr Clr Drug Dosing ml/min Est GFR ( Amer) ml/min Est GFR (Non-Af Amer) ml/min BUN/Creatinine Ratio (10-20) Glucose (70-99) mg/dl POC Glucose 79 78 86 (70-99) mg/dl Calcium (8.5-10.1) mg/dl Magnesium (1.8-2.4) mg/dl Hepatitis C Ab Screen 12/30/20 12/30/20 12/30/20 Range/Units 23:13 22:13 21:03 Sodium (136-145) mmol/L Potassium (3.5-5.1) mmol/L Chloride (98-107) mmol/L Carbon Dioxide (21-32) mmol/L Anion Gap (3-11) BUN (7-18) mg/dl Creatinine (0.6-1.2) mg/dl Est Cr Clr Drug Dosing ml/min Est GFR ( Amer) ml/min Est GFR (Non-Af Amer) ml/min BUN/Creatinine Ratio (10-20) Glucose (70-99) mg/dl POC Glucose 132 H 107 H 95 (70-99) mg/dl Calcium (8.5-10.1) mg/dl Magnesium (1.8-2.4) mg/dl Hepatitis C Ab Screen 12/30/20 12/30/20 12/30/20 Range/Units 18:59 17:04 16:12 Sodium (136-145) mmol/L Potassium (3.5-5.1) mmol/L Chloride (98-107) mmol/L Carbon Dioxide (21-32) mmol/L Anion Gap (3-11) BUN (7-18) mg/dl Creatinine (0.6-1.2) mg/dl Est Cr Clr Drug Dosing ml/min Est GFR ( Amer) ml/min Est GFR (Non-Af Amer) ml/min BUN/Creatinine Ratio (10-20) Glucose (70-99) mg/dl POC Glucose 144 H 122 H 130 H (70-99) mg/dl Calcium (8.5-10.1) mg/dl Magnesium (1.8-2.4) mg/dl Hepatitis C Ab Screen 12/30/20 12/30/20 Range/Units 15:08 14:03 Sodium (136-145) mmol/L Potassium (3.5-5.1) mmol/L Chloride (98-107) mmol/L Carbon Dioxide (21-32) mmol/L Anion Gap (3-11) BUN (7-18) mg/dl Creatinine (0.6-1.2) mg/dl Est Cr Clr Drug Dosing ml/min Est GFR ( Amer) ml/min Est GFR (Non-Af Amer) ml/min BUN/Creatinine Ratio (10-20) Glucose (70-99) mg/dl POC Glucose 125 H 143 H (70-99) mg/dl Calcium (8.5-10.1) mg/dl Magnesium (1.8-2.4) mg/dl Hepatitis C Ab Screen Medications Administered Current Inpatient Medications Acetaminophen (Acetaminophen 325 Mg Tab) 650 mg PO Q4H PRN PRN Reason: Pain or Fever Stop: 01/27/21 16:00 Al Hydrox/Mg Hydrox/Simethicone (Aluminum/Magnesium Susp 30 Ml Udc) 15 ml PO Q4H PRN PRN Reason: Dyspepsia Stop: 01/27/21 16:00 Albuterol (Albut/Ipratrop 3mg/0.5mg Neb 3 Ml Vial) 3 ml NEB QIDR RAMONITA Stop: 01/27/21 16:00 Last Admin: 12/31/20 11:17 Dose: 3 ml Documented by: Benzonatate (Benzonatate 100 Mg Capsule) 100 mg PO TID PRN PRN Reason: cough Stop: 01/27/21 16:00 Last Admin: 12/30/20 22:29 Dose: 100 mg Documented by: Bupropion HCl (Bupropion Xl 150 Mg Tabcr) 150 mg PO BID [facility] Stop: 01/27/21 20:59 Last Admin: 12/31/20 08:09 Dose: 150 mg Documented by: Dextrose (Dextrose 50% 50 Ml Syringe) 25 - 50 ml IV UD PRN; Protocol PRN Reason: Hypoglycemia Protocol Stop: 01/27/21 16:00 Doxycycline Hyclate (Doxycycline Hyclate 100 Mg Cap) 100 mg PO BID [facility] Stop: 01/04/21 20:59 Last Admin: 12/31/20 08:06 Dose: 100 mg Documented by: Enoxaparin Sodium (Enoxaparin Inj 40 Mg/0.4 Ml Syr) 40 mg SQ Q12H [facility] Stop: 01/27/21 20:59 Last Admin: 12/31/20 08:10 Dose: 40 mg Documented by: Fluticasone Furoate (Fluticasone Furoate 100mcg 14 Puffs/Inhaler) 1 puffs INH DAILY [facility]; Protocol Stop: 01/28/21 08:59 Last Admin: 12/31/20 08:09 Dose: 1 puffs Documented by: Fluticasone Propionate (Fluticasone Propionate Na Spr 16 Gm Btl) 2 sprays DEISI DAILY PRN; Protocol PRN Reason: Nasal Congestion Stop: 01/27/21 16:24 Last Admin: 12/29/20 07:52 Dose: 2 sprays Documented by: Glucagon (Glucagon For Inj 1 Mg Vial) 1 mg SQ UD PRN; Protocol PRN Reason: Hypoglycemia Protocol Stop: 01/27/21 16:00 Glucose (Glucose 10 Tabs/Tube) 4 - 8 tabs PO UD PRN; Protocol PRN Reason: Hypoglycemia Protocol Stop: 01/27/21 16:00 Glucose (Glucose 40% Gel 15 Gm Tube) 15 - 30 gm PO UD PRN; Protocol PRN Reason: Hypoglycemia Protocol Stop: 01/27/21 16:00 Guaifenesin (Guaifenesin 600 Mg Tabcr) 1,200 mg PO Q12 [facility] Stop: 01/28/21 20:59 Last Admin: 12/31/20 08:07 Dose: 1,200 mg Documented by: Hydrochlorothiazide (Hydrochlorothiazide 25 Mg Tab) 25 mg PO DAILY [facility] Stop: 01/28/21 08:59 Last Admin: 12/31/20 08:07 Dose: 25 mg Documented by: Promethazine HCl 12.5 mg/ (Sodium Chloride) 50.5 mls @ 202 mls/hr IV Q6H PRN PRN Reason: Nausea And Vomiting Stop: 01/27/21 16:00 Insulin Aspart (Insulin Aspart 100 Units/Ml 3 Ml Pen) 0 units SC ACHS [facility] Stop: 01/27/21 20:59 Last Admin: 12/31/20 12:14 Dose: 23 units Documented by: Insulin Human NPH (Insulin Human Nph) 70 units SC 0800 [facility] Stop: 01/03/21 23:59 Insulin Human NPH (Insulin Human Nph) 10 units SC QDD [facility] Stop: 01/30/21 16:29 Levothyroxine Sodium (Levothyroxine Sodium 88 Mcg Tablet) 88 mcg PO DAILYBB [facility] Stop: 01/28/21 06:29 Last Admin: 12/31/20 06:18 Dose: 88 mcg Documented by: Lisinopril (Lisinopril 20 Mg Tab) 20 mg PO DAILY [facility] Stop: 01/28/21 08:59 Last Admin: 12/31/20 08:07 Dose: 20 mg Documented by: Magnesium Hydroxide (Magnesium Hydroxide Susp 30 Ml Udc) 30 ml PO Q12H PRN PRN Reason: Constipation Stop: 01/27/21 16:00 Miscellaneous (Carbohydrates For Hypoglycemia ) 15 - 30 gm PO UD PRN PRN Reason: Hypoglycemia Protocol Stop: 01/27/21 16:00 Miscellaneous Information (Pharmacy Glycemic Mgmt Consult) 1 ea N/A UD PRN; Protocol PRN Reason: Consult Stop: 01/27/21 16:10 Naltrexone HCl (Naltrexone Hcl 50 Mg Tab) 50 mg PO DAILY [facility] Stop: 01/28/21 08:59 Last Admin: 12/31/20 08:08 Dose: 50 mg Documented by: Pantoprazole Sodium (Pantoprazole 40 Mg Tab) 40 mg PO DAILY [facility] Stop: 01/28/21 08:59 Last Admin: 12/31/20 08:08 Dose: 40 mg Documented by: Polyethylene Glycol (Polyethylene (Miralax) 17 Gm Pack) 17 gm PO DAILY PRN PRN Reason: Constipation Stop: 01/27/21 16:00 Prednisone (Prednisone 20 Mg Tab) 40 mg PO DAILY [facility] Stop: 01/03/21 08:59 Last Admin: 12/31/20 08:08 Dose: 40 mg Documented by: Umeclidinium/Vilanterol (Umeclidinium/Vilanterol 62.5/25mcg 7 Puffs/Inhaler) 1 puffs INH DAILY [facility]; Protocol Stop: 01/28/21 08:59 Last Admin: 12/31/20 08:09 Dose: 1 puffs Documented by:
[2020-12-31] MEDS: BENZONATATE 100 MG CAPSULE PO PRN (20:29)
[2021-01-01] MEDS: LEVOTHYROXINE SODIUM 88 MCG TABLET PO SCH (06:09)
[2021-01-01] MEDS: ALBUT/IPRATROP 3MG/0.5MG NEB 3 ML VIAL NEB SCH ×2 (07:16→10:47)
--- NOTE | 2021-01-01 07:24 | Hospitalist Progress Note ---
Date of Service January 01, 2021 Assessment & Plan (1) COPD exacerbation: (2) Hypoxia: (3) Pneumonia: This is a 65-year-old female who has significant PMH of HTN, HLD, IDDM 2, COPD with nocturnal hypoxemia, hypothyroidism, history of lung cancer status post lobectomy, hepatic steatosis, depression, GERD who presents to ED secondary to worsening shortness of breath x10 days. Patient failed outpatient treatment for acute COPD exacerbation with hypoxia, documented O2 saturation 86%. Treated outpatient with oral doxycycline, Augmentin and prednisone without relief. Also on Trelegy and ipratropium. Chest x-ray concerning for right lower lobe pneumonitis versus atelectasis. SARS COV2 negative, she is fully vaccinated as of October. Admit to med telemetry Continue IV antibiotics with Azactam and oral doxycycline secondary to multiple drug allergies, stopped Aztreonam, will DC on doxy for 3 more days Solu-Medrol 40 mg IV every 8 - decreased to q12hrs, now switched to PO prednisone 40 mg daily- will DC on 40 and taper down to 20 in 3 days Aggressive pulmonary toilet with DuoNeb, flutter valve, incentive spirometry Guaifenesin Tessalon Perls prn Procalcitonin - negative sputum culture ordered Continue oxygen supplementation as needed Patient follows with CT pulmonology Consult Dr. Luna - CT chest ordered, no sign of infection/ pneumonia BiPAP at night and as needed Consideration for Roflumilast as an outpatient should be thought Recommend outpatient polysomnography for possible RIANA (4) Diabetes mellitus, type II: Poorly controlled, insulin-dependent, last A1c 8.7 on 09/28/2020 Current A1c 8.5% Continue NPH and insulin sliding scale Will consult glycemic pharmacy secondary to uncontrolled diabetes and steroid use -appreciate their assistance stopped IV insulin as IV solumedrol stopped, BS improved (5) Hypertension: Blood pressure elevated in ED, now well controlled Continue lisinopril and HCTZ Monitor BMP (6) Nocturnal hypoxia: On 2 L of O2 at bedtime chronically Recommend sleep study as outpt (7) DVT prophylaxis: SQ Lovenox BID Dispo: Plan to DC home and follow up w/ PCP and pulmonology PCP: Dr. Laz Morse FULL CODE Admission and Anticipated Discharge Date Admission Date: December 29, 2020 Subjective Patient seen in follow-up of COPD exacerbation, acute hypoxic respiratory failure Currently patient is lying in bed, in no acute distress, on RA She is able to speak in full sentences, breathing is unlabored Says she feels much better Also reports sleeping well on bipap Denies any sputum production No chest pain, fevers chills Review of Systems Review of Systems: All systems reviewed & are unremarkable except as noted in HPI & below Constitutional: no fever and no chills Respiratory: + cough (improved) and + dyspnea (improved) Cardiovascular: no chest pain and no palpitations Gastrointestinal: no abdominal pain, no nausea and no vomiting Physical Exam Physical Exam: Constitutional: Morbidly obese, female, NAD, conversing easily, on RA Head: Normocephalic, Atraumatic Eyes: PERRL, EOMI, conjunctivae normal, anicteric sclerae ENMT: external ear and nose normal, oropharynx normal Neck: trachea midline, no thyromegaly normal visual inspection Respiratory: normal respiratory effort, no exp. wheezes noted (improved from previous exam), no rhonchi or crackles, no accessory muscle use, now on RA Cardiovascular: RRR, trace lower extremity edema, no murmur Vessels: no JVD or carotid bruit Chest: normal inspection of chest Abdomen: Obese abdomen, normal bowel sounds, soft, nontender Musculoskeletal: no cyanosis or clubbing, extremities motor strength 5/5 Skin: no rashes, warm and dry normal turgor Neurologic: PERRL, EOMI, no face palsy, no dysarthria, no facial asymmetry, moves all extremities Psychiatric: A+Ox3, euthymic affect Results & Data Results & Data ([facility]) Vital Signs (Past 12 Hours) Vital Signs Temp Pulse Pulse Pulse Resp BP BP 01/01/21 07:17 83 16 01/01/21 03:52 36.4 C L 83 20 113/68 01/01/21 03:08 24 01/01/21 01:51 107 H 12/31/20 23:32 36.2 C L 89 18 110/64 12/31/20 22:24 94 H 18 12/31/20 19:41 36.7 C 87 18 101/91 12/31/20 19:34 86 18 Pulse Ox 01/01/21 07:17 99 01/01/21 03:52 91 01/01/21 03:08 97 01/01/21 01:51 12/31/20 23:32 96 12/31/20 22:24 98 12/31/20 19:41 93 12/31/20 19:34 95 Laboratory Results 12/31/20 12/31/20 12/31/20 Range/Units 20:33 16:38 11:35 POC Glucose 127 H 170 H 143 H (70-99) mg/dl 12/31/20 Range/Units 07:54 POC Glucose 103 H (70-99) mg/dl Medications Administered Current Inpatient Medications Acetaminophen (Acetaminophen 325 Mg Tab) 650 mg PO Q4H PRN PRN Reason: Pain or Fever Stop: 01/27/21 16:00 Al Hydrox/Mg Hydrox/Simethicone (Aluminum/Magnesium Susp 30 Ml Udc) 15 ml PO Q4H PRN PRN Reason: Dyspepsia Stop: 01/27/21 16:00 Albuterol (Albut/Ipratrop 3mg/0.5mg Neb 3 Ml Vial) 3 ml NEB QIDR RAMONITA Stop: 01/27/21 16:00 Last Admin: 01/01/21 07:16 Dose: 3 ml Documented by: Benzonatate (Benzonatate 100 Mg Capsule) 100 mg PO TID PRN PRN Reason: cough Stop: 01/27/21 16:00 Last Admin: 12/31/20 20:29 Dose: 100 mg Documented by: Bupropion HCl (Bupropion Xl 150 Mg Tabcr) 150 mg PO BID RAMONITA Stop: 01/27/21 20:59 Last Admin: 12/31/20 20:25 Dose: 150 mg Documented by: Dextrose (Dextrose 50% 50 Ml Syringe) 25 - 50 ml IV UD PRN; Protocol PRN Reason: Hypoglycemia Protocol Stop: 01/27/21 16:00 Doxycycline Hyclate (Doxycycline Hyclate 100 Mg Cap) 100 mg PO BID [facility] Stop: 01/04/21 20:59 Last Admin: 12/31/20 20:25 Dose: 100 mg Documented by: Enoxaparin Sodium (Enoxaparin Inj 40 Mg/0.4 Ml Syr) 40 mg SQ Q12H RAMONITA Stop: 01/27/21 20:59 Last Admin: 12/31/20 21:11 Dose: 40 mg Documented by: Fluticasone Furoate (Fluticasone Furoate 100mcg 14 Puffs/Inhaler) 1 puffs INH DAILY [facility]; Protocol Stop: 01/28/21 08:59 Last Admin: 12/31/20 08:09 Dose: 1 puffs Documented by: Fluticasone Propionate (Fluticasone Propionate Na Spr 16 Gm Btl) 2 sprays DEISI DAILY PRN; Protocol PRN Reason: Nasal Congestion Stop: 01/27/21 16:24 Last Admin: 12/29/20 07:52 Dose: 2 sprays Documented by: Glucagon (Glucagon For Inj 1 Mg Vial) 1 mg SQ UD PRN; Protocol PRN Reason: Hypoglycemia Protocol Stop: 01/27/21 16:00 Glucose (Glucose 10 Tabs/Tube) 4 - 8 tabs PO UD PRN; Protocol PRN Reason: Hypoglycemia Protocol Stop: 01/27/21 16:00 Glucose (Glucose 40% Gel 15 Gm Tube) 15 - 30 gm PO UD PRN; Protocol PRN Reason: Hypoglycemia Protocol Stop: 01/27/21 16:00 Guaifenesin (Guaifenesin 600 Mg Tabcr) 1,200 mg PO Q12 [facility] Stop: 01/28/21 20:59 Last Admin: 12/31/20 20:25 Dose: 1,200 mg Documented by: Hydrochlorothiazide (Hydrochlorothiazide 25 Mg Tab) 25 mg PO DAILY [facility] Stop: 01/28/21 08:59 Last Admin: 12/31/20 08:07 Dose: 25 mg Documented by: Promethazine HCl 12.5 mg/ (Sodium Chloride) 50.5 mls @ 202 mls/hr IV Q6H PRN PRN Reason: Nausea And Vomiting Stop: 01/27/21 16:00 Insulin Aspart (Insulin Aspart 100 Units/Ml 3 Ml Pen) 0 units SC ACHS [facility] Stop: 01/27/21 20:59 Last Admin: 12/31/20 21:09 Dose: 19 units Documented by: Insulin Human NPH (Insulin Human Nph) 70 units SC 0800 [facility] Stop: 01/03/21 23:59 Insulin Human NPH (Insulin Human Nph) 10 units SC QDD [facility] Stop: 01/30/21 16:29 Last Admin: 12/31/20 17:24 Dose: 10 units Documented by: Levothyroxine Sodium (Levothyroxine Sodium 88 Mcg Tablet) 88 mcg PO DAILYBB [facility] Stop: 01/28/21 06:29 Last Admin: 01/01/21 06:09 Dose: 88 mcg Documented by: Lisinopril (Lisinopril 20 Mg Tab) 20 mg PO DAILY [facility] Stop: 01/28/21 08:59 Last Admin: 12/31/20 08:07 Dose: 20 mg Documented by: Magnesium Hydroxide (Magnesium Hydroxide Susp 30 Ml Udc) 30 ml PO Q12H PRN PRN Reason: Constipation Stop: 01/27/21 16:00 Miscellaneous (Carbohydrates For Hypoglycemia ) 15 - 30 gm PO UD PRN PRN Reason: Hypoglycemia Protocol Stop: 01/27/21 16:00 Miscellaneous Information (Pharmacy Glycemic Mgmt Consult) 1 ea N/A UD PRN; Protocol PRN Reason: Consult Stop: 01/27/21 16:10 Naltrexone HCl (Naltrexone Hcl 50 Mg Tab) 50 mg PO DAILY [facility] Stop: 01/28/21 08:59 Last Admin: 12/31/20 08:08 Dose: 50 mg Documented by: Pantoprazole Sodium (Pantoprazole 40 Mg Tab) 40 mg PO DAILY [facility] Stop: 01/28/21 08:59 Last Admin: 12/31/20 08:08 Dose: 40 mg Documented by: Polyethylene Glycol (Polyethylene (Miralax) 17 Gm Pack) 17 gm PO DAILY PRN PRN Reason: Constipation Stop: 01/27/21 16:00 Prednisone (Prednisone 20 Mg Tab) 40 mg PO DAILY [facility]ON[facility] Stop: 01/03/21 08:59 Last Admin: 12/31/20 08:08 Dose: 40 mg Documented by: Umeclidinium/Vilanterol (Umeclidinium/Vilanterol 62.5/25mcg 7 Puffs/Inhaler) 1 puffs INH DAILY [facility]ON[facility]; Protocol Stop: 01/28/21 08:59 Last Admin: 12/31/20 08:09 Dose: 1 puffs Documented by:
[2021-01-01] MEDS ORDERED: INSULIN HUMAN NPH SC SCH (08:00)
[2021-01-01 08:32] LABS: BUN Creatinine Ratio 38.4 (10-20); Calcium 8.8 mg/dl (8.5-10.1); Creatinine Clr Calc Pharmacy 69.9 ml/min; Est GFR (Non-African American) 49.2 ml/min; Magnesium 2.4 mg/dl (1.8-2.4); Potassium 3.8 mmol/L (3.5-5.1)
--- NOTE | 2021-01-01 09:12 | Discharge Summary ---
Date of Service January 01, 2021 Admission HPI Per Admitting Provider This is a 65-year-old female who has significant PMH of HTN, HLD, IDDM 2, COPD with nocturnal hypoxemia, hypothyroidism, history of lung cancer status post lobectomy, hepatic steatosis, depression, GERD who presents to ED secondary to worsening shortness of breath x10 days. She complaints of productive cough discolored sputum, wheezing, chest tightness, pain with deep breathing and increasing SOB. Denies f/c/s, dizziness, lightheaded, chest pain, n/v, abd pain, change in bowel or bladder habits. She has not used any OTC cough suppressants. She does have mild diarrhea and feels 2/2 to antibiotics. She has been having 2- 3 BM a day. She completed a course of doxycycline and start augmentin 1 week ago. She also started rescue pack of prednisone and currently on 10mg daily for 4 days. She is fully vaccinated for covid-19 in October. Hx of tobacco abuse but quit ~ 4 years ago. No known sick contacts. She does use 2 L of O2 at HS but has been using it during the day over the past week. She has been compliant with tr elegy and nebs at home, but has not been getting relief. Appetite has been good. Denies hemoptysis. She does have hx of vertigo. Further has mild WOODARD. Patient was seen and evaluated by PCP on 12/20. This is when initial antibiotics with doxycycline was started. She was also seen and evaluated by her business development intern Shay Kilgore today who referred her to ED secondary to likely hospitalization due to noted hypoxia and increased wheezing. In ED she remained hemodynamically stable although did require 2 L of oxygen to maintain normal saturation. Her CBC and CMP were generally unremarkable except for hyperglycemia with a glucose of 175. She did take her insulin this morning but did not take any of her oral medications. Chest x-ray revealed ill-defined opacities of right lung base suggestive of atelectasis versus pneumonitis. Admission Exam Per Admitting Provider Constitutional: Morbidly obese, female, WD/WN, vitals as above, NAD, sitting up in bed, pleasant, conversing easily Head: Normocephalic, Atraumatic Eyes: PERRL, conjunctivae normal, anicteric sclerae ENMT: external ear and nose normal, oropharynx normal Neck: trachea midline, no thyromegaly normal visual inspection Respiratory: On 2 L of O2 via NC, normal respiratory effort, expiratory wheeze noted throughout, no rales or rhonchi, decreased breath sounds throughout. Normal insp/exp effort, no accessory muscle use Cardiovascular: RRR, trace lower extremity edema, no murmur Vessels: no JVD or carotid bruit Chest: normal inspection of chest Abdomen: Obese abdomen, normal bowel sounds, soft, nontender, no hepatosplenomegaly Musculoskeletal: no cyanosis or clubbing, extremities motor strength 5/5 Skin: no rashes, warm and dry normal turgor Neurologic: PERRL, EOMI, accommodation nl, no face palsy, no dysarthria CN's II-XI intact bilaterally and moves all extremities Psychiatric: A+Ox3, euthymic affect Lymphatic: no cervical or axillary lymphadenopathy : deferred Principal Diagnosis Acute hypoxic respiratory failure secondary to COPD exacerbation Nocturnal hypoxia Discharge Exam Constitutional: Morbidly obese, female, NAD, conversing easily, on RA Head: Normocephalic, Atraumatic Eyes: PERRL, EOMI, conjunctivae normal, anicteric sclerae ENMT: external ear and nose normal, oropharynx normal Neck: trachea midline, no thyromegaly normal visual inspection Respiratory: normal respiratory effort, no exp. wheezes noted (improved from previous exam), no rhonchi or crackles, no accessory muscle use, now on RA Cardiovascular: RRR, trace lower extremity edema, no murmur Vessels: no JVD or carotid bruit Chest: normal inspection of chest Abdomen: Obese abdomen, normal bowel sounds, soft, nontender Musculoskeletal: no cyanosis or clubbing, extremities motor strength 5/5 Skin: no rashes, warm and dry normal turgor Neurologic: PERRL, EOMI, no face palsy, no dysarthria, no facial asymmetry, moves all extremities Psychiatric: A+Ox3, euthymic affect Discharge Data Allergies Allergy/AdvReac Type Severity Reaction Status Date / Time azithromycin Allergy Severe cardiac Verified 12/28/20 08:58 arrhythmia Penicillins Allergy Severe HIVES, SOB Verified 12/28/20 08:58 Sulfa (Sulfonamide Allergy Severe HIVES AND Verified 12/28/20 08:58 Antibiotics) SOB WITH ORAL SULFA DRUGS, OK W/SILVADENE Cephalosporins Allergy Intermediate HIVES WITH Verified 12/28/20 08:58 CEFTIN Quinolones Allergy Mild HIVES-BUT Verified 12/28/20 08:58 HAD LEVAQUIN IN ER 03/05/09 W/O PROBLEM adhesive Allergy Unknown TAPE-SORES Verified 12/28/20 08:58 ON SKIN cefuroxime Allergy Unknown Unknown Verified 12/28/20 08:58 iodine Allergy Unknown REDNESS - Verified 12/28/20 08:58 see notes (topical), Inectable dye - n/v levofloxacin [From Levaquin] Allergy Unknown Unknown Verified 12/28/20 08:58 Iodinated Contrast Media AdvReac Intermediate skin Verified 12/28/20 08:58 [Iodinated Contrast- Oral burning and IV Dye] years ago Consultations 12/28/20 13:35 ED Decision to Admit Stat 12/28/20 16:01 Consult Pulmonology Routine Ordered Studies 12/29/20 13:21 CT chest diagnostic wo con Routine IMPRESSION: 1. Emphysema and postoperative change from left-sided pulmonary resection. 2. There is no airspace consolidation or pleural effusion. 3. Scattered solid and groundglass pulmonary nodules are again seen throughout the right lung. The largest groundglass nodule is present in the right upper lobe and measures up to 10 mm. Continued attention at follow-up is recommended. 4. Hepatomegaly and hepatic steatosis. 5. Additional findings as above. Hospital Course (1) COPD exacerbation: (2) Hypoxia: (3) Pneumonia: This is a 65-year-old female who has significant PMH of HTN, HLD, IDDM 2, COPD with nocturnal hypoxemia, hypothyroidism, history of lung cancer status post lobectomy, hepatic steatosis, depression, GERD who presents to ED secondary to worsening shortness of breath x10 days. Patient failed outpatient treatment for acute COPD exacerbation with hypoxia, documented O2 saturation 86%. Treated outpatient with oral doxycycline, Augmentin and prednisone without relief. Also on Trelegy and ipratropium. Chest x-ray concerning for right lower lobe pneumonitis versus atelectasis. SARS COV2 negative, she is fully vaccinated as of October. Admit to med telemetry Continue IV antibiotics with Azactam and oral doxycycline secondary to multiple drug allergies, stopped Aztreonam, will DC on doxy for 3 more days Solu-Medrol 40 mg IV every 8 - decreased to q12hrs, now switched to PO prednisone 40 mg daily- will DC on 40 and taper down to 20 in 3 days Aggressive pulmonary toilet with DuoNeb, flutter valve, incentive spirometry Guaifenesin Tessalon Perls prn Procalcitonin - negative sputum culture ordered Continue oxygen supplementation as needed Patient follows with [facility] pulmonology Consult Dr. Luna - CT chest ordered, no sign of infection/ pneumonia BiPAP at night and as needed Consideration for Roflumilast as an outpatient should be thought Recommend outpatient polysomnography for possible RIANA Repeat PFTs recommended (4) Diabetes mellitus, type II: Poorly controlled, insulin-dependent, last A1c 8.7 on 09/28/2020 Current A1c 8.5% Continue NPH and insulin sliding scale Will consult glycemic pharmacy secondary to uncontrolled diabetes and steroid use -appreciate their assistance stopped IV insulin as IV solumedrol stopped, BS improved (5) Hypertension: Blood pressure elevated in ED, now well controlled Continue lisinopril and HCTZ Monitor BMP (6) Nocturnal hypoxia: On 2 L of O2 at bedtime chronically Recommend sleep study as outpt (7) DVT prophylaxis: SQ Lovenox BID Dispo: Plan to DC home and follow up w/ PCP and pulmonology PCP: Dr. Laz Morse FULL CODE Total Time Total Time Spent Total Time Spent (In Minutes): 35 Total Time Includes: Examination of the Patient, Discharge Planning, Medication Reconciliation and Communication With Other Providers Discharge Plan Discharge Items Patient Disposition: Home - Self-Care Reason For Visit: COPD EXAC, HYPOXIA Discharge Diagnosis: Acute hypoxic respiratory failure secondary to COPD exacerbation Nocturnal hypoxia Activity: Per Instructions section Non-emergency contact: Primary Care Provider Call non-emergency contact if: you have any medication questions and your symptoms worsen Follow-up/Referrals: Colton Morse DO [Primary Care Provider] - (Date & Time 01/04/2021 11:00 AM Provider Colton Morse DO Department [facility] ) Diet: Carb Consistent or DM2 Addtl Attending Provider Instructions: Follow-up with your primary care provider, the appointment was scheduled for you for January 04. Take prednisone 40 mg for next 3 days, then take 20 mg for 3 days. Take doxycycline for next 3 days. Obtain sleep study/polysomnography for sleep apnea, it is also recommended that pulmonary function tests are done/repeated as outpatient. Pending Studies at Discharge: No Stand-Alone Forms: [facility], Smoking Cessation Medications and DC Order Prescriptions: New doxycycline hyclate 100 mg Capsule 100 mg PO BID 3 Days Qty: 6 RF: 0 guaifenesin [Mucinex] 600 mg Tablet Extended Release 12hr 1,200 mg PO Q12 Qty: 10 RF: 0 prednisone 20 mg tablet 20 mg PO UD Qty: 9 RF: 0 Continued Flublok Quad (PF) 180 mcg (45 mcg x 4)/0.5 mL syringe 0.5 ml IM ONCE Qty: 0.5 RF: 0 hydrochlorothiazide 25 mg tablet 25 mg PO DAILY Qty: 60 RF: 5 Novolin 70-30 FlexPen U-100 100 unit/mL (70-30) insulin pen See Rx Instructions .ROUTE .COMPLEX RF: 0 naltrexone 50 mg tablet 50 mg PO DAILY RF: 0 bupropion HCl 150 mg tablet extended release 24 hr 150 mg PO BID RF: 0 pantoprazole 40 mg tablet,delayed release (DR/EC) 40 mg PO DAILY Qty: 30 RF: 2 albuterol sulfate [Ventolin HFA] 90 mcg/actuation Hfa Aerosol Inhaler 2 puff INHALATION Q4 PRN (Reason: Shortness Of Breath) RF: 0 ipratropium bromide 0.02 % Solution 2.5 mg INHALATION Q6H PRN (Reason: Shortness Of Breath) RF: 0 levothyroxine 50 mcg capsule 88 mcg PO DAILY RF: 0 mometasone [Nasonex] 50 mcg/actuation [place],Non-Aerosol 2 spray INTRANASAL DAILY PRN (Reason: Nasal Congestion) RF: 0 lisinopril 20 mg tablet 20 mg PO DAILY RF: 0 Trelegy Ellipta 100-62.5-25 mcg Blister With Device 1 inh INHALATION DAILY RF: 0 Discharge Orders: Discharge Order (Routine); Ordered 01/01/21 Ordered By: Wang Polo/Other Patient Handouts: Managing Type 2 Diabetes, A1C Admission Data Admit Date/Time: 12/29/20 13:33 Attending Provider: Wang Barlow Admit Provider: Perez Benavides Primary Care Provider: Colton Morse Other Providers: Perez Benavides ; Luba Luna
[2021-01-01] MEDS: ENOXAPARIN INJ 40 MG/0.4 ML SYR SQ SCH (10:09)
[2021-01-01] MEDS: DOXYCYCLINE HYCLATE 100 MG CAP PO SCH (10:10)
[2021-01-01] MEDS: hydroCHLOROthiazide 25 MG TAB PO SCH (10:10)
[2021-01-01] MEDS: predniSONE 20 MG TAB PO SCH (10:10)
[2021-01-01] MEDS: lisinopril 20 MG TAB PO SCH (10:11)
[2021-01-01] MEDS: guaiFENesin 600 MG TABCR PO SCH (10:11)
[2021-01-01] MEDS: NALTREXONE HCL 50 MG TAB PO SCH (10:11)
[2021-01-01] MEDS: buPROPion XL 150 MG TABCR PO SCH (10:11)
[2021-01-01] MEDS: FLUTICASONE FUROATE 100MCG 14 PUFFS/INHALER INH SCH (10:12)
[2021-01-01] MEDS: PANTOprazole 40 MG TAB PO SCH (10:12)
[2021-01-01] MEDS: UMECLIDINIUM/VILANTEROL 62.5/25MCG 7 PUFFS/INHALER INH SCH (10:13)
[2021-01-01] MEDS: INSULIN ASPART 100 UNITS/ML 3 ML PEN SC SCH ×2 (10:21→12:45)
== END 2021-01-01 14:30 | disposition home or self-care (01) | DRG 190 ==
LOC: 2N 10:08 → ED 10:08 → SUATTDRO 13:17 → INTOOBSV 13:17 → 2N 14:42